=== PATIENT | male | born 1960 | race Caucasian/White ===

== ENCOUNTER 2023-03-04 11:10 | Observation (INO) ==
[2023-03-04] MEDS ORDERED: CEFEPIME 2,000 MG/20 ML VIAL IV STA (11:43)
[2023-03-04] MEDS ORDERED: ONDANSETRON INJ 2 MG/ML 2 ML VIAL IV STA (11:43)
[2023-03-04] MEDS ORDERED: ACETAMINOPHEN 1,000 MG/100 ML VIAL IV STA (11:43)
[2023-03-04] MEDS ORDERED: KETOROLAC TROMETHAMINE 15 MG/ML VIAL IV STA (11:43)
--- NOTE | 2023-03-04 11:59 | Emergency Department Note ---
Impression & Plan Sepsis, Pneumonia, Hypomagnesemia, Tachycardia, SOB (shortness of breath), Anemia ED Provider Note NAME: CLAU HOLLIS AGE: 62 SEX: M : 1960 ARRIVES VIA: Walk-In INFORMANT: [Patient][family] ED PROVIDER(S): [Kip Nicole MD] CHIEF COMPLAINT: Illness HISTORY OF PRESENT ILLNESS: The patient is a 62-year-old male whose had 4 days of symptoms. He has fatigue, he feels quite tired. He feels short of breath and weak. He has been dizzy. No fever. He has felt hot and cold though. At home, his O2 saturation was around 73, quite low. He typically does not use any oxygen although he carries a history of COPD. He has had 1 cardiac stent. Patient felt he may have gotten sick from his son. The patient states despite feeling the need that he should be coughing, he is not coughing. He feels like if he could cough, he might feel better. PMHx/PSHx: See Below SOCIAL HISTORY: See Below. PHYSICAL EXAM: GENERAL: Patient is in no acute distress. HEENT: No acute trauma, normocephalic atraumatic, mucous membranes moist, no nasal congestion. NECK: No stridor, no adenopathy, no meningismus, trachea is midline. LUNGS: Crackles heard at the right lower lung. No wheezing, no obvious respiratory distress HEART: Tachycardic, regular rhythm, no murmurs. ABDOMEN: Soft, nontender, bowel sounds positive, no peritonitis. EXTREMITIES: No cyanosis or edema, full range of motion of all the joints without pain or difficulty, no signs for acute trauma. NEUROLOGIC: Oriented x 3, no acute motor or sensory deficits, no focal weakness. SKIN: No rash, no jaundice, no diaphoresis. DIFFERENTIAL DIAGNOSIS: Pneumonia, bronchitis, CHF, dysrhythmia, A-fib or a flutter, illness, sepsis or bacteremia, exacerbation of COPD, among others. EMERGENCY DEPARTMENT COURSE/PROCEDURES: Prior/Outside records reviewed: None. ECG per my interpretation: Indication was weakness. The ECG shows a sinus tachycardia with a rate of 137. There is some nonspecific ST change diffusely. There is no ST elevation, no PVCs. QTc is 443. Continuous Cardiac Monitoring per my interpretation: An order was placed for continuous cardiac monitoring. The monitor shows a rate of 142 with sinus tachycardia. Critical Care Note: I have personally spent 43 minutes of critical care time in the direct management of this patient. This includes bedside care, interpretation of diagnostic studies, and testing, discussion with consultants, patient, and family members, and other required patient management activities. This 43 minutes is in excess of all separately billable procedures. MEDICAL DECISION MAKING: There is no leukocytosis. The patient is anemic, I have no old values to use for comparison. This value will of course need closely followed. There is a normal platelet count. No coagulopathy. Creatinine is elevated at 1.64. Magnesium is quite low at 0.7. Lactic acid level is not elevated making severe sepsis less likely. Alk phos was slightly elevated, the remaining liver enzymes were unremarkable. ECG shows a sinus tachycardia, no obvious acute ischemia. Cardiac enzyme testing x1 is not consistent with acute cardiac injury. Procalcitonin level was elevated consistent with bacterial infection. Urinalysis shows some contamination, no infection. Respiratory bio fire was completely negative. Chest film per my review does show a right lower lung pneumonia. Chest CT does not show PE, the pneumonia on the right was again seen. On my exam, the patient was tachycardic, he was not toxic. Patient received IV saline, 2.5 L, this would cover the patient with over 30 cc/kg of saline per sepsis protocol. Patient was given IV Zofran, IV magnesium--2 g. Patient was given IV Toradol, IV cefepime and IV Tylenol. The patient was given a DuoNeb. The patient tachycardia has improved with the above treatment. I do think he requires a hospital stay. He has early sepsis I believe from his pneumonia/infection. I did speak with case management, the on-call hospitalist was consulted. The patient is aware of all his findings. DISPOSITION: Patient's presentation and findings warrant a hospital stay. Past Med/Surg History Medical History Arthritis Bipolar disorder BPH (benign prostatic hyperplasia) CAD in [place] artery Diabetes mellitus Enlarged prostate GERD (gastroesophageal reflux disease) HTN (hypertension) with goal to be determined Hyperlipidemia Hypertension Social History Smoking Status: Former smoker Preferred Language: Czech Feels Safe at Home: Yes Allergies Allergies Allergy/AdvReac Type Severity Reaction Status Date / Time No Known Drug Allergies Allergy Verified 07/29/19 14:49 Home Meds Home Medications Medication Instructions Recorded Confirmed alfuzosin 10 mg tablet,extended 1 PO .Take 1 tablet daily #30 tabs 07/29/19 release 24 hr atorvastatin 40 mg tablet 40 mg PO QAM 03/04/23 03/04/23 buspirone 10 mg tablet 10 mg PO TID 03/04/23 03/04/23 clopidogrel 75 mg tablet 75 mg PO DAILY 03/04/23 03/04/23 finasteride 5 mg tablet 5 mg PO DAILY 03/04/23 03/04/23 fluoxetine 40 mg capsule 80 mg PO DAILY 03/04/23 03/04/23 fluticasone fur. 100 mcg-umeclid 1 ea inhalation DAILY 03/04/23 03/04/23 62.5 mcg-vilant 25 mcg inhalat.powder (Trelegy Ellipta) fluticasone propionate 50 50 mcg intranasal DAILY 03/04/23 03/04/23 mcg/actuation nasal spray,suspension lamotrigine 100 mg tablet 100 mg PO BID 03/04/23 03/04/23 lisinopril 40 mg tablet 40 mg PO DAILY 03/04/23 03/04/23 metformin 500 mg tablet 500 mg PO DAILY 03/04/23 03/04/23 pantoprazole 40 mg tablet,delayed 40 mg PO DAILY 03/04/23 03/04/23 release semaglutide 0.25 mg or 0.5 mg (2 mg subcut 03/04/23 mg/1.5 mL) subcutaneous pen injector (Ozempic) tamsulosin 0.4 mg capsule 0.8 mg PO HS 03/04/23 03/04/23 Results & Data (ED) Vital Signs Vital Signs - 24 hr 03/04/23 11:13 03/04/23 11:53 03/04/23 11:53 Temperature 36.5 C Temperature Source Temporal Artery Scan Pulse Rate 144 H 132 H Pulse Rate [Apical] 131 H Pulse Rhythm Regular Pulse Rhythm [Apical] Regular Pulse Strength [Apical] Normal Respiratory Rate 20 21 21 Respiratory Effort / Characteristics Non-Labored Spontaneous Non-Labored Respiratory Depth Normal Normal Respiratory Pattern Regular Blood Pressure 104/73 Blood Pressure [Left Arm] 114/74 Blood Pressure Mean 83 Blood Pressure Mean [Left Arm] 87 Blood Pressure Position [Left Arm] Sitting Pulse Oximetry 91 91 92 Oxygen Delivery Method Room Air Nasal Cannula Room Air Oxygen Flow Rate 2 Sepsis New/Unexplained Change in Mental Status N/A Sepsis Action Taken by Nursing No Action Required 03/04/23 11:59 03/04/23 11:11 03/04/23 11:11 Temperature Temperature Source Pulse Rate Pulse Rate [Apical] 126 H 113 H 109 H Pulse Rhythm Pulse Rhythm [Apical] Regular Regular Pulse Strength [Apical] Normal Normal Normal Respiratory Rate 20 20 20 Respiratory Effort / Characteristics Non-Labored Non-Labored Non-Labored Respiratory Depth Normal Normal Normal Respiratory Pattern Regular Regular Blood Pressure Blood Pressure [Left Arm] 115/69 94/60 L Blood Pressure Mean Blood Pressure Mean [Left Arm] 84 71 Blood Pressure Position [Left Arm] Sitting Sitting Sitting Pulse Oximetry 94 92 96 Oxygen Delivery Method Nasal Cannula Nasal Cannula Nasal Cannula Oxygen Flow Rate 2 2 2 Sepsis New/Unexplained Change in Mental Status Sepsis Action Taken by Nursing 03/04/23 13:19 03/04/23 13:18 Temperature Temperature Source Pulse Rate 109 H Pulse Rate [Apical] 104 H Pulse Rhythm Pulse Rhythm [Apical] Regular Pulse Strength [Apical] Normal Respiratory Rate 20 Respiratory Effort / Characteristics Non-Labored Respiratory Depth Normal Respiratory Pattern Regular Blood Pressure Blood Pressure [Left Arm] 107/55 L Blood Pressure Mean Blood Pressure Mean [Left Arm] 72 Blood Pressure Position [Left Arm] Sitting Pulse Oximetry Oxygen Delivery Method Room Air Oxygen Flow Rate Sepsis New/Unexplained Change in Mental Status Sepsis Action Taken by Detention Medications Current Medication List: was personally reviewed by me Laboratory Data Attestation: I reviewed the patient's lab results. 03/04/23 11:38 03/04/23 11:38 Lab Results 03/04/23 03/04/23 03/04/23 Range/Units 11:38 11:38 11:38 WBC 8.25 (4.8-10.8) K/ul RBC 3.37 L (4.70-6.10) M/uL Hgb 10.5 L (14.0-18.0) g/dl Hct 30.6 L (42.0-52.0) % MCV 90.8 (80.0-100.0) fL MCH 31.2 (25.0-34.0) pg MCHC 34.3 (32.0-36.0) g/dL RDW Std Deviation 45.1 (36.4-46.3) fL RDW Coeff of Christopeh 13.6 (11.5-14.5) % Plt Count 216 (130-400) K/uL MPV 11.2 (9.4-12.4) fL Immature Gran % (Auto) 0.5 % Neut % (Auto) 88.1 % Lymph % (Auto) 3.5 % [place] % (Auto) 7.3 % Eos % (Auto) 0.2 % Baso % (Auto) 0.4 % Neut # (Auto) 7.27 H (1.40-6.50) K/uL Lymph # (Auto) 0.29 L (1.2-3.4) K/uL [place] # (Auto) 0.60 H (0.11-0.59) K/uL Eos # (Auto) 0.02 (0-0.50) K/uL Baso # (Auto) 0.03 (0-0.2) K/uL Immature Gran # (Auto) 0.04 (0.01-0.20) K/uL PT 11.4 (9.0-12.0) Seconds INR 1.0 (0.9-1.1) APTT 26.5 (21.0-31.0) Seconds PTT Ratio 0.9 Sodium 135 L (136-145) mmol/L Potassium 3.6 (3.5-5.1) mmol/L Chloride 102 (98-107) mmol/L Carbon Dioxide 21 (21-32) mmol/L Anion Gap 12 H (3-11) BUN 32 H (6-23) mg/dl Creatinine 1.64 H (0.6-1.4) mg/dl Est Cr Clr Drug Dosing 44.2 ml/min Est GFR ( Amer) 51.5 ml/min Est GFR (Non-Af Amer) 44.5 ml/min BUN/Creatinine Ratio 19.5 (10-20) Glucose 150 H (70-99(Fasting)) mg/dl Lactate (0.4-2.0) mmol/L Calcium 9.2 (8.6-10.3) mg/dl Magnesium 0.7 L* (1.7-2.4) mg/dl Total Bilirubin 0.7 (0.2-1.0) mg/dl Direct Bilirubin 0.2 (0-0.2) mg/dl AST 19 (13-39) U/L ALT 24 (7-52) U/L Alkaline Phosphatase 135 H (34-104) U/L Troponin I High Sens 16.7 (0-20) pg/ml Total Protein 6.9 (6.0-8.3) gm/dl Albumin 3.9 (3.4-5.0) gm/dl Procalcitonin (0-0.5) ng/ml Urine Color Urine Appearance (Clear) Urine pH (4.5-7.5) Ur Specific [place] (1.000-1.030) Urine Protein (Negative) Urine Glucose (UA) (Negative) Urine Ketones (Negative) Urine Blood (Negative) Urine Nitrite (Negative) Urine Bilirubin (Negative) Urine Urobilinogen (Negative) Ur Leukocyte Esterase (Negative) Urine WBC (Auto) (0-5) /hpf Urine RBC (Auto) (0-4) /hpf U Hyaline Cast (Auto) (0-5) /lpf U Epithel Cells (Auto) (0-5) /lpf Urine Bacteria (Auto) (Negative) Granular Casts (0) /lpf Urine Yeast Adenovirus (PCR) (NotDetected) B. pertussis DNA (PCR) (NotDetected) B.parapertussis DNA PCR (NotDetected) C. pneumoniae DNA (PCR) (NotDetected) Coronavirus OC43 (PCR) (NotDetected) Coronavirus HKU1 (PCR) (NotDetected) Coronavirus 229E (PCR) (NotDetected) SARS-CoV-2 (PCR) (NotDetected) Coronavirus NL63 (PCR) (NotDetected) Human Metapneumovir PCR (NotDetected) Influenza Type A (PCR) (NotDetected) Influenza Type B (PCR) (NotDetected) M. pneumoniae (PCR) (NotDetected) Parainfluenza 1 (PCR) (NotDetected) Parainfluenza 2 (PCR) (NotDetected) Parainfluenza 3 (PCR) (NotDetected) Parainfluenza 4 (PCR) (NotDetected) RSV (PCR) (NotDetected) Entero/Rhino (PCR) (NotDetected) 03/04/23 03/04/23 03/04/23 Range/Units 11:38 12:04 12:13 WBC (4.8-10.8) K/ul RBC (4.70-6.10) M/uL Hgb (14.0-18.0) g/dl Hct (42.0-52.0) % MCV (80.0-100.0) fL MCH (25.0-34.0) pg MCHC (32.0-36.0) g/dL RDW Std Deviation (36.4-46.3) fL RDW Coeff of Christophe (11.5-14.5) % Plt Count (130-400) K/uL MPV (9.4-12.4) fL Immature Gran % (Auto) % Neut % (Auto) % Lymph % (Auto) % [place] % (Auto) % Eos % (Auto) % Baso % (Auto) % Neut # (Auto) (1.40-6.50) K/uL Lymph # (Auto) (1.2-3.4) K/uL [place] # (Auto) (0.11-0.59) K/uL Eos # (Auto) (0-0.50) K/uL Baso # (Auto) (0-0.2) K/uL Immature Gran # (Auto) (0.01-0.20) K/uL PT (9.0-12.0) Seconds INR (0.9-1.1) APTT (21.0-31.0) Seconds PTT Ratio Sodium (136-145) mmol/L Potassium (3.5-5.1) mmol/L Chloride (98-107) mmol/L Carbon Dioxide (21-32) mmol/L Anion Gap (3-11) BUN (6-23) mg/dl Creatinine (0.6-1.4) mg/dl Est Cr Clr Drug Dosing ml/min Est GFR ( Amer) ml/min Est GFR (Non-Af Amer) ml/min BUN/Creatinine Ratio (10-20) Glucose (70-99(Fasting)) mg/dl Lactate 1.9 (0.4-2.0) mmol/L Calcium (8.6-10.3) mg/dl Magnesium (1.7-2.4) mg/dl Total Bilirubin (0.2-1.0) mg/dl Direct Bilirubin (0-0.2) mg/dl AST (13-39) U/L ALT (7-52) U/L Alkaline Phosphatase (34-104) U/L Troponin I High Sens (0-20) pg/ml Total Protein (6.0-8.3) gm/dl Albumin (3.4-5.0) gm/dl Procalcitonin 1.28 H (0-0.5) ng/ml Urine Color Urine Appearance (Clear) Urine pH (4.5-7.5) Ur Specific [place] (1.000-1.030) Urine Protein (Negative) Urine Glucose (UA) (Negative) Urine Ketones (Negative) Urine Blood (Negative) Urine Nitrite (Negative) Urine Bilirubin (Negative) Urine Urobilinogen (Negative) Ur Leukocyte Esterase (Negative) Urine WBC (Auto) (0-5) /hpf Urine RBC (Auto) (0-4) /hpf U Hyaline Cast (Auto) (0-5) /lpf U Epithel Cells (Auto) (0-5) /lpf Urine Bacteria (Auto) (Negative) Granular Casts (0) /lpf Urine Yeast Adenovirus (PCR) Not Detected (NotDetected) B. pertussis DNA (PCR) Not Detected (NotDetected) B.parapertussis DNA PCR Not Detected (NotDetected) C. pneumoniae DNA (PCR) Not Detected (NotDetected) Coronavirus OC43 (PCR) Not Detected (NotDetected) Coronavirus HKU1 (PCR) Not Detected (NotDetected) Coronavirus 229E (PCR) Not Detected (NotDetected) SARS-CoV-2 (PCR) Not Detected (NotDetected) Coronavirus NL63 (PCR) Not Detected (NotDetected) Human Metapneumovir PCR Not Detected (NotDetected) Influenza Type A (PCR) Not Detected (NotDetected) Influenza Type B (PCR) Not Detected (NotDetected) M. pneumoniae (PCR) Not Detected (NotDetected) Parainfluenza 1 (PCR) Not Detected (NotDetected) Parainfluenza 2 (PCR) Not Detected (NotDetected) Parainfluenza 3 (PCR) Not Detected (NotDetected) Parainfluenza 4 (PCR) Not Detected (NotDetected) RSV (PCR) Not Detected (NotDetected) Entero/Rhino (PCR) Not Detected (NotDetected) 03/04/23 Range/Units 13:20 WBC (4.8-10.8) K/ul RBC (4.70-6.10) M/uL Hgb (14.0-18.0) g/dl Hct (42.0-52.0) % MCV (80.0-100.0) fL MCH (25.0-34.0) pg MCHC (32.0-36.0) g/dL RDW Std Deviation (36.4-46.3) fL RDW Coeff of Christophe (11.5-14.5) % Plt Count (130-400) K/uL MPV (9.4-12.4) fL Immature Gran % (Auto) % Neut % (Auto) % Lymph % (Auto) % [place] % (Auto) % Eos % (Auto) % Baso % (Auto) % Neut # (Auto) (1.40-6.50) K/uL Lymph # (Auto) (1.2-3.4) K/uL [place] # (Auto) (0.11-0.59) K/uL Eos # (Auto) (0-0.50) K/uL Baso # (Auto) (0-0.2) K/uL Immature Gran # (Auto) (0.01-0.20) K/uL PT (9.0-12.0) Seconds INR (0.9-1.1) APTT (21.0-31.0) Seconds PTT Ratio Sodium (136-145) mmol/L Potassium (3.5-5.1) mmol/L Chloride (98-107) mmol/L Carbon Dioxide (21-32) mmol/L Anion Gap (3-11) BUN (6-23) mg/dl Creatinine (0.6-1.4) mg/dl Est Cr Clr Drug Dosing ml/min Est GFR ( Amer) ml/min Est GFR (Non-Af Amer) ml/min BUN/Creatinine Ratio (10-20) Glucose (70-99(Fasting)) mg/dl Lactate (0.4-2.0) mmol/L Calcium (8.6-10.3) mg/dl Magnesium (1.7-2.4) mg/dl Total Bilirubin (0.2-1.0) mg/dl Direct Bilirubin (0-0.2) mg/dl AST (13-39) U/L ALT (7-52) U/L Alkaline Phosphatase (34-104) U/L Troponin I High Sens (0-20) pg/ml Total Protein (6.0-8.3) gm/dl Albumin (3.4-5.0) gm/dl Procalcitonin (0-0.5) ng/ml Urine Color Dark Yellow Urine Appearance Cloudy A (Clear) Urine pH 5.0 (4.5-7.5) Ur Specific [place] 1.024 (1.000-1.030) Urine Protein 2+ H (Negative) Urine Glucose (UA) 2+ H (Negative) Urine Ketones Trace H (Negative) Urine Blood Negative (Negative) Urine Nitrite Negative (Negative) Urine Bilirubin 1+ H (Negative) Urine Urobilinogen Negative (Negative) Ur Leukocyte Esterase Trace H (Negative) Urine WBC (Auto) 1-5 (0-5) /hpf Urine RBC (Auto) 0-4 (0-4) /hpf U Hyaline Cast (Auto) 5-10 H (0-5) /lpf U Epithel Cells (Auto) >30 H (0-5) /lpf Urine Bacteria (Auto) Negative (Negative) Granular Casts 5-10 H (0) /lpf Urine Yeast Not Reportable Adenovirus (PCR) (NotDetected) B. pertussis DNA (PCR) (NotDetected) B.parapertussis DNA PCR (NotDetected) C. pneumoniae DNA (PCR) (NotDetected) Coronavirus OC43 (PCR) (NotDetected) Coronavirus HKU1 (PCR) (NotDetected) Coronavirus 229E (PCR) (NotDetected) SARS-CoV-2 (PCR) (NotDetected) Coronavirus NL63 (PCR) (NotDetected) Human Metapneumovir PCR (NotDetected) Influenza Type A (PCR) (NotDetected) Influenza Type B (PCR) (NotDetected) M. pneumoniae (PCR) (NotDetected) Parainfluenza 1 (PCR) (NotDetected) Parainfluenza 2 (PCR) (NotDetected) Parainfluenza 3 (PCR) (NotDetected) Parainfluenza 4 (PCR) (NotDetected) RSV (PCR) (NotDetected) Entero/Rhino (PCR) (NotDetected) Administered Medications Discontinued Medications Albuterol (Albut/Ipratrop 3mg/0.5mg Neb 3 Ml Vial) 3 ml NEB NOW STA; Protocol Stop: 03/04/23 13:36 Last Admin: 03/04/23 14:13 Dose: 3 ml Documented By: KALA Cefepime HCl (Maxipime) 2,000 mg in 20 mls @ 5 mls/min IV NOW STA; Protocol Stop: 03/04/23 11:46 Last Admin: 03/04/23 12:29 Dose: 5 mls/min Documented By: KALA Acetaminophen (Ofirmev) 1,000 mg in 100 mls @ 400 mls/hr IV NOW STA Stop: 03/04/23 11:57 Last Admin: 03/04/23 12:29 Dose: 400 mls/hr Documented By: KALA Sodium Chloride (Nss 1000ml) 1,000 mls @ 999 mls/hr IV .Q1H1M HECTOR Stop: 03/04/23 13:45 Last Infusion: 03/04/23 14:44 Dose: 0 mls/hr Documented By: Admin: 03/04/23 13:23 Dose: 999 mls/hr Documented By: Infusion: 03/04/23 13:01 Dose: 999 mls/hr Documented By: Admin: 03/04/23 12:00 Dose: 999 mls/hr Documented By: KALA Magnesium Sulfate/Dextrose (Magnesium Sulfate / D5w) 1 gm in 100 mls @ 100 mls/hr IV Q1H HECTOR Stop: 03/04/23 14:43 Last Admin: 03/04/23 14:14 Dose: 100 mls/hr Documented By: Infusion: 03/04/23 14:14 Dose: 100 mls/hr Documented By: Admin: 03/04/23 13:22 Dose: 100 mls/hr Documented By: KALA Sodium Chloride (Nss 1000ml) 500 mls @ 999 mls/hr IV .Q31M ONE Stop: 03/04/23 14:05 Last Admin: 03/04/23 14:14 Dose: 999 mls/hr Documented By: KALA Ioversol (Optiray 320 500ml) 116 ml IV ONCE ONE Stop: 03/04/23 13:12 Last Admin: 03/04/23 13:06 Dose: 116 ml Documented By: NATY Ketorolac Tromethamine (Ketorolac Tromethamine 15 Mg/Ml Vial) 15 mg IV NOW STA Stop: 03/04/23 11:44 Last Admin: 03/04/23 12:28 Dose: 15 mg Documented By: KLAA Ondansetron HCl (Ondansetron Inj 2 Mg/Ml 2 Ml Vial) 4 mg IV NOW STA Stop: 03/04/23 11:44 Last Admin: 03/04/23 12:28 Dose: 4 mg Documented By: KALA Imaging Data Radiologist's Impression: Chest CTA 03/04/23 11:43 CT angio chest PE protocol CLINICAL HISTORY: PE TECHNIQUE: Multidetector row helical CT of the chest was performed with angiographic protocol. Coronal and sagittal reformations were obtained. Coronal and sagittal MIPS were obtained from the axial data set and were submitted for review. Automated dose lowering techniques and/or adjustment according to patient size were utilized for this exam. CT DOSE: 493.52 mGy.cm Comparison: None available at the time of this dictation. FINDINGS: Lungs and pleura: Emphysema is seen. Multifocal airspace opacities in the right lung and to a lesser extent in the dependent aspect of the left lower lobe. Against this background no suspicious pulmonary nodules are seen. Heart and pericardium: Heart size is normal. No pericardial effusion. Vessels: Evaluation for pulmonary embolism is limited due to suboptimal contrast timing. No evidence of central, lobar, or segmental embolus. Mediastinum and julieth: Right hilar nodes measure up to 16 mm in short axis. Additional smaller right hilar and mediastinal lymph nodes are seen. Chest wall and lower neck: Unremarkable. Abdomen: Unremarkable. Bones: Degenerative changes in the thoracic spine. IMPRESSION: 1. Multifocal airspace opacities are seen compatible with pneumonia. Lymphadenopathy is likely reactive. 2. No pulmonary embolus is seen. 3. Emphysema. ACT 112: Negative or not required by law. Electronically signed by: Devonte Stephens M.D. 03/04/2023 1:23 PM Chest X-Ray 03/04/23 11:44 XR chest 1V portable CLINICAL HISTORY: Sepsis TECHNIQUE: Single frontal radiograph of the chest was obtained. Comparison: None available at the time of this dictation. FINDINGS: No lines and tubes are seen. The cardiomediastinal silhouette is normal. Airspace opacity is seen in the right lower lung. No evidence of pleural effusion or pneumothorax. IMPRESSION: Right lower lung airspace opacity likely represents aspiration and/or pneumonia. ACT 112: Negative or not required by law. Electronically signed by: Devonte Stephens M.D. 03/04/2023 12:40 PM Discharge Plan Visit Data Chief Complaint: Illness Stated Complaint: LOW O2 ED Provider: Kip Nicole Discharge Problem: Sepsis, Pneumonia, Hypomagnesemia, Tachycardia, SOB (shortness of breath), A nemia Patient Disposition: Admitted As Inpatient Condition: Fair Forms Stand Alone Forms: My [facility] Prescriptions Prescriptions: No Action alfuzosin 10 mg tablet extended release 24 hr 1 PO .Take 1 tablet daily Qty: 30 fluoxetine 40 mg capsule 80 mg PO DAILY atorvastatin 40 mg tablet 40 mg PO QAM metformin 500 mg tablet 500 mg PO DAILY clopidogrel 75 mg tablet 75 mg PO DAILY tamsulosin 0.4 mg capsule 0.8 mg PO HS pantoprazole 40 mg tablet,delayed release (DR/EC) 40 mg PO DAILY buspirone 10 mg tablet 10 mg PO TID lisinopril 40 mg tablet 40 mg PO DAILY fluticasone propionate 50 mcg/actuation spray,suspension 50 mcg INTRANASAL DAILY lamotrigine 100 mg tablet 100 mg PO BID finasteride 5 mg tablet 5 mg PO DAILY Trelegy Ellipta 100-62.5-25 mcg blister with device 1 ea INHALATION DAILY Ozempic 0.25 mg or 0.5 mg(2 mg/1.5 mL) pen injector SUBCUT Referrals Referrals: Kwadwo Rivera D.O. [Primary Care Provider] -
[2023-03-04] MEDS: SODIUM CHLORIDE 0.9% 1000ML 1,000 ML IV SCH ×2 (12:00→13:23)
[2023-03-04 12:05] LABS: Hematocrit (blood only) 30.6 % (42.0-52.0); Hemoglobin 10.5 g/dl (14.0-18.0); Mean Corpuscular Hemoglobin 31.2 pg (25.0-34.0); Mean Corpuscular Hgb Conc 34.3 g/dL (32.0-36.0); Mean Corpuscular Volume 90.8 fL (80.0-100.0); Mean Platelet Volume 11.2 fL (9.4-12.4); Platelet Count 216 K/uL (130-400); RDW Coefficient of Variation 13.6 % (11.5-14.5); RDW Standard Deviation 45.1 fL (36.4-46.3); Red Blood Count 3.37 M/uL (4.70-6.10); White Blood Count 8.25 K/ul (4.8-10.8)
[2023-03-04 12:17] LABS: BUN Creatinine Ratio 19.5 (10-20); Calcium 9.2 mg/dl (8.6-10.3); Creatinine Clr Calc Pharmacy 44.2 ml/min; Est GFR (African American) 51.5 ml/min; Est GFR (Non-African American) 44.5 ml/min; Potassium 3.6 mmol/L (3.5-5.1)
[2023-03-04 12:23] LABS: Troponin I High Sensitivity 16.7 pg/ml (0-20)
[2023-03-04 12:29] LABS: Basophils # (auto) 0.03 K/uL (0-0.2); Basophils % (auto) 0.4 %; Eosinophils # (auto) 0.02 K/uL (0-0.50); Eosinophils % (auto) 0.2 %; Immature Granulocytes # (auto) 0.04 K/uL (0.01-0.20); Immature Granulocytes % (auto) 0.5 %; Lymphocytes # (auto) 0.29 K/uL (1.2-3.4); Lymphocytes % (auto) 3.5 %; Monocytes % (auto) 7.3 %; Neutrophils # (auto) 7.27 K/uL (1.40-6.50); Neutrophils % (auto) 88.1 %; Partial Thromboplastin Ratio 0.9; Partial Thromboplastin Time 26.5 Seconds (21.0-31.0); Prothrombin Time 11.4 Seconds (9.0-12.0)
--- NOTE | 2023-03-04 12:41 | XRay Report ---
XR chest 1V portable CLINICAL HISTORY: Sepsis TECHNIQUE: Single frontal radiograph of the chest was obtained. Comparison: None available at the time of this dictation. FINDINGS: No lines and tubes are seen. The cardiomediastinal silhouette is normal. Airspace opacity is seen in the right lower lung. No evidence of pleural effusion or pneumothorax. IMPRESSION: Right lower lung airspace opacity likely represents aspiration and/or pneumonia. ACT 112: Negative or not required by law. Electronically signed by: Devonte Stephens M.D. 03/04/2023 12:40 PM
[2023-03-04 12:46] LABS: Albumin Level 3.9 gm/dl (3.4-5.0); Bilirubin Direct 0.2 mg/dl (0-0.2); Bilirubin,Total 0.7 mg/dl (0.2-1.0); Magnesium 0.7 mg/dl (1.7-2.4); Total Protein 6.9 gm/dl (6.0-8.3)
[2023-03-04] MEDS ORDERED: OPTIRAY 320 500ml IV ONE (13:11)
--- NOTE | 2023-03-04 13:20 | Electrocardiogram Report ---
Test Reason : Blood Pressure : / mmHG Vent. Rate : 137 BPM Atrial Rate : 137 BPM P-R Int : 144 ms QRS Dur : 092 ms QT Int : 294 ms P-R-T Axes : 056 037 037 degrees QTc Int : 443 ms Poor data quality, interpretation may be adversely affected Sinus tachycardia Otherwise Normal ECG No previous ECGs available Confirmed by Estuardo Arnold ([id number]) on 03/04/2023 1:20:27 PM Referred By: REFERRED SELF Confirmed By:Estuardo Arnold
[2023-03-04] MEDS: MAGNESIUM SULFATE / D5W 1 GM/100 ML BAG IV SCH ×6 (13:22→22:35)
--- NOTE | 2023-03-04 13:24 | CT Scan Report ---
CT angio chest PE protocol CLINICAL HISTORY: PE TECHNIQUE: Multidetector row helical CT of the chest was performed with angiographic protocol. Nava l and sagittal reformations were obtained. Coronal and sagittal MIPS were obtained from the axial alvina a set and were submitted for review. Automated dose lowering techniques and/or adjustment according to patient size were utilized for this exam. CT DOSE: 493.52 mGy.cm Comparison: None available at the time of this dictation. FINDINGS: Lungs and pleura: Emphysema is seen. Multifocal airspace opacities in the right lung and to a lesser extent in the dependent aspect of the left lower lobe. Against this background no suspicious pulmonar y nodules are seen. Heart and pericardium: Heart size is normal. No pericardial effusion. Vessels: Evaluation for pulmonary embolism is limited due to suboptimal contrast timing. No evidence of central, lobar, or segmental embolus. Mediastinum and julieth: Right hilar nodes measure up to 16 mm in short axis. Additional smaller right h ilar and mediastinal lymph nodes are seen. Chest wall and lower neck: Unremarkable. Abdomen: Unremarkable. Bones: Degenerative changes in the thoracic spine. IMPRESSION: 1. Multifocal airspace opacities are seen compatible with pneumonia. Lymphadenopathy is likely react nancy. 2. No pulmonary embolus is seen. 3. Emphysema. ACT 112: Negative or not required by law. Electronically signed by: Devonte Stephens M.D. 03/04/2023 1:23 PM
[2023-03-04] MEDS ORDERED: ALBUT/IPRATROP 3MG/0.5MG NEB 3 ML VIAL NEB STA (13:35)
[2023-03-04] MEDS ORDERED: SODIUM CHLORIDE 0.9% 1000ML 500 ML IV ONE (13:35)
[2023-03-04 13:40] LABS: Appearance Urine Cloudy (Clear); Bacteria Urine Automated Negative (Negative); Blood Urine Negative (Negative); Color Urine Dark Yellow; Epithelial Cell Urine Auto >30 /lpf (0-5); Glucose Urine UA 2+ (Negative); Ketones Urine Trace (Negative); Leukocyte Esterase Urine Trace (Negative); Nitrite Urine Negative (Negative); Protein Urine 2+ (Negative); RBC Urine Automated 0-4 /hpf (0-4); Specific Gravity Urine 1.024 (1.000-1.030); Urobilinogen Urine Negative (Negative)
[2023-03-04 13:42] LABS: Bilirubin Urine 1+ (Negative)
--- NOTE | 2023-03-04 13:52 | History & Physical Report ---
Date of Service March 04, 2023 Assessment & Plan (1) Sepsis: Plan: suspected due to pneumonia. O2 sats to 70s w/ home pulse ox in patient w/ hx COPD, recent ill contact w/ his son in school. Associated poor PO intake x 2-3 days, lightheaded/dizziness/palpitations (granular casts on UA, suspect hypotension at home as well, was borderline on arrival w/ HRs to 130-140s, sinus tachy) CT chest w/ Multifocal airspace opacities are seen compatible with pneumonia. Lymphadenopathy is likely reactive. No PE noted Procal elevated 1.28. Mag critically low 0.7. Surprisingly lactic wnl 1.9 Blood cultures pending -- monitor Given cefepime in ER Admit PCU given critically low mag. Is NSR/ST on monitor but given palpitations will monitor for arrhythmia. Additional IV mag replacement ordered and repeat labs for this evening Continue abx w/ Unasyn for broad spectrum/anaerobic coverage given concerns for aspiration, azithromycin for atypical coverage. Incentive spirometer, flutter valve, Mucinex BID Sputum if able to produce Monitor blood cultures Consider adding hypertonic saline nebs if needed Duonebs Supplemental O2 to maintain sats Will order additinal 1L IVF given poor PO intake and CARMENCITA. Will avoid further Toradol Also checking KUB given complaints constipation/no BM x 2 days. Of note, he had been taking laxatives nightly and needing outpt f/u GI. Denied any bloody stools. Monitor labs on repeat (2) Pneumonia: Plan: on imaging abx as outlined monitor response (3) Hypomagnesemia: Plan: critically low 0.7 -- 2gm IV ordered by ER, additional IV replacement ordered. ?ppi use, poor PO intake, metformin repeat labs tonight/further replacement monitoring on telemetry (4) CARMENCITA (acute kidney injury): Plan: suspected however unclear baseline. was taking NSAIDs at home, will avoid further (given toradol in ER) IVF for dehydration Holding lisinopril avoid nephrotoxins, renal dose meds as able Of note, lightheaded/dizzy [employer] at home, BPs borderline low --> granular casts noted on UA and likely hypotension at home contributing to CARMENCITA Monitor BMP in AM (5) COPD (chronic obstructive pulmonary disease): Plan: hx of such, quit smoking ~1 year ago. NOT on oxygen at home on trelegy inhaler and albuterol HFA prn continue tx for pneumonia as above, supplemental O2 as needed (6) CAD in robinson artery: Plan: follows [facility], apparent stenting in past ~2 years and remains on plavix daily continue plavix, statin apparently not on any BB as outpatient Holding lisinopril given Cr 1.64 w/ BUN 32 as appeared dehydrated on exam, but unknown baseline. On NSAIDs for chronic pain, would avoid further dosing EKG w/ CP Monitor on telemetry (7) Hypertension: Plan: BP low normal, holding lisinopril given suspected CARMENCITA Monitor BPs (8) Hyperlipidemia: Plan: conitnue statin (9) Diabetes mellitus: Plan: on metformin and ozempic outpatient holding outpatient meds while inpatient BSG AC/HS, ISS while inpatient Monitor BSGs check A1c w/ am labs (10) GERD (gastroesophageal reflux disease): Plan: continue PPI (11) Benign localized hyperplasia of prostate with urinary obstruction and lower urinary tract symptoms: Plan: continue flomax/finasteride monitor UOP (12) Bipolar 1 disorder: Plan: reports mood stable and will continue lamotrigine BID, buspar TID, fluoxetine 80mg daily no recent dorina reported (13) Constipation: Plan: reported no BM x 2 days check KUB, if no obstruction (+BS on exam), schedule bowel regimen (14) Hypoxia: Plan DVT proph: Heparin SQ given suspect CARMENCITA History of Present Illness Chief Complaint: SOB, fatigue, weakness Primary Care Provider: Kwadwo Rivera 62yo male w/ PMHx significant for CAD w/ stenting, COPD presented to the ER with 4 days of fatigue, shortness of breath without fever, however son recently sick (age 4, in school). He did note some chills however and felt he may be getting a fever/sick though. He checked his oxygen levels at home and they had been in the 70s. He reports he has been feeling fatigued and tired over the past 4-5 days with shortness of breath, weakness, and SpO2 at home to 73%. He notes he did feel lightheaded/palpitations at home. No known history of afib. He has hx COPD and on Trelegy and albuterol HFA as needed. He notes he stopped smoking about a year ago. Had not been eating/drinking well. Prior having some abdominal discomfort. He does note no BM x 2 days but hasn't been eating. Reports some RLQ pain but nontender on exam but is distended. Passing some gas but will monitor. He reports taking an ex-lax every evening and attempting to get into GI but wasn't cleared by cards as hadn't had recent follow. He follows with Dr Noe and states he is on plavix, hasn't missed any doses. Stent to LAD about 2-3 years ago he reports. Had been taking ibuprofen at home. No bleeding reported at present. +cough, but feels he is unable to bring up any sputum. Unsure of his baseline kidney function. Has hx DM and is on metformin and Ozempic weekly, last dose on Saturday. Mood disorder on fluoxetine, gabapentin, buspar and lamotrigine. No issues w/ his bipolar and states moods have been stable. He is on BP meds, but not sure if on any BB therapy. He notes something 10mg (suspected amlodipine) but that he stopped this a while ago as he had been getting a little dizzy bending over and thought it was from that. Nots he has issues with voiding/prostate and is on Flomax and finasteride daily. Of note, no prior CHF history or lasix use but does state issues laying flat due to breathing and typically sleeps with one pillow. No significant LE edema. Discussed admitting for treatment of pneumonia with antibiotics, monitoring of kidney function and electrolyte replacement. ER Course: VSS at present with BP 107/55, HR 104bpm, RR 20, SpO2 94% on RA initially but dropping down and currently w/ good saturation on 2L. Given duoneb, 2gm IV mag ordered. Given dose cefepime as well as toradol for pain, Cr 1.6 w/ unknown prior baseline. CXR/CT w/ evidence for pneumonia RLL. Mag 0.7. EKG sinus tachy. No hx Afib or PE/DVT. Full code. Allergies Allergy/AdvReac Type Severity Reaction Status Date / Time No Known Drug Allergies Allergy Verified 07/29/19 14:49 Home Medications Medication Instructions Recorded Confirmed Type atorvastatin 40 mg tablet 40 mg PO QAM 03/04/23 03/04/23 History buspirone 10 mg tablet 10 mg PO TID 03/04/23 03/04/23 History clopidogrel 75 mg tablet 75 mg PO DAILY 03/04/23 03/04/23 History finasteride 5 mg tablet 5 mg PO DAILY 03/04/23 03/04/23 History fluoxetine 40 mg capsule 80 mg PO DAILY 03/04/23 03/04/23 History fluticasone fur. 100 mcg-umeclid 1 ea inhalation DAILY 03/04/23 03/04/23 History 62.5 mcg-vilant 25 mcg inhalat.powder (Trelegy Ellipta) fluticasone propionate 50 50 mcg intranasal DAILY 03/04/23 03/04/23 History mcg/actuation nasal spray,suspension lamotrigine 100 mg tablet 100 mg PO BID 03/04/23 03/04/23 History lisinopril 40 mg tablet 40 mg PO DAILY 03/04/23 03/04/23 History metformin 500 mg tablet 500 mg PO DAILY 03/04/23 03/04/23 History pantoprazole 40 mg tablet,delayed 40 mg PO DAILY 03/04/23 03/04/23 History release semaglutide 0.25 mg or 0.5 mg (2 mg subcut 03/04/23 History mg/1.5 mL) subcutaneous pen injector (Ozempic) tamsulosin 0.4 mg capsule 0.8 mg PO HS 03/04/23 03/04/23 History Past Med/Surg History Medical History Arthritis Bipolar disorder BPH (benign prostatic hyperplasia) CAD in robinson artery Diabetes mellitus Enlarged prostate GERD (gastroesophageal reflux disease) HTN (hypertension) with goal to be determined Hyperlipidemia Hypertension Social History Smoking Status: Former smoker Hx Alcohol Use: No Hx Substance Use: No Preferred Language: Nepalese [employer]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 Operator Required: No Beliefs That Will Affect Care: None Current Living Situation: Significant Other Feels Safe at Home: Yes Physical Exam Physical Exam: General: WD older male laying in bed, NAD but can't get comfortable in bed, reporting cramping, fatigued/ill looking HEENT: head normocephalic, atraumatic, mm slightly dry, trachea midline, thick neck Resp: RML crackles/rales, bibasilar crackles, diffuse inspiratory and expiratory wheezing throughout, no tachypnea, able to talk in complete sentences, on 2L NC CV: sinus tachy (rates 90-low 100s), no significant m/r/g but HS quiet, no significant LE edema, no calf tenderness GI: +BS throughout, distension, nontender to palpation MSK/Neuro: no focal deficit or slurred speech, answering questions appropriately Psych: AOx3, cooperative with exam Skin: warm, perfused Results & Data Results & Data Vital Signs (Past 12 Hours) Vital Signs Temp Pulse Pulse Resp BP BP Pulse Ox 03/04/23 13:18 109 H 03/04/23 13:19 104 H 20 107/55 L 03/04/23 11:11 109 H 20 94/60 L 96 03/04/23 11:11 113 H 20 92 03/04/23 11:59 126 H 20 115/69 94 03/04/23 11:53 132 H 21 92 03/04/23 11:53 131 H 21 114/74 91 03/04/23 11:13 36.5 C 144 H 20 104/73 91 O2 Del Method O2 Flow Rate 03/04/23 13:18 03/04/23 13:19 Room Air 03/04/23 11:11 Nasal Cannula 2 03/04/23 11:11 Nasal Cannula 2 03/04/23 11:59 Nasal Cannula 2 03/04/23 11:53 Room Air 03/04/23 11:53 Nasal Cannula 2 03/04/23 11:13 Room Air Laboratory Results 03/04/23 03/04/23 03/04/23 Range/Units 13:20 12:13 12:04 WBC (4.8-10.8) K/ul RBC (4.70-6.10) M/uL Hgb (14.0-18.0) g/dl Hct (42.0-52.0) % MCV (80.0-100.0) fL MCH (25.0-34.0) pg MCHC (32.0-36.0) g/dL RDW Std Deviation (36.4-46.3) fL RDW Coeff of Christophe (11.5-14.5) % Plt Count (130-400) K/uL MPV (9.4-12.4) fL Immature Gran % (Auto) % Neut % (Auto) % Lymph % (Auto) % Yates % (Auto) % Eos % (Auto) % Baso % (Auto) % Neut # (Auto) (1.40-6.50) K/uL Lymph # (Auto) (1.2-3.4) K/uL Yates # (Auto) (0.11-0.59) K/uL Eos # (Auto) (0-0.50) K/uL Baso # (Auto) (0-0.2) K/uL Immature Gran # (Auto) (0.01-0.20) K/uL PT (9.0-12.0) Seconds INR (0.9-1.1) APTT (21.0-31.0) Seconds PTT Ratio Sodium (136-145) mmol/L Potassium (3.5-5.1) mmol/L Chloride (98-107) mmol/L Carbon Dioxide (21-32) mmol/L Anion Gap (3-11) BUN (6-23) mg/dl Creatinine (0.6-1.4) mg/dl Est Cr Clr Drug Dosing ml/min Est GFR ( Amer) ml/min Est GFR (Non-Af Amer) ml/min BUN/Creatinine Ratio (10-20) Glucose (70-99(Fasting)) mg/dl Lactate 1.9 (0.4-2.0) mmol/L Calcium (8.6-10.3) mg/dl Magnesium (1.7-2.4) mg/dl Total Bilirubin (0.2-1.0) mg/dl Direct Bilirubin (0-0.2) mg/dl AST (13-39) U/L ALT (7-52) U/L Alkaline Phosphatase (34-104) U/L Troponin I High Sens (0-20) pg/ml Total Protein (6.0-8.3) gm/dl Albumin (3.4-5.0) gm/dl Procalcitonin (0-0.5) ng/ml Urine Color Dark Yellow Urine Appearance Cloudy A (Clear) Urine pH 5.0 (4.5-7.5) Ur Specific [place] 1.024 (1.000-1.030) Urine Protein 2+ H (Negative) Urine Glucose (UA) 2+ H (Negative) Urine Ketones Trace H (Negative) Urine Blood Negative (Negative) Urine Nitrite Negative (Negative) Urine Bilirubin 1+ H (Negative) Urine Urobilinogen Negative (Negative) Ur Leukocyte Esterase Trace H (Negative) Urine WBC (Auto) 1-5 (0-5) /hpf Urine RBC (Auto) 0-4 (0-4) /hpf U Hyaline Cast (Auto) 5-10 H (0-5) /lpf U Epithel Cells (Auto) >30 H (0-5) /lpf Urine Bacteria (Auto) Negative (Negative) Granular Casts 5-10 H (0) /lpf Urine Yeast Not Reportable Adenovirus (PCR) Pending B. pertussis DNA (PCR) Pending B.parapertussis DNA PCR Pending C. pneumoniae DNA (PCR) Pending Coronavirus OC43 (PCR) Pending Coronavirus HKU1 (PCR) Pending Coronavirus 229E (PCR) Pending SARS-CoV-2 (PCR) Pending Coronavirus NL63 (PCR) Pending Human Metapneumovir PCR Pending Influenza Type B (PCR) Pending M. pneumoniae (PCR) Pending Parainfluenza 1 (PCR) Pending Parainfluenza 2 (PCR) Pending Parainfluenza 3 (PCR) Pending Parainfluenza 4 (PCR) Pending RSV (PCR) Pending Entero/Rhino (PCR) Pending 03/04/23 03/04/23 03/04/23 Range/Units 11:38 11:38 11:38 WBC (4.8-10.8) K/ul RBC (4.70-6.10) M/uL Hgb (14.0-18.0) g/dl Hct (42.0-52.0) % MCV (80.0-100.0) fL MCH (25.0-34.0) pg MCHC (32.0-36.0) g/dL RDW Std Deviation (36.4-46.3) fL RDW Coeff of Christophe (11.5-14.5) % Plt Count (130-400) K/uL MPV (9.4-12.4) fL Immature Gran % (Auto) % Neut % (Auto) % Lymph % (Auto) % Yates % (Auto) % Eos % (Auto) % Baso % (Auto) % Neut # (Auto) (1.40-6.50) K/uL Lymph # (Auto) (1.2-3.4) K/uL Yates # (Auto) (0.11-0.59) K/uL Eos # (Auto) (0-0.50) K/uL Baso # (Auto) (0-0.2) K/uL Immature Gran # (Auto) (0.01-0.20) K/uL PT 11.4 (9.0-12.0) Seconds INR 1.0 (0.9-1.1) APTT 26.5 (21.0-31.0) Seconds PTT Ratio 0.9 Sodium 135 L (136-145) mmol/L Potassium 3.6 (3.5-5.1) mmol/L Chloride 102 (98-107) mmol/L Carbon Dioxide 21 (21-32) mmol/L Anion Gap 12 H (3-11) BUN 32 H (6-23) mg/dl Creatinine 1.64 H (0.6-1.4) mg/dl Est Cr Clr Drug Dosing 44.2 ml/min Est GFR ( Amer) 51.5 ml/min Est GFR (Non-Af Amer) 44.5 ml/min BUN/Creatinine Ratio 19.5 (10-20) Glucose 150 H (70-99(Fasting)) mg/dl Lactate (0.4-2.0) mmol/L Calcium 9.2 (8.6-10.3) mg/dl Magnesium 0.7 L* (1.7-2.4) mg/dl Total Bilirubin 0.7 (0.2-1.0) mg/dl Direct Bilirubin 0.2 (0-0.2) mg/dl AST 19 (13-39) U/L ALT 24 (7-52) U/L Alkaline Phosphatase 135 H (34-104) U/L Troponin I High Sens 16.7 (0-20) pg/ml Total Protein 6.9 (6.0-8.3) gm/dl Albumin 3.9 (3.4-5.0) gm/dl Procalcitonin 1.28 H (0-0.5) ng/ml Urine Color Urine Appearance (Clear) Urine pH (4.5-7.5) Ur Specific [place] (1.000-1.030) Urine Protein (Negative) Urine Glucose (UA) (Negative) Urine Ketones (Negative) Urine Blood (Negative) Urine Nitrite (Negative) Urine Bilirubin (Negative) Urine Urobilinogen (Negative) Ur Leukocyte Esterase (Negative) Urine WBC (Auto) (0-5) /hpf Urine RBC (Auto) (0-4) /hpf U Hyaline Cast (Auto) (0-5) /lpf U Epithel Cells (Auto) (0-5) /lpf Urine Bacteria (Auto) (Negative) Granular Casts (0) /lpf Urine Yeast Adenovirus (PCR) B. pertussis DNA (PCR) B.parapertussis DNA PCR C. pneumoniae DNA (PCR) Coronavirus OC43 (PCR) Coronavirus HKU1 (PCR) Coronavirus 229E (PCR) SARS-CoV-2 (PCR) Coronavirus NL63 (PCR) Human Metapneumovir PCR Influenza Type B (PCR) M. pneumoniae (PCR) Parainfluenza 1 (PCR) Parainfluenza 2 (PCR) Parainfluenza 3 (PCR) Parainfluenza 4 (PCR) RSV (PCR) Entero/Rhino (PCR) 03/04/23 Range/Units 11:38 WBC 8.25 (4.8-10.8) K/ul RBC 3.37 L (4.70-6.10) M/uL Hgb 10.5 L (14.0-18.0) g/dl Hct 30.6 L (42.0-52.0) % MCV 90.8 (80.0-100.0) fL MCH 31.2 (25.0-34.0) pg MCHC 34.3 (32.0-36.0) g/dL RDW Std Deviation 45.1 (36.4-46.3) fL RDW Coeff of Christophe 13.6 (11.5-14.5) % Plt Count 216 (130-400) K/uL MPV 11.2 (9.4-12.4) fL Immature Gran % (Auto) 0.5 % Neut % (Auto) 88.1 % Lymph % (Auto) 3.5 % Yates % (Auto) 7.3 % Eos % (Auto) 0.2 % Baso % (Auto) 0.4 % Neut # (Auto) 7.27 H (1.40-6.50) K/uL Lymph # (Auto) 0.29 L (1.2-3.4) K/uL Yates # (Auto) 0.60 H (0.11-0.59) K/uL Eos # (Auto) 0.02 (0-0.50) K/uL Baso # (Auto) 0.03 (0-0.2) K/uL Immature Gran # (Auto) 0.04 (0.01-0.20) K/uL PT (9.0-12.0) Seconds INR (0.9-1.1) APTT (21.0-31.0) Seconds PTT Ratio Sodium (136-145) mmol/L Potassium (3.5-5.1) mmol/L Chloride (98-107) mmol/L Carbon Dioxide (21-32) mmol/L Anion Gap (3-11) BUN (6-23) mg/dl Creatinine (0.6-1.4) mg/dl Est Cr Clr Drug Dosing ml/min Est GFR ( Amer) ml/min Est GFR (Non-Af Amer) ml/min BUN/Creatinine Ratio (10-20) Glucose (70-99(Fasting)) mg/dl Lactate (0.4-2.0) mmol/L Calcium (8.6-10.3) mg/dl Magnesium (1.7-2.4) mg/dl Total Bilirubin (0.2-1.0) mg/dl Direct Bilirubin (0-0.2) mg/dl AST (13-39) U/L ALT (7-52) U/L Alkaline Phosphatase (34-104) U/L Troponin I High Sens (0-20) pg/ml Total Protein (6.0-8.3) gm/dl Albumin (3.4-5.0) gm/dl Procalcitonin (0-0.5) ng/ml Urine Color Urine Appearance (Clear) Urine pH (4.5-7.5) Ur Specific [place] (1.000-1.030) Urine Protein (Negative) Urine Glucose (UA) (Negative) Urine Ketones (Negative) Urine Blood (Negative) Urine Nitrite (Negative) Urine Bilirubin (Negative) Urine Urobilinogen (Negative) Ur Leukocyte Esterase (Negative) Urine WBC (Auto) (0-5) /hpf Urine RBC (Auto) (0-4) /hpf U Hyaline Cast (Auto) (0-5) /lpf U Epithel Cells (Auto) (0-5) /lpf Urine Bacteria (Auto) (Negative) Granular Casts (0) /lpf Urine Yeast Adenovirus (PCR) B. pertussis DNA (PCR) B.parapertussis DNA PCR C. pneumoniae DNA (PCR) Coronavirus OC43 (PCR) Coronavirus HKU1 (PCR) Coronavirus 229E (PCR) SARS-CoV-2 (PCR) Coronavirus NL63 (PCR) Human Metapneumovir PCR Influenza Type B (PCR) M. pneumoniae (PCR) Parainfluenza 1 (PCR) Parainfluenza 2 (PCR) Parainfluenza 3 (PCR) Parainfluenza 4 (PCR) RSV (PCR) Entero/Rhino (PCR) Diagnostic Findings Chest CTA 03/04/23 11:43 CT angio chest PE protocol CLINICAL HISTORY: PE TECHNIQUE: Multidetector row helical CT of the chest was performed with angiographic protocol. Coronal and sagittal reformations were obtained. Coronal and sagittal MIPS were obtained from the axial data set and were submitted for review. Automated dose lowering techniques and/or adjustment according to patient size were utilized for this exam. CT DOSE: 493.52 mGy.cm Comparison: None available at the time of this dictation. FINDINGS: Lungs and pleura: Emphysema is seen. Multifocal airspace opacities in the right lung and to a lesser extent in the dependent aspect of the left lower lobe. Against this background no suspicious pulmonary nodules are seen. Heart and pericardium: Heart size is normal. No pericardial effusion. Vessels: Evaluation for pulmonary embolism is limited due to suboptimal contrast timing. No evidence of central, lobar, or segmental embolus. Mediastinum and julieth: Right hilar nodes measure up to 16 mm in short axis. Additional smaller right hilar and mediastinal lymph nodes are seen. Chest wall and lower neck: Unremarkable. Abdomen: Unremarkable. Bones: Degenerative changes in the thoracic spine. IMPRESSION: 1. Multifocal airspace opacities are seen compatible with pneumonia. Lymphadenopathy is likely reactive. 2. No pulmonary embolus is seen. 3. Emphysema. ACT 112: Negative or not required by law. Electronically signed by: Devonte Stephens M.D. 03/04/2023 1:23 PM Chest X-Ray 03/04/23 11:44 XR chest 1V portable CLINICAL HISTORY: Sepsis TECHNIQUE: Single frontal radiograph of the chest was obtained. Comparison: None available at the time of this dictation. FINDINGS: No lines and tubes are seen. The cardiomediastinal silhouette is normal. Airspace opacity is seen in the right lower lung. No evidence of pleural effusion or pneumothorax. IMPRESSION: Right lower lung airspace opacity likely represents aspiration and/or pneumonia. ACT 112: Negative or not required by law. Electronically signed by: Devonte Stephens M.D. 03/04/2023 12:40 PM ECG Additional Comments: Sinus tachycardia with rates 137bpm Supervising Physician Co-Signing Physician Notes I personally saw and examined the patient. I verified all hicks points and agree with Gloria Bustamante PA-C with the following exceptions and/or additions: 62 year old male presents to the ER with 4 days of fatigue, shortness of breath, cough. O/E A&Ox3, HS RRR, no murmurs, Chest right sided coarse crackles, Abdo SNT, no CVA tenderness A/P Sepsis with community acquired pneumonia - lactate 1.9, follow up blood/urine cultures, Unasyn/azithromycin, hold losartan due to low BP COPD - dose not appear to have acute exacerbation of this given lack of improvement with duoneb or wheezing on exam, Continue Trelegy Ellipta of hospital formulary equivalent Hypoxia - aim O2 sats > 90%, no respiratory distress PG Care Time/CCT Total # of Minutes Spent Total Time Spent with Patient: Total time spent is greater than 50% in coordination of care (as documented) at patient's floor/unit and/or counseling patient: Coding Level of Care Code 95176 INT INP/OBS CARE 3/75MIN Diagnoses Sepsis A41.9 Pneumonia J18.9 Hypomagnesemia E83.42 CARMENCITA (acute kidney injury) N17.9 COPD (chronic obstructive pulmonary disease) J44.9 CAD in robinson artery I25.10 Hypertension I10 Hyperlipidemia E78.5 Diabetes mellitus E11.9 GERD (gastroesophageal reflux disease) K21.9 Benign localized hyperplasia of prostate with urinary obstruction and lower urinary tract symptoms N40.1; N13.9 Bipolar 1 disorder F31.9 Constipation K59.00 Hypoxia R09.02
[2023-03-04 14:49] LABS: Adenovirus PCR Not Detected (NotDetected); Bordetella parapertussis PCR Not Detected (NotDetected); Bordetella pertussis PCR Not Detected (NotDetected); Chlamydia pneumoniae PCR Not Detected (NotDetected); Coronavirus 229E PCR Not Detected (NotDetected); Coronavirus CoV-2 (COVID19)PCR Not Detected (NotDetected); Coronavirus HKU1 PCR Not Detected (NotDetected); Coronavirus NL63 PCR Not Detected (NotDetected); Coronavirus OC43PCR Not Detected (NotDetected); Human Metapneumovirus PCR Not Detected (NotDetected); Influenza A PCR Not Detected (NotDetected); Influenza B PCR Not Detected (NotDetected); Mycoplasma pneumoniae PCR Not Detected (NotDetected); Parainfluenza Virus 1 PCR Not Detected (NotDetected); Parainfluenza Virus 2 PCR Not Detected (NotDetected); Parainfluenza Virus 3 PCR Not Detected (NotDetected); Parainfluenza Virus 4 PCR Not Detected (NotDetected); Respiratory Syncytial VirusPCR Not Detected (NotDetected); Rhinovirus/Enterovirus PCR Not Detected (NotDetected)
[2023-03-04] MEDS ORDERED: CARBOHYDRATES FOR HYPOGLYCEMIA PO PRN (16:10)
[2023-03-04] MEDS ORDERED: GLUCOSE 10 TAB/TUBE PO PRN (16:10)
[2023-03-04] MEDS ORDERED: GLUCOSE 40% GEL 15 GM TUBE PO PRN (16:10)
[2023-03-04] MEDS ORDERED: GLUCAGON FOR INJ 1 MG VIAL SQ PRN (16:10)
[2023-03-04] MEDS ORDERED: PHARMACY GLYCEMIC MGMT CONSULT PRN (16:10)
[2023-03-04] MEDS ORDERED: SODIUM CHLORIDE 0.9% 1000ML 1,000 ML IV SCH (16:10)
[2023-03-04] MEDS ORDERED: ACETAMINOPHEN 325 MG TAB PO PRN (16:10)
[2023-03-04] MEDS ORDERED: DEXTROSE 50% 50 ML SYRINGE IV PRN (16:10)
[2023-03-04] MEDS ORDERED: AZITHROMYCIN 500 MG in DEXTROSE 5% 250 ML IV ONE (16:30)
[2023-03-04] MEDS: ALBUT/IPRATROP 3MG/0.5MG NEB 3 ML VIAL NEB SCH ×3 (16:59→23:16)
[2023-03-04 17:13] LABS: Ferritin 162.5 ng/ml (8-388)
--- NOTE | 2023-03-04 17:45 | XRay Report ---
KUB HISTORY: constipation COMPARISON: None. FINDINGS: The bowel gas pattern is unremarkable. There are no dilated loops of small bowel to suggest an obstruction. No renal calculi. No ureteral calculi. No pneumoperitoneum or pneumatosis. There is contrast within the bladder from the recent CT examination. Suture material seen within the left low er quadrant. [id number] fecal retention. IMPRESSION: 1. Nonobstructive bowel gas pattern. 2. Mild to moderate fecal retention. ACT 112: Negative or not required by law. Electronically signed by: Cory Ramirez M.D. 03/04/2023 5:43 PM
[2023-03-04] MEDS: AMPICILLIN/SULBACTAM SOD 3,000 MG in 0.9 % SODIUM CHLORIDE 100 ML IV SCH (17:50)
[2023-03-04] MEDS: INSULIN ASPART PER UNIT CHARGE SC SCH ×2 (17:56→20:27)
[2023-03-04] MEDS: busPIRone 5 MG TAB PO SCH (20:19)
[2023-03-04] MEDS: guaiFENesin 600 MG TABCR PO SCH (20:20)
[2023-03-04] MEDS: lamoTRIgine 100 MG TAB PO SCH (20:20)
[2023-03-04] MEDS: HEPARIN SOD 5,000 UNIT/0.5 ML VIAL SQ SCH (20:21)
[2023-03-04] MEDS: SODIUM CHLORIDE 0.65% NA SOLN 45 ML (OCEAN) SCH (20:39)
[2023-03-04] MEDS: FLUTICASONE PROPIONATE NA SPR 16 GM BTL SCH (20:39)
[2023-03-04] MEDS: OXYMETAZOLINE 0.05% 30 ML BTL NAE SCH (20:40)
[2023-03-04] MEDS ORDERED: TAMSULOSIN HCL 0.4 MG CAP PO SCH (21:00)
--- NOTE | 2023-03-04 21:15 | Communication Note ---
Date of Service: March 04, 2023 MRSA nasal screen noted to be positive. Patient has symptomatically improved since admission. No abscess on CT chest. Will continue on current Unasyn/Azith romycin for now but if not improving or procalcitonin getting worse consider vancomycin to cover for MRSA.
[2023-03-04 21:35] LABS: Ferritin 156.4 ng/ml (8-388)
[2023-03-04 21:50] LABS: BUN Creatinine Ratio 17.1 (10-20); Calcium 7.9 mg/dl (8.6-10.3); Creatinine Clr Calc Pharmacy 51.8 ml/min; Est GFR (African American) 62.4 ml/min; Est GFR (Non-African American) 53.8 ml/min; Magnesium 1.9 mg/dl (1.7-2.4); Potassium 3.3 mmol/L (3.5-5.1)
[2023-03-04] MEDS ORDERED: POTASSIUM CHLORIDE CRTAB 20 MEQ TABCR PO STA (23:29)
[2023-03-04] MEDS ORDERED: LACTATED RINGER'S 1,000 ML IV SCH (23:30)
[2023-03-05] MEDS: AMPICILLIN/SULBACTAM SOD 3,000 MG in 0.9 % SODIUM CHLORIDE 100 ML IV SCH ×3 (00:29→12:13)
[2023-03-05] MEDS ORDERED: MELATONIN 3 MG TAB PO PRN (02:22)
[2023-03-05] MEDS: ALBUT/IPRATROP 3MG/0.5MG NEB 3 ML VIAL NEB SCH ×3 (03:35→11:04)
[2023-03-05 06:55] LABS: Hematocrit (blood only) 24.5 % (42.0-52.0); Hemoglobin 8.2 g/dl (14.0-18.0); Mean Corpuscular Hemoglobin 30.7 pg (25.0-34.0); Mean Corpuscular Hgb Conc 33.5 g/dL (32.0-36.0); Mean Corpuscular Volume 91.8 fL (80.0-100.0); Mean Platelet Volume 10.7 fL (9.4-12.4); Platelet Count 193 K/uL (130-400); RDW Coefficient of Variation 14.1 % (11.5-14.5); RDW Standard Deviation 47.4 fL (36.4-46.3); Red Blood Count 2.67 M/uL (4.70-6.10); White Blood Count 7.03 K/ul (4.8-10.8)
[2023-03-05 07:20] LABS: Albumin Globulin Ratio 1.3 (0.9-2); Albumin Level 3.1 gm/dl (3.4-5.0); BUN Creatinine Ratio 19.1 (10-20); Bilirubin,Total 0.5 mg/dl (0.2-1.0); Calcium 8.5 mg/dl (8.6-10.3); Chol HDL Ratio 4.2 (0-5); Creatinine Clr Calc Pharmacy 65.9 ml/min; Est GFR (African American) 83.5 ml/min; Est GFR (Non-African American) 72.1 ml/min; Globulin 2.4 gm/dl (2.5-4.0); Magnesium 2.4 mg/dl (1.7-2.4); Total Protein 5.5 gm/dl (6.0-8.3)
[2023-03-05 08:10] LABS: Estimated Average Glucose 126 mg/dl
[2023-03-05] MEDS: INSULIN ASPART PER UNIT CHARGE SC SCH ×2 (08:29→12:38)
[2023-03-05] MEDS: guaiFENesin 600 MG TABCR PO SCH (08:35)
[2023-03-05] MEDS: busPIRone 5 MG TAB PO SCH (08:35)
[2023-03-05] MEDS: lamoTRIgine 100 MG TAB PO SCH (08:37)
[2023-03-05] MEDS: OXYMETAZOLINE 0.05% 30 ML BTL NAE SCH (08:38)
[2023-03-05] MEDS: SODIUM CHLORIDE 0.65% NA SOLN 45 ML (OCEAN) SCH (08:38)
[2023-03-05] MEDS: FLUTICASONE PROPIONATE NA SPR 16 GM BTL SCH (08:39)
[2023-03-05] MEDS: HEPARIN SOD 5,000 UNIT/0.5 ML VIAL SQ SCH (08:39)
[2023-03-05] MEDS ORDERED: HYDROCORTISONE 1% CRM 30 GM TUBE EXT PRN (08:56)
[2023-03-05] MEDS ORDERED: NON-FORMULARY MEDICATION (Fluticasone-Umeclidin-Vilanter [Trelegy Ellipta] 100-62.5-25 mcg INH SCH (09:00)
[2023-03-05] MEDS ORDERED: ATORVASTATIN 40 MG TAB PO SCH (09:00)
[2023-03-05] MEDS ORDERED: FINASTERIDE 5 MG TAB PO SCH (09:00)
[2023-03-05] MEDS ORDERED: FLUTICASONE FUROATE 100MCG 14 PUFFS/INHALER INH SCH (09:00)
[2023-03-05] MEDS ORDERED: CLOPIDOGREL BISULFATE 75 MG TAB PO SCH (09:00)
[2023-03-05] MEDS ORDERED: UMECLIDINIUM/VILANTEROL 62.5/25MCG 7 PUFFS/INHALER INH SCH (09:00)
[2023-03-05] MEDS ORDERED: FLUoxetine HCL 20 MG CAP PO SCH (09:00)
[2023-03-05] MEDS ORDERED: PANTOprazole 40 MG TAB PO SCH (09:00)
--- NOTE | 2023-03-05 11:21 | Discharge Summary ---
Date of Service March 05, 2023 Admission HPI Per Admitting Provider 62yo male w/ PMHx significant for CAD w/ stenting, COPD presented to the ER with 4 days of fatigue, shortness of breath without fever, however son recently sick (age 4, in school). He did note some chills however and felt he may be getting a fever/sick though. He checked his oxygen levels at home and they had been in the 70s. He reports he has been feeling fatigued and tired over the past 4-5 days with shortness of breath, weakness, and SpO2 at home to 73%. He notes he did feel lightheaded/palpitations at home. No known history of afib. He has hx COPD and on Trelegy and albuterol HFA as needed. He notes he stopped smoking about a year ago. Had not been eating/drinking well. Prior having some abdominal discomfort. He does note no BM x 2 days but hasn't been eating. Reports some RLQ pain but nontender on exam but is distended. Passing some gas but will monitor. He reports taking an ex-lax every evening and attempting to get into GI but wasn't cleared by cards as hadn't had recent follow. He follows with Dr Noe and states he is on plavix, hasn't missed any doses. Stent to LAD about 2-3 years ago he reports. Had been taking ibuprofen at home. No bleeding reported at present. +cough, but feels he is unable to bring up any sputum. Unsure of his baseline kidney function. Has hx DM and is on metformin and Ozempic weekly, last dose on Saturday. Mood disorder on fluoxetine, gabapentin, buspar and lamotrigine. No issues w/ his bipolar and states moods have been stable. He is on BP meds, but not sure if on any BB therapy. He notes something 10mg (suspected amlodipine) but that he stopped this a while ago as he had been getting a little dizzy bending over and thought it was from that. Nots he has issues with voiding/prostate and is on Flomax and finasteride daily. Of note, no prior CHF history or lasix use but does state issues laying flat due to breathing and typically sleeps with one pillow. No significant LE edema. Discussed admitting for treatment of pneumonia with antibiotics, monitoring of kidney function and electrolyte replacement. ER Course: VSS at present with BP 107/55, HR 104bpm, RR 20, SpO2 94% on RA initially but dropping down and currently w/ good saturation on 2L. Given duoneb, 2gm IV mag ordered. Given dose cefepime as well as toradol for pain, Cr 1.6 w/ unknown prior baseline. CXR/CT w/ evidence for pneumonia RLL. Mag 0.7. EKG sinus tachy. No hx Afib or PE/DVT. Full code. Admission Exam Per Admitting Provider General: WD older male laying in bed, NAD but can't get comfortable in bed, reporting cramping, fatigued/ill looking HEENT: head normocephalic, atraumatic, mm slightly dry, trachea midline, thick neck Resp: RML crackles/rales, bibasilar crackles, diffuse inspiratory and expiratory wheezing throughout, no tachypnea, able to talk in complete sentences, on 2L NC CV: sinus tachy (rates 90-low 100s), no significant m/r/g but HS quiet, no significant LE edema, no calf tenderness GI: +BS throughout, distension, nontender to palpation MSK/Neuro: no focal deficit or slurred speech, answering questions appropriately Psych: AOx3, cooperative with exam Skin: warm, perfused Principal Diagnosis Pneumonia Discharge Exam General: well-appearing, no acute distress HEENT: PERRL, EOMI, conjunctivae clear without injection, anicteric sclerae, moist mucous membranes, clear oropharynx without exudate or erythema Neck: supple, trachea midline, no thyromegaly, no JVD, no cervical lymp hadenopathy CV: RRR, normal S1 and S2, no murmurs Resp: Largely clear b/l, no increased work of breathing, no crackles or wheezes Abd: Soft, nontender, nondistended, no guarding or rebound, no hepatos plenomegaly MSK: Normal bulk of all four extremities Neuro: AOx3, no focal motor or sensory deficits Skin: no rashes or lesions, warm and dry Ext: no LE peripheral edema or erythema, capillary refill <2s in all four extremities, 2+ LE peripheral pulses b/l Discharge Data Allergies Allergy/AdvReac Type Severity Reaction Status Date / Time No Known Drug Allergies Allergy Verified 07/29/19 14:49 Consultations 03/04/23 13:43 ED Decision to Admit Stat Ordered Studies 03/04/23 11:43 CT angio chest PE protocol Stat Hospital Course (1) Pneumonia: (1) Sepsis: Plan: suspected due to pneumonia. O2 sats to 70s w/ home pulse ox in patient w/ hx COPD, recent ill contact w/ his son in school. Associated poor PO intake x 2-3 days, lightheaded/dizziness/palpitations (granular casts on UA, suspect hypotension at home as well, was borderline on arrival w/ HRs to 130-140s, sinus tachy) CT chest w/ Multifocal airspace opacities are seen compatible with pneumonia. Lymphadenopathy is likely reactive. No PE noted Procal elevated 1.28. Mag critically low 0.7. Surprisingly lactic wnl 1.9 Blood cultures pending at time of discharge Cefepime given in ER, transitioned to Unasyn + azithromycin Discharged with Augmentin + azithromycin to complete total 7 day course (2) Pneumonia: Plan: on imaging abx as outlined (3) Hypomagnesemia: Plan: critically low 0.7 -- 2gm IV ordered by ER, additional IV replacement ordered. ?ppi use, poor PO intake, metformin Improved to 2.4 with repletion (4) CARMENCITA (acute kidney injury): Plan: Cr 1.64 on admission, likely 2/2 volume depletion Cr improved to 1.1 by time of discharge with IVF (5) Anemia Plan: Hgb 8.2 noted in hospital, associated low iron studies Recheck Hgb 9.0 at time of discharge Pt due for colonoscopy as outpatient Total Time Total Time Spent Total Time Spent (In Minutes): Less than 30 Discharge Plan Discharge Items Patient Disposition: Home - Self-Care Reason For Visit: PNEUMONIA, SOB Discharge Diagnosis: Pneumonia Condition on Discharge: Fair Activity: Resume your previous activity Non-emergency contact: Primary Care Provider Call non-emergency contact if: your symptoms worsen Follow-up/Referrals: Kwadwo Rivera D.O. [Primary Care Provider] - 03/12/23 11:15 am Diet: Regular Addtl Attending Provider Instructions: You were admitted to the hospital for pneumonia. You were treated with antibiotics. You will complete a total of 7 days of antibiotics. This will treat the infection. Your symptoms such as cough may still persist for a bit afterward, so we encourage you to continue doing the incentive spirometer and maintain your hydration. A discharge summary will be sent to your primary care physician to ensure continuity of care. Please bring this discharge summary with you to your next office appointment so that your provider can review it at that time. Follow-up appointments: - Make a follow-up appointment with your PCP within the next week. It is very important that you follow up with them shortly after discharge from the hospital. - Keep all your follow-up appointments as already scheduled. If you cannot make an appointment, notify your provider. Medications: Your medication list has been reviewed and reconciled upon discharge to ensure accuracy and continuity of care. An updated list of all your medications is included with your hospital discharge paperwork. Please review this list closely, and make note of any changes. -We sent 2 new medications to the pharmacy. These are antibiotics for pneumonia -Augmentin 875 mg. Please take twice daily with food, about 12 hours apart for x6 days -Azithromycin 250 mg. Please take daily in the morning for x6 days Take your medications as instructed; do not skip a dose of your medicines. Make sure all of your doctors know every medicine you are taking (including [id number] medicines, vitamins, and supplements). Call your primary care provider before taking any new medicines (including njxe-wum-wktiycl medicines, vitamins, and supplements), because some of these may interact with your current medications, or may make your symptoms worse. Tell your primary care provider if you cannot afford your medications. CONTACT YOUR PRIMARY CARE PROVIDER if you experience any of the following: -Shortness of breath -Fever -Vomiting -Chest pain -Coughing - Difficulty following your treatment plan, or difficulty taking medications CALL 911 OR GO TO THE EMERGENCY DEPARTMENT if you experience any of the following: - Sudden, severe abdominal pain or nausea/vomiting - Severe chest pain, or chest pain that radiates (moves) to your jaw or arm - Sudden, severe shortness of breath or difficulty breathing Thank you for allowing us to participate in your care Pending Studies at Discharge: No Stand-Alone Forms: My MyClasses, Smoking Cessation Medications and DC Order Prescriptions: New amoxicillin-pot clavulanate 875-125 mg tablet 1 tab PO BID 6 Days Qty: 13 0RF Rx Instructions: Take 1 tab tonight. Take 1 tab twice daily with food for the next 6 days (starting tomorrow), about 12 hours apart. azithromycin 250 mg tablet 250 mg PO DAILY 6 Days Qty: 6 0RF Rx Instructions: Start taking tomorrow, daily for 6 days Continued fluoxetine 40 mg capsule 80 mg PO DAILY atorvastatin 40 mg tablet 40 mg PO QAM metformin 500 mg tablet 500 mg PO DAILY clopidogrel 75 mg tablet 75 mg PO DAILY tamsulosin 0.4 mg capsule 0.8 mg PO HS pantoprazole 40 mg tablet,delayed release (DR/EC) 40 mg PO DAILY buspirone 10 mg tablet 10 mg PO TID lisinopril 40 mg tablet 40 mg PO DAILY fluticasone propionate 50 mcg/actuation spray,suspension 50 mcg INTRANASAL DAILY lamotrigine 100 mg tablet 100 mg PO BID finasteride 5 mg tablet 5 mg PO DAILY Trelegy Ellipta 100-62.5-25 mcg blister with device 1 ea INHALATION DAILY Ozempic 0.25 mg or 0.5 mg(2 mg/1.5 mL) pen injector SUBCUT Discharge Orders: Discharge Order (Routine); Ordered 03/05/23 Ordered By: Fito Bruno/Other Patient Handouts: Managing Type 2 Diabetes Admission Data Admit Date/Time: 03/04/23 14:06 Attending Provider: Brandyn Dye Admit Provider: Jorge Hoffman Primary Care Provider: Kwadwo Rivera Other Providers: Jorge Hoffman Other Interventions: Discharge Summary Assessment (RN) Last Done: 03/05/23 12:16 Supervising Physician Co-Signing Physician Notes I personally examined the patient and verified all hicks points of history and exam, discussed case, and agree with decision making with Dr Mujica. Feeling better, breathing better. Walking around without any notable desaturations or dyspnea. Would like to go home. Discussed diagnosis, discussed the difference between a rather significant bacterial pneumonia and what sound to be previous viral respiratory infections. Discussed outpatient follow-up, antibiotic duration, etc. Answered all questions the best my ability and to his satisfaction. Vitals noted, in general he is awake and alert pleasant no distress. HEENT normocephalic atraumatic mucous membranes moist. Breathing unlabored no accessory muscle use good effort. CBC, basic metabolic panel, CT chest all noted. Acute hypoxic respiratory failure present on admission due to community-acquired pneumonia with rather extensive infiltratesfortunately improving quite nicely. Safe/stable for home on p.o. antibiotics. Expected duration about 7 days given how quickly he is getting better, but discussed importance of PCP follow-up before he is off of antibiotics so the duration can be extended if clinical need arises. Discussed the expected slow course of getting better from a true pneumonia, compared to the viral URIs that he was referencing before. Otherwise as above Resident Activity Tracking Resident Involvement: Resident Care Provided Care Provided: Adult Hospital Medicine
[2023-03-05] MEDS ORDERED: AZITHROMYCIN 250 MG in DEXTROSE 5% 250 ML IV SCH (16:00)
--- NOTE | 2023-03-05 19:26 | Billing Data ---
Date of Service March 05, 2023 Coding Level of Care Code 79266 IN/OBS DISCH 30 MIN/LESS
== END 2023-03-05 13:10 | disposition home or self-care (01) | DRG 871 ==
LOC: ED 11:10 → 2S 14:06 → SUATTDRO 14:06 → INTOOBSV 14:06 → 2S 16:11

== ENCOUNTER 2024-04-03 16:26 | Inpatient (IN) ==
--- NOTE | 2024-04-03 16:47 | Emergency Department Note ---
Impression & Plan CARMENCITA (acute kidney injury), Weakness, Anemia, Hyperkalemia ED Provider Note NAME: CLAU HOLLIS AGE: 63 SEX: M : 1960 ARRIVES VIA: Walk-In INFORMANT: Patient ED PROVIDER(S): Brandyn Martin DO CHIEF COMPLAINT: Abnormal labs HPI: Patient is a 63-year-old male who presents to the ER with a past medical history of COPD, hypertension, hyperlipidemia, bipolar, pneumonia who presents to the ER for cough, congestion with chest pain and shortness of breath which has been going on for the past 2 weeks. He was placed on steroids and antibiotics yesterday. He had blood work done as he feels lightheaded with changing positions and was found to have abnormal creatinine and was sent in today. Denies any belly pain, nausea, vomiting, or diarrhea. No dysuria, urgency, or frequency. No other exacerbating or remitting factors. ADDITIONAL HISTORY OBTAINED: Per HPI Chronic Medical/Social Conditions Affecting Care: Per HPI PAST MEDICAL HISTORY:See Below PAST SURGICAL HISTORY:See Below FAMILY HISTORY:See Below SOCIAL HISTORY:See Below HOME MEDICATIONS:See Below ALLERGIES:See Below VITALS:See Below PHYSICAL EXAMINATION: GENERAL: Sitting up in bed, alert, well appearing, well nourished, no distress, non-toxic EYE EXAM: normal conjunctiva. OROPHARYNX: mucous membranes are moist NECK: supple, no nuchal rigidity, no adenopathy, non-tender LUNGS: Clear to auscultation. Normal chest wall mechanics HEART: no murmurs, S1 normal and S2 normal ABDOMEN: abdomen soft, non-tender, normo-active bowel sounds, no masses, no rebound or guarding. UPPER EXTREMITIES: upper extremities are grossly normal. LOWER EXTREMITIES: No pitting edema. NEURO EXAM: Normal sensorium, cranial nerves II-XII grossly intact, normal speech, no gross weakness of arms, no gross weakness of legs. MEDICAL DECISION MAKING: Patient is a 63-year-old male who presents the ER with above-stated complaints. IV was established blood work was obtained. Labs show no significant leukocytosis. Mild anemia at 9.9. BMP with a hyperkalemia of 5.8 with creatinine of 2.8 up from baseline of 1.2. LFTs bilirubin was unremarkable. Troponin was negative. Lipase was unremarkable. COVID was negative. Renal ultrasound was unremarkable. Patient was given IV fluids discussed with the hospitalist admitted for further workup of his CARMENCITA. Consults/Care Managements Discussions: Per MDM Triage Nursing notes reviewed. Limited review of prior medical records performed Vital Signs: reviewed and remarkable for no significant abnormalities Differential diagnosis: Cardiac ischemia, aortic dissection, pulmonary embolism, pneumothorax, pneumonia, pericarditis, myocarditis, esophageal rupture, GERD, cholecystitis, pancreatitis, musculoskeletal, as well as other pathologies. ER treatment provided: See below Diagnostics interpreted by me include EKG and cardiac monitoring as listed below: -Cardiac Monitoring: An order was placed for continuous cardiac monitoring. The monitor shows a rate of 80 with sinus rhythm. -ECG: Sinus rhythm rate of 75 Normal axis No PVCs QTc 384 -Laboratory studies:Interpreted by me as stated above in MDM and shown below. Imaging studies: Xrays: As interpreted by me:none CTs show: none Renal ultrasound per my preliminary interpretation showed no obvious hydronephrosis Renal ultrasound per radiology was unremarkable Procedures:none Critical Care: None Past Med/Surg History Problem List (Updated 04/03/24 @ 20:10 by Brandyn Martin DO) Hyperkalemia (Acute) Anemia (Acute) Weakness (Acute) Hypoxia Sepsis (Acute) Hypomagnesemia (Acute) Tachycardia (Acute) SOB (shortness of breath) (Acute) Anemia (Acute) COPD (chronic obstructive pulmonary disease) Hypertension (Acute) Hyperlipidemia (Acute) Bipolar disorder (Acute) Enlarged prostate (Acute) Diabetes mellitus (Acute) Sepsis Constipation CARMENCITA (acute kidney injury) (Acute) Hypomagnesemia Pneumonia Bipolar 1 disorder GERD (gastroesophageal reflux disease) CAD in [place] Benign localized hyperplasia of prostate with urinary obstruction and lower urinary tract symptoms (Acute) CTS (carpal tunnel syndrome) (Acute) Depression (Acute) Lung disease (Acute) Nocturnal enuresis (Acute) Painful intercourse (Acute) Peyronie's disease (Acute) Psychosexual disorder (Acute) Medical History Arthritis Bipolar disorder BPH (benign prostatic hyperplasia) CAD in [place] Diabetes mellitus Enlarged prostate GERD (gastroesophageal reflux disease) HTN (hypertension) with goal to be determined Hyperlipidemia Hypertension Social History Smoking Status: Former smoker Hx Alcohol Use: No Hx Substance Use: No Preferred Language: Irish Communication Ability: Effective Elevator Supervisor Required: No Beliefs That Will Affect Care: None Current Living Situation: Significant Other Feels Safe at Home: Yes Assistive Devices: None Allergies Allergies Allergy/AdvReac Type Severity Reaction Status Date / Time No Known Drug Allergies Allergy Verified 07/29/19 14:49 Home Meds Home Medications Medication Instructions Recorded Confirmed atorvastatin 40 mg tablet 40 mg PO QAM 03/04/23 04/03/24 buspirone 10 mg tablet 10 mg PO BID 03/04/23 04/03/24 clopidogrel 75 mg tablet 75 mg PO DAILY 03/04/23 04/03/24 finasteride 5 mg tablet 5 mg PO DAILY 03/04/23 04/03/24 fluoxetine 40 mg capsule 80 mg PO DAILY 03/04/23 04/03/24 fluticasone fur. 100 mcg-umeclid 1 ea inhalation DAILY 03/04/23 04/03/24 62.5 mcg-vilant 25 mcg inhalat.powder (Trelegy Ellipta) fluticasone propionate 50 50 mcg intranasal DAILY 03/04/23 04/03/24 mcg/actuation nasal spray,suspension lamotrigine 100 mg tablet 100 mg PO BID 03/04/23 04/03/24 lisinopril 40 mg tablet 40 mg PO DAILY 03/04/23 04/03/24 metformin 500 mg tablet 500 mg PO BID 03/04/23 04/03/24 pantoprazole 40 mg tablet,delayed 40 mg PO DAILY 03/04/23 04/03/24 release semaglutide 0.25 mg or 0.5 mg (2 mg subcut 03/04/23 mg/1.5 mL) subcutaneous pen injector (Ozempic) tamsulosin 0.4 mg capsule 0.8 mg PO HS 03/04/23 04/03/24 alfuzosin 10 mg tablet,extended 10 mg PO DAILY 04/03/24 04/03/24 release 24 hr amoxicillin 875 mg-potassium 1 tab BID 04/03/24 04/03/24 clavulanate 125 mg tablet baclofen 20 mg tablet 20 mg BID 04/03/24 04/03/24 gabapentin 400 mg capsule 400 mg TID 04/03/24 04/03/24 meloxicam 15 mg tablet 15 mg DAILY 04/03/24 04/03/24 prednisone 20 mg tablet 40 mg DAILY 04/03/24 04/03/24 Results & Data (ED) Vital Signs Vital Signs - 24 hr 04/03/24 16:31 04/03/24 17:00 04/03/24 17:02 Temperature 36.4 C L Temperature Source Temporal Artery Scan Pulse Rate 83 79 78 Pulse Rate from SpO2 Sensor 77 Respiratory Rate 14 15 Respiratory Effort / Characteristics Non-Labored Spontaneous Respiratory Depth Normal Blood Pressure 133/74 126/80 Blood Pressure Mean 93 95 Pulse Oximetry 96 95 Oxygen Delivery Method Room Air Room Air Sepsis Recent Fever Within 48 Hours No Sepsis New/Unexplained Change in Mental Status No Sepsis Action Taken by Nursing No Action Required 04/03/24 18:00 04/03/24 19:30 Temperature Temperature Source Pulse Rate 67 69 Pulse Rate from SpO2 Sensor 67 69 Respiratory Rate 15 12 Respiratory Effort / Characteristics Respiratory Depth Blood Pressure 126/81 127/78 Blood Pressure Mean 96 94 Pulse Oximetry 95 96 Oxygen Delivery Method Room Air Room Air Sepsis Recent Fever Within 48 Hours Sepsis New/Unexplained Change in Mental Status Sepsis Action Taken by Nursing Laboratory Data 04/03/24 16:59 04/03/24 17:00 Lab Results 04/03/24 04/03/24 04/03/24 Range/Units 16:59 17:00 17:20 WBC 8.53 (4.8-10.8) K/ul RBC 3.20 L (4.70-6.10) M/uL Hgb 9.9 L (14.0-18.0) g/dl POC Hgb 9.5 L (14.0-18.0) g/dl Hct 29.8 L (42.0-52.0) % POC Hct 28 L (42-52) % MCV 93.1 (80.0-100.0) fL MCH 30.9 (25.0-34.0) pg MCHC 33.2 (32.0-36.0) g/dL RDW Std Deviation 44.6 (36.4-46.3) fL RDW Coeff of Christophe 13.2 (11.5-14.5) % Plt Count 285 (130-400) K/uL MPV 10.6 (9.4-12.4) fL Immature Gran % (Auto) 0.4 % Neut % (Auto) 67.5 % Lymph % (Auto) 23.4 % [place] % (Auto) 7.9 % Eos % (Auto) 0.6 % Baso % (Auto) 0.2 % Neut # (Auto) 5.76 (1.40-6.50) K/uL Lymph # (Auto) 2.00 (1.20-3.40) K/uL [place] # (Auto) 0.67 H (0.11-0.59) K/uL Eos # (Auto) 0.05 (0.00-0.50) K/uL Baso # (Auto) 0.02 (0.00-0.20) K/uL Immature Gran # (Auto) 0.03 (0.01-0.20) K/uL POC Sodium 136 (135-144) mmol/L Sodium 136 (136-145) mmol/L POC Potassium 5.8 H (3.3-5.0) mmol/L Potassium 5.8 H (3.5-5.1) mmol/L POC Chloride 107 (101-112) mmol/L Chloride 105 (98-107) mmol/L Carbon Dioxide 24 (21-32) mmol/L POC Total CO2 22 L (24-31) mmol/L Anion Gap 7 (3-11) POC Anion Gap 14.0 L (16-25) mmol/L POC BUN 37 H (7-18) mg/dl BUN 43 H (6-23) mg/dl Creatinine 2.82 H (0.6-1.4) mg/dl POC Creatinine 3.1 H (0.6-1.3) mg/dl Est Cr Clr Drug Dosing 27.6 ml/min Est GFR ( Amer) 26.6 ml/min Est GFR (Non-Af Amer) 22.9 ml/min BUN/Creatinine Ratio 15.2 (10-20) Glucose 101 H (70-99(Fasting)) mg/dl POC Glucose (other) 99 (70-99) mg/dl Calcium 9.6 (8.6-10.3) mg/dl POC Ioniz Calcium Rubi 1.20 (1.12-1.32) mmol/l Phosphorus 4.5 (2.5-4.9) mg/dl Magnesium 2.5 H (1.7-2.4) mg/dl Total Bilirubin 0.4 (0.2-1.0) mg/dl AST 13 (13-39) U/L ALT 12 (7-52) U/L Alkaline Phosphatase 79 (34-104) U/L Troponin I High Sens 4.2 (0-20) pg/ml Total Protein 7.2 (6.0-8.3) gm/dl Albumin 4.5 (3.4-5.0) gm/dl Globulin 2.7 (2.5-4.0) gm/dl Albumin/Globulin Ratio 1.7 (0.9-2) Lipase 22 (11-82) U/L Urine Color Urine Appearance (Clear) Urine pH (4.5-7.5) Ur Specific [place] (1.000-1.030) Urine Protein (Negative) Urine Glucose (UA) (Negative) Urine Ketones (Negative) Urine Blood (Negative) Urine Nitrite (Negative) Urine Bilirubin (Negative) Urine Urobilinogen (Negative) Ur Leukocyte Esterase (Negative) SARS-CoV-2, RNA, NAAT (NEGATIVE) 04/03/24 04/03/24 Range/Units 17:45 19:13 WBC (4.8-10.8) K/ul RBC (4.70-6.10) M/uL Hgb (14.0-18.0) g/dl POC Hgb (14.0-18.0) g/dl Hct (42.0-52.0) % POC Hct (42-52) % MCV (80.0-100.0) fL MCH (25.0-34.0) pg MCHC (32.0-36.0) g/dL RDW Std Deviation (36.4-46.3) fL RDW Coeff of Christophe (11.5-14.5) % Plt Count (130-400) K/uL MPV (9.4-12.4) fL Immature Gran % (Auto) % Neut % (Auto) % Lymph % (Auto) % [place] % (Auto) % Eos % (Auto) % Baso % (Auto) % Neut # (Auto) (1.40-6.50) K/uL Lymph # (Auto) (1.20-3.40) K/uL [place] # (Auto) (0.11-0.59) K/uL Eos # (Auto) (0.00-0.50) K/uL Baso # (Auto) (0.00-0.20) K/uL Immature Gran # (Auto) (0.01-0.20) K/uL POC Sodium (135-144) mmol/L Sodium (136-145) mmol/L POC Potassium (3.3-5.0) mmol/L Potassium (3.5-5.1) mmol/L POC Chloride (101-112) mmol/L Chloride (98-107) mmol/L Carbon Dioxide (21-32) mmol/L POC Total CO2 (24-31) mmol/L Anion Gap (3-11) POC Anion Gap (16-25) mmol/L POC BUN (7-18) mg/dl BUN (6-23) mg/dl Creatinine (0.6-1.4) mg/dl POC Creatinine (0.6-1.3) mg/dl Est Cr Clr Drug Dosing ml/min Est GFR ( Amer) ml/min Est GFR (Non-Af Amer) ml/min BUN/Creatinine Ratio (10-20) Glucose (70-99(Fasting)) mg/dl POC Glucose (other) (70-99) mg/dl Calcium (8.6-10.3) mg/dl POC Ioniz Calcium Rubi (1.12-1.32) mmol/l Phosphorus (2.5-4.9) mg/dl Magnesium (1.7-2.4) mg/dl Total Bilirubin (0.2-1.0) mg/dl AST (13-39) U/L ALT (7-52) U/L Alkaline Phosphatase (34-104) U/L Troponin I High Sens (0-20) pg/ml Total Protein (6.0-8.3) gm/dl Albumin (3.4-5.0) gm/dl Globulin (2.5-4.0) gm/dl Albumin/Globulin Ratio (0.9-2) Lipase (11-82) U/L Urine Color Yellow Urine Appearance Clear (Clear) Urine pH 5.5 (4.5-7.5) Ur Specific [place] 1.015 (1.000-1.030) Urine Protein Negative (Negative) Urine Glucose (UA) Negative (Negative) Urine Ketones Negative (Negative) Urine Blood Negative (Negative) Urine Nitrite Negative (Negative) Urine Bilirubin Negative (Negative) Urine Urobilinogen Negative (Negative) Ur Leukocyte Esterase Negative (Negative) SARS-CoV-2, RNA, NAAT NEGATIVE (NEGATIVE) Administered Medications Sodium Chloride (Nss) 1,000 mls @ 80 mls/hr IV .[id number] HECTOR Stop: 05/03/24 18:29 Last Admin: 04/03/24 19:23 Dose: 80 mls/hr Documented By: SENIA Discontinued Medications Sodium Chloride (Nss) 1,000 mls @ 999 mls/hr IV .[id number] ONE Stop: 04/03/24 17:43 Last Infusion: 04/03/24 18:23 Dose: Infused Documented By: Admin: 04/03/24 17:15 Dose: 999 mls/hr Documented By: SENIA Imaging Data Radiologist's Impression: Chest X-Ray 04/03/24 16:43 XR chest 1V portable CLINICAL HISTORY: Chest pain, nonspecific TECHNIQUE: Single frontal radiograph of the chest was obtained. Comparison: Comparison is made to chest radiograph 03/04/2023 FINDINGS: No lines and tubes are seen. The cardiomediastinal silhouette is normal. The lungs are clear. Airspace opacity in the right lower lung in the first image is not seen on the second image, likely atelectasis. Previously noted pneumobilia has resolved. No evidence of pleural effusion or pneumothorax. IMPRESSION: No acute chest disease. ACT 112: Negative or not required by law. Electronically signed by: Devonte Stephens M.D. 04/03/2024 5:34 PM Renal Ultrasound 04/03/24 17:02 US renal/blad retro comp CLINICAL HISTORY: carmencita TECHNIQUE: Multiple sonographic real-time images of the kidneys and bladder were obtained. COMPARISON: None available at the time of this dictation. FINDINGS: The right kidney measures 10.8 cm in length, and the left kidney measures 11.2 cm in length. The right kidney is normal in size, contour, cortical thickness, and echogenicity. No hydronephrosis is identified. No renal lesion is identified. The left kidney is normal in size, contour, cortical thickness and echogenicity. No hydronephrosis is identified. No renal lesion is identified. The bladder is partially distended. Bilateral jets are seen. IMPRESSION: Unremarkable renal ultrasound. ACT 112: Negative or not required by law. Electronically signed by: Devonte Stephens M.D. 04/03/2024 7:[address] 04/03/24 18:38 Exam(s): CT CHEST Without Contrast EXAM: CT Chest Without Intravenous Contrast CLINICAL HISTORY: Reason for exam: SOB, [place]. TECHNIQUE: Axial computed tomography images of the chest without intravenous contrast. CTDI is 24.62 mGy and DLP is 758.02 mGy-cm. Automated exposure control was utilized for the study. A dose lowering technique was utilized adhering to the principles of ALARA. COMPARISON: None FINDINGS: Lungs: Nonspecific nodules in the right upper lobe measuring up to 4 mm. Follow-up exam could be performed in 12 months. Dependent atelectasis bilaterally. Emphysematous changes. Pleural space: Unremarkable. No pneumothorax. No significant effusion. Heart: Coronary artery calcifications. No cardiomegaly. No significant pericardial effusion. Bones/joints: Degenerative changes of the spine. No acute fracture. No dislocation. Soft tissues: Unremarkable. Vasculature: See above. Lymph nodes: Unremarkable. No enlarged lymph nodes. IMPRESSION: Nonspecific nodules in the right upper lobe measuring up to 4 mm. Follow-up exam could be performed in 12 months. Emphysematous changes. Electronically signed by: Kendra Sy M.D. 04/03/24 19:46 PM Abdomen/Pelvis CT 04/03/24 18:42 Exam(s): CT ABDOMEN + PELVIS Without Contrast EXAM: CT Abdomen and Pelvis Without Intravenous Contrast CLINICAL HISTORY: Reason for exam: CARMENCITA, LUTS. TECHNIQUE: Axial computed tomography images of the abdomen and pelvis without intravenous contrast. CTDI is 22.71 mGy and DLP is 1073.9 mGy-cm. Automated exposure control was utilized for the study. A dose lowering technique was utilized adhering to the principles of ALARA. COMPARISON: None FINDINGS: Lung bases: Lower lung atelectasis. ABDOMEN: Liver: Hepatomegaly. Gallbladder and bile ducts: Unremarkable. No calcified stones. No ductal dilation. Pancreas: Unremarkable. No ductal dilation. Spleen: Unremarkable. No splenomegaly. Adrenals: Unremarkable. No mass. Kidneys and ureters: Nonspecific bilateral perinephric fat stranding. No hydronephrosis or stone. Stomach and bowel: Evaluation of the stomach is limited by underdistention. Mild diverticulosis without evidence of diverticulitis. No bowel obstruction or inflammation. PELVIS: Appendix: Normal appendix. Bladder: Underdistended bladder limits evaluation. No stones. Reproductive: Unremarkable as visualized. ABDOMEN and PELVIS: Intraperitoneal space: Unremarkable. No free air. No significant fluid collection. Bones/joints: Degenerative changes of the spine. No acute fracture. No dislocation. Soft tissues: Small fat-containing left inguinal hernia. Vasculature: Atherosclerotic changes of the vasculature. No aortic aneurysm. Lymph nodes: Unremarkable. No enlarged lymph nodes. IMPRESSION: No acute findings in the abdomen or pelvis. Electronically signed by: Kendra Sy M.D. 04/03/24 19:53 PM Discharge Plan Visit Data Chief Complaint: Abnormal Labs/Diagnostic Testing Stated Complaint: DR LOWERY, ABNORMAL LABS ED Provider: Brandyn Martin Discharge Problem: CARMENCITA (acute kidney injury), Weakness, Anemia, Hyperkalemia Forms Stand Alone Forms: My [facility] Prescriptions Prescriptions: No Action fluoxetine 40 mg capsule 80 mg PO DAILY atorvastatin 40 mg tablet 40 mg PO QAM metformin 500 mg tablet 500 mg PO BID clopidogrel 75 mg tablet 75 mg PO DAILY tamsulosin 0.4 mg capsule 0.8 mg PO HS pantoprazole 40 mg tablet,delayed release (DR/EC) 40 mg PO DAILY buspirone 10 mg tablet 10 mg PO BID lisinopril 40 mg tablet 40 mg PO DAILY fluticasone propionate 50 mcg/actuation spray,suspension 50 mcg INTRANASAL DAILY lamotrigine 100 mg tablet 100 mg PO BID finasteride 5 mg tablet 5 mg PO DAILY Trelegy Ellipta 100-62.5-25 mcg blister with device 1 ea INHALATION DAILY Ozempic 0.25 mg or 0.5 mg(2 mg/1.5 mL) pen injector SUBCUT meloxicam 15 mg tablet 15 mg DAILY prednisone 20 mg tablet 40 mg DAILY gabapentin 400 mg capsule 400 mg TID amoxicillin-pot clavulanate 875-125 mg tablet 1 tab BID alfuzosin 10 mg tablet extended release 24 hr 10 mg PO DAILY baclofen 20 mg tablet 20 mg BID Referrals Referrals: Kwadwo Rivera D.O. [Outside Practitioners] - Discharge Problem: Anemia Qualifiers: Anemia type: unspecified type Qualified Code(s): D64.9 - Anemia, unspecified
[2024-04-03] MEDS: SODIUM CHLORIDE 0.9% 1,000 ML IV ONE (17:15)
[2024-04-03 17:29] LABS: Basophils # (auto) 0.02 K/uL (0.00-0.20); Basophils % (auto) 0.2 %; Eosinophils # (auto) 0.05 K/uL (0.00-0.50); Eosinophils % (auto) 0.6 %; Hematocrit (blood only) 29.8 % (42.0-52.0); Hemoglobin 9.9 g/dl (14.0-18.0); Immature Granulocytes # (auto) 0.03 K/uL (0.01-0.20); Immature Granulocytes % (auto) 0.4 %; Lymphocytes % (auto) 23.4 %; Mean Corpuscular Hemoglobin 30.9 pg (25.0-34.0); Mean Corpuscular Hgb Conc 33.2 g/dL (32.0-36.0); Mean Corpuscular Volume 93.1 fL (80.0-100.0); Mean Platelet Volume 10.6 fL (9.4-12.4); Monocytes # (auto) 0.67 K/uL (0.11-0.59); Monocytes % (auto) 7.9 %; Neutrophils # (auto) 5.76 K/uL (1.40-6.50); Neutrophils % (auto) 67.5 %; Platelet Count 285 K/uL (130-400); RDW Coefficient of Variation 13.2 % (11.5-14.5); RDW Standard Deviation 44.6 fL (36.4-46.3); White Blood Count 8.53 K/ul (4.8-10.8)
--- NOTE | 2024-04-03 17:36 | XRay Report ---
XR chest 1V portable CLINICAL HISTORY: Chest pain, nonspecific TECHNIQUE: Single frontal radiograph of the chest was obtained. Comparison: Comparison is made to chest radiograph 03/04/2023 FINDINGS: No lines and tubes are seen. The cardiomediastinal silhouette is normal. The lungs are clear. Airspac e opacity in the right lower lung in the first image is not seen on the second image, likely atelecta sis. Previously noted pneumobilia has resolved. No evidence of pleural effusion or pneumothorax. IMPRESSION: No acute chest disease. ACT 112: Negative or not required by law. Electronically signed by: Devonte Stephens M.D. 04/03/2024 5:34 PM
[2024-04-03 17:38] LABS: iSTAT Creatinine 3.1 mg/dl (0.6-1.3); iSTAT Hemoglobin 9.5 g/dl (14.0-18.0); iSTAT Ionized Calcium 1.2 mmol/l (1.12-1.32); iSTAT Potassium 5.8 mmol/L (3.3-5.0)
[2024-04-03 17:41] LABS: Albumin Globulin Ratio 1.7 (0.9-2); Albumin Level 4.5 gm/dl (3.4-5.0); BUN Creatinine Ratio 15.2 (10-20); Bilirubin,Total 0.4 mg/dl (0.2-1.0); Calcium 9.6 mg/dl (8.6-10.3); Creatinine Clr Calc Pharmacy 27.6 ml/min; Est GFR (African American) 26.6 ml/min; Est GFR (Non-African American) 22.9 ml/min; Globulin 2.7 gm/dl (2.5-4.0); Potassium 5.8 mmol/L (3.5-5.1); Total Protein 7.2 gm/dl (6.0-8.3)
[2024-04-03 17:45] LABS: Troponin I High Sensitivity 4.2 pg/ml (0-20)
[2024-04-03 19:10] LABS: Magnesium 2.5 mg/dl (1.7-2.4); Phosphorus 4.5 mg/dl (2.5-4.9)
--- NOTE | 2024-04-03 19:20 | Ultrasound Report ---
US renal/blad retro comp CLINICAL HISTORY: janee TECHNIQUE: Multiple sonographic real-time images of the kidneys and bladder were obtained. COMPARISON: None available at the time of this dictation. FINDINGS: The right kidney measures 10.8 cm in length, and the left kidney measures 11.2 cm in length. The right kidney is normal in size, contour, cortical thickness, and echogenicity. No hydronephrosis is identified. No renal lesion is identified. The left kidney is normal in size, contour, cortical thickness and echogenicity. No hydronephrosis i s identified. No renal lesion is identified. The bladder is partially distended. Bilateral jets are seen. IMPRESSION: Unremarkable renal ultrasound. ACT 112: Negative or not required by law. Electronically signed by: Devonte Stephens M.D. 04/03/2024 7:19 PM
[2024-04-03] MEDS: SODIUM CHLORIDE 0.9% 1,000 ML IV SCH (19:23)
[2024-04-03 19:28] LABS: Appearance Urine Clear (Clear); Bilirubin Urine Negative (Negative); Blood Urine Negative (Negative); Color Urine Yellow; Glucose Urine UA Negative (Negative); Ketones Urine Negative (Negative); Leukocyte Esterase Urine Negative (Negative); Nitrite Urine Negative (Negative); Protein Urine Negative (Negative); Specific Gravity Urine 1.015 (1.000-1.030); Urobilinogen Urine Negative (Negative); pH Urine 5.5 (4.5-7.5)
--- NOTE | 2024-04-03 19:47 | CT Scan Report ---
Exam(s): CT CHEST Without Contrast EXAM: CT Chest Without Intravenous Contrast CLINICAL HISTORY: Reason for exam: SOB, [place]. TECHNIQUE: Axial computed tomography images of the chest without intravenous contrast. CTDI is 24.62 mGy and DLP is 758.02 mGy-cm. Automated exposure control was utilized for the study. A dose lowering technique was utilized adhering to the principles of ALARA. COMPARISON: None FINDINGS: Lungs: Nonspecific nodules in the right upper lobe measuring up to 4 mm. Follow-up exam could be performed in 12 months. Dependent atelectasis bilaterally. Emphysematous changes. Pleural space: Unremarkable. No pneumothorax. No significant effusion. Heart: Coronary artery calcifications. No cardiomegaly. No significant pericardial effusion. Bones/joints: Degenerative changes of the spine. No acute fracture. No dislocation. Soft tissues: Unremarkable. Vasculature: See above. Lymph nodes: Unremarkable. No enlarged lymph nodes. IMPRESSION: Nonspecific nodules in the right upper lobe measuring up to 4 mm. Follow-up exam could be performed in 12 months. Emphysematous changes. Electronically signed by: Kendra Sy M.D. 04/03/24 19:46 PM
--- NOTE | 2024-04-03 19:51 | History & Physical Report ---
Date of Service April 03, 2024 Assessment & Plan (1) CARMENCITA (acute kidney injury): (2) Hyperkalemia: (3) Anemia: (4) Weakness: (5) COPD (chronic obstructive pulmonary disease): (6) Bipolar disorder: (7) Diabetes mellitus: (8) Benign localized hyperplasia of prostate with urinary obstruction and lower urinary tract symptoms: Plan Pt is a 63yoM with PMHx significant for BPH, DMII, COPD, HTN, CAD, GERD, Bipolar Disorder who was sent in by his pcp for abnormal labwork, in particular an CARMENCITA with hyperkalemia. CARMENCITA Cr was elevated to >3 yesterday on outpt draw Cr of 2.82 on admission Baseline of 1.1 a year ago Gentle IV hydration Holding nephrotoxic meds (lisinopril, meloxicam, etc) Likely in setting of BPH/LUTS, consider penaloza placement (see below) Renal US with no acute findings Consider Nephrology consult if no improvement Continue to monitor Hyperkalemia K of 5.8 on admission Likely in setting of above BMP recheck at about 11pm Anticipate improve with improvement with renal function Holding lisinopril, low K diet Continue to monitor Consider Nephrology consult if no improvement Hypermagnesemia Mag slightly elevated at 2.5 Hold home magnesium supplements Continue to monitor BPH Pt states he follows with a Urologist in [place] Was most recently advised to STOP Alfuzosin AND finasteride, was advised to take TWO of his 0.4mg tamsulosin pills States he takes 0.8mg tamsulosin qhs and has been taking alfuzosin with it though advised not to Notes that he did not urinate all day on 04/01 which prompted him to visit his PCP Hesitant about a penaloza at this time CT abd/pelvis w/o contrast noting no hydronephrosis Consider Urology followup Dyspnea on Exertion COPD Notes that he has been having frequent episodes of [place] Not hypoxic, no increased oxygen requirement States cannot walk as far as he had previously, gets tired easily Chest XRAY with no acute findings Chest CT w/o contrast due to CARMENCITA notes emphysema, pulm nodules for which radiology recommends "Follow-up exam could be performed in 12 months." Echo ordered and pending, AM BNP States PCP put him on a prednisone 40mg daily course and abx treatment yesterday, currently on hold in setting of no acute findings and no increased oxygen requirement as noted above Continue to monitor Normocytic Anemia Hgb of 9.9 AM anemia workup Continue to monitor DMII AM [id number] Hold home metformin ISS while hospitalized Continue other home meds as ordered Diet: DMII/HH/low K DVT prophylaxis: Lovenox SQ Dispo: Med/surg with tele History of Present Illness Chief Complaint: Abnormal labs Primary Care Provider: Narcisa Abel MD Pt is a 63yoM with PMHx significant for BPH, DMII, COPD, HTN, CAD, GERD, Bipolar Disorder who was sent in by his pcp for abnormal labwork, in particular an CARMENCITA with hyperkalemia. He states that for the last 2 weeks he has been feeling shaky, having blurry vision, tired and not quite himself. He states that he has also been working very hard around the house and outside and not paying attention to his health or eating or drinking habits. He states he has a 5 year old at home that he also cares for. States that he has a history of trouble urinating, with starting. Notes Saturday or 2 days ago he did not urinate at all and so it prompted him to see his pcp. He notes that he follows with a Urologist in [place] who recently made some changes to his medications. He states he was told to STOP alfuzosin and finasteride and double his flomax dose. He states he brought in his medications to show the providers. He does note that he has been taking an occasional dose of the alfuzosin with the double flomax dose. He notes that he has also been having SOB with exertion during this time, though it feels like he just gets tired and cannot do as much as he typically does. Notes he was a smoker and quit about 2 years ago but will occasionally start gee k up. Declines a nicotine patch today. States he has a Hx of COPD and his pcp started him on 5 days of prednisone and an antibiotic when he was seen yesterday. He is unsure if it is helping. Allergies Allergy/AdvReac Type Severity Reaction Status Date / Time No Known Drug Allergies Allergy Verified 07/29/19 14:49 Home Medications Medication Instructions Recorded Confirmed Type atorvastatin 40 mg tablet 40 mg PO QAM 03/04/23 04/03/24 History buspirone 10 mg tablet 10 mg PO BID 03/04/23 04/03/24 History clopidogrel 75 mg tablet 75 mg PO DAILY 03/04/23 04/03/24 History finasteride 5 mg tablet 5 mg PO DAILY 03/04/23 04/03/24 History fluoxetine 40 mg capsule 80 mg PO DAILY 03/04/23 04/03/24 History fluticasone fur. 100 mcg-umeclid 1 ea inhalation DAILY 03/04/23 04/03/24 History 62.5 mcg-vilant 25 mcg inhalat.powder (Trelegy Ellipta) fluticasone propionate 50 50 mcg intranasal DAILY 03/04/23 04/03/24 History mcg/actuation nasal spray,suspension lamotrigine 100 mg tablet 100 mg PO BID 03/04/23 04/03/24 History lisinopril 40 mg tablet 40 mg PO DAILY 03/04/23 04/03/24 History metformin 500 mg tablet 500 mg PO BID 03/04/23 04/03/24 History pantoprazole 40 mg tablet,delayed 40 mg PO DAILY 03/04/23 04/03/24 History release semaglutide 0.25 mg or 0.5 mg (2 mg subcut 03/04/23 History mg/1.5 mL) subcutaneous pen injector (Ozempic) tamsulosin 0.4 mg capsule 0.8 mg PO HS 03/04/23 04/03/24 History alfuzosin 10 mg tablet,extended 10 mg PO DAILY 04/03/24 04/03/24 History release 24 hr amoxicillin 875 mg-potassium 1 tab BID 04/03/24 04/03/24 History clavulanate 125 mg tablet baclofen 20 mg tablet 20 mg BID 04/03/24 04/03/24 History gabapentin 400 mg capsule 400 mg TID 04/03/24 04/03/24 History meloxicam 15 mg tablet 15 mg DAILY 04/03/24 04/03/24 History prednisone 20 mg tablet 40 mg DAILY 04/03/24 04/03/24 History Past Med/Surg History Problem List (Updated 04/03/24 @ 20:10 by Brandyn Martin DO) Hyperkalemia (Acute) Anemia (Acute) Weakness (Acute) Hypoxia Sepsis (Acute) Hypomagnesemia (Acute) Tachycardia (Acute) SOB (shortness of breath) (Acute) Anemia (Acute) COPD (chronic obstructive pulmonary disease) Hypertension (Acute) Hyperlipidemia (Acute) Bipolar disorder (Acute) Enlarged prostate (Acute) Diabetes mellitus (Acute) Sepsis Constipation CARMENCITA (acute kidney injury) (Acute) Hypomagnesemia Pneumonia Bipolar 1 disorder GERD (gastroesophageal reflux disease) CAD in [place] artery Benign localized hyperplasia of prostate with urinary obstruction and lower urin orestes tract symptoms (Acute) CTS (carpal tunnel syndrome) (Acute) Depression (Acute) Lung disease (Acute) Nocturnal enuresis (Acute) Painful intercourse (Acute) Peyronie's disease (Acute) Psychosexual disorder (Acute) Medical History Arthritis Bipolar disorder BPH (benign prostatic hyperplasia) CAD in [place] artery Diabetes mellitus Enlarged prostate GERD (gastroesophageal reflux disease) HTN (hypertension) with goal to be determined Hyperlipidemia Hypertension Social History Smoking Status: Former smoker Hx Alcohol Use: No Hx Substance Use: No Preferred Language: French Communication Ability: Effective Hand Crown Pouncer Required: No Beliefs That Will Affect Care: None Current Living Situation: Significant Other Feels Safe at Home: Yes Assistive Devices: None Review of Systems Review of Systems: All systems reviewed & are unremarkable except as noted in Subjective Physical Exam Physical Exam: General: Alert, oriented. No acute distress Skin: No noted rashes or bruises Psych: Appropriate mood and affect Neuro: No gross deficits while sitting in bed HEENT: NC/AT Chest: Nontender to palpation. CV: RRR, +murmur Resp: Breath sounds coarse bilaterally, no increased effort of breathing. Abdomen: Soft, nontender, nondistended. No guarding. Extremities: No edema in lower extremities bilaterally. Results & Data Results & Data Vital Signs (Past 12 Hours) Vital Signs Temp Pulse Resp BP Pulse Ox O2 Del Method 04/03/24 17:02 78 04/03/24 17:00 79 15 126/80 95 Room Air 04/03/24 16:31 36.4 C L 83 14 133/74 96 Room Air Diagnostic Findings Chest X-Ray 04/03/24 16:43 XR chest 1V portable CLINICAL HISTORY: Chest pain, nonspecific TECHNIQUE: Single frontal radiograph of the chest was obtained. Comparison: Comparison is made to chest radiograph 03/04/2023 FINDINGS: No lines and tubes are seen. The cardiomediastinal silhouette is normal. The lungs are clear. Airspace opacity in the right lower lung in the first image is not seen on the second image, likely atelectasis. Previously noted pneumobilia has resolved. No evidence of pleural effusion or pneumothorax. IMPRESSION: No acute chest disease. ACT 112: Negative or not required by law. Electronically signed by: Devonte Stephens M.D. 04/03/2024 5:34 PM Renal Ultrasound 04/03/24 17:02 US renal/blad retro comp CLINICAL HISTORY: carmencita TECHNIQUE: Multiple sonographic real-time images of the kidneys and bladder were obtained. COMPARISON: None available at the time of this dictation. FINDINGS: The right kidney measures 10.8 cm in length, and the left kidney measures 11.2 cm in length. The right kidney is normal in size, contour, cortical thickness, and echo genicity. No hydronephrosis is identified. No renal lesion is identified. The left kidney is normal in size, contour, cortical thickness and echogenicity. No hydronephrosis is identified. No renal lesion is identified. The bladder is partially distended. Bilateral jets are seen. IMPRESSION: Unremarkable renal ultrasound. ACT 112: Negative or not required by law. Electronically signed by: Devonte Stephens M.D. 04/03/2024 7:[address] 04/03/24 18:38 Exam(s): CT CHEST Without Contrast EXAM: CT Chest Without Intravenous Contrast CLINICAL HISTORY: Reason for exam: SOB, [place]. TECHNIQUE: Axial computed tomography images of the chest without intravenous contrast. CTDI is 24.62 mGy and DLP is 758.02 mGy-cm. Automated exposure control was utilized for the study. A dose lowering technique was utilized adhering to the principles of ALARA. COMPARISON: None FINDINGS: Lungs: Nonspecific nodules in the right upper lobe measuring up to 4 mm. Follow-up exam could be performed in 12 months. Dependent atelectasis bilaterally. Emphysematous changes. Pleural space: Unremarkable. No pneumothorax. No significant effusion. Heart: Coronary artery calcifications. No cardiomegaly. No significant pericardial effusion. Bones/joints: Degenerative changes of the spine. No acute fracture. No dislocation. Soft tissues: Unremarkable. Vasculature: See above. Lymph nodes: Unremarkable. No enlarged lymph nodes. IMPRESSION: Nonspecific nodules in the right upper lobe measuring up to 4 mm. Follow-up exam could be performed in 12 months. Emphysematous changes. Electronically signed by: Kendra Sy M.D. 04/03/24 19:46 PM Abdomen/Pelvis CT 04/03/24 18:42 Exam(s): CT ABDOMEN + PELVIS Without Contrast EXAM: CT Abdomen and Pelvis Without Intravenous Contrast CLINICAL HISTORY: Reason for exam: CARMENCITA, LUTS. TECHNIQUE: Axial computed tomography images of the abdomen and pelvis without intravenous contrast. CTDI is 22.71 mGy and DLP is 1073.9 mGy-cm. Automated exposure control was utilized for the study. A dose lowering technique was utilized adhering to the principles of ALARA. COMPARISON: None FINDINGS: Lung bases: Lower lung atelectasis. ABDOMEN: Liver: Hepatomegaly. Gallbladder and bile ducts: Unremarkable. No calcified stones. No ductal dilation. Pancreas: Unremarkable. No ductal dilation. Spleen: Unremarkable. No splenomegaly. Adrenals: Unremarkable. No mass. Kidneys and ureters: Nonspecific bilateral perinephric fat stranding. No hydronephrosis or stone. Stomach and bowel: Evaluation of the stomach is limited by underdistention. Mild diverticulosis without evidence of diverticulitis. No bowel obstruction or inflammation. PELVIS: Appendix: Normal appendix. Bladder: Underdistended bladder limits evaluation. No stones. Reproductive: Unremarkable as visualized. ABDOMEN and PELVIS: Intraperitoneal space: Unremarkable. No free air. No significant fluid collection. Bones/joints: Degenerative changes of the spine. No acute fracture. No dislocation. Soft tissues: Small fat-containing left inguinal hernia. Vasculature: Atherosclerotic changes of the vasculature. No aortic aneurysm. Lymph nodes: Unremarkable. No enlarged lymph nodes. IMPRESSION: No acute findings in the abdomen or pelvis. Electronically signed by: Kendra Sy M.D. 04/03/24 19:53 PM (3) Anemia Anemia type: unspecified type Qualified Code(s): D64.9 - Anemia, unspecified
[2024-04-03] MEDS ORDERED: CARBOHYDRATES FOR HYPOGLYCEMIA PO PRN (20:39)
[2024-04-03] MEDS ORDERED: DEXTROSE 50% 50 ML SYRINGE IV PRN (20:39)
[2024-04-03] MEDS ORDERED: GLUCOSE 10 TAB/TUBE PO PRN (20:39)
[2024-04-03] MEDS ORDERED: GLUCAGON FOR INJ 1 MG VIAL SQ PRN (20:39)
[2024-04-03] MEDS ORDERED: GLUCOSE 40% GEL 15 GM TUBE PO PRN (20:39)
[2024-04-03] MEDS ORDERED: POLYETHYLENE (MIRALAX) 17 GM PACK PO PRN (20:59)
[2024-04-03] MEDS ORDERED: ONDANSETRON INJ 2 MG/ML 2 ML VIAL IV PRN (20:59)
[2024-04-03] MEDS ORDERED: ACETAMINOPHEN 500 MG TAB PO PRN (20:59)
[2024-04-03] MEDS: ENOXAPARIN INJ 30 MG/0.3 ML SYR SQ SCH (22:08)
[2024-04-03] MEDS: busPIRone 5 MG TAB PO SCH (22:09)
[2024-04-03] MEDS: TAMSULOSIN HCL 0.4 MG CAP PO SCH (22:09)
[2024-04-03] MEDS: lamoTRIgine 100 MG TAB PO SCH (22:09)
[2024-04-03] MEDS: GABAPENTIN 400 MG CAP PO SCH (22:09)
[2024-04-03] MEDS: INSULIN ASPART PER UNIT CHARGE SC SCH (23:30)
[2024-04-03 23:47] LABS: BUN Creatinine Ratio 15.6 (10-20); Calcium 8.8 mg/dl (8.6-10.3); Creatinine Clr Calc Pharmacy 31.9 ml/min; Est GFR (African American) 31.7 ml/min; Est GFR (Non-African American) 27.3 ml/min; Potassium 5.1 mmol/L (3.5-5.1)
[2024-04-04 07:31] LABS: Basophils # (auto) 0.01 K/uL (0.00-0.20); Basophils % (auto) 0.2 %; Hematocrit (blood only) 30.9 % (42.0-52.0); Hemoglobin 10.1 g/dl (14.0-18.0); Immature Granulocytes # (auto) 0.03 K/uL (0.01-0.20); Immature Granulocytes % (auto) 0.6 %; Lymphocytes # (auto) 0.59 K/uL (1.20-3.40); Lymphocytes % (auto) 11.6 %; Mean Corpuscular Hemoglobin 30.7 pg (25.0-34.0); Mean Corpuscular Hgb Conc 32.7 g/dL (32.0-36.0); Mean Corpuscular Volume 93.9 fL (80.0-100.0); Mean Platelet Volume 10.8 fL (9.4-12.4); Monocytes # (auto) 0.12 K/uL (0.11-0.59); Monocytes % (auto) 2.4 %; Neutrophils # (auto) 4.32 K/uL (1.40-6.50); Neutrophils % (auto) 85.2 %; Platelet Count 265 K/uL (130-400); RDW Coefficient of Variation 13.2 % (11.5-14.5); RDW Standard Deviation 45.3 fL (36.4-46.3); Red Blood Count 3.29 M/uL (4.70-6.10); White Blood Count 5.07 K/ul (4.8-10.8)
[2024-04-04] MEDS: CLOPIDOGREL BISULFATE 75 MG TAB PO SCH (08:05)
[2024-04-04] MEDS: FLUoxetine HCL 20 MG CAP PO SCH (08:05)
[2024-04-04] MEDS: ATORVASTATIN 40 MG TAB PO SCH (08:05)
[2024-04-04 08:06] LABS: Folate (Folic Acid),Ser orPlas > 22.30 ng/ml (>5.38)
[2024-04-04] MEDS: FLUTICASONE PROPIONATE NA SPR 16 GM BTL NAE SCH (08:06)
[2024-04-04] MEDS: UMECLIDINIUM/VILANTEROL 62.5/25MCG 7 PUFFS/INHALER INH SCH (08:06)
[2024-04-04] MEDS: FLUTICASONE FUROATE 100MCG 14 PUFFS/INHALER INH SCH (08:06)
[2024-04-04] MEDS: PANTOprazole 40 MG TAB PO SCH (08:06)
[2024-04-04 08:07] LABS: Vitamin B12 655 pg/ml (180-914)
[2024-04-04 08:14] LABS: Albumin Globulin Ratio 1.7 (0.9-2); Albumin Level 4.1 gm/dl (3.4-5.0); BUN Creatinine Ratio 18.8 (10-20); Bilirubin,Total 0.3 mg/dl (0.2-1.0); Creatinine Clr Calc Pharmacy 42.9 ml/min; Est GFR (African American) 45.4 ml/min; Est GFR (Non-African American) 39.2 ml/min; Ferritin 28.8 ng/ml (8-388); Globulin 2.4 gm/dl (2.5-4.0); Magnesium 2.3 mg/dl (1.7-2.4); Potassium 6.9 mmol/L (3.5-5.1); Total Protein 6.5 gm/dl (6.0-8.3)
[2024-04-04] MEDS ORDERED: STAT IV Infusion **Titration per Protocol STA (08:21)
[2024-04-04] MEDS ORDERED: INSULIN PROTOCOL GOAL RANGE ONE (08:21)
[2024-04-04] MEDS ORDERED: INSULIN REGULAR 250 UNITS in SODIUM CHLORIDE 0.9% 247.5 ML IV SCH (08:30)
[2024-04-04 08:42] LABS: Estimated Average Glucose 137 mg/dl; Hemoglobin A1C 6.4 % (4.5-5.6)
[2024-04-04] MEDS: DEXTROSE 50% 50 ML SYRINGE IV ONE (08:42)
[2024-04-04] MEDS: SODIUM CHLORIDE 0.9% 500 ML IV ONE (08:42)
[2024-04-04] MEDS: CALCIUM GLUCONATE 1,000 MG/60 ML BAG IV STA (08:56)
[2024-04-04] MEDS: INSULIN HUMAN REGULAR PER UNIT 5 UNITS in SYRINGE 4.95 ML IV STA (08:57)
[2024-04-04] MEDS: SODIUM ZIRCONIUM CYCLOSILICATE 10 GM PACKET PO ONE (09:00)
[2024-04-04] MEDS ORDERED: NON-FORMULARY MEDICATION (Fluticasone-Umeclidin-Vilanter [Trelegy Ellipta] 100-62.5-25 mcg INH SCH (09:00)
[2024-04-04] MEDS ORDERED: NON-FORMULARY MEDICATION (Alfuzosin 10 mg tablet extended release 24 hr) PO SCH (09:00)
[2024-04-04] MEDS ORDERED: FINASTERIDE 5 MG TAB PO SCH (09:00)
[2024-04-04] MEDS: guaiFENesin 600 MG TABCR PO SCH (09:01)
[2024-04-04] MEDS ORDERED: FUROSEMIDE INJ 20 MG/2 ML VIAL IV ONE (09:04)
--- NOTE | 2024-04-04 09:04 | Hospitalist Progress Note ---
Date of Service April 04, 2024 Assessment & Plan (1) CARMENCITA (acute kidney injury): (2) Hyperkalemia: (3) Anemia: (4) Weakness: (5) COPD (chronic obstructive pulmonary disease): (6) Bipolar disorder: (7) Diabetes mellitus: (8) Benign localized hyperplasia of prostate with urinary obstruction and lower urinary tract symptoms: Plan Pt is a 63yoM with PMHx significant for BPH, DMII, COPD, HTN, CAD, GERD, Bipolar Disorder who was sent in by his pcp for abnormal labwork, in particular an CARMENCITA with hyperkalemia. CARMENCITA Cr was elevated to >3 on outpt draw Cr of 2.82 on admission Baseline of 1.1 a year ago IV hydration Holding nephrotoxic meds (lisinopril, meloxicam, etc) Possibly in setting of BPH/LUTS, consider penaloza placement (see below) Renal US with no acute findings Cr improved to 1.8 straight cath this AM 200cc K elevated at 6.9 Nephrology consulted Continue to monitor Hyperkalemia K of 5.8 on admission Likely in setting of above Holding lisinopril, low K diet This AM K 6.9 - giving calcium gluconate, IV insulin, IVF, also starting lokelma Nephrology consulted Continue to monitor Hypermagnesemia Mag slightly elevated at 2.5 Hold home magnesium supplements Continue to monitor BPH Pt states he follows with a Urologist in [place] Was most recently advised to STOP Alfuzosin AND finasteride, was advised to take TWO of his 0.4mg tamsulosin pills States he takes 0.8mg tamsulosin qhs and has been taking alfuzosin with it though advised not to Notes that he did not urinate all day on 04/01 which prompted him to visit his PCP [facility] about a penaloza at this time CT abd/pelvis w/o contrast noting no hydronephrosis Urology followup Dyspnea on Exertion COPD Notes that he has been having frequent episodes of [place] Not hypoxic, no increased oxygen requirement States cannot walk as far as he had previously, gets tired easily Chest XRAY with no acute findings Chest CT w/o contrast due to CARMENCITA notes emphysema, pulm nodules for which rad iology recommends "Follow-up exam could be performed in 12 months." Echo ordered and pending, AM BNP States PCP put him on a prednisone 40mg daily course and abx- augmentin- treatment prior to admission, currently on hold in setting of no acute findings and no increased oxygen requirement as noted above Continue to monitor Normocytic Anemia Hgb of 9.9 anemia workup Continue to monitor DMII Current HgbA1c 6.4% Hold home metformin ISS while hospitalized Continue other home meds as ordered Diet: DMII/HH/low K DVT prophylaxis: Lovenox SQ Dispo: Med/surg with tele Admission and Anticipated Discharge Date Admission Date: April 03, 2024 Subjective Pt seen in follow up of hyperkalemia, CARMENCITA This AM Cr improved to 1.8 but potassium high at 6.9 Pt is laying in bed in NAD, denies any chest pain or palpitations. says he had some blurry vision and feeling dizzy when standing up for several days. Also was started on prednisone and augmentin by pcp yesterday. Straight cath this AM for 200 cc Discussed w/ pharmacy over the phone and with RN at the bedside - will give calcium gluconate stat, IV insulin, will also start lokelma. Increase IVF now. Nephrology consult placed Review of Systems Review of Systems: All systems reviewed & are unremarkable except as noted in Subjective Physical Exam Physical Exam: General: Alert, oriented. No acute distress Skin: No noted rashes or bruises Psych: Appropriate mood and affect Neuro: No gross deficits while sitting in bed HEENT: NC/AT Chest: Nontender to palpation. CV: RRR, +murmur Resp: mild rhonci b/l, no wheezing, no increased effort of breathing. Abdomen: Soft, nontender, nondistended. No guarding. Extremities: No edema in lower extremities bilaterally. Results & Data Results & Data Vital Signs (Past 12 Hours) Vital Signs Temp Pulse Pulse Resp BP Pulse Ox O2 Del Method 04/04/24 07:27 36.4 C L 60 18 126/81 93 Room Air 04/04/24 07:27 57 L 04/04/24 07:14 Room Air 04/04/24 03:50 36.5 C 67 18 103/62 95 Room Air 04/03/24 23:41 73 04/03/24 23:07 36.5 C 14 128/80 94 Room Air 04/03/24 22:00 36.5 C 14 128/80 95 Room Air 04/03/24 21:00 71 Laboratory Results 04/04/24 04/04/2404/04/24 Range/Units 08:17 07:51 06:58 WBC 5.07 (4.8-10.8) K/ul RBC 3.29 L (4.70-6.10) M/uL Hgb 10.1 L (14.0-18.0) g/dl POC Hgb (14.0-18.0) g/dl Hct 30.9 L (42.0-52.0) % POC Hct (42-52) % MCV 93.9 (80.0-100.0) fL MCH 30.7 (25.0-34.0) pg MCHC 32.7 (32.0-36.0) g/dL RDW Std Deviation 45.3 (36.4-46.3) fL RDW Coeff of Christophe 13.2 (11.5-14.5) % Plt Count 265 (130-400) K/uL MPV 10.8 (9.4-12.4) fL Immature Gran % (Auto) 0.6 % Neut % (Auto) 85.2 % Lymph % (Auto) 11.6 % Grady % (Auto) 2.4 % Eos % (Auto) 0.0 % Baso % (Auto) 0.2 % Neut # (Auto) 4.32 (1.40-6.50) K/uL Lymph # (Auto) 0.59 L (1.20-3.40) K/uL Grady # (Auto) 0.12 (0.11-0.59) K/uL Eos # (Auto) 0.00 (0.00-0.50) K/uL Baso # (Auto) 0.01 (0.00-0.20) K/uL Immature Gran # (Auto) 0.03 (0.01-0.20) K/uL POC Sodium (135-144) mmol/L Sodium 137 (136-145) mmol/L POC Potassium (3.3-5.0) mmol/L Potassium 6.9 H* D (3.5-5.1) mmol/L POC Chloride (101-112) mmol/L Chloride 112 H (98-107) mmol/L Carbon Dioxide 22 (21-32) mmol/L POC Total CO2 (24-31) mmol/L Anion Gap 3 (3-11) POC Anion Gap (16-25) mmol/L POC BUN (7-18) mg/dl BUN 34 H (6-23) mg/dl Creatinine 1.81 H D (0.6-1.4) mg/dl POC Creatinine (0.6-1.3) mg/dl Est Cr Clr Drug Dosing 42.9 ml/min Est GFR ( Amer) 45.4 ml/min Est GFR (Non-Af Amer) 39.2 ml/min BUN/Creatinine Ratio 18.8 (10-20) Glucose 153 H (70-99(Fasting)) mg/dl POC Glucose 138 H (70-99) mg/dl POC Glucose (other) (70-99) mg/dl Estimat Average Glucose 137 mg/dl Hemoglobin A1c 6.4 H (4.5-5.6) % Calcium 9.0 (8.6-10.3) mg/dl POC Ioniz Calcium Rubi (1.12-1.32) mmol/l Phosphorus 3.0 D (2.5-4.9) mg/dl Magnesium 2.3 (1.7-2.4) mg/dl Iron 74 (35-175) mcg/dl TIBC 367 (250-450) mcg/dl Unsaturated IBC 293 (155-355) mcg/dl Transferrin % Sat 20 (20-50) % Ferritin 28.8 (8-388) ng/ml Total Bilirubin 0.3 (0.2-1.0) mg/dl AST 12 L (13-39) U/L ALT 10 (7-52) U/L Alkaline Phosphatase 71 (34-104) U/L Troponin I High Sens (0-20) pg/ml B-Natriuretic Peptide 143 H (0-100) pg/ml Total Protein 6.5 (6.0-8.3) gm/dl Albumin 4.1 (3.4-5.0) gm/dl Globulin 2.4 L (2.5-4.0) gm/dl Albumin/Globulin Ratio 1.7 (0.9-2) Lipase (11-82) U/L Vitamin B12 655 (180-914) pg/ml Folate > 22.30 (>5.38) ng/ml Procalcitonin Pending Urine Color Urine Appearance (Clear) Urine pH (4.5-7.5) Ur Specific [place] (1.000-1.030) Urine Protein (Negative) Urine Glucose (UA) (Negative) Urine Ketones (Negative) Urine Blood (Negative) Urine Nitrite (Negative) Urine Bilirubin (Negative) Urine Urobilinogen (Negative) Ur Leukocyte Esterase (Negative) Nasal Screen MRSA (PCR) (Negative) SARS-CoV-2, RNA, NAAT (NEGATIVE) 04/03/24 04/03/24 04/03/24 Range/Units 23:11 23:06 19:13 WBC (4.8-10.8) K/ul RBC (4.70-6.10) M/uL Hgb (14.0-18.0) g/dl POC Hgb (14.0-18.0) g/dl Hct (42.0-52.0) % POC Hct (42-52) % MCV (80.0-100.0) fL MCH (25.0-34.0) pg MCHC (32.0-36.0) g/dL RDW Std Deviation (36.4-46.3) fL RDW Coeff of Christophe (11.5-14.5) % Plt Count (130-400) K/uL MPV (9.4-12.4) fL Immature Gran % (Auto) % Neut % (Auto) % Lymph % (Auto) % Grady % (Auto) % Eos % (Auto) % Baso % (Auto) % Neut # (Auto) (1.40-6.50) K/uL Lymph # (Auto) (1.20-3.40) K/uL Grady # (Auto) (0.11-0.59) K/uL Eos # (Auto) (0.00-0.50) K/uL Baso # (Auto) (0.00-0.20) K/uL Immature Gran # (Auto) (0.01-0.20) K/uL POC Sodium (135-144) mmol/L Sodium 138 (136-145) mmol/L POC Potassium (3.3-5.0) mmol/L Potassium 5.1 (3.5-5.1) mmol/L POC Chloride (101-112) mmol/L Chloride 109 H (98-107) mmol/L Carbon Dioxide 23 (21-32) mmol/L POC Total CO2 (24-31) mmol/L Anion Gap 6 (3-11) POC Anion Gap (16-25) mmol/L POC BUN (7-18) mg/dl BUN 38 H (6-23) mg/dl Creatinine 2.44 H D (0.6-1.4) mg/dl POC Creatinine (0.6-1.3) mg/dl Est Cr Clr Drug Dosing 31.9 ml/min Est GFR ( Amer) 31.7 ml/min Est GFR (Non-Af Amer) 27.3 ml/min BUN/Creatinine Ratio 15.6 (10-20) Glucose 116 H (70-99(Fasting)) mg/dl POC Glucose 131 H (70-99) mg/dl POC Glucose (other) (70-99) mg/dl Estimat Average Glucose mg/dl Hemoglobin A1c (4.5-5.6) % Calcium 8.8 (8.6-10.3) mg/dl POC Ioniz Calcium Rubi (1.12-1.32) mmol/l Phosphorus (2.5-4.9) mg/dl Magnesium (1.7-2.4) mg/dl Iron (35-175) mcg/dl TIBC (250-450) mcg/dl Unsaturated IBC (155-355) mcg/dl Transferrin % Sat (20-50) % Ferritin (8-388) ng/ml Total Bilirubin (0.2-1.0) mg/dl AST (13-39) U/L ALT (7-52) U/L Alkaline Phosphatase (34-104) U/L Troponin I High Sens (0-20) pg/ml B-Natriuretic Peptide (0-100) pg/ml Total Protein (6.0-8.3) gm/dl Albumin (3.4-5.0) gm/dl Globulin (2.5-4.0) gm/dl Albumin/Globulin Ratio (0.9-2) Lipase (11-82) U/L Vitamin B12 (180-914) pg/ml Folate (>5.38) ng/ml Procalcitonin Urine Color Yellow Urine Appearance Clear (Clear) Urine pH 5.5 (4.5-7.5) Ur Specific [place] 1.015 (1.000-1.030) Urine Protein Negative (Negative) Urine Glucose (UA) Negative (Negative) Urine Ketones Negative (Negative) Urine Blood Negative (Negative) Urine Nitrite Negative (Negative) Urine Bilirubin Negative (Negative) Urine Urobilinogen Negative (Negative) Ur Leukocyte Esterase Negative (Negative) Nasal Screen MRSA (PCR) (Negative) SARS-CoV-2, RNA, NAAT (NEGATIVE) 04/03/24 04/03/24 04/03/24 Range/Units 19:00 17:45 17:20 WBC (4.8-10.8) K/ul RBC (4.70-6.10) M/uL Hgb (14.0-18.0) g/dl POC Hgb 9.5 L (14.0-18.0) g/dl Hct (42.0-52.0) % POC Hct 28 L (42-52) % MCV (80.0-100.0) fL MCH (25.0-34.0) pg MCHC (32.0-36.0) g/dL RDW Std Deviation (36.4-46.3) fL RDW Coeff of Christophe (11.5-14.5) % Plt Count (130-400) K/uL MPV (9.4-12.4) fL Immature Gran % (Auto) % Neut % (Auto) % Lymph % (Auto) % Grady % (Auto) % Eos % (Auto) % Baso % (Auto) % Neut # (Auto) (1.40-6.50) K/uL Lymph # (Auto) (1.20-3.40) K/uL [place]ady # (Auto) (0.11-0.59) K/uL Eos # (Auto) (0.00-0.50) K/uL Baso # (Auto) (0.00-0.20) K/uL Immature Gran # (Auto) (0.01-0.20) K/uL POC Sodium 136 (135-144) mmol/L Sodium (136-145) mmol/L POC Potassium 5.8 H (3.3-5.0) mmol/L Potassium (3.5-5.1) mmol/L POC Chloride 107 (101-112) mmol/L Chloride (98-107) mmol/L Carbon Dioxide (21-32) mmol/L POC Total CO2 22 L (24-31) mmol/L Anion Gap (3-11) POC Anion Gap 14.0 L (16-25) mmol/L POC BUN 37 H (7-18) mg/dl BUN (6-23) mg/dl Creatinine (0.6-1.4) mg/dl POC Creatinine 3.1 H (0.6-1.3) mg/dl Est Cr Clr Drug Dosing ml/min Est GFR ( Amer) ml/min Est GFR (Non-Af Amer) ml/min BUN/Creatinine Ratio (10-20) Glucose (70-99(Fasting)) mg/dl POC Glucose (70-99) mg/dl POC Glucose (other) 99 (70-99) mg/dl Estimat Average Glucose mg/dl Hemoglobin A1c (4.5-5.6) % Calcium (8.6-10.3) mg/dl POC Ioniz Calcium Rubi 1.20 (1.12-1.32) mmol/l Phosphorus (2.5-4.9) mg/dl Magnesium (1.7-2.4) mg/dl Iron (35-175) mcg/dl TIBC (250-450) mcg/dl Unsaturated IBC (155-355) mcg/dl Transferrin % Sat (20-50) % Ferritin (8-388) ng/ml Total Bilirubin (0.2-1.0) mg/dl AST (13-39) U/L ALT (7-52) U/L Alkaline Phosphatase (34-104) U/L Troponin I High Sens (0-20) pg/ml B-Natriuretic Peptide (0-100) pg/ml Total Protein (6.0-8.3) gm/dl Albumin (3.4-5.0) gm/dl Globulin (2.5-4.0) gm/dl Albumin/Globulin Ratio (0.9-2) Lipase (11-82) U/L Vitamin B12 (180-914) pg/ml Folate (>5.38) ng/ml Procalcitonin Urine Color Urine Appearance (Clear) Urine pH (4.5-7.5) Ur Specific [place] (1.000-1.030) Urine Protein (Negative) Urine Glucose (UA) (Negative) Urine Ketones (Negative) Urine Blood (Negative) Urine Nitrite (Negative) Urine Bilirubin (Negative) Urine Urobilinogen (Negative) Ur Leukocyte Esterase (Negative) Nasal Screen MRSA (PCR) Negative (Negative) SARS-CoV-2, RNA, NAAT NEGATIVE (NEGATIVE) 04/03/24 04/03/24 Range/Units 17:00 16:59 WBC 8.53 (4.8-10.8) K/ul RBC 3.20 L (4.70-6.10) M/uL Hgb 9.9 L (14.0-18.0) g/dl POC Hgb (14.0-18.0) g/dl Hct 29.8 L (42.0-52.0) % POC Hct (42-52) % MCV 93.1 (80.0-100.0) fL MCH 30.9 (25.0-34.0) pg MCHC 33.2 (32.0-36.0) g/dL RDW Std Deviation 44.6 (36.4-46.3) fL RDW Coeff of Christophe 13.2 (11.5-14.5) % Plt Count 285 (130-400) K/uL MPV 10.6 (9.4-12.4) fL Immature Gran % (Auto) 0.4 % Neut % (Auto) 67.5 % Lymph % (Auto) 23.4 % Grady % (Auto) 7.9 % Eos % (Auto) 0.6 % Baso % (Auto) 0.2 % Neut # (Auto) 5.76 (1.40-6.50) K/uL Lymph # (Auto) 2.00 (1.20-3.40) K/uL Grady # (Auto) 0.67 H (0.11-0.59) K/uL Eos # (Auto) 0.05 (0.00-0.50) K/uL Baso # (Auto) 0.02 (0.00-0.20) K/uL Immature Gran # (Auto) 0.03 (0.01-0.20) K/uL POC Sodium (135-144) mmol/L Sodium 136 (136-145) mmol/L POC Potassium (3.3-5.0) mmol/L Potassium 5.8 H (3.5-5.1) mmol/L POC Chloride (101-112) mmol/L Chloride 105 (98-107) mmol/L Carbon Dioxide 24 (21-32) mmol/L POC Total CO2 (24-31) mmol/L Anion Gap 7 (3-11) POC Anion Gap (16-25) mmol/L POC BUN (7-18) mg/dl BUN 43 H (6-23) mg/dl Creatinine 2.82 H (0.6-1.4) mg/dl POC Creatinine (0.6-1.3) mg/dl Est Cr Clr Drug Dosing 27.6 ml/min Est GFR ( Amer) 26.6 ml/min Est GFR (Non-Af Amer) 22.9 ml/min BUN/Creatinine Ratio 15.2 (10-20) Glucose 101 H (70-99(Fasting)) mg/dl POC Glucose (70-99) mg/dl POC Glucose (other) (70-99) mg/dl Estimat Average Glucose mg/dl Hemoglobin A1c (4.5-5.6) % Calcium 9.6 (8.6-10.3) mg/dl POC Ioniz Calcium Rubi (1.12-1.32) mmol/l Phosphorus 4.5 (2.5-4.9) mg/dl Magnesium 2.5 H (1.7-2.4) mg/dl Iron (35-175) mcg/dl TIBC (250-450) mcg/dl Unsaturated IBC (155-355) mcg/dl Transferrin % Sat (20-50) % Ferritin (8-388) ng/ml Total Bilirubin 0.4 (0.2-1.0) mg/dl AST 13 (13-39) U/L ALT 12 (7-52) U/L Alkaline Phosphatase 79 (34-104) U/L Troponin I High Sens 4.2 (0-20) pg/ml B-Natriuretic Peptide (0-100) pg/ml Total Protein 7.2 (6.0-8.3) gm/dl Albumin 4.5 (3.4-5.0) gm/dl Globulin 2.7 (2.5-4.0) gm/dl Albumin/Globulin Ratio 1.7 (0.9-2) Lipase 22 (11-82) U/L Vitamin B12 (180-914) pg/ml Folate (>5.38) ng/ml Procalcitonin Urine Color Urine Appearance (Clear) Urine pH (4.5-7.5) Ur Specific [place] (1.000-1.030) Urine Protein (Negative) Urine Glucose (UA) (Negative) Urine Ketones (Negative) Urine Blood (Negative) Urine Nitrite (Negative) Urine Bilirubin (Negative) Urine Urobilinogen (Negative) Ur Leukocyte Esterase (Negative) Nasal Screen MRSA (PCR) (Negative) SARS-CoV-2, RNA, NAAT (NEGATIVE) Medications Administered Current Inpatient Medications Acetaminophen (Acetaminophen 500 Mg Tab) 1,000 mg PO Q8H PRN PRN Reason: fever or pain Stop: 05/03/24 20:58 Atorvastatin Calcium (Atorvastatin 40 Mg Tab) 40 mg PO QAM HECTOR Stop: 05/04/24 08:59 Last Admin: 04/04/24 08:05 Dose: 40 mg Buspirone HCl (Buspirone 5 Mg Tab) 10 mg PO BID HECTOR Stop: 05/03/24 20:59 Last Admin: 04/04/24 08:05 Dose: 10 mg Clopidogrel Bisulfate (Clopidogrel Bisulfate 75 Mg Tab) 75 mg PO DAILY HECTOR Stop: 05/04/24 08:59 Last Admin: 04/04/24 08:05 Dose: 75 mg Dextrose (Dextrose 50% 50 Ml Syringe) 25 - 50 ml IV UD PRN; Protocol PRN Reason: Hypoglycemia Protocol Stop: 05/03/24 20:38 Enoxaparin Sodium (Enoxaparin Inj 30 Mg/0.3 Ml Syr) 30 mg SQ Q24H HECTOR Stop: 05/03/24 20:59 Last Admin: 04/03/24 22:08 Dose: Not Given Fluoxetine HCl (Fluoxetine Hcl 20 Mg Cap) 80 mg PO DAILY HECTOR Stop: 05/04/24 08:59 Last Admin: 04/04/24 08:05 Dose: 80 mg Fluticasone Furoate (Fluticasone Furoate 100mcg 14 Puffs/Inhaler) 1 puffs INH DAILY HECTOR Stop: 05/04/24 08:59 Last Admin: 04/04/24 08:06 Dose: 1 puffs Fluticasone Propionate (Fluticasone Propionate Na Spr 16 Gm Btl) 1 sprays IRMA DAILY HECTOR Stop: 05/04/24 08:59 Last Admin: 04/04/24 08:06 Dose: 1 sprays Gabapentin (Gabapentin 400 Mg Cap) 400 mg PO TID HECTOR Stop: 05/03/24 20:59 Last Admin: 04/04/24 08:06 Dose: 400 mg Glucagon (Glucagon For Inj 1 Mg Vial) 1 mg SQ UD PRN; Protocol PRN Reason: Hypoglycemia Protocol Stop: 05/03/24 20:38 Glucose (Glucose 40% Gel 15 Gm Tube) 15 - 30 gm PO UD PRN; Protocol PRN Reason: Hypoglycemia Protocol Stop: 05/03/24 20:38 Glucose (Glucose 10 Tab/Tube) 4 - 8 tab PO UD PRN; Protocol PRN Reason: Hypoglycemia Treatment Stop: 05/03/24 20:38 Guaifenesin (Guaifenesin 600 Mg Tabcr) 600 mg PO Q12 HECTOR Stop: 05/04/24 08:59 Sodium Chloride (Nss) 1,000 mls @ 80 mls/hr IV .[id number] [facility]1983 Stop: 05/03/24 18:29 Last Admin: 04/04/24 08:06 Dose: 80 mls/hr Insulin Aspart (Insulin Aspart Per Unit Charge) 0 units SC ACHS [facility]–1983 Stop: 05/03/24 20:59 Last Admin: 04/03/24 23:30 Dose: Not Given Lamotrigine (Lamotrigine 100 Mg Tab) 100 mg PO BID [facility]; Protocol Stop: 05/03/24 20:59 Last Admin: 04/04/24 08:06 Dose: 100 mg Miscellaneous (Carbohydrates For Hypoglycemia ) 15 - 30 gm PO UD PRN PRN Reason: Hypoglycemia Protocol Stop: 05/03/24 20:38 Ondansetron HCl (Ondansetron Inj 2 Mg/Ml 2 Ml Vial) 4 mg IV Q6H PRN PRN Reason: Nausea And Vomiting Stop: 05/03/24 20:58 Pantoprazole Sodium (Pantoprazole 40 Mg Tab) 40 mg PO DAILY [facility]1983 Stop: 05/04/24 08:59 Last Admin: 04/04/24 08:06 Dose: 40 mg Polyethylene Glycol (Polyethylene (Miralax) 17 Gm Pack) 17 gm PO DAILY PRN PRN Reason: Constipation Stop: 05/03/24 20:58 Sodium Zirconium Cyclosilicate (Sodium Zirconium Cyclosilicate 10 Gm Packet) 10 gm PO DAILY@1100 [facility]1983 Stop: 05/04/24 10:59 Tamsulosin HCl (Tamsulosin Hcl 0.4 Mg Cap) 0.8 mg PO HS [facility] Stop: 05/03/24 20:59 Last Admin: 04/03/24 22:09 Dose: Not Given Umeclidinium/Vilanterol (Umeclidinium/Vilanterol 62.5/25mcg 7 Puffs/Inhaler) 1 puffs INH DAILY HECTOR Stop: 05/04/24 08:59 Last Admin: 04/04/24 08:06 Dose: 1 puffs (3) Anemia Anemia type: unspecified type Qualified Code(s): D64.9 - Anemia, unspecified
[2024-04-04] MEDS: FUROSEMIDE 40 MG/4 ML VIAL IV STA (09:40)
[2024-04-04] MEDS ORDERED: STAT IV/IM STA (10:08)
--- NOTE | 2024-04-04 10:15 | Nephrology Consultation ---
Date of Consultation April 04, 2024 Assessment & Plan (1) CARMENCITA (acute kidney injury): See below (2) Hyperkalemia: CARMENCITA which appears to be pre renal/Hemodynamic in nature related with Poor po intake/ ? Low BP and concomitant use of Magdalene and NSAIDS. The combination caused the high K and CARMENCITA. no hydronephrosis. Creat getting better quick. Urine was bland and o Blood or protein. K is still high and will get it down with medical management---Lokelma, Iv lasix, Calcium gluconate, Insulin, Also Some bicarb. even though Serum bicarb not low can still use 1/2ns with 75 meq bicarb to drop serum K. Hold NSAIDS and MAGDALENE and also metformin for now. Appears euvolemic now but likely hypovolemic On admission. Continue iv fluid for one more day at 100 ml/hr No need of Dialysis. Mag was high and he was on mag supplement. Will stop that. Give one more dose of lasix 80 iv. Check renal panel and mag again at 3 PM later today Plan Plan discussed with Dr John. History of Present Illness Reason for Consultation: CARMENCITA and hyperkalemia Attending Physician: Boy John MD History of Present Illness 63/M with normal baseline creat of 1.1, DMII, COPD, HTN, CAD, GERD, Bipolar Disorder who was sent in by his pcp for abnormal labwork showing CARMENCITA CReat 3+ with hyperkalemia. For the last 2 weeks he has been feeling shaky, having blurry vision, tired and not quite himself. He states that he has also been working very hard around the house. Occ lightheadedness and ? Low BP. Also c/o Low Urine Output. Also been having SOB with exertion He has a Hx of COPD and his pcp started him on 5 days of prednisone and an antibiotic when he was seen yesterday. He had labs done and Saturday was told to go to hospital because of Abnormal labs. Creat on admission was 2.82 and k 5.8. Mag also high. This AM creat down to 1.8 but k is even higher at 6.9. getting medical rx for high K. on NS at 150/hr. He has got lasix, Chapo gluconate, Lokelma, Insulin. He was taking meloxicam every day. He feels better today. ROS--As above in HPI. 12 Systems reviewed and negative Physical Exam Physical Exam: General: Alert, oriented. No acute distress Psych: Appropriate mood and affect HEENT: MM moist. Neck Supple. NO jvd Chest: Nontender to palpation. CV: RRR, +murmur Resp: Breath sounds coarse bilaterally Abdomen: Soft, nontender, Extremities: No edema bilaterally. Allergies Allergy/AdvReac Type Severity Reaction Status Date / Time No Known Drug Allergies Allergy Verified 07/29/19 14:49 Home Medications Medication Instructions Recorded Confirmed Type atorvastatin 40 mg tablet 40 mg PO QAM 03/04/23 04/03/24 History buspirone 10 mg tablet 10 mg PO BID 03/04/23 04/03/24 History clopidogrel 75 mg tablet 75 mg PO DAILY 03/04/23 04/03/24 History finasteride 5 mg tablet 5 mg PO DAILY 03/04/23 04/03/24 History fluoxetine 40 mg capsule 80 mg PO DAILY 03/04/23 04/03/24 History fluticasone fur. 100 mcg-umeclid 1 ea inhalation DAILY 03/04/23 04/03/24 History 62.5 mcg-vilant 25 mcg inhalat.powder (Trelegy Ellipta) fluticasone propionate 50 50 mcg intranasal DAILY 03/04/23 04/03/24 History mcg/actuation nasal spray,suspension lamotrigine 100 mg tablet 100 mg PO BID 03/04/23 04/03/24 History lisinopril 40 mg tablet 40 mg PO DAILY 03/04/23 04/03/24 History metformin 500 mg tablet 500 mg PO BID 03/04/23 04/03/24 History pantoprazole 40 mg tablet,delayed 40 mg PO DAILY 03/04/23 04/03/24 History release semaglutide 0.25 mg or 0.5 mg (2 mg subcut 03/04/23 History mg/1.5 mL) subcutaneous pen injector (Ozempic) tamsulosin 0.4 mg capsule 0.8 mg PO HS 03/04/23 04/03/24 History alfuzosin 10 mg tablet,extended 10 mg PO DAILY 04/03/24 04/03/24 History release 24 hr amoxicillin 875 mg-potassium 1 tab BID 04/03/24 04/03/24 History clavulanate 125 mg tablet baclofen 20 mg tablet 20 mg BID 04/03/24 04/03/24 History gabapentin 400 mg capsule 400 mg TID 04/03/24 04/03/24 History meloxicam 15 mg tablet 15 mg DAILY 04/03/24 04/03/24 History prednisone 20 mg tablet 40 mg DAILY 04/03/24 04/03/24 History Patient History Medical History Pneumonia HTN (hypertension) with goal to be determined BPH (benign prostatic hyperplasia) Arthritis Social History Smoking Status: Former smoker Tobacco Type: Cigarettes Do You Dip or Chew Tobacco: No; Hx Alcohol Use: Yes Hx Substance Use: No Preferred Language: [place] Communication Ability: Effective 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 Beliefs That Will Affect Care: None Current Living Situation: Family and Significant Other Other Information That Helps Us Care for You: No Feels Safe at Home: Yes Safety Concerns: Feels Safe At This Time Assistive Devices: None Results & Data Vital Signs (Past 12 Hours) Vital Signs Temp Pulse Pulse Resp BP Pulse Ox O2 Del Method 04/04/24 07:27 36.4 C L 60 18 126/81 93 Room Air 04/04/24 07:27 57 L 04/04/24 07:14 Room Air 04/04/24 03:50 36.5 C 67 18 103/62 95 Room Air 04/03/24 23:41 73 04/03/24 23:07 36.5 C 14 128/80 94 Room Air Laboratory Results Reviewed Diagnostic Findings Renal US, CT abdomen reviewed.
[2024-04-04] MEDS ORDERED: FUROSEMIDE 40 MG/4 ML VIAL IV ONE (10:23)
[2024-04-04] MEDS: SODIUM ZIRCONIUM CYCLOSILICATE 10 GM PACKET PO SCH (10:54)
[2024-04-04] MEDS: SODIUM BICARBONATE 8.4% 75 MEQ in SODIUM CHLORIDE 0.45 % 1,000 ML IV SCH (10:54)
--- NOTE | 2024-04-04 11:29 | Electrocardiogram Report ---
Test Reason : Blood Pressure : / mmHG Vent. Rate : 075 BPM Atrial Rate : 075 BPM P-R Int : 170 ms QRS Dur : 086 ms QT Int : 344 ms P-R-T Axes : 034 032 046 degrees QTc Int : 384 ms Normal sinus rhythm Normal ECG When compared with ECG of 04-MAR-2023 11:23, Vent. rate has decreased BY 62 BPM Minimal criteria for Inferior infarct are no longer Present Nonspecific T wave abnormality no longer evident in Inferior leads Confirmed by Estuardo Arnold ([id number]) on 04/04/2024 11:29:28 AM Referred By: Narcisa bAel Confirmed By:Estuardo Arnold
[2024-04-04] MEDS ORDERED: INSULIN ASPART PER UNIT CHARGE SC SCH (11:30)
[2024-04-04 16:29] LABS: Est GFR (African American) 41.3 ml/min; Potassium 4.8 mmol/L (3.5-5.1)
[2024-04-04 16:30] LABS: Albumin Level 4.5 gm/dl (3.4-5.0); BUN Creatinine Ratio 16.8 (10-20); Calcium 9.6 mg/dl (8.6-10.3); Creatinine Clr Calc Pharmacy 39.7 ml/min; Est GFR (Non-African American) 35.6 ml/min; Phosphorus 4.6 mg/dl (2.5-4.9)
--- OUTSIDE RECORDS SUMMARY | 2024-04-04 19:26 | External Medical Summary | Summary of Care ---
Author Name Unknown Organization [facility] Address [address] [facility] [place] [address] Phone [phone] Care Team Providers Care Industrial Hygiene Technician Name Role Phone Narcisa Ordonez MD Primary Care Prov ider Reason for Visit * Reason Onset Date Comments Test Results 04/03/2024 Encounter Details Date Type Department Care Team (Late st Contact Info) Description 04/03/2024 Telephone Family Medicine [address] [phone] Narcisa Ordonez MD [address] [place] [phone] Test Results Allergies No known active allergiesdocumented as of this encounter (statuses as of 04/03/2024) Medications Medication Sig Dispensed Refills Start Date End Date Status MULTIVITAL PO TABS 1 tablet daily Ac tive VITAMIN B COMPLEX PO CAPS 1 tablet daily Active VITAMIN B-12 500 MCG PO TABS 1 tablet daily Active VIAGRA 100 MG PO TABSIndications:Imp otence of organic origin One pill by mouth 1-4 hours before intercourse, no more than 1 dose in 24 hours. 30 Tab 5 05/26/2012 Active BUSPIRONE HCL 10 MG PO TABSIndications:Anx iety state,Adjustment disorder with depressed mood take two tablets once daily 180 Tab 3 08/07/2012 Active MOBIC 7.5 MG PO TABSIndications:Claudia n in joint involving lower leg 1 tablet daily 90 Tab 3 11/10/2012 Active LISINOPRIL 20 MG PO TABSIndications:HTN , goal below 140/90 TAKE ONE TABLET BY MOUTH EVERY DAY 90 Tab 3 01/29/2013 Active Budesonide 0.5 MG/2ML Inhalation Suspension (Pulmicort) As directed in nasal rinse twice a day 120 mL 12 10/18/2023 Active Azelastine HCl 0.1 % Nasal Solution (Astelin) Administer 1 [place] into nostril in the morning and 1 [place] before bedtime. 30 mL 12 10/18/2023 Active Atorvastatin Calcium 40 MG Oral Tablet (Lipitor) Take 1 Tablet by mouth at bedtime. 10/02/2023 Active Fluticasone Propionate 50 MCG/ACT Nasal Suspension (Flonase Allergy Relief) Administer 1 [place] into nostril in the morning. Active Lisinopril 40 MG Oral Tablet Take 1 Tablet by mouth in the morning. Active Magnesium 400 MG Oral Tablet Take by mouth. Active Meloxicam 15 MG Oral Tablet (Mobic) Take 1 Tablet by mouth in the morning. Active Nortriptyline HCl 25 MG Oral Capsule (Pamelor) Take 1 Capsule by mouth at bedtime. 2 tabs daily Active Clopidogrel Bisulfate 75 MG Oral Tablet (pLAVix) take 1 tablet by mouth every 24 hours 08/15/2023 Active Pantoprazole Sodium 40 MG Oral Tablet Delayed Release (Protonix) Take 1 Tablet by mouth in the morning. Active Albuterol Sulfate HFA 108 (90 Base) MCG/ACT Inhalation Aerosol Solution inhale 2 puffs by mouth and INTO THE LUNGS every 4 hours if needed 07/23/2023 Active Trelegy Ellipta 100-62.5-25 MCG/ACT Aerosol Powder Breath Activated (Fluticasone-Umecli dinium-Vilanterol) Inhale 1 Puff by mouth. Active Tamsulosin HCl 0.4 MG Oral Capsule (Flomax) Take 1 Capsule by mouth in the morning. Active Finasteride 5 MG Oral Tablet (Proscar) Take 1 Tablet by mouth in the morning. Active Ozempic (2 MG/DOSE) 8 MG/3ML Subcutaneous Solution Pen-injectorIndicat ions:Type 2 diabetes mellitus with hemoglobin A1c goal of less than 7.0% ([facility]) Inject 2 mg under the skin once a week. 9 mL 3 10/22/2023 Active lamoTRIgine 100 MG Oral Tablet (LaMICtal) Take 1 Tablet by mouth in the morning and 1 Tablet before bedtime. 180 Tablet 3 11/15/2023 Active metFORMIN HCl 500 MG Oral Tablet (Glucophage) take 1 tablet by mouth twice a day 180 Tablet 01/14/2024 Active FLUoxetine HCl 40 MG Oral Capsule (PROzac) Take 2 Capsules by mouth in the morning. 180 Capsule 1 02/10/2024 Active Gabapentin 400 MG Oral Capsule (Neurontin) Take 1 Capsule by mouth in the morning and 1 Capsule at noon and 1 Capsule before bedtime. 280 Capsule 1 02/10/2024 Active Baclofen 20 MG Oral Tablet Take 1 Tablet by mouth 2 times a day as needed for Pain. 60 Tablet 1 03/03/2024 Active Amoxicillin-Pot Clavulanate 875-125 MG Oral Tablet (Augmentin)Indicati ons:Bronchitis due to 2019 novel coronavirus one pill twice a day 20 Tablet 04/02/2024 04/12/2024 Active predniSONE 20 MG Oral Tablet (Deltasone)Indicati ons:Bronchitis due to 2019 novel coronavirus two pills daily with food for 5 days, then one daily with food 15 Tablet 04/02/2024 04/12/2024 Active documented as of this encounter (statuses as of 04/03/2024) Active Problems Problem Noted Date Diagnosed Date Pulmonary emphysema 10/22/2023 Type 2 diabetes mellitus wit h hemoglobin A1c goal of less than 7.0% 10/22/2023 Hyperlipidemia with target LDL less than 70 10/11 History of tobacco abuse 10/22/2023 Bipolar depression 10/22/2023 Coronary artery disease invo lving [place] coronary artery of [place] heart without angina pectoris 10/22/2023 Impotence of organic origin 06/20/2011 Esophageal reflux 06/01/2011 HTN, goal below 140/90 06/01/2011 documented as of this encounter (statuses as of 04/03/2024) Immunizations Name Administration Dates Next Due Pneumococcal Conjugate Vacc, 13 Valent (Prevnar) 04/28/2014 Pneumococcal Polysaccharide PPV23 (Pneumovax) ,04/28/2014 RSV Vac., Recomb, Adjuvant, PF,0.5 Ml (Arexvy) 1 12/16/2022 Seasonal Influenza, PF, 6 M & above, IM , (FluLaval or Fluzone) 10/15/2023 TDAP (age 10 and older)(Boostrix) 09/16/2018, Varicella Zoster Vaccine (Adult) 08/09/2016 Zoster Vaccine Recombinant (Shingrix) 01/10/2021 ,09/28/2020 documented as of this encounter Social History Tobacco Use Types Packs/Day Years Used Date Smoking Tobacco: Former Cigarettes 1 32 1 12/07/1990 - 10/07/2023 Smokeless Tobacco: Never Alcohol Use Standard Drinks/Week Comments Yes 0 (1 standard drink = 0.6 oz pur e alcohol) sometimes Sex and Gender Information Value Date Recorded Sex Assigned at Not on file Gender Identity Not on file Sexual Orientation Not on file Job Start Date Occupation Industry Not on file Not on file Not on file documented as of this encounter Miscellaneous Notes * Telephone Encounter - Argenis Simmons LPN - 04/03/2024 11:20 AM EDT Graeme is aware of will head over to [facility] ER Ov notes and labs faxed to ER * Telephone Encounter - Narcisa Ordonez MD - 04/03/2024 10:59 AM EDT Patient seen yesterday by Dr Craig for Bronchitis. Labs show ACUTE RENAL FAILURE. Unclear etiology. He needs to go to [facility] ER NOW. Teams message sent to alert nursing staff to call patient. documented in this encounter Plan of Treatment Upcoming Encounters Date Type Department Care Team (Late st Contact Info) Description 05/27/2024 11:20 AM EDT Office Visit Family Medicine [address] [place] [phone] Narcisa Ordonez MD [address] [place] [address] [place] [address] 06/16/2024 11:00 AM EDT Office Visit Urology, [facility] [address] [facility] [place] [address] Sen Sexton MD [address] [facility] [address] [place] [address] Health Maintenance Due Date Last Done Comments Alpha-1 Antitrypsin 1979 Diabetic Eye Exam 1979 Diabetic Foot Exam 1979 Cologuard 2006 Colonoscopy 2006 Colorectal Cancer Screening 2006 Fecal Occult Blood Test 2006 Sigmoidoscopy 2006 Lung Cancer Screening 2011 COVID-19 Vaccine ( season) 2023 *COPD SEVERITY VERIFIED BY PFT 10/25/2023 *CXR OR CT FOR COPD EVER 10/25/2023 *BASELINE EKG FOR HTN 02/02/2024 HbA1c 08/01/2024 01/30/2024, 08/11, 07/08/2020, Additional history exists Albumin/Creatinine Ratio 01/29/2025 01/30/2024 GFR 04/02/2025 04/02/2024, 01/10, 08/29/2021, Additional history exists O2 ASSESSMENT COMPLETED IN PAST YEAR FOR COPD 04/02/2025 04/02/2024 Pneumococcal Vaccine: Pediatrics (0 to 5 Years) and At-Risk Patients (6 to 64 Years) (3 of 3 - PPSV23 or PCV20) 2026 08/09/2016, 04/28/2014, 04/28/2014 DTaP,Tdap,and Td Vaccines (3 - Td or Tdap) 09/16/2028 09/16/2018, 04/28/2014 Zoster Vaccines Completed 01/10/2021, 09/11, 08/09/2016 Influenza Vaccine (FLU shot) Completed 10/15/2023, 10/15/2023 GARDASIL-HPV IMMUNIZATION SERIES Aged Out No longer eligible based on patient's age to complete this topic Hepatitis B Aged Out No longer eligi ble based on patient's age to complete this topic MENINGOCOCCAL (MENACTRA/MENVEO) Aged Out No longer eligible based on patient's age to complete this topic documented as of this encounter Medical Devices Not on filedocumented as of this encounter Care Teams Industrial Hygiene Technician Relationship Specialty Start Date End Date Narcisa Ordonez MD [address] [place] [address] [place] [address] PCP - General Family Medicine 10/25/23 documented as of this encounter
--- OUTSIDE RECORDS SUMMARY | 2024-04-04 19:27 | External Medical Summary | Summary of Care ---
Author Name Unknown Organization [facility] Address [address] [facility] [place] [address] Phone [phone] Care Team Providers Care Sales And Retail Management Recruiter Name Role Phone Narcisa Ordonez MD Primary Care Prov ider Reason for Visit * Reason Onset Date Comments Medication Refill 02/06/2024 Encounter Details Date Type Department Care Team (Late st Contact Info) Description 02/06/2024 Refill Family Medicine [address] [phone] Narcisa Ordonez MD [address] [place] [phone] Allergies No known active allergiesdocumented as of this encounter (statuses as of 02/07/2024) Medications Medication Sig Dispensed Refills Start Date End Date Status MULTIVITAL PO TABS 1 tablet daily 0 Ac tive VITAMIN B COMPLEX PO CAPS 1 tablet daily 0 Active VITAMIN B-12 500 MCG PO TABS 1 tablet daily 0 Active VIAGRA 100 MG PO TABSIndications:Impo tence of organic origin One pill by mouth 1-4 hours before intercourse, no more than 1 dose in 24 hours. 30 Tab 5 05/26/2012 Active BUSPIRONE HCL 10 MG PO TABSIndications:Anxi ety state,Adjustment disorder with depressed mood take two tablets once daily 180 Tab 3 08/07/2012 Active MOBIC 7.5 MG PO TABSIndications:Pain in joint involving lower leg 1 tablet daily 90 Tab 3 11/10/2012 Active LISINOPRIL 20 MG PO TABSIndications:HTN, goal below 140/90 TAKE ONE TABLET BY MOUTH EVERY DAY 90 Tab 3 01/29/2013 Active Budesonide 0.5 MG/2ML Inhalation Suspension (Pulmicort) As directed in nasal rinse twice a day 120 mL 12 10/18/2023 Active Azelastine HCl 0.1 % Nasal Solution (Astelin) Administer 1 [place] into nostril in the morning and 1 [place] before bedtime. 30 mL 12 10/18/2023 Active Atorvastatin Calcium 40 MG Oral Tablet (Lipitor) Take 1 Tablet by mouth at bedtime. 0 10/02/2023 Active Baclofen 20 MG Oral Tablet Take 1 Tablet by mouth in the morning and 1 Tablet before bedtime. 0 08/14/2023 Active Fluticasone Propionate 50 MCG/ACT Nasal Suspension (Flonase Allergy Relief) Administer 1 [place] into nostril in the morning. 0 Active FLUoxetine HCl 40 MG Oral Capsule (PROzac) Take 2 Capsules by mouth in the morning. 0 09/23/2023 Active Gabapentin 400 MG Oral Capsule (Neurontin) Take 1 Capsule by mouth in the morning and 1 Capsule at noon and 1 Capsule before bedtime. 0 09/02/2023 Active Lisinopril 40 MG Oral Tablet Take 1 Tablet by mouth in the morning. 0 Active Magnesium 400 MG Oral Tablet Take by mouth. 0 Active Meloxicam 15 MG Oral Tablet (Mobic) Take 1 Tablet by mouth in the morning. 0 Active Nortriptyline HCl 25 MG Oral Capsule (Pamelor) Take 1 Capsule by mouth at bedtime. 2 tabs daily 0 Active Clopidogrel Bisulfate 75 MG Oral Tablet (pLAVix) take 1 tablet by mouth every 24 hours 0 08/15/2023 Active Pantoprazole Sodium 40 MG Oral Tablet Delayed Release (Protonix) Take 1 Tablet by mouth in the morning. 0 Active predniSONE 5 MG Oral Tablet (Deltasone) take 6 tablets by mouth on day 1 then DECREASE BY 1 tablet daily take with food 0 08/02/2023 Active Albuterol Sulfate HFA 108 (90 Base) MCG/ACT Inhalation Aerosol Solution inhale 2 puffs by mouth and INTO THE LUNGS every 4 hours if needed 0 07/23/2023 Active Trelegy Ellipta 100-62.5-25 MCG/ACT Aerosol Powder Breath Activated (Fluticasone-Umeclid inium-Vilanterol) Inhale 1 Puff by mouth. 0 Active Amoxicillin-Pot Clavulanate 875-125 MG Oral Tablet (Augmentin) 1 Tablet. 0 03/05/2023 Active Tamsulosin HCl 0.4 MG Oral Capsule (Flomax) Take 1 Capsule by mouth in the morning. 0 Active Finasteride 5 MG Oral Tablet (Proscar) Take 1 Tablet by mouth in the morning. 0 Active Ozempic (2 MG/DOSE) 8 MG/3ML Subcutaneous Solution Pen-injectorIndicati ons:Type 2 diabetes mellitus with hemoglobin A1c goal of less than 7.0% (HCC) Inject 2 mg under the skin once a week. 9 mL 3 10/22/2023 Active lamoTRIgine 100 MG Oral Tablet (LaMICtal) Take 1 Tablet by mouth in the morning and 1 Tablet before bedtime. 180 Tablet 3 11/15/2023 Active metFORMIN HCl 500 MG Oral Tablet (Glucophage) take 1 tablet by mouth twice a day 180 Tablet 0 01/14/2024 Active documented as of this encounter (statuses as of 02/07/2024) Active Problems Problem Noted Date Diagnosed Date Pulmonary emphysema 10/22/2023 Type 2 diabetes mellitus wit h hemoglobin A1c goal of less than 7.0% 10/22/2023 Hyperlipidemia with target LDL less than 70 10/11 History of tobacco abuse 10/22/2023 Bipolar depression 10/22/2023 Coronary artery disease invo lving [place] coronary artery of [place] heart without angina pectoris 10/22/2023 Impotence of organic origin 06/20/2011 Esophageal reflux 06/01/2011 HTN, goal below 140/90 06/01/2011 documented as of this encounter (statuses as of 02/07/2024) Immunizations Name Administration Dates Next Due Pneumococcal [...] as of this encounter Miscellaneous Notes * Addendum Note - Maranda Zaidi LPN - 02/07/2024 4:03 PM EDTAddended by: MARANDA ZAIDI on: 02/07/2024 04:03 PM Modules accepted: Orders * Telephone Encounter - Maranda Zaidi LPN - 02/07/2024 4:03 PM EDT Meds pended for refill. * Telephone Encounter - Jeannie Rocha collision mechanic - 02/06/2024 2:56 PM EDT Pt calling requesting the following medication below that is listed as "Historical". The following information was provided: Medication Name: FLUoxetine HCl 40 MG Oral Capsule Strength: Directions: bid Preferred Quantity: pt wants ninety day and three refills Previous Prescriber: Marcellus Mcintosh [facility]: [id number] [address] [place] [address] Medication Name: Gabapentin 400 MG Oral Capsule (Neurontin Strength: Directions: Take 1 Capsule by mouth in the morning and 1 Capsule at noon and 1 Capsule before bedtime. Preferred Quantity: pt wants ninety day and three refills Previous Prescriber: Marcellus Mcintosh [facility]erred [facility]acy: [id number] [address] [place] [address] Medication Name: Baclofen 20 MG Oral Tablet Strength: Directions: bid Preferred Quantity: pt wants ninety day and three refills Previous Prescriber: Marcellus Mcintosh [facility]: [id number] [address] [place] [address] Please review and approve if appropriate. Thank you for your assistance Jeannie Rocha Cell Inspector II [facility] ([facility]) (Formerly Telepharmacy) 02/06/2024,2:56 PM documented in this encounter Plan of Treatment Upcoming Encounters Date Type Department Care Team (Late st Contact Info) Description 05/27/2024 11:20 AM EDT Office Visit Family Medicine [address] [phone] Narcisa Ordonez MD [address] [place] [address] [place] [phone] 06/16/2024 11:00 AM EDT Office Visit Urology, [facility] 132 [facility] [place] [address] Sen Sexton MD 27 [facility] [address] [place] [address] Health Maintenance Due Date Last Done Comments Depression Screening 1973 Alpha-1 Antitrypsin 1979 Diabetic Eye Exam 1979 Diabetic Foot Exam 1979 Cologuard 2006 Colonoscopy 2006 Colorectal Cancer Screening 2006 Fecal Occult Blood Test 2006 Sigmoidoscopy 2006 LUNG CANCER SCREENING - USE SMARTSET [address] 2011 COVID-19 Vaccine ( season) 2023 *COPD SEVERITY VERIFIED BY PFT 10/25/2023 *CXR OR CT FOR COPD EVER 10/25/2023 *BASELINE EKG FOR HTN 02/02/2024 HbA1c 08/01/2024 01/30/2024, 08/11, 07/08/2020, Additional history exists O2 ASSESSMENT COMPLETED IN PAST YEAR FOR COPD 10/22/2024 10/22/2023 Albumin/Creatinine Ratio 01/29/2025 01/30/2024 GFR 01/29/2025 01/30/2024, 08/11, 03/26/2001 Pneumococcal Vaccine: Pediatrics (0 to 5 Years) [...] filedocumented as of this encounter Care Teams Sales And Retail Management Recruiter Relationship Specialty Start Date End Date Narcisa Ordonez MD [address] [place] [address] [place] [address] PCP - General Family Medicine 10/25/23 documented as of this encounter
--- OUTSIDE RECORDS SUMMARY | 2024-04-04 19:27 | External Medical Summary ---
Author Name Unknown Address Unknown Organization K01:[facility] - [facility] [place] [id number] Laboratory Report Ordering Provider Test Date Status JULITO HALEY 04/02/2024 11:32:09 Final Observation Date Value Abnormality Reference (Units ) Status BUN 04/02/2024 11:32:09 39 Above high normal 6-20 (mg/dL) Final Creatinine 04/02/2024 11:32:09 3.6 Above high normal 0.6-1.2 (mg/dL) Final Glomerular filtration rate/1.73 sq M.predicted [Volume Rate/Area] in Serum, Plasma or Blood by Creatinine-based formula (CKD-EPI) 04/02/2024 11:32:09 18 Below low normal >=60 (mL/min) Final eGFR is calculated based on the CKD-EPI 2020 equation Sodium 04/02/2024 11:32:09 142 135-146 (m mol/L) Final Potassium 04/02/2024 11:32:09 6.1 Above high normal 3. 5-5.1 (mmol/L) Final Cl 04/02/2024 11:32:09 104 98-107 (mm ol/L) Final CO2 04/02/2024 11:32:09 24 22-32 (mmo l/L) Final Anion gap 04/02/2024 11:32:09 14 7-15 (mmol /L) Final Glucose 04/02/2024 11:32:09 82 70-120 (mg /dL) Final Albumin 04/02/2024 11:32:09 4.7 3.8-5.0 (g /dL) Final AST (Aspartate aminotransferase) 04/02/2024 11:32:09 14 10-50 (U/L) Fin al Alk Phos 04/02/2024 11:32:09 97 35-130 (U/ L) Final Bilirubin, Total 04/02/2024 11:32:09 0.3 <=1 .2 (mg/dL) Final Calcium 04/02/2024 11:32:09 10.4 Above high normal 8. 4-10.2 (mg/dL) Final Protein 04/02/2024 11:32:09 6.9 6.0-8.3 (g /dL) Final ALT (Alanine aminotransferase) 04/02/2024 11:32:09 19 10-50 (U/L) Sanjeev calhoun Performing Location [facility] - [address] [facility] [id number]
--- OUTSIDE RECORDS SUMMARY | 2024-04-04 19:27 | External Medical Summary | Summary of Care ---
Author Name Unknown Organization [facility] Address [address] [place] [address] Phone [phone] Care Team Providers Care Accounting Support Specialist Name Role Phone Narcisa Ordonez MD Primary Care Prov ider Reason for Visit * Reason Comments Outpatient Testing Encounter Details Date Type Department Care Team (Late st Contact Info) Description 04/02/2024 11:40 AM EDT Laboratory Laboratory [address] [place] [phone] [place], Lab [address] [place] [address] Centrilobular emphysema (HCC); Bronchitis due to 2019 novel coronavirus Allergies No known active allergiesdocumented as of this encounter (statuses as of 04/02/2024) Medications Medication Sig Dispensed Refills Start Date [...] 0.1 % Nasal Solution (Astelin) Administer 1 [place] into nostril in the morning and 1 [place] before bedtime. 30 mL 12 10/18/2023 Active Atorvastatin Calcium 40 MG Oral Tablet (Lipitor) Take 1 Tablet by mouth at bedtime. 10/02/2023 Active Fluticasone Propionate 50 MCG/ACT Nasal Suspension (Flonase Allergy Relief) Administer 1 [place] into nostril in the morning. Active Lisinopril [...] hemoglobin A1c goal of less than 7.0% ([facility]) Inject 2 mg under the skin once [...] as of this encounter (statuses as of 04/02/2024) Active Problems Problem Noted Date Diagnosed Date Pulmonary emphysema 10/22/2023 Type 2 diabetes mellitus wit h hemoglobin A1c goal of less than 7.0% 10/22/2023 Hyperlipidemia with target LDL less than 70 10/11 History of tobacco abuse 10/22/2023 Bipolar depression 10/22/2023 Coronary artery disease invo lving [place] coronary artery of [place] heart without angina pectoris 10/22/2023 Impotence of organic origin 06/20/2011 Esophageal reflux 06/01/2011 HTN, goal below 140/90 06/01/2011 documented as of this encounter (statuses as of 04/02/2024) Immunizations Name Administration Dates Next Due Pneumococcal [...] on file documented as of this encounter Plan of Treatment Upcoming Encounters Date Type Department Care Team (Late st Contact Info) Description 05/27/2024 11:20 AM EDT Office Visit Family Medicine [address] [place] [phone] Narcisa Ordonez MD [address] [place] [address] [place] [phone] 06/16/2024 11:00 AM EDT Office Visit Urology, [address] [place] [address] Sen Sexton MD [address] [place] [address] [place] [address] Pending Results Name Type Priority Associated Diagnoses Date /Time CBC Lab Routine Centrilobular emphysema (HCC) Bronchitis due to 2019 novel coronavirus 04/02/2024 11:32 AM EDT BNP, NT-PRO Lab Routine Bronchitis due to 2019 novel coronavirus 04/02/2024 11:32 AM EDT COMPREHENSIVE METABOLIC PANEL Lab Routine Bronchitis due to 2019 novel coronavirus 04/02/2024 11:32 AM EDT MAGNESIUM Lab Routine Bronchitis due to 2019 novel coronavirus 04/02/2024 11:32 AM EDT Health Maintenance Due Date Last Done Comments [...] Not on filedocumented as of this encounter Visit Diagnoses Diagnosis Centrilobular emphysema (HCC) Other emphysema Bronchitis due to 2019 novel coronavirus documented in this encounter Care Teams Accounting Support Specialist Relationship Specialty Start Date End Date Narcisa Ordonez MD [address] [place] [address] [place] [address] PCP - General Family Medicine 10/25/23 documented as of this encounter
--- OUTSIDE RECORDS SUMMARY | 2024-04-04 19:27 | External Medical Summary | Summary of Care ---
Author Name Unknown Organization [facility] Address [address] [facility] [place] [address] Phone [phone] Care Team Providers Care Trash Truck Driver Name Role Phone Narcisa Ordonez MD Primary Care Prov ider Encounter Details Date Type Department Care Team (Late st Contact Info) Description 01/31/2024 Orders Only Family Medicine [address] [phone] Narcisa Ordonez MD [address] [place] [address] [place], [place] [id number] Allergies No known active allergiesdocumented as of this encounter (statuses as of 01/31/2024) Medications Medication Sig Dispensed Refills Start Date [...] 0.1 % Nasal Solution (Astelin) Administer 1 [place] into nostril in the morning and 1 [place] before bedtime. 30 mL 12 10/18/2023 Active Atorvastatin Calcium 40 MG Oral Tablet (Lipitor) Take 1 Tablet by mouth at bedtime. 0 10/02/2023 Active Baclofen 20 MG Oral Tablet Take 1 Tablet by mouth in the morning and 1 Tablet before bedtime. 0 08/14/2023 Active Fluticasone Propionate 50 MCG/ACT Nasal Suspension (Flonase Allergy Relief) Administer 1 [place] into nostril in the morning. 0 Active [...] as of this encounter (statuses as of 01/31/2024) Active Problems Problem Noted Date Diagnosed Date Pulmonary emphysema 10/22/2023 Type 2 diabetes mellitus wit h hemoglobin A1c goal of less than 7.0% 10/22/2023 Hyperlipidemia with target LDL less than 70 10/11 History of tobacco abuse 10/22/2023 Bipolar depression 10/22/2023 Coronary artery disease invo lving [place] coronary artery of [place] heart without angina pectoris 10/22/2023 Impotence of organic origin 06/20/2011 Esophageal reflux 06/01/2011 HTN, goal below 140/90 06/01/2011 documented as of this encounter (statuses as of 01/31/2024) Immunizations Name Administration Dates Next Due Pneumococcal [...] 11:20 AM EDT Office Visit Family Medicine [address] [place] [phone] Narcisa Ordonez MD [address] [place] [address] [place] [address] 06/16/2024 11:00 AM EDT Office Visit Urology, [facility] [address] [facility] [place] [address] Sen Sexton MD 27 [facility] [address] [place] [address] Health Maintenance Due Date Last Done Comments Depression Screening 1973 Albumin/Creatinine Ratio 1979 Alpha-1 Antitrypsin 1979 Diabetic Eye Exam 1979 Diabetic Foot Exam 1979 Cologuard 2006 Colonoscopy 2006 Colorectal Cancer Screening 2006 Fecal Occult Blood Test 2006 Sigmoidoscopy 2006 LUNG CANCER SCREENING - USE SMARTSET 15543 2011 HbA1c 02/27/2022 01/30/2024, 08/11, 07/08/2020, Additional history exists GFR 08/29/2022 01/30/2024, 08/11, 03/26/2001 COVID-19 Vaccine ( season) 2023 *COPD SEVERITY VERIFIED BY PFT 10/25/2023 *CXR OR CT FOR COPD EVER 10/25/2023 O2 ASSESSMENT COMPLETED IN PAST YEAR FOR COPD 10/22/2024 10/22/2023 Pneumococcal Vaccine: Pediatrics (0 to 5 Years) [...] Not on filedocumented as of this encounter Procedures Procedure Name Priority Date/Time Associated Diagnosis Comments CHEMISTRY-OUTSIDE Routine 01/30/2024 documented in this encounter Results * (ABNORMAL) CHEMISTRY-OUTSIDE (01/30/2024) Not all results display below - see scan for full detail SCAN INCLUDES: LDL DIRECT, HA1C, HEPATIC PANEL, LIPID PANEL, RENAL FUNCTION, MG OUTSIDE LAB (SEE SCANNED REPORT) CREATININE-OUTSI DE LAB 1.25 0.70 - 1.30 MG/DL OUTSIDE LAB (SEE SCANNED REPORT) EGFR-OUTSIDE LAB 65 >60 ML/MIN OUTSIDE LAB (SEE SCANNED REPORT) POTASSIUM-OUTSID E LAB 5.1 3.5 - 5.1 MMOL/L OUTSIDE LAB (SEE SCANNED REPORT) GLUCOSE-OUTSIDE LAB 103 70 - 110 MG/DL OUTSIDE LAB (SEE SCANNED REPORT) HOURS FASTING OUTSID E LAB (SEE SCANNED REPORT) TRIGLYCERIDES-OU TSIDE LAB 149 30 - 200 MG/DL OUTSIDE LAB (SEE SCANNED REPORT) CHOLESTEROL-OUTS [place] LAB 141 <200 MG/DL OUTSIDE LAB (SEE SCANNED REPORT) HDL-OUTSIDE LAB 52.0 40.0 - 59.00 MG/DL OUTSIDE LAB (SEE SCANNED REPORT) CHOL/HDL RATIO-OUTSIDE LAB OUTSIDE LAB (SEE SCANNED REPORT) LDL (CALCULATED)-OUT SIDE LAB 59.20 <100 MG/DL OUTSIDE LAB (SEE SCANNED REPORT) LDL (DIRECT MEASURE)-OUTSIDE LAB 68 <100 MG/DL OUTSIDE LAB (SEE SCANNED REPORT) HEMOGLOBIN, [id number] LAB 6.2(A) 3.8 - 5.6 % OUTSIDE LAB (SEE SCANNED REPORT) PHOSPHORUS-OUTSI DE LAB OUTSIDE LAB (SEE SCANNED REPORT) PTH-OUTSIDE LAB OUTS [place] LAB (SEE SCANNED REPORT) MICROALBUMIN RATIO-OUTSIDE LAB OUTSIDE LAB (SEE SCANNED REPORT) PROTEIN, UA-OUTSIDE LAB OUTSIDE LAB (SEE SCANNED REPORT) HGB OUTSIDE LA B (SEE SCANNED REPORT) 01/30/2024 Narcisa Agustin MD LABORATORY OUTSIDE LAB (SEE SCANNED REPORT) documented in this encounter Care Teams Trash Truck Driver Relationship Specialty Start Date End Date Narcisa Ordonez MD [address] [place] [address] [place] [address] PCP - General Family Medicine 10/25/23 documented as of this encounter
--- OUTSIDE RECORDS SUMMARY | 2024-04-04 19:27 | External Medical Summary | Summary of Care ---
Author Name Unknown Organization [facility] Address [address] [facility] [address] Phone [phone] Care Team Providers Care Road Driver Name Role Phone Narcisa Ordonez MD Primary Care Prov ider Reason for Visit * Reason Onset Date Comments Fax 11/13/2023 Encounter Details Date Type Department Care Team (Late st Contact Info) Description 11/13/2023 Telephone Family Medicine [address] [phone] Narcisa Ordonez MD [address] [place] [address] [place] [address] Fax Allergies No known active allergiesdocumented as of this encounter (statuses as of 11/13/2023) Medications Medication Sig Dispensed Refills Start Date End Date Status MULTIVITAL PO TABS 1 tablet daily 0 Ac tive VITAMIN B COMPLEX PO CAPS 1 tablet daily 0 Active VITAMIN B-12 500 MCG PO TABS 1 tablet daily 0 Active VIAGRA 100 MG PO TABSIndications:Impot ence of organic origin One pill by mouth 1-4 hours before intercourse, no more than 1 dose in 24 hours. 30 Tab 5 05/26/2012 Active BUSPIRONE HCL 10 MG PO TABSIndications:Anxie ty state,Adjustment disorder with depressed mood take two [...] 0.1 % Nasal Solution (Astelin) Administer 1 [place] into nostril in the morning and 1 [place] before bedtime. 30 mL 12 10/18/2023 Active Atorvastatin Calcium 40 MG Oral Tablet (Lipitor) Take 1 Tablet by mouth at bedtime. 0 10/02/2023 Active Baclofen 20 MG Oral Tablet Take 1 Tablet by mouth in the morning and 1 Tablet before bedtime. 0 08/14/2023 Active Fluticasone Propionate 50 MCG/ACT Nasal Suspension (Flonase Allergy Relief) Administer 1 [place] into nostril in the morning. 0 Active FLUoxetine HCl 40 MG Oral Capsule (PROzac) Take 2 Capsules by mouth in the morning. 0 09/23/2023 Active Gabapentin 400 MG Oral Capsule (Neurontin) Take 1 Capsule by mouth in the morning and 1 Capsule at noon and 1 Capsule before bedtime. 0 09/02/2023 Active lamoTRIgine 100 MG Oral Tablet (LaMICtal) Take 1 Tablet by mouth in the morning and 1 Tablet before bedtime. 0 Active Lisinopril 40 MG Oral Tablet Take 1 Tablet by mouth in the morning. 0 Active Magnesium 400 MG Oral Tablet Take by mouth. 0 Active Meloxicam 15 MG Oral Tablet (Mobic) Take 1 Tablet by mouth in the morning. 0 Active metFORMIN HCl 500 MG Oral Tablet (Glucophage) 1 Tablet. 0 03/04/2023 Active Nortriptyline HCl 25 MG Oral Capsule [...] Ellipta 100-62.5-25 MCG/ACT Aerosol Powder Breath Activated (Fluticasone-Umeclidi nium-Vilanterol) Inhale 1 Puff by mouth. 0 Active Amoxicillin-Pot Clavulanate 875-125 MG Oral Tablet (Augmentin) 1 Tablet. 0 03/05/2023 Active Tamsulosin HCl 0.4 MG Oral Capsule (Flomax) Take 1 Capsule by mouth in the morning. 0 Active Finasteride 5 MG Oral Tablet (Proscar) Take 1 Tablet by mouth in the morning. 0 Active Ozempic (2 MG/DOSE) 8 MG/3ML Subcutaneous Solution Pen-injectorIndicatio ns:Type 2 diabetes mellitus with hemoglobin A1c goal of less than 7.0% (HCC) Inject 2 mg under the skin once a week. 9 mL 3 10/22/2023 Active documented as of this encounter (statuses as of 11/13/2023) Active Problems Problem Noted Date Diagnosed Date Pulmonary emphysema 10/22/2023 Type 2 diabetes mellitus wit h hemoglobin A1c goal of less than 7.0% 10/22/2023 Hyperlipidemia with target LDL less than 70 10/11 History of tobacco abuse 10/22/2023 Bipolar depression 10/22/2023 Coronary artery disease invo lving [place] coronary artery of [place] heart without angina pectoris 10/22/2023 Impotence of organic origin 06/20/2011 Esophageal reflux 06/01/2011 HTN, goal below 140/90 06/01/2011 documented as of this encounter (statuses as of 11/13/2023) Immunizations Name Administration Dates Next Due Pneumococcal [...] Date Smoking Tobacco: Former Cigarettes 1 32 Q uit: 10/07/2023 Smokeless Tobacco: Never Alcohol Use Standard [...] encounter Miscellaneous Notes * Telephone Encounter - Marlys Rivero OSA - 11/13/2023 2:38 PM EST Lab orders faxed to [phone] * Telephone Encounter - Lynn Tirado OSA - 11/13/2023 1:26 PM EST Caller requesting the following information to be faxed: Name/Company of caller: pt Information requested to be faxed: recent lab orders Fax number: Attention to Name/Company: [facility] lab Any additional information?: documented in this encounter Plan of Treatment Upcoming Encounters Date Type Department Care Team (Late st Contact Info) Description 05/27/2024 11:20 AM EDT Office Visit Family Medicine [address] [place] [phone] Narcisa Ordonez MD [address] [place] [address] [place] [address] 06/16/2024 11:00 AM EDT Office Visit Urology, [facility] 132 [facility] [place] [address] Sen Sexton MD 27 [facility] [address] [place] [id number] Health Maintenance Due Date Last Done Comments COVID-19 Vaccine (#1) 01/23/1961 Depression Screening 1973 Albumin/Creatinine Ratio 1979 Alpha-1 Antitrypsin 1979 Diabetic Eye Exam 1979 Diabetic Foot Exam 1979 Cologuard 2006 Colonoscopy 2006 Colorectal Cancer Screening 2006 Fecal Occult Blood Test 2006 Sigmoidoscopy 2006 LUNG CANCER SCREENING - USE SMARTSET 81095 2011 Hepatitis B (1 of 3 - Risk 3-dose series) 2021 HbA1c 02/27/2022 08/29/2021, 07/08/2020, 10/13/2018 GFR 08/29/2022 08/29/2021, 03/26/2001 *COPD SEVERITY VERIFIED BY PFT 10/25/2023 *CXR OR CT FOR COPD EVER 10/25/2023 O2 ASSESSMENT COMPLETED IN PAST YEAR FOR COPD 10/22/2024 10/22/2023 Pneumococcal Vaccine: Pediatrics (0 to 5 Years) and At-Risk Patients (6 to 64 Years) (3 - PPSV23 or PCV20) 2026 08/09/2016, 04/28/2014, 04/28/2014 DTaP,Tdap,and Td Vaccines (3 - Td or Tdap) 09/16/2028 09/16/2018, 04/28/2014 Zoster Vaccines Completed 01/10/2021, 09/28/2020, 08/09/2016 Influenza Vaccine (FLU shot) Completed 03/2023, 10/15/2023 GARDASIL-HPV IMMUNIZATION SERIES Aged Out No longer eligible b ased on patient's age to complete this topic MENINGOCOCCAL (MENACTRA/MENVEO) Aged Out No longer eligible b ased on patient's age to complete this topic documented as of this encounter Medical Devices Not on filedocumented as of this encounter Care Teams Road Driver Relationship Specialty Start Date End Date Narcisa Ordonez MD [address] [place] [address] [place] [address] PCP - General Family Medicine 10/25/23 documented as of this encounter
--- OUTSIDE RECORDS SUMMARY | 2024-04-04 19:27 | External Medical Summary | Summary of Care ---
Author Name Unknown Organization [facility] Address [address] [facility] [place] [address] Phone [phone] Care Team Providers Care Neon Glass Blower Name Role Phone Narcisa Ordonez MD Primary Care Prov ider Reason for Visit * Reason Comments eRx-Medication Refill Encounter Details Date Type Department Care Team (Late st Contact Info) Description 01/11/2024 Refill Family Medicine [address] [phone] Narcisa Ordonez MD [address] [place] [address] [place] [address] Allergies No known active allergiesdocumented as of this encounter (statuses as of 01/14/2024) Medications Medication Sig Dispensed Refills Start Date End Date Status MULTIVITAL PO TABS 1 tablet daily 0 Active VITAMIN B COMPLEX PO CAPS 1 tablet daily 0 Active VITAMIN B-12 500 MCG PO TABS 1 tablet daily 0 Active VIAGRA 100 MG PO TABSIndications:I mpotence of organic origin One pill by mouth 1-4 hours before intercourse, no more than 1 dose in 24 hours. 30 Tab 5 05/26/2012 Active BUSPIRONE HCL 10 MG PO TABSIndications:A nxiety state,Adjustment disorder with depressed mood take two tablets once daily 180 Tab 3 08/07/2012 Active MOBIC 7.5 MG PO TABSIndications:P ain in joint involving lower leg 1 tablet daily 90 Tab 3 11/10/2012 Active LISINOPRIL 20 MG PO TABSIndications:H TN, goal below 140/90 TAKE ONE TABLET BY MOUTH EVERY DAY 90 Tab 3 01/29/2013 Active Budesonide 0.5 MG/2ML Inhalation Suspension (Pulmicort) As directed in nasal rinse twice a day 120 mL 12 10/18/2023 Active Azelastine HCl 0.1 % Nasal Solution (Astelin) Administer 1 [place] into nostril in the morning and 1 [place] before bedtime. 30 mL 12 10/18/2023 Active Atorvastatin Calcium 40 MG Oral Tablet (Lipitor) Take 1 Tablet by mouth at bedtime. 0 10/02/2023 Active Baclofen 20 MG Oral Tablet Take 1 Tablet by mouth in the morning and 1 Tablet before bedtime. 0 08/14/2023 Active Fluticasone Propionate 50 MCG/ACT Nasal Suspension (Flonase Allergy Relief) Administer 1 [place] into nostril in the morning. 0 Active [...] Ellipta 100-62.5-25 MCG/ACT Aerosol Powder Breath Activated (Fluticasone-Umec lidinium-Vilanter ol) Inhale 1 Puff by mouth. 0 Active Amoxicillin-Pot Clavulanate 875-125 MG Oral Tablet (Augmentin) 1 Tablet. 0 03/05/2023 Active Tamsulosin HCl 0.4 MG Oral Capsule (Flomax) Take 1 Capsule by mouth in the morning. 0 Active Finasteride 5 MG Oral Tablet (Proscar) Take 1 Tablet by mouth in the morning. 0 Active Ozempic (2 MG/DOSE) 8 MG/3ML Subcutaneous Solution Pen-injectorIndic ations:Type 2 diabetes mellitus with hemoglobin A1c goal [...] a day 180 Tablet 0 01/14/2024 Active metFORMIN HCl 500 MG Oral Tablet (Glucophage) 1 Tablet. 0 03/04/2023 Discontinued documented as of this encounter (statuses as of 01/14/2024) Active Problems Problem Noted Date Diagnosed Date Pulmonary emphysema 10/22/2023 Type 2 diabetes mellitus wit h hemoglobin A1c goal of less than 7.0% 10/22/2023 Hyperlipidemia with target LDL less than 70 10/11 History of tobacco abuse 10/22/2023 Bipolar depression 10/22/2023 Coronary artery disease invo lving [place] coronary artery of [place] heart without angina pectoris 10/22/2023 Impotence of organic origin 06/20/2011 Esophageal reflux 06/01/2011 HTN, goal below 140/90 06/01/2011 documented as of this encounter (statuses as of 01/14/2024) Immunizations Name Administration Dates Next Due Pneumococcal [...] encounter Miscellaneous Notes * Telephone Encounter - Loli Cheema MD - 01/14/2024 5:05 PM EST Signed Prescriptions: Disp Refills metFORMIN HCl 500 MG Oral Tablet (Glucopha*180 Ta*0 Sig: take 1 tablet by mouth twice a day Authorizing Provider: LOLI CHEEMA * Telephone Encounter - George Singh [facility] - 01/13/2024 12:57 PM ESTPending Prescriptions: Disp Refills metFORMIN HCl 500 MG Oral Tablet [Pharmacy*180 Ta* Sig: take 1 tablet by mouth twice a day * Telephone Encounter - George Singh [facility] - 01/13/2024 12:56 PM EST Pharmacists cannot authorize refills for meds listed as "historical" in chart. Please approve if appropriate. Labs ordered previously. Thank You, George Garland [facility] Clinical Pharmacist [facility] ([facility]) (formerly Telepharmacy) 01/13/2024, 12:56 PM * Telephone Encounter - George Singh [facility] - 01/13/2024 12:55 PM EST Pending Prescriptions: Disp Refills metFORMIN HCl 500 MG Oral Tablet (Glucoph*180 Ta* Sig: take 1 tablet by mouth twice a day Last Visit: 10/22/2023 (in office), Visit date not found (telemedicine) Next Visit: 05/27/2024 If no future appointments scheduled, and last appointment is greater than a year ago, please schedule patient for a follow-up appointment Last date the medication was ordered: historical [facility]: [id number] Is this request for a controlled substance? No Urine Drug Screen:No results found for this or any previous visit. Patient Phone Numbers Labs: Lab Results Component Value Date/Time CREAT 0.8 03/26/2001 12:15 PM POTASSIUM 4.6 03/26/2001 12:15 PM TSH 1.32 10/03/2001 08:15 AM LDLCALC 56 08/29/2021 11:55 AM LDLDIRECT 133 (H) 04/30/2002 12:54 PM ALT 20 04/30/2002 12:54 PM ALT 16 (L) 10/28/1996 12:20 PM HGBA1C 6.6 08/29/2021 11:55 AM documented in this encounter Plan of Treatment Upcoming Encounters Date Type Department Care Team (Late st Contact Info) Description 05/27/2024 11:20 AM EDT Office Visit [address] [phone] Narcisa Ordonez MD [address] [place] [address] [place] [address] 06/16/2024 11:00 AM EDT Office Visit Urology, [facility] [address] [place] [address] Sen Sexton MD 27 [facility] [address] [place] [address] Health Maintenance Due Date Last Done Comments Depression Screening 1973 Albumin/Creatinine Ratio 1979 Alpha-1 Antitrypsin 1979 Diabetic Eye Exam 1979 Diabetic Foot Exam 1979 Cologuard 2006 Colonoscopy 2006 Colorectal Cancer Screening 2006 Fecal Occult Blood Test 2006 Sigmoidoscopy 2006 LUNG CANCER SCREENING - USE SMARTSET 75759 2011 HbA1c 02/27/2022 08/29/2021, 07/08/2020, 10/13/2018 GFR 08/29/2022 08/29/2021, 03/26/2001 COVID-19 Vaccine (2022-2 4 season) 2023 *COPD SEVERITY VERIFIED BY PFT [...] filedocumented as of this encounter Care Teams Neon Glass Blower Relationship Specialty Start Date End Date Narcisa Ordonez MD [address] [place] [address] [place] [phone] PCP - General Family Medicine 10/25/23 documented as of this encounter
--- OUTSIDE RECORDS SUMMARY | 2024-04-04 19:27 | External Medical Summary | Summary of Care ---
Author Name Unknown Organization [facility] Address [address] [facility] [place] [address] Phone [phone] Care Team Providers Care Overnight Caregiver Name Role Phone Narcisa Ordonez MD Primary Care Prov ider Encounter Details Date Type Department Care Team (Late st Contact Info) Description 01/31/2024 Orders Only Family Medicine [address] [phone] Narcisa Ordonez MD [address] [place] [address] [place], [place] [phone] Allergies No known active allergiesdocumented as of [...] 0.1 % Nasal Solution (Astelin) Administer 1 [place] into nostril in the morning and 1 [place] before bedtime. 30 mL 12 10/18/2023 Active Atorvastatin Calcium 40 MG Oral Tablet (Lipitor) Take 1 Tablet by mouth at bedtime. 0 10/02/2023 Active Baclofen 20 MG Oral Tablet Take 1 Tablet by mouth in the morning and 1 Tablet before bedtime. 0 08/14/2023 Active Fluticasone Propionate 50 MCG/ACT Nasal Suspension (Flonase Allergy Relief) Administer 1 [place] into nostril in the morning. 0 Active [...] depression 10/22/2023 Coronary artery disease invo lving [place] coronary artery of [place] heart without angina pectoris 10/22/2023 Impotence of [...] 11:20 AM EDT Office Visit Family Medicine [address] [place] [phone] Narcisa Ordonez MD [address] [place] [address] [place] [address] 06/16/2024 11:00 AM EDT Office Visit Urology, [facility] 132 [facility] [place] [address] Sen Sexton MD 27 [facility] [address] [place] [address] Health Maintenance Due Date Last Done Comments Depression Screening 1973 Alpha-1 Antitrypsin 1979 Diabetic Eye Exam 1979 Diabetic Foot Exam 1979 Cologuard 2006 Colonoscopy 2006 Colorectal Cancer Screening 2006 Fecal Occult Blood Test 2006 Sigmoidoscopy 2006 LUNG CANCER SCREENING - USE SMARTSET 46026 2011 COVID-19 Vaccine ( season) 2023 *COPD SEVERITY VERIFIED BY PFT 10/25/2023 *CXR OR CT FOR COPD EVER 10/25/2023 HbA1c 08/01/2024 01/30/2024, 08/11, 07/08/2020, Additional history [...] 01/30/2024 documented in this encounter Results * CHEMISTRY-OUTSIDE (01/30/2024) Not all results display below - see scan for full detail SCAN INCLUDES: MICROALBU MIN+CREAT URINE OUTSIDE LAB (SEE SCANNED REPORT) CREATININE-OUTSID E LAB OUTSIDE LAB (SEE SCANNED REPORT) EGFR-OUTSIDE LAB OUT SIDE LAB (SEE SCANNED REPORT) POTASSIUM-OUTSIDE LAB OUTSIDE LAB (SEE SCANNED REPORT) GLUCOSE-OUTSIDE LAB OUTSIDE LAB (SEE SCANNED REPORT) HOURS FASTING OUTSID E LAB (SEE SCANNED REPORT) TRIGLYCERIDES-OUT SIDE LAB OUTSIDE LAB (SEE SCANNED REPORT) CHOLESTEROL-OUTSI DE LAB OUTSIDE LAB (SEE SCANNED REPORT) HDL-OUTSIDE LAB OUTS [place] LAB (SEE SCANNED REPORT) CHOL/HDL RATIO-OUTSIDE LAB OUTSIDE LA B (SEE SCANNED REPORT) LDL (CALCULATED)-OUTS [place] LAB OUTSIDE LAB (SEE SCANNED REPORT) LDL (DIRECT MEASURE)-OUTSIDE LAB OUTSIDE LAB (SEE SCANNED REPORT) HEMOGLOBIN, [id number] LAB OUTSIDE LAB (SEE SCANNED REPORT) PHOSPHORUS-OUTSID E LAB OUTSIDE LAB (SEE SCANNED REPORT) PTH-OUTSIDE LAB OUTS [place] LAB (SEE SCANNED REPORT) MICROALBUMIN RATIO-OUTSIDE LAB 3.9 0.0 - 30.0 MG/GM CR OUTSIDE LAB (SEE SCANNED REPORT) PROTEIN, UA-OUTSIDE LAB OUTSIDE LAB (SEE SCANNED REPORT) HGB OUTSIDE LA B (SEE SCANNED REPORT) 01/30/2024 Narcisa Agustin MD LABORATORY OUTSIDE LAB (SEE SCANNED REPORT) documented in this encounter Care Teams Overnight Caregiver Relationship Specialty Start Date End Date Narcisa Ordonez MD [address] [place] [address] [place] [phone] PCP - General Family Medicine 10/25/23 documented as of this encounter
--- OUTSIDE RECORDS SUMMARY | 2024-04-04 19:27 | External Medical Summary | Summary of Care ---
Author Name Unknown Organization [facility] Address [address] [facility] [place] [address] Phone [phone] Care Team Providers Care Regional Flatbed Truck Driver Name Role Phone Philippe Bailon MD Primary Care Prov ider Reason for Visit * Reason Onset Date Comments Medication Refill 11/13/2023 Encounter Details Date Type Department Care Team (Late st Contact Info) Description 11/13/2023 Refill Family Medicine [address] [phone] Philippe Bailon MD [address] [place] [address] Allergies No known active allergiesdocumented as of this encounter (statuses as of 11/15/2023) Medications Medication Sig Dispensed Refills Start Date End Date Status MULTIVITAL PO TABS 1 tablet daily 0 Ac tive VITAMIN B COMPLEX PO CAPS 1 tablet daily 0 Active VITAMIN B-12 500 MCG PO TABS 1 tablet daily 0 Active VIAGRA 100 MG PO TABSIndications:Im potence of organic origin One pill by mouth 1-4 hours before intercourse, no more than 1 dose in 24 hours. 30 Tab 5 05/26/2012 Active BUSPIRONE HCL 10 MG PO TABSIndications:An xiety state,Adjustment disorder with depressed mood take two tablets once daily 180 Tab 3 08/07/2012 Active MOBIC 7.5 MG PO TABSIndications:Pa in in joint involving lower leg 1 tablet daily 90 Tab 3 11/10/2012 Active LISINOPRIL 20 MG PO TABSIndications:HT N, goal below 140/90 TAKE ONE TABLET BY MOUTH EVERY DAY 90 Tab 3 01/29/2013 Active Budesonide 0.5 MG/2ML Inhalation Suspension (Pulmicort) As directed in nasal rinse twice a day 120 mL 12 10/18/2023 Active Azelastine HCl 0.1 % Nasal Solution (Astelin) Administer 1 [place] into nostril in the morning and 1 [place] before bedtime. 30 mL 12 10/18/2023 Active Atorvastatin Calcium 40 MG Oral Tablet (Lipitor) Take 1 Tablet by mouth at bedtime. 0 10/02/2023 Active Baclofen 20 MG Oral Tablet Take 1 Tablet by mouth in the morning and 1 Tablet before bedtime. 0 08/14/2023 Active Fluticasone Propionate 50 MCG/ACT Nasal Suspension (Flonase Allergy Relief) Administer 1 [place] into nostril in the morning. 0 Active [...] Ellipta 100-62.5-25 MCG/ACT Aerosol Powder Breath Activated (Fluticasone-Umecl idinium-Vilanterol ) Inhale 1 Puff by mouth. 0 Active Amoxicillin-Pot Clavulanate 875-125 MG Oral Tablet (Augmentin) 1 Tablet. 0 03/05/2023 Active Tamsulosin HCl 0.4 MG Oral Capsule (Flomax) Take 1 Capsule by mouth in the morning. 0 Active Finasteride 5 MG Oral Tablet (Proscar) Take 1 Tablet by mouth in the morning. 0 Active Ozempic (2 MG/DOSE) 8 MG/3ML Subcutaneous Solution Pen-injectorIndica tions:Type 2 diabetes mellitus with hemoglobin A1c goal of less than 7.0% (HCC) Inject 2 mg under the skin once a week. 9 mL 3 10/22/2023 Active lamoTRIgine 100 MG Oral Tablet (LaMICtal) Take 1 Tablet by mouth in the morning and 1 Tablet before bedtime. 180 Tablet 3 11/15/2023 Active lamoTRIgine 100 MG Oral Tablet (LaMICtal) Take 1 Tablet by mouth in the morning and 1 Tablet before bedtime. 0 Discontinue d(Refill) documented as of this encounter (statuses as of 11/15/2023) Active Problems Problem Noted Date Diagnosed Date Pulmonary emphysema 10/22/2023 Type 2 diabetes mellitus wit h hemoglobin A1c goal of less than 7.0% 10/22/2023 Hyperlipidemia with target LDL less than 70 10/11 History of tobacco abuse 10/22/2023 Bipolar depression 10/22/2023 Coronary artery disease invo lving [place] coronary artery of [place] heart without angina pectoris 10/22/2023 Impotence of organic origin 06/20/2011 Esophageal reflux 06/01/2011 HTN, goal below 140/90 06/01/2011 documented as of this encounter (statuses as of 11/15/2023) Immunizations Name Administration Dates Next Due Pneumococcal [...] encounter Miscellaneous Notes * Telephone Encounter - Philippe Bailon MD - 11/15/2023 8:15 AM EST Signed Prescriptions: Disp Refills lamoTRIgine 100 MG Oral Tablet (LaMICtal) 180 Ta*3 Sig: Take 1 Tablet by mouth in the morning and 1 Tablet before bedtime. Authorizing Provider: PHILIPPE BAILON * Telephone Encounter - Argenis Rodriguez LPN - 11/14/2023 3:06 PM EST Pending Prescriptions: Disp Refills lamoTRIgine 100 MG Oral Tablet (LaMICtal) 180 Ta*3 Sig: Take 1 Tablet by mouth in the morning and 1 Tablet before bedtime. Last Visit: 10/22/2023 (in office), Visit date not found (telemedicine) Next Visit: 05/27/2024 Last date the medication was ordered: Historical Patient Active Problem List Diagnosis Code Esophageal reflux K21.9 HTN, goal below 140/90 I10 Impotence of organic origin N52.9 Pulmonary emphysema (HCC) J43.9 Type 2 diabetes mellitus with hemoglobin A1c goal of less than 7.0% (HCC) E11.9 Hyperlipidemia with target LDL less than 70 E78.5 History of tobacco abuse Z87.891 Bipolar depression ([facility]) F31.9 Coronary artery disease involving [place] coronary artery of [place] heart without angina pectoris I25.10 Labs: Lab Results Component Value Date/Time CREATININE - [facility] 0.8 03/26/2001 12:15 PM Lab Results Component Value Date/Time POTASSIUM - [facility] 4.6 03/26/2001 12:15 PM Lab Results Component Value Date/Time TSH - [facility] 1.32 10/03/2001 08:15 AM Lab Results Component Value Date/Time LDL CHOLESTEROL (DIRECT MEASURE) - [facility] 133 (H) 04/30/2002 12:54 PM LDL CHOLESTEROL-OUTSIDE LAB 56 08/29/2021 11:55 AM LDL CHOLESTEROL-OUTSIDE LAB 56 07/08/2020 01:00 PM Lab Results Component Value Date/Time ALT 16 (L) 10/28/1996 12:20 PM ALT - [facility] 20 04/30/2002 12:54 PM Hemoglobin AIC Results: No results found for: "HEMOGLOBIN A1C" * Telephone Encounter - Ysabel Guillen OSA - 11/14/2023 12:32 PM EST Patient calling in to check on the status of previous message. Patient Called within 48 hour timeframe. Reminded patient of 48 hour turn-around time. Pt states he only has one pill left and he is to take two a day * Telephone Encounter - Kamila Roman CPhT - 11/13/2023 1:30 PM EST Pt is out of medication pt calling requesting the following medication below that is listed as "Historical". The following information was provided: Medication Name: lamotrigine Strength: 100mg Directions: Take 1 Tablet by mouth in the morning and 1 Tablet before bedtime Preferred Quantity: 180 Previous Prescriber: argenis rodriguez Preferred Pharmacy: [id number] Please review and approve if appropriate. Thank you, Kamila Roman CPhT II Nitric Acid Plant Operator [facility] ([facility]) (Formerly Telepharmacy) 11/13/2023, 1:30 PM documented in this encounter Plan of Treatment Upcoming Encounters Date Type Department Care Team (Late st Contact Info) Description 05/27/2024 11:20 AM EDT Office Visit Family Medicine [address] [phone] Philippe Bailon MD [address] [place] [address] [place] [address] 06/16/2024 11:00 AM EDT Office Visit U[facility], [facility] [address] Sen Sexton MD 27 [facility] [place] [address] Health Maintenance Due Date Last Done Comments COVID-19 Vaccine (#1) 01/23/1961 Depression Screening 1973 Albumin/Creatinine Ratio 1979 Alpha-1 Antitrypsin 1979 Diabetic Eye Exam 1979 Diabetic Foot Exam 1979 Cologuard 2006 Colonoscopy 2006 Colorectal Cancer Screening 2006 Fecal Occult Blood Test 2006 Sigmoidoscopy 2006 LUNG CANCER SCREENING - USE SMARTSET 38361 2011 Hepatitis B (1 of 3 - [...] filedocumented as of this encounter Care Teams Regional Flatbed Truck Driver Relationship Specialty Start Date End Date Philippe Bailon MD [address] [place] [address] [place] [address] PCP - General Family Medicine 10/25/23 documented as of this encounter
--- OUTSIDE RECORDS SUMMARY | 2024-04-04 19:27 | External Medical Summary | Summary of Care ---
Author Name Unknown Organization [facility] Address [address] [facility] [place] [address] Phone [phone] Care Team Providers Care Weight Guesser Name Role Phone Narcisa Ordonez MD Primary Care Prov ider Encounter Details Date Type Department Care Team (Late st Contact Info) Description 02/03/2024 Telephone Family Medicine [address] [phone] Narcisa Ordonez MD [address] [place], [place] [address] [address] Allergies No known active allergiesdocumented as of this encounter (statuses as of 02/06/2024) Medications Medication Sig Dispensed Refills Start Date [...] 0.1 % Nasal Solution (Astelin) Administer 1 [place] into nostril in the morning and 1 [place] before bedtime. 30 mL 12 10/18/2023 Active Atorvastatin Calcium 40 MG Oral Tablet (Lipitor) Take 1 Tablet by mouth at bedtime. 0 10/02/2023 Active Baclofen 20 MG Oral Tablet Take 1 Tablet by mouth in the morning and 1 Tablet before bedtime. 0 08/14/2023 Active Fluticasone Propionate 50 MCG/ACT Nasal Suspension (Flonase Allergy Relief) Administer 1 [place] into nostril in the morning. 0 Active [...] as of this encounter (statuses as of 02/06/2024) Active Problems Problem Noted Date Diagnosed Date Pulmonary emphysema 10/22/2023 Type 2 diabetes mellitus wit h hemoglobin A1c goal of less than 7.0% 10/22/2023 Hyperlipidemia with target LDL less than 70 10/11 History of tobacco abuse 10/22/2023 Bipolar depression 10/22/2023 Coronary artery disease invo lving [place] coronary artery of [place] heart without angina pectoris 10/22/2023 Impotence of organic origin 06/20/2011 Esophageal reflux 06/01/2011 HTN, goal below 140/90 06/01/2011 documented as of this encounter (statuses as of 02/06/2024) Immunizations Name Administration Dates Next Due Pneumococcal [...] encounter Miscellaneous Notes * Telephone Encounter - Maranda Zaidi LPN - 02/06/2024 10:49 AM EDT Pt notified. * Telephone Encounter - Narcisa Ordonez MD - 02/03/2024 2:39 PM EDT Please let him know his syphilis screening test is NEGATIVE/ NORMAL. documented in this encounter Plan of Treatment Upcoming Encounters Date Type Department Care Team (Late st Contact Info) Description 05/27/2024 11:20 AM EDT Office Visit Family Medicine [address] [place] [phone] Narcisa Ordonez MD [address] [place] [address] [place] [address] 06/16/2024 11:00 AM EDT Office Visit Urology, [facility] 132 [facility] [place] [address] Sne Sexton MD [facility] [place] [address] Health Maintenance Due Date Last Done Comments Depression Screening 1973 Alpha-1 Antitrypsin 1979 Diabetic Eye Exam 1979 Diabetic Foot Exam 1979 Cologuard 2006 Colonoscopy 2006 Colorectal Cancer Screening 2006 Fecal Occult Blood Test 2006 Sigmoidoscopy 2006 LUNG CANCER SCREENING - USE SMARTSET 61865 2011 COVID-19 Vaccine ( season) 2023 *COPD [...] filedocumented as of this encounter Care Teams Weight Guesser Relationship Specialty Start Date End Date Narcisa Ordonez MD [address] [place] [address] [place] [phone] PCP - General Family Medicine 10/25/23 documented as of this encounter
--- OUTSIDE RECORDS SUMMARY | 2024-04-04 19:27 | External Medical Summary | Summary of Care ---
Author Name Unknown Organization [facility] Address [address] [place] [address] Phone [phone] Care Team Providers Care Drivability Technician Name Role Phone Narcisa Ordonez MD Primary Care Prov ider Reason for Visit * Reason Comments Outpatient Testing Encounter Details Date Type Department Care Team (Late st Contact Info) Description 04/02/2024 11:40 AM EDT Laboratory Laboratory [address] [place] [phone] [place], Lab [address] [place] [address] Centrilobular emphysema (HCC); Bronchitis due to 2019 [...] 0.1 % Nasal Solution (Astelin) Administer 1 [place] into nostril in the morning and 1 [place] before bedtime. 30 mL 12 10/18/2023 Active Atorvastatin Calcium 40 MG Oral Tablet (Lipitor) Take 1 Tablet by mouth at bedtime. 10/02/2023 Active Fluticasone Propionate 50 MCG/ACT Nasal Suspension (Flonase Allergy Relief) Administer 1 [place] into nostril in the morning. Active Lisinopril [...] hemoglobin A1c goal of less than 7.0% ([facility]) Inject 2 mg under the skin once [...] depression 10/22/2023 Coronary artery disease invo lving [place] coronary artery of [place] heart without angina pectoris 10/22/2023 Impotence of [...] Team (Late st Contact Info) Description 04/02/2024 11:50 AM EDT Imaging Radiology [address] [place] [address] Arrived 05/27/2024 11:20 AM EDT Office Visit Family Medicine [address] [place] [phone] Narcisa Ordonez MD [address] [place] [address] [place] [address] 06/16/2024 11:00 AM EDT Office Visit Urology, [facility] 132 [facility] [place] [address] Sen Sexton MD [address] [place] [address] [place] [address] Pending Results Name Type Priority Associated Diagnoses [...] coronavirus documented in this encounter Care Teams Drivability Technician Relationship Specialty Start Date End Date Narcisa Ordonez MD [address] [place] [address] [place] [phone] PCP - General Family Medicine 10/25/23 documented as of this encounter
--- OUTSIDE RECORDS SUMMARY | 2024-04-04 19:27 | External Medical Summary | Summary of Care ---
Author Name Unknown Organization [facility] Address [address] [facility] [place] [address] Phone [phone] Care Team Providers Care Wet Pan Mixer Name Role Phone Narcisa Ordonez MD Primary Care Prov ider Reason for Visit * Reason Onset Date Comments Medication Refill 02/06/2024 Encounter Details Date Type Department Care Team (Late st Contact Info) Description 02/06/2024 Telephone Family Medicine [address] [phone] Narcisa Ordonez MD [address] [place] [address] Medication Refill Allergies No known active allergiesdocumented as of [...] 0.1 % Nasal Solution (Astelin) Administer 1 [place] into nostril in the morning and 1 [place] before bedtime. 30 mL 12 10/18/2023 Active Atorvastatin Calcium 40 MG Oral Tablet (Lipitor) Take 1 Tablet by mouth at bedtime. 0 10/02/2023 Active Baclofen 20 MG Oral Tablet Take 1 Tablet by mouth in the morning and 1 Tablet before bedtime. 0 08/14/2023 Active Fluticasone Propionate 50 MCG/ACT Nasal Suspension (Flonase Allergy Relief) Administer 1 [place] into nostril in the morning. 0 Active [...] depression 10/22/2023 Coronary artery disease invo lving [place] coronary artery of [place] heart without angina pectoris 10/22/2023 Impotence of [...] encounter Miscellaneous Notes * Telephone Encounter - Jeannie Rocha ticket dispenser changer - 02/06/2024 2:56 PM EDT Pt calling requesting the following medication below that is listed as "Historical". The following information was provided: Medication Name: FLUoxetine HCl 40 MG Oral Capsule Strength: Directions: bid Preferred Quantity: pt wants ninety day and three refills Previous Prescriber: Marcellus Mcintosh [facility]acy: [facility] #[id number] [address] [place] [address] Medication Name: Gabapentin 400 MG Oral Capsule (Neurontin Strength: Directions: Take 1 Capsule by mouth in the morning and 1 Capsule at noon and 1 Capsule before bedtime. Preferred Quantity: pt wants ninety day and three refills Previous Prescriber: Marcellus Mcintosh [facility]: [facility] #[id number] Medication Name: Baclofen 20 MG Oral Tablet Strength: Directions: bid Preferred Quantity: pt wants ninety day and three refills Previous Prescriber: Marcellus Mcintosh Preferred Pharmacy: [facility] #[id number] [address] [place] [address] Please review and approve if appropriate. Thank you for your assistance Jeannie Rocha Home Mortgage Disclosure Act Specialist II [facility] Clinical Pharmacy Services (CCPS) (Formerly Telepharmacy) 02/06/2024,2:56 PM documented in this encounter Plan of Treatment Upcoming Encounters Date Type Department Care Team (Late st Contact Info) Description 05/27/2024 11:20 AM EDT Office Visit Family Medicine [address] [place] [phone] Narcisa Ordonez MD [address] [place] [address] [place] [address] 06/16/2024 11:00 AM EDT Office Visit Urology, [facility] 132 [facility] [place] [address] Sen Sexton MD [address] [place] [address] [place] [address] Health Maintenance Due Date Last Done Comments Depression Screening 1973 Alpha-1 Antitrypsin 1979 Diabetic Eye Exam 1979 Diabetic Foot Exam 1979 Cologuard 2006 Colonoscopy 2006 Colorectal Cancer Screening 2006 Fecal Occult Blood Test 2006 Sigmoidoscopy 2006 LUNG CANCER SCREENING - USE SMARTSET 50533 2011 COVID-19 Vaccine ( season) 2023 *COPD [...] filedocumented as of this encounter Care Teams Wet Pan Mixer Relationship Specialty Start Date End Date Narcisa Ordonez MD [address] [place] [address] [place] [address] PCP - General Family Medicine 10/25/23 documented as of this encounter
--- OUTSIDE RECORDS SUMMARY | 2024-04-04 19:27 | External Medical Summary ---
Author Name Unknown Address Unknown Organization [id number][place] [place] [address] [place] [address] Laboratory Report Ordering Provider Test Date Status JULITO HALEY 04/02/2024 11:32:09 Final Observation Date Value Abnormality Reference (Units ) Status WBC, Total 04/02/2024 11:32:09 10.31 4.00-10.80 (K/uL) Final RBC 04/02/2024 11:32:09 3.48 4.50-5.25 (M/uL) Final Hemoglobin 04/02/2024 11:32:09 11.4 Below low normal 14.0-16.8 (g/dL) Final HCT 04/02/2024 11:32:09 35.1 Below low normal 40.0-48.4 (%) Final MCV 04/02/2024 11:32:09 100.9 82.0-99.5 (fL) Final MCH 04/02/2024 11:32:09 32.8 27.0-34.0 (pg) Final MCHC 04/02/2024 11:32:09 32.5 32.0-36.0 (g/dL) Final RDW 04/02/2024 11:32:09 13.7 11.5-15.5 (%) Final Platelets 04/02/2024 11:32:09 355 140-400 (K/uL) Final MPV 04/02/2024 11:32:09 11.2 6.6-11.1 (fL) Final Nucleated erythrocytes/100 leukocytes [Ratio] in Blood by Automated count 04/02/2024 11:32:09 0 <=0 (/100 WBCs) Final Performing Location [facility] [place] [address] [place] [address]
--- OUTSIDE RECORDS SUMMARY | 2024-04-04 19:27 | External Medical Summary ---
Author Name Unknown Address Unknown Organization K01:[facility] [place] [address] [place] [address] Laboratory Report Ordering Provider Test Date Status SUDHAALEJANDRAZAK 04/02/2024 11:32:09 Final Observation Date Value Abnormality Reference (Units ) Status Magnesium 04/02/2024 11:32:09 2.9 Above high normal 1. 5-2.6 (mg/dL) Final Performing Location LAB[facility]ATORY [facility] - [address] [place] [address]
--- OUTSIDE RECORDS SUMMARY | 2024-04-04 19:27 | External Medical Summary | Summary of Care ---
Author Name Unknown Organization [facility] Address [address] [facility] [place] [address] Phone [phone] Care Team Providers Care Mobile Home Servicer Name Role Phone Narcisa Ordonez MD Primary Care Prov ider Reason for Visit * Reason Onset Date Comments Test Results 01/31/2024 Encounter Details Date Type Department Care Team (Late st Contact Info) Description 01/31/2024 Telephone Family Medicine [address] [phone] Narcisa Ordonez MD [address] [place] [address] Test Results Allergies No known active [...] 0.1 % Nasal Solution (Astelin) Administer 1 [place] into nostril in the morning and 1 [place] before bedtime. 30 mL 12 10/18/2023 Active Atorvastatin Calcium 40 MG Oral Tablet (Lipitor) Take 1 Tablet by mouth at bedtime. 0 10/02/2023 Active Baclofen 20 MG Oral Tablet Take 1 Tablet by mouth in the morning and 1 Tablet before bedtime. 0 08/14/2023 Active Fluticasone Propionate 50 MCG/ACT Nasal Suspension (Flonase Allergy Relief) Administer 1 [place] into nostril in the morning. 0 Active [...] depression 10/22/2023 Coronary artery disease invo lving [place] coronary artery of [place] heart without angina pectoris 10/22/2023 Impotence of [...] encounter Miscellaneous Notes * Telephone Encounter - Terri Ashley RN - 02/06/2024 9:15 AM EDT Letter sent. Reason for Call: Test Results Contact: Letter Contact Type: Test Results Outcome: see note Face to face time spent with Patient (minutes): 0 Total Time including non face to face (minutes): 10 * Telephone Encounter - Terri Ashley RN - 02/06/2024 9:12 AM EDT Left message for the patient to call the office, but also said I would send a letter. * Telephone Encounter - Narcisa Ordonez MD - 01/31/2024 3:47 PM EDT Please let him know his lab results were reviewed and are stable/ at goal. OK to send letter. documented in this encounter Plan of Treatment Upcoming Encounters Date Type Department Care Team (Late st Contact Info) Description 05/27/2024 11:20 AM EDT Office Visit [address] [phone] Narcisa Ordonez MD [address] [place] [address] [place] [address] 06/16/2024 11:00 AM EDT Office Visit Urology, [facility] [address] [place] [address] Sen Sexton MD 27 [facility] [place] [address] [place] [address] Health Maintenance Due Date Last Done Comments Depression Screening 1973 Alpha-1 Antitrypsin 1979 Diabetic Eye Exam 1979 Diabetic Foot Exam 1979 Cologuard 2006 Colonoscopy 2006 Colorectal Cancer Screening 2006 Fecal Occult Blood Test 2006 Sigmoidoscopy 2006 LUNG CANCER SCREENING - USE SMARTSET 36658 2011 COVID-19 Vaccine ( season) 2023 *COPD [...] filedocumented as of this encounter Care Teams Mobile Home Servicer Relationship Specialty Start Date End Date Narcisa Ordonez MD [address] [place] [address] [place] [address] PCP - General Family Medicine 10/25/23 documented as of this encounter
--- OUTSIDE RECORDS SUMMARY | 2024-04-04 19:27 | External Medical Summary ---
Author Name Unknown Address Unknown Organization K01:[facility] [place] [address] [place] [address] Laboratory Report Ordering Provider Test Date Status SUDHAJULITO 04/02/2024 11:32:09 Final Exclude Heart Failure: <300 pg/mL
Diagnose Heart Failure:
Age <50 yr: >450 pg/mL
50-75 yr: >900 pg/mL
>75 yr: >1800 pg/mL
GFR is 30-59 mL/min: >1200 pg/mL or Age- adjusted values
GFR <30 mL/min: do not use, not reliable

Prognostic threshold: 1000 pg/mL Observation Date Value Abnormality Reference (Units ) Status BNP, Pro-hormone 04/02/2024 11:32:09 73 <30 0 (pg/mL) Final Performing Location [facility] [place] [address] [place] [address]
--- OUTSIDE RECORDS SUMMARY | 2024-04-04 19:27 | External Medical Summary | Summary of Care ---
Author Name Unknown Organization [facility] Address [address] [facility] [place] [address] Phone [phone] Care Team Providers Care Assistant Manager Airside Operations Name Role Phone Narcisa Ordonez MD Primary Care Prov ider Reason for Visit * Reason Comments Acute Pt c/o chest heavine ss, cough, green phlegm, swelling in neck, twitching, blurry vision, off balance, the last time he felt like this he had pneumonia and was admitted; had a heat stroke in the past; 3-4 days ago pupils were not dilating and that's when the blurred vision started. Encounter Details Date Type Department Care Team (Late st Contact Info) Description 04/02/2024 11:00 AM EDT Office Visit Family Medicine [address] [phone] Jewel Craig MD [address] [place] [address] [place] [id number] Bronchitis due to 2019 novel coronavirus*; Centrilobular emphysema (HCC) Allergies No known active allergiesdocumented as of this encounter (statuses as of 04/02/2024) Medications Medication Sig Dispensed Refills Start Date End Date Status MULTIVITAL PO TABS 1 tablet daily Ac tive VITAMIN B COMPLEX PO CAPS 1 tablet daily Active VITAMIN B-12 500 MCG PO TABS 1 tablet daily Active VIAGRA 100 MG PO TABSIndications:Im potence [...] 0.1 % Nasal Solution (Astelin) Administer 1 [place] into nostril in the morning and 1 [place] before bedtime. 30 mL 12 10/18/2023 Active Atorvastatin Calcium 40 MG Oral Tablet (Lipitor) Take 1 Tablet by mouth at bedtime. 10/02/2023 Active Fluticasone Propionate 50 MCG/ACT Nasal Suspension (Flonase Allergy Relief) Administer 1 [place] into nostril in the morning. Active Lisinopril [...] idinium-Vilanterol ) Inhale 1 Puff by mouth. Active Tamsulosin HCl 0.4 MG Oral Capsule (Flomax) Take 1 Capsule by mouth in the morning. Active Finasteride 5 MG Oral Tablet (Proscar) Take 1 Tablet by mouth in the morning. Active Ozempic (2 MG/DOSE) 8 MG/3ML Subcutaneous Solution Pen-injectorIndica tions:Type 2 diabetes mellitus with hemoglobin A1c goal of less than 7.0% ([facility]) Inject 2 mg under the [...] Active Amoxicillin-Pot Clavulanate 875-125 MG Oral Tablet (Augmentin)Indicat ions:Bronchitis due to 2019 novel coronavirus one pill twice a day 20 Tablet 04/02/2024 4 Active predniSONE 20 MG Oral Tablet (Deltasone)Indicat ions:Bronchitis due to 2019 novel coronavirus two pills daily with food for 5 days, then one daily with food 15 Tablet 04/02/2024 4 Active predniSONE 5 MG Oral Tablet (Deltasone) take 6 tablets by mouth on day 1 then DECREASE BY 1 tablet daily take with food 08/02/2023 3 Discontinue d(End of Procedure) Amoxicillin-Pot Clavulanate 875-125 MG Oral Tablet (Augmentin) 1 Tablet. 03/05/2023 4 Discontinue d(Refill) documented as of this encounter (statuses as of 04/02/2024) Active Problems Problem Noted Date Diagnosed Date Pulmonary emphysema 10/22/2023 Type 2 diabetes mellitus wit h hemoglobin A1c goal of less than 7.0% 10/22/2023 Hyperlipidemia with target LDL less than 70 10/11 History of tobacco abuse 10/22/2023 Bipolar depression 10/22/2023 Coronary artery disease invo lving [place] coronary artery of apache heart without angina pectoris 10/22/2023 Impotence of [...] on file documented as of this encounter Last Filed Vital Signs Vital Sign Reading Time Taken Comments Blood Pressure 100/52 04/02/2024 11:05 AM EDT Pulse 104 04/02/2024 11:05 AM EDT Temperature 36.6 C (97.8 F) 04/02/2024 11:05 AM E DT Respiratory Rate - - Oxygen Saturation 92% 04/02/2024 11:05 AM EDT Inhaled Oxygen Concentration - - Weight 81 kg (178 lb 8 oz) 04/02/2024 11:05 AM E DT Height - - Body Mass Index 27.53 10/22/2023 3:07 PM EST documented in this encounter Progress Notes * Jewel Craig MD - 04/02/2024 11:13 AM EDT Pt c/o chest heaviness, cough, green phlegm, swelling in neck, twitching, blurry vision, off balance, the last time he felt like this he had pneumonia and was admitted; had a heat stroke in the past;3-4 days ago pupils were not dilating and that's when the blurred vision started. No past medical history on file. No past surgical history on file. , Patient Active Problem List Diagnosis Esophageal reflux HTN, goal below 140/90 Impotence of organic origin Pulmonary emphysema (HCC) Type 2 diabetes mellitus with hemoglobin A1c goal of less than 7.0% (HCC) Hyperlipidemia with target LDL less than 70 History of tobacco abuse Bipolar depression (HCC) Coronary artery disease involving [place] coronary artery of apache heart without angina pectoris He sees pulmonary in [place]. He did not take his Blood pressure meds this AM. He has not urinated since last night O: Blood pressure 100/52, pulse 104, temperature 36.6 C (97.8 F), weight 81 kg (178 lb 8 oz), SpO2 92%. General appearance: well developed, well nourished and in no acute distress. Neck is supplewithout adenopathy or thyromegaly. Chest is symmetrical and moves normally. The lungs are clear without wheezes, rales, rhonchi or rubs, and the heart is regular without murmurs or gallops, or ectopy. PMI not displaced. A: Bronchitis due to 2019 novel coronavirus (Primary) - XR CHEST 2 VIEWS - Amoxicillin-Pot Clavulanate 875-125 MG Oral Tablet (Augmentin); one pill twice a day - predniSONE 20 MG Oral Tablet (Deltasone); two pills daily with food for 5 days, then one daily with food - CBC; Future; Expected date: 04/02/2024 - BNP, NT-PRO; Future; Expected date: 04/02/2024 - COMPREHENSIVE METABOLIC PANEL; Future; Expected date: 04/02/2024 - MAGNESIUM; Future; Expected date: 04/02/2024 Centrilobular emphysema (HCC) - XR CHEST 2 VIEWS - CBC; Future; Expected date: 04/02/2024 Follow Up: Return if symptoms worsen or fail to improve. documented in this encounter Plan of Treatment Upcoming Encounters Date Type Department Care Team (Late st Contact Info) Description 05/27/2024 11:20 AM EDT Office Visit Family Medicine [address] [place] [phone] Narcisa Ordonez MD [address] [place] [address] [place] [phone] 06/16/2024 11:00 AM EDT Office Visit Urology, [facility] [address] [facility] [place] [address] Sen Sexton MD [address] [place] [address] Pending Results Name Type Priority Associated Diagnoses Date /Time XR CHEST 2 VIEWS Medical Imaging Routine Centrilobular emphysema (HCC) Bronchitis due to 2019 novel coronavirus 04/02/2024 11:38 AM EDT CBC Lab Routine Centrilobular emphysema (HCC) Bronchitis due to 2019 novel coronavirus 04/02/2024 11:32 AM EDT BNP, NT-PRO Lab Routine Bronchitis due to 2019 novel coronavirus 04/02/2024 11:32 AM EDT COMPREHENSIVE METABOLIC PANEL Lab Routine Bronchitis due to 2019 novel coronavirus 04/02/2024 11:32 AM EDT MAGNESIUM Lab Routine Bronchitis due to 2019 novel coronavirus 04/02/2024 11:32 AM EDT Scheduled Orders Name Type Priority Associated Diagnoses Orde r Schedule CBC Lab Routine Centrilobular emphysema (HCC) Bronchitis due to 2019 novel coronavirus Expected: 04/02/2024 (Approximate), Expires: 04/02/2025 BNP, NT-PRO Lab Routine Bronchitis due to 2019 novel coronavirus Expected: 04/02/2024 (Approximate), Expires: 04/02/2025 COMPREHENSIVE METABOLIC PANEL Lab Routine Bronchitis due to 2019 novel coronavirus Expected: 04/02/2024 (Approximate), Expires: 04/02/2025 MAGNESIUM Lab Routine Bronchitis due to 2019 novel coronavirus Expected: 04/02/2024 (Approximate), Expires: 04/02/2025 Health Maintenance Due Date Last Done Comments [...] as of this encounter Visit Diagnoses Diagnosis Bronchitis due to 2019 novel coronavirus- Primary Centrilobular emphysema (HCC) Other emphysema documented in this encounter Care Teams Assistant Manager Airside Operations Relationship Specialty Start Date End Date Narcisa Ordonez MD [address] [place] [address] [place] [phone] PCP - General Family Medicine 10/25/23 documented as of this encounter
--- OUTSIDE RECORDS SUMMARY | 2024-04-04 19:27 | External Medical Summary | Summary of Care ---
Author Name Unknown Organization [facility] Address [address] [facility] [place] [address] Phone [phone] Care Team Providers Care Land Economist Name Role Phone Narcisa Ordonez MD Primary Care Prov ider Reason for Visit * Reason Onset Date Comments Advice 11/13/2023 Encounter Details Date Type Department Care Team (Late st Contact Info) Description 11/13/2023 Telephone Family Medicine [address] [phone] Narcisa Ordonez MD [address] [place] [address] [place] [address] Advice Allergies No known active allergiesdocumented as of [...] 0.1 % Nasal Solution (Astelin) Administer 1 [place] into nostril in the morning and 1 [place] before bedtime. 30 mL 12 10/18/2023 Active Atorvastatin Calcium 40 MG Oral Tablet (Lipitor) Take 1 Tablet by mouth at bedtime. 0 10/02/2023 Active Baclofen 20 MG Oral Tablet Take 1 Tablet by mouth in the morning and 1 Tablet before bedtime. 0 08/14/2023 Active Fluticasone Propionate 50 MCG/ACT Nasal Suspension (Flonase Allergy Relief) Administer 1 [place] into nostril in the morning. 0 Active [...] hemoglobin A1c goal of less than 7.0% ([facility]) Inject 2 mg under the skin once [...] depression 10/22/2023 Coronary artery disease invo lving [place] coronary artery of [place] heart without angina pectoris 10/22/2023 Impotence of [...] encounter Miscellaneous Notes * Telephone Encounter - Lynn Tirado OSA - 11/13/2023 1:20 PM EST Pt said when he left his appt on 10-22-23 the incorrect lab orders were printed and giving to him Pt said this is the first time he has looked at the order since his 10-22-23 appt Pt said will shred the orders / sent message to game manager documented in this encounter Plan of Treatment Upcoming Encounters Date Type Department Care Team (Late st Contact Info) Description 05/27/2024 11:20 AM EDT Office Visit Family Medicine [address] [place] [phone] Narcisa Ordonez MD [address] [place] [address] [place] [address] 06/16/2024 11:00 AM EDT Office Visit Urology, [facility] 132 [facility] [place] [address] Sen Sexton MD [address] [facility] [address] [place] [address] Health Maintenance Due Date Last Done Comments COVID-19 Vaccine (#1) 01/23/1961 Depression Screening 1973 Albumin/Creatinine Ratio 1979 Alpha-1 Antitrypsin 1979 Diabetic Eye Exam 1979 Diabetic Foot Exam 1979 Cologuard 2006 Colonoscopy 2006 Colorectal Cancer Screening 2006 Fecal Occult Blood Test 2006 Sigmoidoscopy 2006 LUNG CANCER SCREENING - USE SMARTSET 94457 2011 Hepatitis B (1 of 3 - [...] filedocumented as of this encounter Care Teams Land Economist Relationship Specialty Start Date End Date Narcisa Ordonez MD [address] [place] [address] [place] [address] PCP - General Family Medicine 10/25/23 documented as of this encounter
--- OUTSIDE RECORDS SUMMARY | 2024-04-04 19:27 | External Medical Summary | Summary of Care ---
Author Name Unknown Organization [facility] Address [address] [facility] [place] [address] Phone [phone] Care Team Providers Care Rubber Goods Tester Name Role Phone Philippe Bailon MD Primary Care Prov ider Reason for Visit * Reason Comments eRx-Medication Refill Encounter Details Date Type Department Care Team (Late st Contact Info) Description 03/02/2024 Refill Family Medicine [address] [phone] Philippe Bailon MD [address] [place] [address] [place] [address] Allergies No known active allergiesdocumented as of this encounter (statuses as of 03/03/2024) Medications Medication Sig Dispensed Refills Start Date [...] 0.1 % Nasal Solution (Astelin) Administer 1 [place] into nostril in the morning and 1 [place] before bedtime. 30 mL 12 10/18/2023 Active Atorvastatin Calcium 40 MG Oral Tablet (Lipitor) Take 1 Tablet by mouth at bedtime. 0 10/02/2023 Active Fluticasone Propionate 50 MCG/ACT Nasal Suspension (Flonase Allergy Relief) Administer 1 [place] into nostril in the morning. 0 Active Lisinopril 40 MG Oral Tablet [...] hemoglobin A1c goal of less than 7.0% ([facility]) Inject 2 mg under the skin once a week. 9 mL 3 10/22/2023 Active lamoTRIgine 100 MG Oral Tablet (LaMICtal) Take 1 Tablet by mouth in the morning and 1 Tablet before bedtime. 180 Tablet 3 11/15/2023 Active metFORMIN HCl 500 MG Oral Tablet (Glucophage) take 1 tablet by mouth twice a day 180 Tablet 0 01/14/2024 Active FLUoxetine HCl 40 MG Oral [...] for Pain. 60 Tablet 1 03/03/2024 Active Baclofen 20 MG Oral Tablet Take 1 Tablet by mouth in the morning and 1 Tablet before bedtime. 60 Tablet 0 02/10/2024 03/03/20 24 Discontinued documented as of this encounter (statuses as of 03/03/2024) Active Problems Problem Noted Date Diagnosed Date Pulmonary emphysema 10/22/2023 Type 2 diabetes mellitus wit h hemoglobin A1c goal of less than 7.0% 10/22/2023 Hyperlipidemia with target LDL less than 70 10/11 History of tobacco abuse 10/22/2023 Bipolar depression 10/22/2023 Coronary artery disease invo lving [place] coronary artery of [place] heart without angina pectoris 10/22/2023 Impotence of organic origin 06/20/2011 Esophageal reflux 06/01/2011 HTN, goal below 140/90 06/01/2011 documented as of this encounter (statuses as of 03/03/2024) Immunizations Name Administration Dates Next Due Pneumococcal [...] Telephone Encounter - Philippe Bailon MD - 03/03/2024 12:47 PM EDTSigned Prescriptions: Disp Refills Baclofen 20 MG Oral Tablet 60 Tab*1 Sig: Take 1 Tablet by mouth 2 times a day as needed for Pain. Authorizing Provider: PHILIPPE BAILON * Telephone Encounter - Amy Merlos RN - 03/03/2024 7:01 AM EDTPending Prescriptions: Disp Refills Baclofen 20 MG Oral Tablet 60 Tab*1 Sig: Take 1 Tablet by mouth 2 times a day as needed for Pain. * Telephone Encounter - Amy Merlos RN - 03/03/2024 7:00 AM EDT Pending Prescriptions: Disp Refills Baclofen 20 MG Oral Tablet [Pharmacy Med *60 Tab*0 Sig: take 1 tablet by mouth every morning and BEFORE BEDTIME Last Visit: 10/22/2023 (in office), Visit date not found (telemedicine) Next Visit: 05/27/2024 Last date the medication was ordered: 02/10/24 Patient Active Problem List Diagnosis Code Esophageal reflux K21.9 HTN, goal below 140/90 I10 Impotence of organic origin N52.9 Pulmonary emphysema ([facility]) J43.9 Type 2 diabetes mellitus with hemoglobin A1c goal of less than 7.0% ([facility]) E11.9 Hyperlipidemia with target LDL less than 70 E78.5 History of tobacco abuse Z87.891 Bipolar depression ([facility]) F31.9 Coronary artery disease involving [place] coronary artery of [place] heart without angina pectoris I25.10 Labs: Lab Results Component Value Date/Time CREATININE - [facility] 0.8 03/26/2001 12:15 PM CREATININE-OUTSIDE LAB 1.25 01/30/2024 12:00 AM Lab Results Component Value Date/Time POTASSIUM - [facility] 4.6 03/26/2001 12:15 PM POTASSIUM-OUTSIDE LAB 5.1 01/30/2024 12:00 AM Lab Results Component Value Date/Time TSH - [facility] 1.32 10/03/2001 08:15 AM Lab Results Component Value Date/Time LDL (CALCULATED)-[facility]IDE [facility] 59.20 01/30/2024 12:00 AM LDL (DIRECT MEASURE)-[facility]TSIDE LAB 68 01/30/2024 12:00 AM LDL CHOLESTEROL (DIRECT MEASURE) - [facility] 133 (H) 04/30/2002 12:54 PM LDL CHOLESTEROL-OU[facility]IDE LAB 56 08/29/2021 11:55 AM LDL CHOLESTEROL-OUTSIDE LAB 56 07/08/2020 01:00 PM Lab Results Component Value Date/Time ALT 16 (L) 10/28/1996 12:20 PM ALT - [facility] 20 04/30/2002 12:54 PM Hemoglobin AIC Results: No results found for: "HEMOGLOBIN A1C" * Telephone Encounter - Lorene Medeirosnba - 03/03/2024 5:52 AM EDTPending Prescriptions: Disp Refills Baclofen 20 MG Oral Tablet [Pharmacy Med N*60 Tab*0 Sig: take 1tablet by mouth every morning and BEFORE BEDTIME documented in this encounter Plan of Treatment Upcoming Encounters Date Type Department Care Team (Late st Contact Info) Description 05/27/2024 11:20 AM EDT Office Visit Family Medicine [address] [place] [phone] Philippe Bailon MD [address] [place] [address] [place] [address] 06/16/2024 11:00 AM EDT Office Visit Urology, [facility] 132 [facility] [place] [address] Sen Sexton MD 27 [facility] [address] Health Maintenance Due Date Last [...] filedocumented as of this encounter Care Teams Rubber Goods Tester Relationship Specialty Start Date End Date Philippe Bailon MD [address] [place] [address] [place] [address] PCP - General Family Medicine 10/25/23 documented as of this encounter
--- OUTSIDE RECORDS SUMMARY | 2024-04-04 19:27 | External Medical Summary | Summary of Care ---
Author Name Unknown Organization [facility] Address [address] [facility] [place] [address] Phone [phone] Care Team Providers Care Diversified Crops Supervisor Name Role Phone Narcisa Ordonez MD Primary Care Prov ider Encounter Details Date Type Department Care Team (Late st Contact Info) Description 01/30/2024 Result Scan Unspecified Department Narcisa Ordonez MD [address] [place] [address] [place] [address] <No scans attached> Allergies No known active allergiesdocumented as of this encounter (statuses as of 02/03/2024) Medications Medication Sig Dispensed Refills Start Date [...] 0.1 % Nasal Solution (Astelin) Administer 1 [place] into nostril in the morning and 1 [place] before bedtime. 30 mL 12 10/18/2023 Active Atorvastatin Calcium 40 MG Oral Tablet (Lipitor) Take 1 Tablet by mouth at bedtime. 0 10/02/2023 Active Baclofen 20 MG Oral Tablet Take 1 Tablet by mouth in the morning and 1 Tablet before bedtime. 0 08/14/2023 Active Fluticasone Propionate 50 MCG/ACT Nasal Suspension (Flonase Allergy Relief) Administer 1 [place] into nostril in the morning. 0 Active [...] as of this encounter (statuses as of 02/03/2024) Active Problems Problem Noted Date Diagnosed Date Pulmonary emphysema 10/22/2023 Type 2 diabetes mellitus wit h hemoglobin A1c goal of less than 7.0% 10/22/2023 Hyperlipidemia with target LDL less than 70 10/11 History of tobacco abuse 10/22/2023 Bipolar depression 10/22/2023 Coronary artery disease invo lving [place] coronary artery of [place] heart without angina pectoris 10/22/2023 Impotence of organic origin 06/20/2011 Esophageal reflux 06/01/2011 HTN, goal below 140/90 06/01/2011 documented as of this encounter (statuses as of 02/03/2024) Immunizations Name Administration Dates Next Due Pneumococcal [...] 11:20 AM EDT Office Visit Family Medicine [address] [place] [phone] Narcisa Ordonez MD [address] [place] [address] [place] [address] 06/16/2024 11:00 AM EDT Office Visit Urology, [facility] 132 [facility] [place] [address] Sen Sexton MD 27 [facility] [address] [place] [address] Health Maintenance Due Date Last Done Comments Depression Screening 1973 Alpha-1 Antitrypsin 1979 Diabetic Eye Exam 1979 Diabetic Foot Exam 1979 Cologuard 2006 Colonoscopy 2006 Colorectal Cancer Screening 2006 Fecal Occult Blood Test 2006 Sigmoidoscopy 2006 LUNG CANCER SCREENING - USE SMARTSET 01784 2011 COVID-19 Vaccine ( season) 2023 *COPD [...] Procedure Name Priority Date/Time Associated Diagnosis Comments OUTSIDE LAB RESULTS 01/30/2024 documented in this encounter Results * OUTSIDE LAB RESULTS (01/30/2024) 01/30/2024 Narcisa Agustin MD LABORATORY documented in this encounter Care Teams Diversified Crops Supervisor Relationship Specialty Start Date End Date Narcisa Ordonez MD [address] [place] [address] [place] [phone] PCP - General Family Medicine 10/25/23 documented as of this encounter
--- OUTSIDE RECORDS SUMMARY | 2024-04-04 19:28 | External Medical Summary | Summary of Care ---
Author Name Unknown Organization [facility] Address [address] [facility] [place] [address] Phone [phone] Care Team Providers Care Technician Terminal And Repeater Name Role Phone Marcia Cat MD Primary Care Provider Reason for Visit * Reason Comments NEW PATIENT Chronic sinusitis Encounter Details Date Type Department Care Team (Late st Contact Info) Description 10/18/2023 10:00 AM EST Office Visit Otolaryngology [facility] [address] [place] [address] Sari Fairchild MD [address] [place] [phone] Chronic sinusitis, unspecified location* Allergies No known active allergiesdocumented as of this encounter (statuses as of 10/18/2023) Medications Medication Sig Dispensed Refills Start Date End Date Status MULTIVITAL PO TABS 1 tablet daily 0 Ac tive VITAMIN E 1000 UNIT PO CAPS 1 tablet daily 0 Active VITAMIN B COMPLEX PO CAPS 1 tablet daily 0 Active VITAMIN B-12 500 MCG PO TABS 1 tablet daily 0 Active ALPRAZOLAM 0.5 MG PO TABSIndications:Adju stment disorder with depressed mood take 1 tablet by mouth twice a day if needed 60 Tab 0 05/22/2012 Active LORAZEPAM 0.5 MG PO TABSIndications:Anxi ety state take 1 tablet by mouth at bedtime 60 Tab 0 05/22/2012 Active LIPITOR 10 MG PO TABSIndications:HTN, goal below 140/90 One tablet by mouth once daily 30 Tab 11 05/26/2012 Active VIAGRA 100 MG PO TABSIndications:Impo tence of organic origin One pill by mouth 1-4 hours before intercourse, no more than 1 dose in 24 hours. 30 Tab 5 05/26/2012 Active SKELAXIN 800 MG PO TABSIndications:Cerv icalgia One pill by mouth 4 times a day on an empty stomach as needed for muscle spasms 40 Tab 2 05/26/2012 Active CYCLOBENZAPRINE HCL 10 MG PO TABSIndications:Cerv icalgia take 1 tablet by mouth three times a day if needed for SPASM 30 Tab 1 07/22/2012 Active BUSPIRONE HCL 10 MG PO TABSIndications:Anxi ety state,Adjustment disorder with depressed mood take two tablets once daily 180 Tab 3 08/07/2012 Active MOBIC 7.5 MG PO TABSIndications:Pain in joint involving lower leg 1 tablet daily 90 Tab 3 11/10/2012 Active CELEXA 20 MG PO TABSIndications:Depr ession 1 TABLET DAILY 30 Tab 8 01/29/2013 Active LISINOPRIL 20 MG PO TABSIndications:HTN, goal below 140/90 TAKE ONE TABLET BY MOUTH EVERY DAY 90 Tab 3 01/29/2013 Active OMEPRAZOLE 20 MG PO CPDRIndications:Esop hageal reflux TAKE ONE CAPSULE BY MOUTH EVERY DAY 90 Cap 3 01/29/2013 Active Budesonide 0.5 MG/2ML Inhalation Suspension (Pulmicort) As directed in nasal rinse twice a day 120 mL 12 10/18/2023 Active Azelastine HCl 0.1 % Nasal Solution (Astelin) Administer 1 Antimony into nostril in the morning and 1 Antimony before bedtime. 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/20/2011 Esophageal reflux 06/01/2011 HTN, goal below 140/90 06/01/2011 documented as of this encounter (statuses as of 10/18/2023) Social History Tobacco Use Types Packs/Day Years [...] Sign Reading Time Taken Comments Blood Pressure - - Pulse - - Temperature 35.9 C (96.7 F) 10/18/2023 9:42 AM ES T Respiratory Rate - - Oxygen Saturation - - Inhaled Oxygen Concentration - - Weight 80.9 kg (178 lb 4.8 oz) 10/18/2023 9:42 A M EST Height 171.5 cm (5' 7.52") 10/18/2023 9:42 AM ES T Body Mass Index 27.5 10/18/2023 9:42 AM EST documented in this encounter Progress Notes * Sari Fairchild MD - 10/18/2023 10:05 AM EST 10/18/2023 HISTORY OF PRESENT ILLNESS This 63 year old year old male is seen today for the initial complaint of nasal obstruction. The provider requesting consultation is Self. Nursing Notes: Jake Cole, [facility] 10/18/23 0946 Signed Chief Complaint Patient presents with NEW PATIENT Chronic sinusitis Graeme Quezada is a 63 year old male who presents today with chronic sinusitis and bilateral ear fullness. He states that he has a productive cough, sinus pressure, ear pressure and some sinus drainage. He has been on prednisone, oral antibiotics, Flonase and a "severe" nasal spray that he states works better than Flonase 2-3 time per day. He does not use saline rinses. He has a history of sinus surgery with [facility]. Patient is unsure what the spray was but it is had severe so I am concerned that it isn't Afrin based nasal spray. Patient is a past smoker most recently just quit in September. He has been smoking since he was 13 years old. Problem List Patient Active Problem List Diagnosis Code Esophageal reflux K21.9 HTN, goal below 140/90 I10 Impotence of organic origin N52.9 No past medical history on file. No past surgical history on file. Medications Current Outpatient Medications Medication Sig Dispense Refill MULTIVITAL PO TABS 1 tablet daily VITAMIN E 1000 UNIT PO CAPS 1 tablet daily VITAMIN B COMPLEX PO CAPS 1 tablet daily VITAMIN B-12 500 MCG PO TABS 1 tablet daily ALPRAZOLAM 0.5 MG PO TABS take 1 tablet by mouth twice a day if needed 60 Tab 0 LORAZEPAM 0.5 MG PO TABS take 1 tablet by mouth at bedtime 60 Tab 0 LIPITOR 10 MG PO TABS One tablet by mouth once daily 30 Tab 11 VIAGRA 100 MG PO TABS One pill by mouth 1-4 hours before intercourse, no more than 1 dose in 24 hours. 30 Tab 5 SKELAXIN 800 MG PO TABS One pill by mouth 4 times a day on an empty stomach as needed for muscle spasms 40 Tab 2 CYCLOBENZAPRINE HCL 10 MG PO TABS take 1 tablet by mouth three times a day if needed for SPASM 30 Tab 1 BUSPIRONE HCL 10 MG PO TABS take two tablets once daily 180 Tab 3 MOBIC 7.5 MG PO TABS 1 tablet daily 90 Tab 3 CELEXA 20 MG PO TABS 1 TABLET DAILY 30 Tab 8 LISINOPRIL 20 MG PO TABS TAKE ONE TABLET BY MOUTH EVERY DAY 90 Tab 3 OMEPRAZOLE 20 MG PO CPDR TAKE ONE CAPSULE BY MOUTH EVERY DAY 90 Cap 3 Budesonide 0.5 MG/2ML Inhalation Suspension (Pulmicort) As directed in nasal rinse twice a day 120 mL 12 Azelastine HCl 0.1 % Nasal Solution (Astelin) Administer 1 Antimony into nostril in the morning and 1 Antimony before bedtime. 30 mL 12 No current facility-administered medications for this visit. Allergies Review of patient's allergies indicates: No Known Allergies Family History No family history on file. Social History Social History Tobacco Use Smoking status: Former Packs/day: 1.00 Years: 32.00 Additional pack years: 0.00 Total pack years: 32.00 Types: Cigarettes Quit date: 10/07/2023 Years since quittin.0 Smokeless tobacco: Never Substance Use Topics Alcohol use: Yes Comment: sometimes Vaping/E-Cigarette Use Vaping/E-Cigarette Substances Vaping/E-Cigarette Devices Occupational History Work: Review of Systems Negative for constitutional, eyes, cardiac, pulmonary, hepatic, renal, digestive, hematologic, epileptic, syncopal, musculo-skeletal, mental health, integumentary, hypertensive, lipid, arthritic, diabetic, thyroid or neurologic disorders (except as listed in the PMH and Problem List). Physical Examination: Temp 35.9 C (96.7 F) (Tympanic) | Ht 1.715 m (5' 7.52") | Wt 80.9 kg (178 lb 4.8 oz) | BMI 27.50 kg/m | BSA 1.96 m PHYSICAL EXAM General: This is a healthy appearing male who appears his stated age. The patient is alert and appropriately verbally conversant without hoarseness. Face: The face was inspected and no cutaneous masses or lesions were visualized. There was no erythema or edema noted. Facial movement was symmetric without weakness. No skin lesions were detected. The parotid and submandibular glands were normal to palpation. Eyes: Extra-ocular muscle function was intact. No nystagmus was observed. Pupils were equal. Cranial Nerves: Grossly intact Nose: Examination of the nose prior to decongestion revealed no masses, polyps, mucopus, or other lesion. The nasal septum was non-obstructing. The turbinates were without abnormality. No septal perforation. Oral Cavity: Examination of the oral cavity revealed no mass lesions nor infection. The palate was noted to be intact without evidence of clefting. The tongue exhibited normal mobility. Mucosa was moist without lesion. The lips were free of lesion. Gums were free of inflammation. Dentition: Unremarkable Oropharynx: The oral pharynx was free of mass lesion or mucosal abnormality. The palate was noted to be without lesion. The uvula was normal appearing. The tonsils were unremarkable. Hypopharynx: flexible fiberoptic examination of the hypopharynx revealed normal mucosa. The tongue base was normal. There was no abnormal lymphoid tissue. There were no mass lesions. Larynx: flexible fiberoptic examination of the larynx revealed no mass lesions. Vocal cord mobilitywas normal without paralysis or paresis. No vocal cord masses were visualized. The pyriform sinuseswere free of mass lesion and significant pooling. The mucosa was normal appearing. Ears: Examination of the ears revealed that the auricles were normally formed with no lesions. The external auditory canals were cleaned of any obstructing cerumen. The tympanic membranes were intact. There are no significant retraction pockets. There is no inflammation visualized. No effusions areseen. Neck: Visualization and palpation of the neck revealed no mass lesions, no thyromegaly or thyroid masses. No skin lesions or inflammatory processes were detected. The cervical musculature was normal to palpation. Lymphatics (cervical): There were no palpable lymph nodes in the posterior triangle, submandibular triangle, jugulodigastric region, or central neck. Lungs: Breathing quietly. No use of accessory muscles. Heart: Regular rate. No JVD. Procedure: Due to patient's inability to cooperate with mirror exam or concern for structures otherwise not evaluated, fiberoptic examination of the larynx was performed. The nose was first topically decongested with topical oxymetazoline 0.05% spray and topically anesthetized with topical Lidocaine 4% spray. Nasopharynx, oropharynx, larynx and hypopharynx were carefully examined. Vocal fold motion was evaluated. The patient tolerated the procedure well. Patient should refrain from eating or drinking for 30-45 minutes due to anesthesia of the pharynx and possible interference with swallowing. Specific findings: Clear drainage seen bilaterally. Nasal mucosa seems inflamed but not as erythematous as I would expect for rhinitis medicamentosa. Adenoids are present but not obstructing. Plan: Chronic sinusitis, unspecified location (Primary) Other orders - Budesonide 0.5 MG/2ML Inhalation Suspension (Pulmicort); As directed in nasal rinse twice a day - Azelastine HCl 0.1 % Nasal Solution (Astelin); Administer 1 Antimony into nostril in the morning and1 Antimony before bedtime. We will start him on nasal saline rinses with budesonide. I went over how to slowly scale back on the severe nasal spray if it is indeed Afrin. Will have him come back in 4 months to check in and seehow things are going. Extensive time was spent discussing the above diagnosis, management and treatment. I reviewed all outside documentation, labs, and imaging. Sari Fairchild MD [facility] - [facility] [place] 10/18/2023 10:05 AM documented in this encounter Nursing Notes * Jake Cole CMA - 10/18/2023 9:43 AM EST Chief Complaint Patient presents with NEW PATIENT Chronic sinusitis Graeme Quezada is a 63 year old male who presents today with chronic sinusitis and bilateral ear fullness. He states that he has a productive cough, sinus pressure, ear pressure and some sinus drainage. He has been on prednisone, oral antibiotics, Flonase and a "severe" nasal spray that he states works better than Flonase 2-3 time per day. He does not use saline rinses. He has a history of sinus surgery with [facility]. documented in this encounter Plan of Treatment Upcoming Encounters Date Type Department Care Team (Late st Contact Info) Description 10/22/2023 3:00 PM EST Office Visit Family Medicine [address] [phone] Narcisa Ordonez MD [address] [place] [address] [place] [id number] Health Maintenance Due Date Last Done Comments COVID-19 Vaccine (#1) 01/23/1961 Pneumococcal Vaccine: Pediatrics (0 to 5 Years) and At-Risk Patients (6 to 64 Years) (1 - PCV) 1967 08/09/2016, 04/28/2014, 04/28/2014 Depression Screening 1973 Albumin/Creatinine Ratio 1979 DTaP,Tdap,and Td Vaccines (1 - Tdap) 1980 Cologuard 2006 Colonoscopy 2006 Colorectal Cancer Screening 2006 Fecal Occult Blood Test 2006 Sigmoidoscopy 2006 Zoster Vaccines (1 of 2) 2011 08/09/2016 GFR 08/29/2022 08/29/2021, 03/26/2001 Influenza Vaccine (FLU shot) (#1) 2023 Lipid Panel 08/29/2026 08/29/2021, 06/12, 10/13/2018, Additional history exists GARDASIL-HPV IMMUNIZATION SERIES Aged Out No longer [...] as of this encounter Visit Diagnoses Diagnosis Chronic sinusitis, unspecified location- Primary documented in this encounter Care Teams Technician Terminal And Repeater Relationship Specialty Start Date End Date Marcia Cat MD [address] [place] [id number] PCP - General Family Medicine 10/18/23 documented as of this encounter
--- OUTSIDE RECORDS SUMMARY | 2024-04-04 19:28 | External Medical Summary | Summary of Care ---
Author Name Unknown Organization [facility] Address [address] [place] [address] Phone [phone] Care Team Providers Care Technical Artist Name Role Phone Narcisa Ordonez MD Primary Care Prov ider Reason for Referral * Evaluate & Treat - Unlimited Visits (Within 10 days (routine)) - Pending Review Specialty Diagnoses / Procedures Referred By Jimenez mccarthy Referred To Contact Urology Diagnoses Peyronie's disease Narcisa Ordonez MD [address] [place] [address] [place] [id number] Referral ID Status Reason Start Date Expiration Date Visits Requested Visits Authorized [id number] Pending Review Specialty Services Required 3 [phone] Question Answer Referral Priority Within 10 days (routine) Where should this appointment be scheduled? [facility] What is the patient being referred for? Other conditions Comments Peyronies Encounter Details Date Type Department Care Team (Late st Contact Info) Description 10/22/2023 Telephone Family Medicine [address] [place] [phone] Narcisa Ordonez MD [address] [place] [address] [place] [phone] Allergies No known active allergiesdocumented as of this encounter (statuses as of 10/30/2023) Medications Medication Sig Dispensed Refills Start Date [...] 0.1 % Nasal Solution (Astelin) Administer 1 [place] into nostril in the morning and 1 [place] before bedtime. 30 mL 12 10/18/2023 Active Atorvastatin Calcium 40 MG Oral Tablet (Lipitor) Take 1 Tablet by mouth at bedtime. 0 10/02/2023 Active Baclofen 20 MG Oral Tablet Take 1 Tablet by mouth in the morning and 1 Tablet before bedtime. 0 08/14/2023 Active Fluticasone Propionate 50 MCG/ACT Nasal Suspension (Flonase Allergy Relief) Administer 1 [place] into nostril in the morning. 0 Active [...] goal of less than 7.0% ([facility]) Inject 2 mg under the skin once a week. 9 mL 3 10/22/2023 Active documented as of this encounter (statuses as of 10/30/2023) Active Problems Problem Noted Date Diagnosed Date Pulmonary emphysema 10/22/2023 Type 2 diabetes mellitus wit h hemoglobin A1c goal of less than 7.0% 10/22/2023 Hyperlipidemia with target LDL less than 70 10/11 History of tobacco abuse 10/22/2023 Bipolar depression 10/22/2023 Coronary artery disease invo lving [place] coronary artery of [place] heart without angina pectoris 10/22/2023 Impotence of organic origin 06/20/2011 Esophageal reflux 06/01/2011 HTN, goal below 140/90 06/01/2011 documented as of this encounter (statuses as of 10/30/2023) Immunizations Name Administration Dates Next Due Pneumococcal [...] Telephone Encounter - Marlys Rivero OSA - 10/23/2023 8:37 AM EST I got him scheduled with Urology for 06/16/24 @ 11:00 am w/ Dr. Sexton at [facility]. I also placed him in a cancellation list. * Telephone Encounter - Narcisa Ordonez MD - 10/22/2023 7:08 PM EST Please let patient know we do have a urologist on staff at [facility] who can do treatment/ injections for Peyronies disease. I've put in a referral for Urology/Dr Sexton. Please let him know. * Telephone Encounter - Narcisa Ordonez MD - 10/22/2023 7:08 PM EST ----- Message from Sen Sexton MD sent at 10/22/2023 3:55 PM EST ----- Regarding: RE: Peyronies injections Yes, I do. Thx, ----- Message ----- From: Narcisa Ordonez MD Sent: 10/22/2023 3:50 PM EST To: Sen Sexton MD Subject: Peyronies injections Graeme is just getting established with me and he asked if any local urologists do "injections to treat peyronies"? Do you do this? documented in this encounter Plan of Treatment Upcoming Encounters Date Type Department Care Team (Late st Contact Info) Description 05/27/2024 11:20 AM EDT Office Visit Family Medicine [address] [phone] Narcisa Ordonez MD [address] [place] [address] [place] [phone] 06/16/2024 11:00 AM EDT Office Visit Urology, [facility] [address] [facility] [place] [address] Sen Sexton MD [address] [facility] [address] [place] [address] Scheduled Referrals Name Type Priority Associated Diagnoses Orde r Schedule UROLOGY REFERRAL OP Referral Within 10 da ys (routine) Peyronie's disease Ordered: 10/22/2023 Health Maintenance Due Date Last Done Comments COVID-19 Vaccine (#1) 01/23/1961 Depression Screening 1973 Albumin/Creatinine Ratio 1979 Alpha-1 Antitrypsin 1979 Diabetic Eye Exam 1979 Diabetic Foot Exam 1979 Cologuard 2006 Colonoscopy 2006 Colorectal Cancer Screening 2006 Fecal Occult Blood Test 2006 Sigmoidoscopy 2006 LUNG CANCER SCREENING - USE SMARTSET 36342 2011 Hepatitis B (1 of 3 - [...] as of this encounter Visit Diagnoses Diagnosis Peyronie's disease- Primary documented in this encounter Care Teams Technical Artist Relationship Specialty Start Date End Date Narcisa Ordonez MD [address] [place] [address] [place] [id number] PCP - General Family Medicine 10/25/23 documented as of this encounter
--- OUTSIDE RECORDS SUMMARY | 2024-04-04 19:28 | External Medical Summary | Summary of Care ---
Author Name Unknown Organization [facility] Address [address] [place] [address] Phone [phone] Care Team Providers Care Cellar Worker Name Role Phone Marcia Cat MD Primary Care Provider Reason for Referral * Precert (Within 10 days (routine)) - Pending Review Specialty Diagnoses / Procedures Referred By Jimenez mccarthy Referred To Contact Radiology Diagnoses History of tobacco abuse Procedures CT CHEST LOW DOSE SCAN LUNG CANCER SCREEN 1 YEAR FOLLOW UP LUNG CANCER SCREENING PROGRAM REFERRAL Narcisa Ordonez MD [address] [place] [address] [place] [phone] Referral ID Status Reason Start Date Expiration Date V isits Requested Visits Authorized [id number] Pending Review 10/22/[phone] * Evaluate & Treat - Unlimited Visits (Within 10 days (routine)) - Pending Review Specialty Diagnoses / Procedures Referred By Jimenez mccarthy Referred To Contact Psychiatry Diagnoses Bipolar depression (HCC) Narcisa Ordonez MD [address] [place] [address] [place] [phone] Referral ID Status Reason Start Date Expiration Date Visits Requested Visits Authorized [id number] Pending Review Specialty Services Required 3 [phone] Question Answer Referral Priority Within 10 days (routine) Where should this appointment be scheduled? [facility] Is this referral for medication management? Yes Referral To [facility] Reason for Referral Bipolar Reason for Visit * Reason Comments NEW PATIENT Encounter Details Date Type Department Care Team (Late st Contact Info) Description 10/22/2023 3:00 PM EST Office Visit Family Medicine [address] [place] [phone] Narcisa Ordonez MD [address] [place] [address] [place] [phone] Bipolar depression (HCC)*; Type 2 diabetes mellitus with hemoglobin A1c goal of less than 7.0% (HCC); HTN, goal below 140/90; History of tobacco abuse; Hyperlipidemia with target LDL less than 70; Pulmonary emphysema, unspecified emphysema type (HCC); Coronary artery disease involving eastern shoshone coronary artery of eastern shoshone heart without angina pectoris; Routine screening for STI (sexually transmitted infection) Allergies No known active allergiesdocumented as of this encounter (statuses as of 10/22/2023) Medications Medication Sig Dispensed Refills Start Date [...] 0.1 % Nasal Solution (Astelin) Administer 1 [place] into nostril in the morning and 1 [place] before bedtime. 30 mL 12 10/18/2023 Active Atorvastatin Calcium 40 MG Oral Tablet (Lipitor) Take 1 Tablet by mouth at bedtime. 0 10/02/2023 Active Baclofen 20 MG Oral Tablet Take 1 Tablet by mouth in the morning and 1 Tablet before bedtime. 0 08/14/2023 Active Fluticasone Propionate 50 MCG/ACT Nasal Suspension (Flonase Allergy Relief) Administer 1 [place] into nostril in the morning. 0 Active [...] goal of less than 7.0% ([facility]) Inject 2 mg under the skin once a week. 9 mL 3 10/22/2023 Active VITAMIN E 1000 UNIT PO CAPS 1 tablet daily 0 3 Discontinued ALPRAZOLAM 0.5 MG PO TABSIndications:A djustment disorder with depressed mood take 1 tablet by mouth twice a day if needed 60 Tab 0 05/22/2012 3 Discontinued LORAZEPAM 0.5 MG PO TABSIndications:A nxiety state take 1 tablet by mouth at bedtime 60 Tab 0 05/22/2012 3 Discontinued LIPITOR 10 MG PO TABSIndications:H TN, goal below 140/90 One tablet by mouth once daily 30 Tab 11 05/26/2012 3 Discontinued SKELAXIN 800 MG PO TABSIndications:C ervicalgia One pill by mouth 4 times a day on an empty stomach as needed for muscle spasms 40 Tab 2 05/26/2012 3 Discontinued CYCLOBENZAPRINE HCL 10 MG PO TABSIndications:C ervicalgia take 1 tablet by mouth three times a day if needed for SPASM 30 Tab 1 07/22/2012 3 Discontinued CELEXA 20 MG PO TABSIndications:D epression 1 TABLET DAILY 30 Tab 8 01/29/2013 3 Discontinued OMEPRAZOLE 20 MG PO CPDRIndications:E sophageal reflux TAKE ONE CAPSULE BY MOUTH EVERY DAY 90 Cap 3 01/29/2013 3 Discontinued Ozempic (2 MG/DOSE) 8 MG/3ML Subcutaneous Solution Pen-injector 0 10/18/2023 3 Discontinued(Ref ill) documented as of this encounter (statuses as of 10/22/2023) Active Problems Problem Noted Date Diagnosed Date Pulmonary emphysema 10/22/2023 Type 2 diabetes mellitus wit h hemoglobin A1c goal of less than 7.0% 10/22/2023 Hyperlipidemia with target LDL less than 70 10/11 History of tobacco abuse 10/22/2023 Bipolar depression 10/22/2023 Coronary artery disease invo lving eastern shoshone coronary artery of eastern shoshone heart without angina pectoris 10/22/2023 Impotence of organic origin 06/20/2011 Esophageal reflux 06/01/2011 HTN, goal below 140/90 06/01/2011 documented as of this encounter (statuses as of 10/22/2023) Immunizations Name Administration Dates Next Due Pneumococcal [...] Sign Reading Time Taken Comments Blood Pressure 138/84 10/22/2023 4:04 PM EST Pulse 72 10/22/2023 3:07 PM EST Temperature 36.7 C (98 F) 10/22/2023 3:07 PM EST Respiratory Rate - - Oxygen Saturation 99% 10/22/2023 3:07 PM EST Inhaled Oxygen Concentration - - Weight 81.2 kg (179 lb) 10/22/2023 3:07 PM EST Height 171.5 cm (5' 7.52") 10/22/2023 3:07 PM ES T Body Mass Index 27.61 10/22/2023 3:07 PM EST documented in this encounter Patient Instructions * Patient Instructions* Narcisa Ordonez MD - 10/22/2023 3:31 PM EST Graeme Osuna Pilar [id number] Benefits of Quitting Smoking Why should I quit smoking? Smoking is bad for you and bad for others around you. Smoking causes cancer, heart attacks, hardening of the arteries, bronchitis, emphysema, cough, shortness of breath, wrinkles, and premature aging. It stains teeth and fingers, irritates the eyes, furs the tongue, and causes bad breath. People are living longer today than their parents did, so it makes sense to work on staying healthy and independent. One of the best ways to do this is to quit smoking. Benefits of quitting smoking It takes time to reverse many years' worth of smoking damage to your body, but some benefits of quitting smoking begin immediately. For example, you're financially better off on day one. Your health starts to improve right away, too, because you remove a former constant source of irritation from your lungs. People may comment that you no longer cough. Your blood circulation is likely to improve, so your hands and feet may feel warmer. Your teeth, breath, and fingers are no longer a turn-off. Benefits that you're less aware of also begin to occur. These include better resistance to colds and respiratory infections, less likelihood of major heart and circulation problems, less risk of high blood pressure or stroke, and less risk of developing cancer. The following arguments are often presented by smokers as justifications for their continuing to smoke: "I have to sometime, so I might as well enjoy life until then." True, but as a smoker you're much more likely to of a heart attack or cancer - neither of whichare very pleasant ways to go. "I'm only hurting myself." True, if you don't count the heartache and grief you may cause your loved ones by your early or permanent disability, or the damage of your smoke to others. "Lots of people who smoke live to ripe old ages in perfect health." True, but this is rare. Nearly all smokers have significant health problems. "Smoking is one of my pleasures. I don't want to quit." Smoking is associated with pleasure because the nicotine in tobacco is an addictive drug. Your bodywill continue to crave a regular supply until you can overcome the habit. Smoking is always a disadvantage to your health and that of your loved ones. "It's my choice and I choose to smoke." True. It is your choice. In a survey of older former smokers, more than 90% quit on their own because they decided to do so. The main reasons they gave for quitting were wanting to stay healthy, following health care provider's advice, regaining control of their lives, and making a loved one happy . [place] Department of Health Quit Line [employer] Free Quitline 4-783 QUIT NOW ( ) Your insurance company may also have more information and helpful programs to help you quit. Some may even help cover some of the costs. For example, [facility] members can call to find out about their smoking cessation program and medication coverage. Developed by Kareen Jasso MD, for [employer]. Published by [employer]. Last modified: 2006-03-22 Last reviewed: 2006-01-09 This content is reviewed periodically and is subject to change as new health information becomes available. The information is intended to inform and educate and is not a replacement for medical evaluation, advice, diagnosis or treatment by a healthcare professional. Adult Health Advisor 2006.4 Index Adult Health Advisor 2006.4 Credits Copyright 2006 [employer] and/or one of its subsidiaries. All Rights Reserved. Graeme Quezada [id number] Benefits of Quitting Smoking Why should I quit smoking? Smoking is bad for you and bad for others around you. Smoking causes cancer, heart attacks, hardening of the arteries, bronchitis, emphysema, cough, shortness of breath, wrinkles, and premature aging. It stains teeth and fingers, irritates the eyes, furs the tongue, and causes bad breath. People are living longer today than their parents did, so it makes sense to work on staying healthy and independent. One of the best ways to do this is to quit smoking. Benefits of quitting smoking It takes time to reverse many years' worth of smoking damage to your body, but some benefits of quitting smoking begin immediately. For example, you're financially better off on day one. Your health starts to improve right away, too, because you remove a former constant source of irritation from your lungs. People may comment that you no longer cough. Your blood circulation is likely to improve, so your hands and feet may feel warmer. Your teeth, breath, and fingers are no longer a turn-off. Benefits that you're less aware of also begin to occur. These include better resistance to colds and respiratory infections, less likelihood of major heart and circulation problems, less risk of high blood pressure or stroke, and less risk of developing cancer. The following arguments are often presented by smokers as justifications for their continuing to smoke: "I have to sometime, so I might as well enjoy life until then." True, but as a smoker you're much more likely to of a heart attack or cancer - neither of whichare very pleasant ways to go. "I'm only hurting myself." True, if you don't count the heartache and grief you may cause your loved ones by your early or permanent disability, or the damage of your smoke to others. "Lots of people who smoke live to ripe old ages in perfect health." True, but this is rare. Nearly all smokers have significant health problems. "Smoking is one of my pleasures. I don't want to quit." Smoking is associated with pleasure because the nicotine in tobacco is an addictive drug. Your bodywill continue to crave a regular supply until you can overcome the habit. Smoking is always a disadvantage to your health and that of your loved ones. "It's my choice and I choose to smoke." True. It is your choice. In a survey of older former smokers, more than 90% quit on their own because they decided to do so. The main reasons they gave for quitting were wanting to stay healthy, following health care provider's advice, regaining control of their lives, and making a loved one happy . [place] Department of Health Quit Line [employer] Free Quitline 2- QUIT NOW ( ) Your insurance company may also have more information and helpful programs to help you quit. Some may even help cover some of the costs. For example, [facility] members can call to find out about their smoking cessation program and medication coverage. Developed by Kareen Jasso MD, for [employer]. Published by [employer]. Last modified: 2006-03-22 Last reviewed: 2006-01-09 This content is reviewed periodically and is subject to change as new health information becomes available. The information is intended to inform and educate and is not a replacement for medical evaluation, advice, diagnosis or treatment by a healthcare professional. Adult Health Advisor 2005.4 Index Adult Health Advisor 2005.4 Credits Copyright 2006 [employer] and/or one of its subsidiaries. All Rights Reserved. documented in this encounter Progress Notes * Narcisa Ordonez MD - 10/22/2023 3:35 PM EST Subjective Graeme Quezada is a 63 year old male. Chief Complaint Patient presents with NEW PATIENT HPI: Here to get established COPD. H/o smoking; quit in August. Due for LDCT, which he has done through [facility]. On Trelegy daily and Pulmicort. DM2. On metformin and ozempic. Believes has been well managed. Does note urinating a lot. BPH. Nocturia, is seeing a urologist about this. Has to go to [place], asking if could be seen locally. HTN. On lisinopril 40mg. Lipids. On lipitor 40mg daily. Mental health. On prozac and lamictal, h/o Bipolar. Used to see a psychiatrist but has been a while. Taking lamictal, prozac. Partner had a stroke recently, they have a 5 yo child. Has a lot on his plate. Finds his thoughts are racing; feeling stressed. GERD. On protonix 40mg daily. ED. On viagra PRN. Preventive: Is UTD with colonoscopy and LDCT. EKG, labs PMH: Patient Active Problem List Diagnosis Code Esophageal reflux K21.9 HTN, goal below 140/90 I10 Impotence of organic origin N52.9 Pulmonary emphysema (HCC) J43.9 Type 2 diabetes mellitus with hemoglobin A1c goal of less than 7.0% ([facility]) E11.9 Hyperlipidemia with target LDL less than 70 E78.5 History of tobacco abuse Z87.891 Bipolar depression ([facility]) F31.9 Coronary artery disease involving eastern shoshone coronary artery of eastern shoshone heart without angina pectoris I25.10 Current Outpatient Medications Medication Sig Dispense Refill MULTIVITAL PO TABS 1 tablet daily VITAMIN B COMPLEX PO CAPS 1 tablet daily VITAMIN B-12 500 MCG PO TABS 1 tablet daily VIAGRA 100 MG PO TABS One pill by mouth 1-4 hours before intercourse, no more than 1 dose in 24 hours. 30 Tab 5 BUSPIRONE HCL 10 MG PO TABS take two tablets once daily 180 Tab 3 MOBIC 7.5 MG PO TABS 1 tablet daily 90 Tab 3 Budesonide 0.5 MG/2ML Inhalation Suspension (Pulmicort) As directed in nasal rinse twice a day 120 mL 12 Azelastine HCl 0.1 % Nasal Solution (Astelin) Administer 1 [place] into nostril in the morning and 1 [place] before bedtime. 30 mL 12 Atorvastatin Calcium 40 MG Oral Tablet (Lipitor) Take 1 Tablet by mouth at bedtime. Baclofen 20 MG Oral Tablet Take 1 Tablet by mouth in the morning and 1 Tablet before bedtime. Fluticasone Propionate 50 MCG/ACT Nasal Suspension (Flonase Allergy Relief) Administer 1 [place] intonostril in the morning. FLUoxetine HCl 40 MG Oral Capsule (PROzac) Take 2 Capsules by mouth in the morning. Gabapentin 400 MG Oral Capsule (Neurontin) Take 1 Capsule by mouth in the morning and 1 Capsule at noon and 1 Capsule before bedtime. lamoTRIgine 100 MG Oral Tablet (LaMICtal) Take 1 Tablet by mouth in the morning and 1 Tablet beforebedtime. Lisinopril 40 MG Oral Tablet Take 1 Tablet by mouth in the morning. Magnesium 400 MG Oral Tablet Take by mouth. Meloxicam 15 MG Oral Tablet (Mobic) Take 1 Tablet by mouth in the morning. metFORMIN HCl 500 MG Oral Tablet (Glucophage) 1 Tablet. Nortriptyline HCl 25 MG Oral Capsule (Pamelor) Take 1 Capsule by mouth at bedtime. 2 tabs daily Clopidogrel Bisulfate 75 MG Oral Tablet (pLAVix) take 1 tablet by mouth every 24 hours Pantoprazole Sodium 40 MG Oral Tablet Delayed Release (Protonix) Take 1 Tablet by mouth in the morning. predniSONE 5 MG Oral Tablet (Deltasone) take 6 tablets by mouth on day 1 then DECREASE BY 1 tablet daily take with food Albuterol Sulfate HFA 108 (90 Base) MCG/ACT Inhalation Aerosol Solution inhale 2 puffs by mouth andINTO THE LUNGS every 4 hours if needed Trelegy Ellipta 100-62.5-25 MCG/ACT Aerosol Powder Breath Activated (Jjqgsabxrdd-Anhyglcjzpbt-Scndvfoycf) Inhale 1 Puff by mouth. Amoxicillin-Pot Clavulanate 875-125 MG Oral Tablet (Augmentin) 1 Tablet. Tamsulosin HCl 0.4 MG Oral Capsule (Flomax) Take 1 Capsule by mouth in the morning. Finasteride 5 MG Oral Tablet (Proscar) Take 1 Tablet by mouth in the morning. Ozempic (2 MG/DOSE) 8 MG/3ML Subcutaneous Solution Pen-injector Inject 2 mg under the skin once a week. 9 mL 3 LISINOPRIL 20 MG PO TABS TAKE ONE TABLET BY MOUTH EVERY DAY 90 Tab 3 No current facility-administered medications for this visit. Review of patient's allergies indicates: No Known Allergies Objective BP 138/84 | Pulse 72 | Temp 36.7 C (98 F) (Tympanic) | Ht 1.715 m (5' 7.52") | Wt 81.2 kg (179 lb) | SpO2 99% | BMI 27.61 kg/m | BSA 1.97 m Physical Exam Constitutional: Appearance: Normal appearance. Cardiovascular: Rate and Rhythm: Normal rate and regular rhythm. Pulses: Normal pulses. Heart sounds: Normal heart sounds. Pulmonary: Effort: Pulmonary effort is normal. Breath sounds: Normal breath sounds. Abdominal: General: Abdomen is flat. Palpations: Abdomen is soft. Neurological: Mental Status: He is alert. ASSESSMENT/PLAN: Bipolar depression (HCC) (Primary) - ADULT/PEDS PSYCHIATRY REFERRAL OP Type 2 diabetes mellitus with hemoglobin A1c goal of less than 7.0% ([facility]) - HEMOGLOBIN A1C; Future; Expected date: 10/22/2023 - HEPATIC FUNCTION PANEL; Future; Expected date: 10/22/2023 - Ozempic (2 MG/DOSE) 8 MG/3ML Subcutaneous Solution Pen-injector; Inject 2 mg under the skin once a week. HTN, goal below 140/90 - RENAL FUNCTION PANEL; Future; Expected date: 10/22/2023 - ALBUMIN / CREATININE RATIO, URINE; Future; Expected date: 10/22/2023 - MAGNESIUM; Future; Expected date: 10/22/2023 History of tobacco abuse - CT CHEST LOW DOSE SCAN LUNG CANCER SCREEN 1 YEAR FOLLOW UP; Future; Expected date: 10/22/2023 Hyperlipidemia with target LDL less than 70 - LIPID PANEL WITH DIRECT LDL IF TG IS HIGH; Future; Expected date: 10/22/2023 - HEPATIC FUNCTION PANEL; Future; Expected date: 10/22/2023 Pulmonary emphysema, unspecified emphysema type (HCC) Coronary artery disease involving eastern shosh[place] coronary artery of eastern shoshone heart without angina pectoris Routine screening for STI (sexually transmitted infection) - RPR; Future; Expected date: 10/22/2023 Mentions his partner had syphilis recently and he himself has not been checked yet; no rashes or skin lesions. Bipolar depression not well controlled, recommend psychiatry consult. His father from suicide.Has passive suicidal ideation but states no plans or intent. Baseline labs as above. Follow Up: Return in about 6 months (around 04/22/2024) for Return with Physician, Clinic Visit. | For: Return with Physician, Clinic Visit Narcisa Abel MD The following information was reviewed/discussed with the patient: Benefits & harms of screening Potential indications for follow-up testing, if/when necessary Risk of over-diagnosis, false positive findings, and radiation exposure Importance of cigarette smoking abstinence, if applicable Annual adherence to lung cancer screening Impact of comorbidities and ability or willingness to undergo diagnostic testing and/or treatment if something concerning is identified during screening. * Argenis Simmons LPN - 10/22/2023 3:31 PM EST The following information was reviewed/discussed with the patient: Benefits & harms of screening Potential indications for follow-up testing, if/when necessary Risk of over-diagnosis, false positive findings, and radiation exposure Importance of cigarette smoking abstinence, if applicable Annual adherence to lung cancer screening Impact of comorbidities and ability or willingness to undergo diagnostic testing and/or treatment if something concerning is identified during screening. documented in this encounter Nursing Notes * Argenis Simmons LPN - 10/22/2023 3:36 PM EST Chief Complaint Patient presents with NEW PATIENT Transfer from [facility] No issues today The patient has been properly identified by confirmation of name and date of . documented in this encounter Plan of Treatment Upcoming Encounters Date Type Department Care Team (Late st Contact Info) Description 05/27/2024 11:20 AM EDT Office Visit Family Medicine [address] [place] [phone] Narcisa Ordonez MD [address] [place] [address] KAMI Ribeiro [phone] Scheduled Orders Name Type Priority Associated Diagnoses Orde r Schedule RENAL FUNCTION PANEL Lab Routine HTN, goal below 140/90 Expected: 10/22/2023 (Approximate), Expires: 10/22/2024 ALBUMIN / CREATININE RATIO, URINE Lab Routine HTN, goal below 140/90 Expected: 10/22/2023 (Approximate), Expires: 10/22/2024 HEMOGLOBIN A1C Lab Routine Type 2 diabetes mellitus with hemoglobin A1c goal of less than 7.0% (HCC) Expected: 10/22/2023 (Approximate), Expires: 10/21/2024 LIPID PANEL WITH DIRECT LDL IF TG IS HIGH Lab Routine Hyperlipidemia with target LDL less than 70 Expected: 10/22/2023, Expires: 10/22/2024 HEPATIC FUNCTION PANEL Lab Routine Hyperlipidemia with target LDL less than 70 Type 2 diabetes mellitus with hemoglobin A1c goal of less than 7.0% (HCC) Expected: 10/22/2023 (Approximate), Expires: 10/21/2024 MAGNESIUM Lab Routine HTN, goal below 140/90 Expected: 10/22/2023 (Approximate), Expires: 10/21/2024 RPR Lab Routine Routine screening for STI (sexually transmitted infection) Expected: 10/22/2023 (Approximate), Expires: 10/21/2024 CT CHEST LOW DOSE SCAN LUNG CANCER SCREEN 1 YEAR FOLLOW UP Medical Imaging Routine History of tobacco abuse Expected: 10/22/2023, Expires: 10/22/2025 Scheduled Referrals Name Type Priority Associated Diagnoses Orde r Schedule ADULT/PEDS PSYCHIATRY REFERRAL OP Referral Within 10 days (routine) Bipolar depression (HCC) Ordered: 10/22/2023 Health Maintenance Due Date Last Done Comments COVID-19 Vaccine (#1) [birth year]1962 Depression Screening 1973 Albumin/Creatinine Ratio 1979 Alpha-1 Antitrypsin 1979 Diabetic Eye Exam 1979 Diabetic Foot Exam 1979 Cologuard 2006 Colonoscopy 2006 Colorectal Cancer Screening 2006 Fecal Occult Blood Test 2006 Sigmoidoscopy 2006 LUNG CANCER SCREENING - USE SMARTSET 19408 2011 Hepatitis B (1 of 3 - Risk 3-dose series) 2021 HbA1c 02/27/2022 08/29/2021, 07/08/2020, 10/13/2018 GFR 08/29/2022 08/29/2021, 03/26/2001 O2 ASSESSMENT COMPLETED IN PAST YEAR FOR [...] as of this encounter Visit Diagnoses Diagnosis Bipolar depression (HCC)- Primary Bipolar I disorder, most recent episode (or current) depressed, unspecified Type 2 diabetes mellitus with hemoglobin A1c goal of less than 7.0% (HCC) HTN, goal below 140/90 Unspecified essential hypertension History of tobacco abuse Personal history of tobacco use, presenting hazards to health Hyperlipidemia with target LDL less than 70 Other and unspecified hyperlipidemia Pulmonary emphysema, unspecified emphysema type (HCC) Coronary artery disease involving eastern [place] coronary artery of eastern shoshone heart without angina pectoris Routine screening for STI (sexually transmitted infection) Screening examination for venereal disease documented in this encounter Care Teams Cellar Worker Relationship Specialty Start Date End Date Marcia Cat MD [address] [place] [id number] PCP - General Family Medicine 10/18/23 documented as of this encounter
--- NOTE | 2024-04-05 04:44 | Hospitalist Progress Note ---
Date of Service April 05, 2024 Assessment & Plan (1) CARMENCITA (acute kidney injury): (2) Hyperkalemia: (3) Anemia: (4) Weakness: (5) COPD (chronic obstructive pulmonary disease): (6) Bipolar disorder: (7) Diabetes mellitus: (8) Benign localized hyperplasia of prostate with urinary obstruction and lower urinary tract symptoms: Plan Pt is a 63yoM with PMHx significant for BPH, DMII, COPD, HTN, CAD, GERD, Bipolar Disorder who was sent in by his pcp for abnormal labwork, in particular an CARMENCITA with hyperkalemia. CARMENCITA Cr was elevated to >3 on outpt draw Cr of 2.82 on admission Baseline of 1.1 a year ago IV hydration Holding nephrotoxic meds (lisinopril, meloxicam, etc) Possibly in setting of BPH/LUTS Renal US with no acute findings Cr now improved to 1.59 K was elevated at 6.9 yesterday - treated with ca gluconate, iv insulin, IV lasix Now K 4.6 Nephrology consulted and discussed with - plan to discharge with [facility] within 1 week w/ PCP. Stop meloxicam and lisinopril on discharge Continue to monitor Hyperkalemia K of 5.8 on admission Likely in setting of above Holding lisinopril, low K diet Next AM K 6.9 - received calcium gluconate, IV insulin, IVF, IV lasix, also [facility] Nephrology consulted - as above Hypermagnesemia Mag slightly elevated at 2.5 Hold home magnesium supplements Continue to monitor BPH Pt states he follows with a Urologist in [place] Was most recently advised to STOP Alfuzosin AND finasteride, was advised to take TWO of his 0.4mg tamsulosin pills States he takes 0.8mg tamsulosin qhs and has been taking alfuzosin with it though advised not to Notes that he did not urinate all day on 04/01 which prompted him to visit his PCP [facility] about a penaloza at this time CT abd/pelvis w/o contrast noting no hydronephrosis outpt Urology followup Dyspnea on Exertion COPD Notes that he has been having frequent episodes of [place] Not hypoxic, no increased oxygen requirement States cannot walk as far as he had previously, gets tired easily Chest XRAY with no acute findings Chest CT w/o contrast due to CARMENCITA notes emphysema, pulm nodules for which radio logy recommends "Follow-up exam could be performed in 12 months." Echo obtained - normal LV wall thickness. LV wall motion is normal. LV systolic function is normal. LVEF 65 to 70%. There is no significant valvular disease. Started on a prednisone 40mg daily course and abx- augmentin- by pcp - treatment prior to admission, can continue. added mucinex. currently pt is on RA and yoly athing comfortably. Will follow up w/ pcp. Normocytic Anemia Hgb of 9.9 anemia workup Continue to monitor DMII Current HgbA1c 6.4% Hold home metformin ISS while hospitalized Continue other home meds as ordered Diet: DMII/HH/low K DVT prophylaxis: Lovenox SQ Dispo: Plan to DC home Admission and Anticipated Discharge Date Admission Date: April 03, 2024 Subjective Pt seen in follow up of hyperkalemia, CARMENCITA Yesterday Cr improved to 1.8 but potassium high at 6.9 He has had some blurry vision and feeling dizzy when standing up for several days. Also was started on prednisone and augmentin by pcp day prior to admission. Yesterday pt received calcium gluconate, IV insulin, IV lasix 80 x2,started lokelma. Nephrology consulted and discussed with. PM labs yesterday improved, K 4.8 This AM Cr 1.59 and K 4.6 - discussed w/ nephrology - stop meloxicam and lisinopril on DC Pt reports feeling well and would like to go home Review of Systems Review of Systems: All systems reviewed & are unremarkable except as noted in Subjective Physical Exam Physical Exam: General: Alert, oriented. No acute distress Skin: No noted rashes or bruises Psych: Appropriate mood and affect Neuro: No gross deficits while sitting in bed HEENT: NC/AT Chest: Nontender to palpation. CV: RRR Resp: mild rhonci b/l, no wheezing, no increased effort of breathing. Abdomen: Soft, nontender, nondistended. No guarding. Extremities: No edema in lower extremities bilaterally. Results & Data Results & Data Vital Signs (Past 12 Hours) Vital Signs Temp Pulse Pulse Resp BP Pulse Ox O2 Del Method 04/05/24 03:40 37 C 64 16 131/77 95 Room Air 04/04/24 23:40 65 04/04/24 23:36 36.9 C 60 18 120/64 95 Room Air 04/04/24 19:33 37.1 C 67 18 139/79 94 Room Air Laboratory Results 04/05/24 04/05/24 04/04/24 Range/Units 08:00 06:21 20:03 WBC 5.25 (4.8-10.8) K/ul RBC 3.28 L (4.70-6.10) M/uL Hgb 10.2 L (14.0-18.0) g/dl Hct 30.8 L (42.0-52.0) % MCV 93.9 (80.0-100.0) fL MCH 31.1 (25.0-34.0) pg MCHC 33.1 (32.0-36.0) g/dL RDW Std Deviation 44.3 (36.4-46.3) fL RDW Coeff of Christophe 13.0 (11.5-14.5) % Plt Count 260 (130-400) K/uL MPV 10.8 (9.4-12.4) fL Sodium 140 (136-145) mmol/L Potassium 4.6 (3.5-5.1) mmol/L Chloride 107 (98-107) mmol/L Carbon Dioxide 28 (21-32) mmol/L Anion Gap 5 (3-11) BUN 29 H (6-23) mg/dl Creatinine 1.59 H D (0.6-1.4) mg/dl Est Cr Clr Drug Dosing 48.9 ml/min Est GFR ( Amer) 53.1 ml/min Est GFR (Non-Af Amer) 45.8 ml/min BUN/Creatinine Ratio 18.2 (10-20) Glucose 89 (70-99(Fasting)) mg/dl POC Glucose 103 H 112 H (70-99) mg/dl Calcium 9.1 (8.6-10.3) mg/dl Phosphorus 3.6 D (2.5-4.9) mg/dl Magnesium 1.8 (1.7-2.4) mg/dl Albumin (3.4-5.0) gm/dl 04/04/24 04/04/24 04/04/24 Range/Units 17:02 15:54 11:53 WBC (4.8-10.8) K/ul RBC (4.70-6.10) M/uL Hgb (14.0-18.0) g/dl Hct (42.0-52.0) % MCV (80.0-100.0) fL MCH (25.0-34.0) pg MCHC (32.0-36.0) g/dL RDW Std Deviation (36.4-46.3) fL RDW Coeff of Christophe (11.5-14.5) % Plt Count (130-400) K/uL MPV (9.4-12.4) fL Sodium 138 (136-145) mmol/L Potassium 4.8 D (3.5-5.1) mmol/L Chloride 105 (98-107) mmol/L Carbon Dioxide 26 (21-32) mmol/L Anion Gap 7 (3-11) BUN 33 H (6-23) mg/dl Creatinine 1.96 H (0.6-1.4) mg/dl Est Cr Clr Drug Dosing 39.7 ml/min Est GFR ( Amer) 41.3 ml/min Est GFR (Non-Af Amer) 35.6 ml/min BUN/Creatinine Ratio 16.8 (10-20) Glucose 84 (70-99(Fasting)) mg/dl POC Glucose 111 H 112 H (70-99) mg/dl Calcium 9.6 (8.6-10.3) mg/dl Phosphorus 4.6 D (2.5-4.9) mg/dl Magnesium 2.0 (1.7-2.4) mg/dl Albumin 4.5 (3.4-5.0) gm/dl Medications Administered Current Inpatient Medications Acetaminophen (Acetaminophen 500 Mg Tab) 1,000 mg PO Q8H PRN PRN Reason: fever or pain Stop: 05/03/24 20:58 Atorvastatin Calcium (Atorvastatin 40 Mg Tab) 40 mg PO QAM [facility] Stop: 05/04/24 08:59 Last Admin: 04/04/24 08:05 Dose: 40 mg Buspirone HCl (Buspirone 5 Mg Tab) 10 mg PO BID [facility] Stop: 05/03/24 20:59 Last Admin: 04/04/24 20:07 Dose: 10 mg Clopidogrel Bisulfate (Clopidogrel Bisulfate 75 Mg Tab) 75 mg PO DAILY [facility] Stop: 05/04/24 08:59 Last Admin: 04/04/24 08:05 Dose: 75 mg Dextrose (Dextrose 50% 50 Ml Syringe) 25 - 50 ml IV UD PRN; Protocol PRN Reason: Hypoglycemia Protocol Stop: 05/03/24 20:38 Enoxaparin Sodium (Enoxaparin Inj 30 Mg/0.3 Ml Syr) 30 mg SQ Q24H [facility] Stop: 05/03/24 20:59 Last Admin: 04/04/24 20:04 Dose: Not Given Fluoxetine HCl (Fluoxetine Hcl 20 Mg Cap) 80 mg PO DAILY [facility] Stop: 05/04/24 08:59 Last Admin: 04/04/24 08:05 Dose: 80 mg Fluticasone Furoate (Fluticasone Furoate 100mcg 14 Puffs/Inhaler) 1 puffs INH DAILY [facility] Stop: 05/04/24 08:59 Last Admin: 04/04/24 08:06 Dose: 1 puffs Fluticasone Propionate (Fluticasone Propionate Na Spr 16 Gm Btl) 1 sprays IRMA DAILY [facility] Stop: 05/04/24 08:59 Last Admin: 04/04/24 08:06 Dose: 1 sprays Gabapentin (Gabapentin 400 Mg Cap) 400 mg PO TID [facility] Stop: 05/03/24 20:59 Last Admin: 04/04/24 20:07 Dose: 400 mg Glucagon (Glucagon For Inj 1 Mg Vial) 1 mg SQ UD PRN; Protocol PRN Reason: Hypoglycemia Protocol Stop: 05/03/24 20:38 Glucose (Glucose 40% Gel 15 Gm Tube) 15 - 30 gm PO UD PRN; Protocol PRN Reason: Hypoglycemia Protocol Stop: 05/03/24 20:38 Glucose (Glucose 10 Tab/Tube) 4 - 8 tab PO UD PRN; Protocol PRN Reason: Hypoglycemia Treatment Stop: 05/03/24 20:38 Guaifenesin (Guaifenesin 600 Mg Tabcr) 600 mg PO Q12 [facility] Stop: 05/04/24 08:59 Last Admin: 04/04/24 20:07 Dose: 600 mg Sodium Bicarbonate 75 meq/ (Sodium Chloride) 1,075 mls @ 100 mls/hr IV .[id number] [facility] Stop: 05/04/24 10:14 Last Admin: 04/04/24 22:00 Dose: 100 mls/hr Insulin Aspart (Insulin Aspart Per Unit Charge) 0 units SC ACHS [facility] Stop: 05/03/24 20:59 Last Admin: 04/04/24 21:16 Dose: Not Given Lamotrigine (Lamotrigine 100 Mg Tab) 100 mg PO BID [facility]; Protocol Stop: 05/03/24 20:59 Last Admin: 04/04/24 20:07 Dose: 100 mg Miscellaneous (Carbohydrates For Hypoglycemia ) 15 - 30 gm PO UD PRN PRN Reason: Hypoglycemia Protocol Stop: 05/03/24 20:38 Ondansetron HCl (Ondansetron Inj 2 Mg/Ml 2 Ml Vial) 4 mg IV Q6H PRN PRN Reason: Nausea And Vomiting Stop: 05/03/24 20:58 Pantoprazole Sodium (Pantoprazole 40 Mg Tab) 40 mg PO DAILY [facility] Stop: 05/04/24 08:59 Last Admin: 04/04/24 08:06 Dose: 40 mg Polyethylene Glycol (Polyethylene (Miralax) 17 Gm Pack) 17 gm PO DAILY PRN PRN Reason: Constipation Stop: 05/03/24 20:58 Sodium Zirconium Cyclosilicate (Sodium Zirconium Cyclosilicate 10 Gm Packet) 10 gm PO DAILY@1100 [facility] Stop: 05/04/24 10:59 Last Admin: 04/04/24 10:54 Dose: 10 gm Tamsulosin HCl (Tamsulosin Hcl 0.4 Mg Cap) 0.8 mg PO HS [facility] Stop: 05/03/24 20:59 Last Admin: 04/04/24 20:07 Dose: 0.8 mg Umeclidinium/Vilanterol (Umeclidinium/Vilanterol 62.5/25mcg 7 Puffs/Inhaler) 1 puffs INH DAILY [facility] Stop: 05/04/24 08:59 Last Admin: 04/04/24 08:06 Dose: 1 puffs (3) Anemia Anemia type: unspecified type Qualified Code(s): D64.9 - Anemia, unspecified
[2024-04-05 07:09] LABS: Hematocrit (blood only) 30.8 % (42.0-52.0); Hemoglobin 10.2 g/dl (14.0-18.0); Mean Corpuscular Hemoglobin 31.1 pg (25.0-34.0); Mean Corpuscular Hgb Conc 33.1 g/dL (32.0-36.0); Mean Corpuscular Volume 93.9 fL (80.0-100.0); Mean Platelet Volume 10.8 fL (9.4-12.4); Platelet Count 260 K/uL (130-400); RDW Standard Deviation 44.3 fL (36.4-46.3); Red Blood Count 3.28 M/uL (4.70-6.10); White Blood Count 5.25 K/ul (4.8-10.8)
[2024-04-05 07:46] LABS: BUN Creatinine Ratio 18.2 (10-20); Calcium 9.1 mg/dl (8.6-10.3); Creatinine Clr Calc Pharmacy 48.9 ml/min; Est GFR (African American) 53.1 ml/min; Est GFR (Non-African American) 45.8 ml/min; Magnesium 1.8 mg/dl (1.7-2.4); Phosphorus 3.6 mg/dl (2.5-4.9); Potassium 4.6 mmol/L (3.5-5.1)
--- NOTE | 2024-04-05 11:23 | Discharge Summary ---
Date of Service April 05, 2024 Admission HPI Per Admitting Provider Pt is a 63yoM with PMHx significant for BPH, DMII, COPD, HTN, CAD, GERD, Bipolar Disorder who was sent in by his pcp for abnormal labwork, in particular an CARMENCITA with hyperkalemia. He states that for the last 2 weeks he has been feeling shaky, having blurry vision, tired and not quite himself. He states that he has also been working very hard around the house and outside and not paying attention to his health or eating or drinking habits. He states he has a 5 year old at home that he also cares for. States that he has a history of trouble urinating, with starting. Notes Saturday or 2 days ago he did not urinate at all and so it prompted him to see his pcp. He notes that he follows with a Urologist in [place] who recently made some changes to his medications. He states he was told to STOP alfuzosin and finasteride and double his flomax dose. He states he brought in his medications to show the providers. He does note that he has been taking an occasional dose of the alfuzosin with the double flomax dose. He notes that he has also been having SOB with exertion during this time, though it feels like he just gets tired and cannot do as much as he typically does. Notes he was a smoker and quit about 2 years ago but will occasionally start back up. Declines a nicotine patch today. States he has a Hx of COPD and his pcp started him on 5 days of prednisone and an antibiotic when he was seen yesterday. He is unsure if it is helping. Admission Exam Per Admitting Provider General: Alert, oriented. No acute distress Skin: No noted rashes or bruises Psych: Appropriate mood and affect Neuro: No gross deficits while sitting in bed HEENT: NC/AT Chest: Nontender to palpation. CV: RRR, +murmur Resp: Breath sounds coarse bilaterally, no increased effort of breathing. Abdomen: Soft, nontender, nondistended. No guarding. Extremities: No edema in lower extremities bilaterally. Principal Diagnosis Hyperkalemia CARMENCITA Discharge Exam General: Alert, oriented. No acute distress Skin: No noted rashes or bruises Psych: Appropriate mood and affect Neuro: No gross deficits while sitting in bed HEENT: NC/AT Chest: Nontender to palpation. CV: RRR Resp: mild rhonci b/l, no wheezing, no increased effort of breathing. Abdomen: Soft, nontender, nondistended. No guarding. Extremities: No edema in lower extremities bilaterally. Discharge Data Allergies Allergy/AdvReac Type Severity Reaction Status Date / Time No Known Drug Allergies Allergy Verified 07/29/19 14:49 Consultations 04/03/24 17:29 ED Decision to Admit Stat 04/04/24 07:53 Consult Nephrology Routine Ordered Studies 04/03/24 17:02 US Renal Bladder [US renal/blad retro comp] Stat FINDINGS: The right kidney measures 10.8 cm in length, and the left kidney measures 11.2 cm in length. The right kidney is normal in size, contour, cortical thickness, and echogenicity. No hydronephrosis is identified. No renal lesion is identified. The left kidney is normal in size, contour, cortical thickness and echogenicity. No hydronephrosis is identified. No renal lesion is identified. The bladder is partially distended. Bilateral jets are seen. IMPRESSION: Unremarkable renal ultrasound. 04/03/24 18:38 CT chest diagnostic wo con Urgent FINDINGS: Lungs: Nonspecific nodules in the right upper lobe measuring up to 4 mm. Follow-up exam could be performed in 12 months. Dependent atelectasis bilaterally. Emphysematous changes. Pleural space: Unremarkable. No pneumothorax. No significant effusion. Heart: Coronary artery calcifications. No cardiomegaly. No significant pericardial effusion. Bones/joints: Degenerative changes of the spine. No acute fracture. No dislocation. Soft tissues: Unremarkable. Vasculature: See above. Lymph nodes: Unremarkable. No enlarged lymph nodes. IMPRESSION: Nonspecific nodules in the right upper lobe measuring up to 4 mm. Follow-up exam could be performed in 12 months. Emphysematous changes. 04/03/24 18:42 CT Abd and Pelvis [CT abd pelvis wo con] Urgent FINDINGS: Lung bases: Lower lung atelectasis. ABDOMEN: Liver: Hepatomegaly. Gallbladder and bile ducts: Unremarkable. No calcified stones. No ductal dilation. Pancreas: Unremarkable. No ductal dilation. Spleen: Unremarkable. No splenomegaly. Adrenals: Unremarkable. No mass. Kidneys and ureters: Nonspecific bilateral perinephric fat stranding. No hydronephrosis or stone. Stomach and bowel: Evaluation of the stomach is limited by underdistention. Mild diverticulosis without evidence of diverticulitis. No bowel obstruction or inflammation. PELVIS: Appendix: Normal appendix. Bladder: Underdistended bladder limits evaluation. No stones. Reproductive: Unremarkable as visualized. ABDOMEN and PELVIS: Intraperitoneal space: Unremarkable. No free air. No significant fluid collection. Bones/joints: Degenerative changes of the spine. No acute fracture. No dislocation. Soft tissues: Small fat-containing left inguinal hernia. Vasculature: Atherosclerotic changes of the vasculature. No aortic aneurysm. Lymph nodes: Unremarkable. No enlarged lymph nodes. IMPRESSION: No acute findings in the abdomen or pelvis. Hospital Course (1) CARMENCITA (acute kidney injury): (2) Hyperkalemia: (3) Anemia: (4) Weakness: (5) COPD (chronic obstructive pulmonary disease): (6) Bipolar disorder: (7) Diabetes mellitus: (8) Benign localized hyperplasia of prostate with urinary obstruction and lower urinary tract symptoms: Plan Pt is a 63yoM with PMHx significant for BPH, DMII, COPD, HTN, CAD, GERD, Bipolar Disorder who was sent in by his pcp for abnormal labwork, in particular an CARMENCITA with hyperkalemia. CARMENCITA Cr was elevated to >3 on outpt draw Cr of 2.82 on admission Baseline of 1.1 a year ago IV hydration Holding nephrotoxic meds (lisinopril, meloxicam, etc) Possibly in setting of BPH/LUTS Renal US with no acute findings Cr now improved to 1.59 K was elevated at 6.9 yesterday - treated with ca gluconate, iv insulin, IV lasix Now K 4.6 Nephrology consulted and discussed with - plan to discharge with [facility] within 1 week w/ PCP. Stop meloxicam and lisinopril on discharge Continue to monitor Hyperkalemia K of 5.8 on admission Likely in setting of above Holding lisinopril, low K diet Next AM K 6.9 - received calcium gluconate, IV insulin, IVF, IV lasix, also started [facility] Nephrology consulted - as above Hypermagnesemia Mag slightly elevated at 2.5 Hold home magnesium supplements Continue to monitor BPH Pt states he follows with a Urologist in [place] Was most recently advised to STOP Alfuzosin AND finasteride, was advised to take TWO of his 0.4mg tamsulosin pills States he takes 0.8mg tamsulosin qhs and has been taking alfuzosin with it though advised not to Notes that he did not urinate all day on 04/01 which prompted him to visit his PCP [facility] about a penaloza at this time CT abd/pelvis w/o contrast noting no hydronephrosis outpt Urology followup Dyspnea on Exertion COPD Notes that he has been having frequent episodes of [place] Not hypoxic, no increased oxygen requirement States cannot walk as far as he had previously, gets tired easily Chest XRAY with no acute findings Chest CT w/o contrast due to CARMENCITA notes emphysema, pulm nodules for which r adiology recommends "Follow-up exam could be performed in 12 months." Echo obtained - normal LV wall thickness. LV wall motion is normal. LV systolic function is normal. LVEF 65 to 70%. There is no significant valvular disease. Started on a prednisone 40mg daily course and abx- augmentin- by pcp - treatment prior to admission, can continue. added mucinex. currently pt is on RA and breathing comfortably. Will follow up w/ pcp. Normocytic Anemia Hgb of 9.9 anemia workup Continue to monitor DMII Current HgbA1c 6.4% Hold home metformin ISS while hospitalized Continue other home meds as ordered Total Time Total Time Spent Total Time Spent (In Minutes): 40 Discharge Plan Discharge Items Patient Disposition: Home - Self-Care Reason For Visit: CARMENCITA Discharge Diagnosis: Hyperkalemia CARMENCITA Activity: Per Instructions section Non-emergency contact: Primary Care Provider and Pathology Secretary Call non-emergency contact if: you have any medication questions and your symptoms worsen Follow-up/Referrals: Narcisa Abel MD [Primary Care Provider] - Diet: Heart Healthy Addtl Attending Provider Instructions: Follow up within your primary care doctor within 1 week. You should have a blood work done at that time to check on your renal function and potassium level. Stop taking lisinopril and meloxicam. For pain, take tylenol 1,000 mg three times a day. If you can, monitor your blood pressure at home and record your numbers- discuss your numbers further with your primary care doctor. Pending Studies at Discharge: No Stand-Alone Forms: My [employer], Smoking Cessation Medications and DC Order Prescriptions: New guaifenesin [Mucinex] 600 mg Tablet Extended Release 12hr 600 mg PO Q12 5 Days Qty: 10 0RF Continued fluoxetine 40 mg capsule 80 mg PO DAILY atorvastatin 40 mg tablet 40 mg PO QAM metformin 500 mg tablet 500 mg PO BID clopidogrel 75 mg tablet 75 mg PO DAILY tamsulosin 0.4 mg capsule 0.8 mg PO HS pantoprazole 40 mg tablet,delayed release (DR/EC) 40 mg PO DAILY buspirone 10 mg tablet 10 mg PO BID fluticasone propionate 50 mcg/actuation spray,suspension 50 mcg INTRANASAL DAILY lamotrigine 100 mg tablet 100 mg PO BID finasteride 5 mg tablet 5 mg PO DAILY Trelegy Ellipta 100-62.5-25 mcg blister with device 1 ea INHALATION DAILY Ozempic 0.25 mg or 0.5 mg(2 mg/1.5 mL) pen injector SUBCUT prednisone 20 mg tablet 40 mg DAILY gabapentin 400 mg capsule 400 mg TID amoxicillin-pot clavulanate 875-125 mg tablet 1 tab BID alfuzosin 10 mg tablet extended release 24 hr 10 mg PO DAILY baclofen 20 mg tablet 20 mg BID Discontinued lisinopril 40 mg tablet 40 mg PO DAILY meloxicam 15 mg tablet 15 mg DAILY Discharge Orders: Discharge Order (Routine); Ordered 04/05/24 Ordered By: Boy Bruno/Other Patient Handouts: Managing Type 2 Diabetes Admission Data Admit Date/Time: 04/03/24 18:16 Attending Provider: Boy John Admit Provider: Anjali Cole Primary Care Provider: Narcisa Abel Other Providers: Anjali Cole; Lili Wilson
--- NOTE | 2024-04-05 20:38 | Electrocardiogram Report ---
Test Reason : Blood Pressure : / mmHG Vent. Rate : 079 BPM Atrial Rate : 079 BPM P-R Int : 158 ms QRS Dur : 090 ms QT Int : 370 ms P-R-T Axes : 038 043 056 degrees QTc Int : 424 ms Normal sinus rhythm Normal ECG When compared with ECG of 03-APR-2024 17:05, No significant change was found Confirmed by Ranjit Gonzales [id number] on 04/05/2024 8:38:17 PM Referred By: Narcisa Abel Confirmed By:Ranjit Gonzales
== END 2024-04-05 11:34 | disposition home or self-care (01) | DRG 683 ==
LOC: ED 16:26 → SUATTDRO 18:16 → EDINP 18:16 → 2W 20:40

== ENCOUNTER 2025-02-07 10:46 | Inpatient (IN) ==
--- OUTSIDE RECORDS SUMMARY | 2025-02-07 10:57 | External Medical Summary | Summary of Care ---
Author Name Unknown Organization [facility] Address [address] [facility] [place] [address] Phone [phone] Care Team Providers Care Volleyball Commentator Name Role Phone Narcisa Ordonez MD Primary Care Prov ider Encounter Details Date Type Department Care Team (Late st Contact Info) Description 01/08/2025 Result Scan Unspecified Department <No scans attached> Allergies Active Allergy Reactions Criticality Noted Date Comments Lisinopril 04/15/2024 Not allergic but had CARMENCITA due to combination dehydration/ lisinopril/ mobic documented as of this encounter (statuses as of 01/12/2025) Medications MULTIVITAL PO TABS 1 tablet daily Active VITAMIN B COMPLEX PO CAPS 1 tablet daily Activ e VITAMIN B-12 500 MCG PO TABS 1 tablet daily Act nancy BUSPIRONE HCL 10 MG PO TABSIndications:An xiety state,Adjustment disorder with depressed mood take two tablets once daily 180 Tab 3 08/07/20 12 Active Budesonide 0.5 MG/2ML Inhalation Suspension (Pulmicort) As directed in nasal rinse twice a day 120 mL 12 10/18/20 23 Active Additional Information Patient not taking.Reported on 10/23/2024 Azelastine HCl 0.1 % Nasal Solution (Astelin) Administer 1 Lamont into nostril in the morning and 1 Lamont before bedtime. 30 mL 12 10/18/20 23 Active Fluticasone Propionate 50 MCG/ACT Nasal Suspension (Flonase Allergy Relief) Administer 1 Lamont into nostril in the morning. Active Magnesium 400 MG Oral Tablet Take by mouth. Act nancy Tamsulosin HCl 0.4 MG Oral Capsule (Flomax) Take 1 Capsule by mouth in the morning. Active Finasteride 5 MG Oral Tablet (Proscar) Take 1 Tablet by mouth in the morning. Active Gabapentin 400 MG Oral Capsule (Neurontin)Indicat ions:Chronic pain of both knees Take 1 Capsule by mouth in the morning and 1 Capsule at noon and 1 Capsule before bedtime. 270 Capsule 3 05/27/20 24 Active Baclofen 20 MG Oral TabletIndications: Chronic pain of both knees Take 1 Tablet by mouth 2 times a day as needed for Pain. 180 Tablet 3 05/27/20 24 Active Lisinopril 40 MG Oral TabletIndications: HTN, goal below 140/90 Take 1 Tablet by mouth in the morning. 90 Tablet 3 07/22/20 24 Active Vitamin D3 50 MCG (2000 UT) Oral Capsule Take 1 Capsule by mouth in the morning. 07/22/20 24 Active amLODIPine Besylate 5 MG Oral Tablet (Norvasc)Indicatio ns:HTN, goal below 140/90 Take 1 Tablet by mouth in the morning. 90 Tablet 1 09/11/20 24 Active Albuterol Sulfate HFA 108 (90 Base) MCG/ACT Inhalation Aerosol SolutionIndication s:Pulmonary emphysema, unspecified emphysema type (HCC) Inhale 2 Puffs by mouth every 4 hours as needed for Wheezing. 54 g 5 09/14/20 24 025 Active Trelegy Ellipta 100-62.5-25 MCG/ACT Aerosol Powder Breath Activated (Fluticasone-Umecl idinium-Vilanterol )Indications:Pulmo nary emphysema, unspecified emphysema type (HCC) Inhale 1 Puff by mouth in the morning. 180 Blister Dosing Unit 5 09/14/20 24 026 Active FLUoxetine HCl 40 MG Oral Capsule (PROzac) take 2 capsules by mouth IN THE MORNING 180 Capsule 1 09/22/20 24 Active lamoTRIgine 100 MG Oral Tablet (LaMICtal) take 1 tablet by mouth every morning and BEFORE BEDTIME 180 Tablet 3 10/06/20 24 Active Clopidogrel Bisulfate 75 MG Oral Tablet (pLAVix) take 1 tablet by mouth once daily 90 Tablet 3 10/06/20 24 Active Atorvastatin Calcium 40 MG Oral Tablet (Lipitor) take 1 tablet by mouth at bedtime 90 Tablet 1 10/06/20 24 Active Meloxicam 7.5 MG Oral Tablet (Mobic)Indications :Primary osteoarthritis of both knees Take 1 Tablet by mouth in the morning. for pain.. 90 Tablet 3 10/14/20 24 Active Pantoprazole Sodium 40 MG Oral Tablet Delayed Release (Protonix) Take 1 Tablet by mouth in the morning. 90 Tablet 3 10/14/20 24 Active Nortriptyline HCl 25 MG Oral Capsule (Pamelor) Take 2 Capsules by mouth at bedtime. 60 Capsule 2 10/23/20 24 Active Sildenafil Citrate 100 MG Oral Tablet (Viagra)Indication s:Impotence of organic origin Take 1 Tablet by mouth as needed for Erectile Dysfunction. One pill by mouth 1-4 hours before intercourse, no more than 1 dose in 24 hours. 30 Tablet 5 10/23/20 24 Active Mounjaro 7.5 MG/0.5ML Subcutaneous Solution Auto-injector (Tirzepatide)Indic ations:Chronic pain of both knees,Type 2 diabetes mellitus with hemoglobin A1c goal of less than 7.0% (HCC),Hyperlipidem ia with target LDL less than 70,Coronary artery disease involving false pass coronary artery of false pass heart without angina pectoris,HTN, goal below 140/90 Inject 7.5 mg under the skin once a week. 2 mL 11/03/20 24 025 Active methylPREDNISolone 4 MG Oral Tablet Therapy Pack (Medrol Dosepack)Indicatio ns:Bronchitis, complicated follow package directions 21 Tablet 12/22/19 25 Active Doxycycline Hyclate 100 MG Oral CapsuleIndications :Bronchitis, complicated Take 1 Capsule by mouth in the morning and 1 Capsule before bedtime. until gone. Rescue kit. 20 Capsule 12/22/19 25 Active Hospital, Clinic, or Other Facility Administered Medication Ordered Dose Route Frequency Start Date End Date Status Albuterol Sulfate (Proventil) (2.5 MG/3ML) 0.083% inhalation solution 2.5 mgIndications:Pulmonary emphysema, unspecified emphysema type (HCC) 2.5 mg NEBULIZER PRN 06/05/2024 Acti ve Albuterol Sulfate (Proventil) (5 MG/ML) 0.5% *conc* inhalation solution 2.5 mgIndications:Pulmonary emphysema, unspecified emphysema type (HCC) 2.5 mg NEBULIZER PRN 06/05/2024 Acti ve documented as of this encounter (statuses as of 01/12/2025) Active Problems Problem Noted Date Diagnosed Date Chronic pain of both knees 05/27/2024 Pulmonary emphysema 10/22/2023 Type 2 diabetes mellitus wit h hemoglobin A1c goal of less than 7.0% 10/22/2023 Hyperlipidemia with target LDL less than 70 10/11 History of tobacco abuse 10/22/2023 Bipolar depression 10/22/2023 Coronary artery disease invo lving false pass coronary artery of false pass heart without angina pectoris 10/22/2023 Impotence of organic origin 06/20/2011 Esophageal reflux 06/01/2011 HTN, goal below 140/90 06/01/2011 documented as of this encounter (statuses as of 01/12/2025) Immunizations Name Administration Dates Next Due Pneumococcal [...] = 0.6 oz pur e alcohol) sometimes Childcare Answer Date Recorded Do you feel overwhelmed with taking care of a child, family member or friend? No 04/16/2024 Does your family need help f inding childcare? (Household - for ages 0-17 years) Not on file 04/16/2024 Clothing Answer Date Recorded Have you been unable to get clothing when it was really needed? No 04/16/2024 Is your family able to get c lothes or diapers when needed? (Household - for ages 0-17 years) Not on file 04/16/2024 Personal Safety Answer Date Recorded Do you feel unsafe or have concerns for your saf ety? No 04/16/2024 Do you have concerns for you r family's safety? (Household - for ages 0-17 years) Not on file 04/16/2024 Utilities Answer Date Recorded Do you have trouble paying y our heating, water, or electric bill? No 04/16/2024 Is your family able to pay t he heat, water, or electric bill? (Household - for ages 0-17 years) Not on file 04/16/2024 Does your family have access to good internet? (Household - for ages 0-17 years) Not on file 04/16/2024 Employment Status Answer Date Recorded Are you unemployed or without regular income? No 04/16/2024 Does the household have a re gular source of income? (Household - for ages 0-17 years) Not on file 04/16/2024 Social Connections Answer Date Recorded How often do you feel lonely or isolated from th ose around you? Never 04/16/2024 Financial Resource Strain Answer Date R ecorded Do you have any trouble payi ng for your medications, or do you think you might in the future? No 04/16/2024 Does your family have troubl e paying for medicine? (Household - for ages 0-17 years) Not on file 04/16/2024 Transportation Needs Answer Date Record ed READ ONLY Do you have troubl e getting a ride to medical visits or work? Never True 04/16/2024 Does your family have a hard time getting a ride to doctors visits? (Household - for ages 0-17 years) Not on file 04/16/2024 Has lack of transportation k ept you from medical appointments, meetings, work, or from getting things needed for daily living? Check all that apply. (Adult - for ages 18 years and over) Not on file 04/16/2024 Do you (or your family) have trouble finding or paying for a ride (transportation)? (Household - for ages 0-17 years) Not on file 04/16/2024 Housing Stability Answer Date Recorded Do you currently live in a s helter or have no steady place to sleep at night? No 04/16/2024 READ ONLY Do you think you a re at risk of becoming homeless? No 04/16/2024 Does your family worry about paying for your home or becoming homeless? (Household - for ages 0-17 years) Not on file 0 04/16/2024 Are you homeless or worried that you might be in the future? (Adult - for ages 18 years and over) Not on file Are you (or your family) palomo eless or worried that you might be in the future? (Household - for ages 0-17 years) Not on file Food Insecurity Answer Date Recorded Do you need food for this week? No 04/16/2024 Are you able to get enough f ood for your family? (Household - for ages 0-17 years) Not on file 04/16/2024 Does your family need food t his week? (Household - for ages 0-17 years) Not on file 04/16/2024 Do you always have enough fo od for your family? (Household - for ages 0-17 years) Not on file 04/16/2024 Food Insecurity Answer Date Recorded Worried About Running Out of Food in the Last Ye ar Not on file 04/16/2024 Ran Out of Food in the Last Year Not on file 04/16/2024 Do you need food for this week? No 04/16/2024 Sex and Gender Information Value Date Recorded Sex Assigned at Not on file Legal Sex Male 5:00 AM EST Gender Identity Not on file Sexual Orientation Not on file Occupation Industry Job Start Date Job End Date retired. - [employer] 18 years. Not on file Not on file Not on file documented as of this encounter Plan of Treatment Upcoming Encounters Date Type Department Care Team (Late st Contact Info) Description 01/13/2025 3:00 PM EST [facility] [address] [place] [address] [place] [phone] Narcisa Ordonez MD [address] [place] [address] [place] [id number] 03/16/2025 10:00 AM EDT Office Visit Pulmonary Medicine, [facility] [address] [place] [id number] Darwin Hernandez MD [address] [place] [id number] 03/24/2025 11:20 AM EDT Office Visit Family Medicine [address] [place] [phone] Narcisa Ordonez MD [address] [place] [address] [place] [id number] 02/21/2026 10:30 AM EDT Imaging Radiology [facility] [facility] [place] [address] [facility] [place] [phone] Health Maintenance Due Date Last Done Comments Cologuard 2006 Fecal Occult Blood Test 2006 Sigmoidoscopy 2006 Pneumococcal Vaccine: 50+ Years (3 of 3 - PCV20 or PCV21) 08/09/2021 08/09/2016, 04/28/2014, 04/28/2014 COVID-19 Vaccine ( season) 2024 Influenza Vaccine (FLU shot) (#1) 2024 10/15/2023, 10/15/2023 HbA1c 10/27/2024 04/27/2024, 03/13, 01/30/2024, Additional history exists Albumin/Creatinine Ratio 04/09/2025 04/09/2024, 01/10 Diabetic Eye Exam 04/27/2025 04/27/2024 Diabetic Foot Exam 05/27/2025 05/27/2024 GFR 09/10/2025 09/10/2024, 07/12, 05/26/2024, Additional history exists O2 ASSESSMENT COMPLETED IN PAST YEAR FOR COPD 10/23/2025 10/23/2024 DTap/Tdap Vaccines (3 - Td or Tdap) 09/16/2028 09/16/2018, 04/28/2014 Colonoscopy 08/15/2033 08/15/2023 Colorectal Cancer Screening 08/15/2033 Zoster Vaccines Completed 01/10/2021, 09/11, 08/09/2016 Lung Cancer Screening Completed 07/24/2024 Alpha-1 Antitrypsin Discontinued 09/14/2024 HPV (Gardasil) Vaccine Aged Out No lo nger eligible based on patient's age to complete this topic Hepatitis B Vaccine Aged Out No longe r eligible based on patient's age to complete this topic MENINGOCOCCAL (MENACTRA/MENVEO) Aged Out No longer eligible based on patient's age to complete this topic Meningitis B Vaccine (Bexsero/Trumemba) Aged Out No longer eligible based on patient's age to complete this topic documented as of this encounter Medical Devices Not on filedocumented as of this encounter Procedures Procedure Name Priority Date/Time Associated Diagnosis Comments CARDIOLOGY SCANNED RESULT 01/08/2025 documented in this encounter Results * CARDIOLOGY SCANNED RESULT (01/08/2025) 01/08/2025 us No Physician Data Unknown OTHER Final Result documented in this encounter Care Teams Volleyball Commentator Relationship Specialty Start Date End Date Narcisa Ordonez MD [address] [place] [address] [place] [id number] PCP - General Family Medicine 10/25/23 documented as of this encounter
--- OUTSIDE RECORDS SUMMARY | 2025-02-07 10:57 | External Medical Summary | Summary of Care ---
Author Name Unknown Organization [facility] Address [address] [facility] [place] [address] Phone [phone] Care Team Providers Care Feeder Operator Automatic Name Role Phone Narcisa Ordonez MD Primary Care Prov ider Reason for Visit * Reason Comments Re-Check Encounter Details Date Type Department Care Team (Late st Contact Info) Description 01/13/2025 3:00 PM EST Office Visit Family Medicine [address] [phone] Narcisa Ordonez MD [address] [place] [address] [place] [address] Pneumonia of left lower lobe due to infectious organism*; Cardiac ischemia; Pulmonary emphysema, unspecified emphysema type ([facility]); Bipolar depression ([facility]); Type 2 diabetes mellitus with hemoglobin A1c goal of less than 7.0% ([facility]); COPD exacerbation ([facility]) Allergies Active Allergy Reactions Criticality Noted Date Comments Lisinopril 04/15/2024 Not allergic but had CARMENCITA due to combination dehydration/ lisinopril/ mobic documented as of this encounter (statuses as of 01/14/2025) Medications MULTIVITAL PO TABS 1 tablet daily Active VITAMIN B COMPLEX PO CAPS 1 tablet daily Activ e VITAMIN B-12 500 MCG PO TABS 1 tablet daily Act nancy BUSPIRONE HCL 10 MG PO TABSIndications:An xiety state,Adjustment disorder with depressed mood take two tablets once daily 180 Tab 3 08/07/20 12 Active Azelastine HCl 0.1 % Nasal Solution (Astelin) Administer 1 [place] into nostril in the morning and 1 [place] before bedtime. 30 mL 12 10/18/20 23 Active Fluticasone Propionate 50 MCG/ACT Nasal Suspension (Flonase Allergy Relief) Administer 1 [place] into nostril in the morning. Active Gabapentin 400 MG [...] BEDTIME 180 Tablet 3 10/06/20 24 Active Atorvastatin Calcium [...] LDL less than 70,Coronary artery disease involving ak[place] coronary artery of ak[place] heart without angina pectoris,HTN, goal below 140/90 Inject 7.5 mg under the skin once a week. 2 mL 11 11/03/20 24 025 Active Amoxicillin-Pot Clavulanate 875-125 MG Oral Tablet (Augmentin)Indicat ions:COPD exacerbation (HCC),Pneumonia of left lower lobe due to infectious organism Take 1 Tablet by mouth in the morning and 1 Tablet before bedtime. Do all this for 10 days. 20 Tablet 01/14/20 25 025 Active Azithromycin 250 MG Oral Tablet (Zithromax)Indicat ions:COPD exacerbation (HCC),Pneumonia of left lower lobe due to infectious organism Take 2 tabs by mouth on the first day, then 1 tab daily on days two through five 6 Tablet 01/14/20 25 025 Active predniSONE 20 MG Oral Tablet (Deltasone)Indicat ions:COPD exacerbation (HCC) 1 tab 3 times a day for 3 days, then 1 tab 2 times a day for 3 days, then 1 tab daily for 3 days 18 Tablet 01/14/20 25 Active Clopidogrel Bisulfate 75 MG Oral Tablet (pLAVix) Take 1 Tablet by mouth in the morning. 01/14/20 25 Active Budesonide 0.5 MG/2ML Inhalation Suspension (Pulmicort) As directed in nasal rinse twice a day 120 mL 12 10/18/20 23 025 Discontin ued(Patie nt preferenc e/discont inuation) Magnesium 400 MG Oral Tablet Take by mouth. 025 Discontin ued(Patie nt preferenc e/discont inuation) Tamsulosin HCl 0.4 MG Oral Capsule (Flomax) Take 1 Capsule by mouth in the morning. Discontin ued(Patie nt preferenc e/discont inuation) Finasteride 5 MG Oral Tablet (Proscar) Take 1 Tablet by mouth in the morning. 025 Discontin ued(Patie nt preferenc e/discont inuation) Clopidogrel Bisulfate 75 MG Oral Tablet (pLAVix) take 1 tablet by mouth once daily 90 Tablet 3 10/06/20 24 025 Discontin ued(Patie nt preferenc e/discont inuation) methylPREDNISolone 4 MG Oral Tablet Therapy Pack (Medrol Dosepack)Indicatio ns:Bronchitis, complicated follow package directions 21 Tablet 12/22/19 25 025 Discontin ued(Patie nt preferenc e/discont inuation) Doxycycline Hyclate 100 MG Oral CapsuleIndications :Bronchitis, complicated Take 1 Capsule by mouth in the morning and 1 Capsule before bedtime. until gone. Rescue kit. 20 Capsule 12/22/19 25 025 Discontin ued(Patie nt preferenc e/discont inuation) Hospital, Clinic, or Other Facility Administered Medication [...] as of this encounter (statuses as of 01/14/2025) Active Problems Problem Noted Date Diagnosed Date Chronic pain of both knees 05/27/2024 Pulmonary emphysema 10/22/2023 Type 2 diabetes mellitus wit h hemoglobin A1c goal of less than 7.0% 10/22/2023 Hyperlipidemia with target LDL less than 70 10/11 History of tobacco abuse 10/22/2023 Bipolar depression 10/22/2023 Coronary artery disease invo lving ak[place] coronary artery of akut[place] heart without angina pectoris 10/22/2023 Impotence of organic origin 06/20/2011 Esophageal reflux 06/01/2011 HTN, goal below 140/90 06/01/2011 documented as of this encounter (statuses as of 01/14/2025) Immunizations Name Administration Dates Next Due Pneumococcal [...] 04/16/2024 Does the household have a re lar source of income? (Household - for ages [...] Start Date Job End Date retired. - [employer] 18 years. Not on file Not on file Not on file documented as of this encounter Last Filed Vital Signs Vital Sign Reading Time Taken Comments Blood Pressure 121/66 01/13/2025 2:52 PM EST Pulse 88 01/13/2025 2:52 PM EST Temperature 36.4 C (97.5 F) 01/13/2025 2:52 PM ES T Respiratory Rate 18 01/13/2025 2:52 PM EST Oxygen Saturation 96% 01/13/2025 2:52 PM EST Inhaled Oxygen Concentration - - Weight 90.3 kg (199 lb) 01/13/2025 2:52 PM EST Height 168.9 cm (5' 6.5") 01/13/2025 2:52 PM EST Body Mass Index 31.64 01/13/2025 2:52 PM EST documented in this encounter Progress Notes * Narcisa Ordonez MD - 01/13/2025 3:11 PM EST Images from the original note were not included. Subjective Graeme Quezada is a 64 year old male that presents for Re-Check History of Present Illness The patient, with a history of emphysema, presents with a persistent cough of three weeks duration.Despite a course of prednisone and antibiotics prescribed by his field liability generalist, the patient reportsonly temporary improvement before symptoms returned. He describes the cough as constant and productive at times, with coarse phlegm. He also reports sinus congestion and uses agpm-ann-ofcfhye nasal spray for relief. The patient has not been monitoring his blood sugar levels, but his last A1c was within normal limits. He recently completed a course of prednisone. The patient also reports a lack ofenergy and becoming winded after walking or climbing stairs. He recently underwent a stress test and echo, with a follow-up appointment scheduled for the results. The patient has a history of smokingbut quit. Objective Vitals: 01/13/25 1452 Temp: 97.5 F (36.4 C) Pulse: 88 Resp: 18 SpO2: 96% BP: 121/66 BMI: 31.64 Physical Exam HEENT: Postnasal drip present. CHEST: Ronchi and wheezing in lungs. Heart: regular rate & rhythm, no murmur, and no gallops I have reviewed the following results: Results RADIOLOGY Chest x-ray: left lower lobe pneumonia (01/13/2025) DIAGNOSTIC Stress test: abnormal with evidence of ischemia (01/06/2025) Assessment and Plan Assessment & Plan Cough with suspected pneumonia Persistent cough with productive phlegm. Chest x-ray suggests possible pneumonia. Differential includes emphysema flare-up. Awaiting radiologist's report. - Order chest x-ray to evaluate for pneumonia or emphysema flare-up. - Prescribe azithromycin (Z-Seamus) and Augmentin. - Prescribe prednisone 60 mg with taper. - Follow up with chest x-ray if pneumonia confirmed. - Consult field liability generalist for long-term respiratory management. Coronary artery disease with ischemia Abnormal stress test indicates ischemia. History of left main coronary artery stent. Plan for cardiac catheterization to assess blockages and potential stent placement. Emphasized prevention of myocardial infarction. - Advise to avoid strenuous activities. - Coordinate with objective c developer for cardiac catheterization. - Discuss potential stent placement during catheterization. Diabetes mellitus Diabetes with previously controlled A1c. Prednisone may affect glucose levels. Discussed managing respiratory symptoms and glucose impact. - Monitor blood glucose levels during prednisone treatment. - Consult field liability generalist for long-term prednisone management to avoid glucose complications. Pneumonia of left lower lobe due to infectious organism (Primary) - Amoxicillin-Pot Clavulanate 875-125 MG Oral Tablet (Augmentin); Take 1 Tablet by mouth in the morning and 1 Tablet before bedtime. Do all this for 10 days. - Azithromycin 250 MG Oral Tablet (Zithromax); Take 2 tabs by mouth on the first day, then 1 tab daily on days two through five - XR CHEST 2 VIEWS; Future; Expected date: 03/15/2025 Cardiac ischemia Pulmonary emphysema, unspecified emphysema type (HCC) Bipolar depression (HCC) Type 2 diabetes mellitus with hemoglobin A1c goal of less than 7.0% (HCC) COPD exacerbation (HCC) - XR CHEST 2 VIEWS - Amoxicillin-Pot Clavulanate 875-125 MG Oral Tablet (Augmentin); Take 1 Tablet by mouth in the morning and 1 Tablet before bedtime. Do all this for 10 days. - Azithromycin 250 MG Oral Tablet (Zithromax); Take 2 tabs by mouth on the first day, then 1 tab daily on days two through five - predniSONE 20 MG Oral Tablet (Deltasone); 1 tab 3 times a day for 3 days, then 1 tab 2 times a day for 3 days, then 1 tab daily for 3 days Wrap-Up Follow Up: Return in about 8 weeks (around 03/10/2025) for Return with Physician. | For: Return withPhysician Time: I spent a total of 30-39 minutes (exact time 32 mins) on the date of service in preparation, delivery, and documentation of the care provided to Graeme Quezada excluding any time spent in the performance of separately billed services. Text in this note was generated using an [employer] documentation service. I discussed the use of a device to record and summarize our discussion today. All persons present during the encounter consented to its use. documented in this encounter Nursing Notes * Amy Merlos RN - 01/13/2025 2:50 PM EST Check up COPD Flare has done antibiotic and prednisone for chest congestion in Fe. Pt feels like his congestion is worse documented in this encounter Plan of Treatment Upcoming Encounters Date Type Department Care Team (Late st Contact Info) Description 03/10/2025 11:40 AM EDT Office Visit Family Medicine [address] [phone] Narcisa Ordonez MD [address] [place] [address] [place] [id number] 03/16/2025 10:00 AM EDT Office Visit Pul[facility] Medicine, [facility] [address] [facility] [place] [address] Darwin Hernandez MD [facility] [address] 03/24/2025 11:20 AM EDT Office Visit Family Medicine [address] [phone] Narcisa Ordonez MD [address] [place] [address] [place] [address] 02/21/2026 10:30 AM EDT Imaging Radiology [facility] [address] [place] [phone] Scheduled Orders Name Type Priority Associated Diagnoses Orde r Schedule XR CHEST 2 VIEWS Medical Imaging Routine Pneumonia of left lower lobe due to infectious organism Expected: 03/15/2025, Expires: 02/13/2026 Health Maintenance Due Date Last Done Comments [...] ASSESSMENT COMPLETED IN PAST YEAR FOR COPD 01/13/2026 01/13/2025 DTap/Tdap Vaccines (3 - Td or Tdap) [...] Procedure Name Priority Date/Time Associated Diagnosis Comments XR CHEST 2 VIEWS Routine 01/13/2025 3:39 PM EST COPD exacerbation (HCC) documented in this encounter Results * XR CHEST 2 VIEWS (01/13/2025 3:39 PM EST) Anatomical Region Laterality Modality Chest Computed Radiogr aphy 01/13/2025 4:01 PM EST Impressions 01/13/2025 3:59 PM EST IMPRESSION 1. Mild patchy left lung base ground-glass/consolidation concerning for possible aspiration/pneumonia. Follow-up chest radiography in 6-12 weeks recommended. 2. Additional findings as above. 3. Added to radiology results pathway communication system in accordance with [place] ACT 112 at 3:59 pm on 01/13/2025. Narrative 01/13/2025 3:59 PM EST EXAM XR CHEST 2 VIEWS-01/13/2025 3:39 pm HISTORY Cough x [address] CHEST WO CONTRAST, ACC: [id number], dated 2024-07-24 10:21:24; XR CHEST 2 VIEWS, ACC: [id number], dated 2024-07-22 10:41:32; XR CHEST 2 VIEWS, ACC: [id number], dated 2024-04-02 11:30:59 TECHNIQUE Radiography of the chest. XR CHEST 2 VIEWS FINDINGS Right lung base linear atelectasis/scarring. Mild patchy left lung base ground-glass/consolidation. No pneumothorax or pleural effusion observed. Unremarkable cardiomediastinal silhouette.No acute osseous abnormality. Procedure Note Domingo Killian MD - 01/13/2025 EXAM XR CHEST 2 VIEWS-01/13/2025 3:39 pm HISTORY Cough x [address] CHEST WO CONTRAST, ACC: [id number], dated 2024-07-24 10:21:24; XR CHEST 2 VIEWS, ACC: [id number], dated 2024-07-22 10:41:32; XR CHEST 2 VIEWS, ACC: [id number], dated 2024-04-02 11:30:59 TECHNIQUE Radiography of the chest. XR CHEST 2 VIEWS FINDINGS Right lung base linear atelectasis/scarring. Mild patchy left lung baseground-glass/consolidation. No pneumothorax or pleural effusion observed.Unremarkable cardiomediastinal silhouette.No acute osseous abnormality. IMPRESSION IMPRESSION 1. Mild patchy left lung base ground-glass/consolidation concerning forpossible aspiration/pneumonia. Follow-up chest radiography in 6-12 weeksrecommended. 2. Additional findings as above. 3. Added to radiology results pathway communication system in accordance withPA ACT 112 at 3:59 pm on 01/13/2025. Narcisa Agustin MD RADIOLOGY (RAD GEN ERAL) Final Result documented in this encounter Visit Diagnoses Diagnosis Pneumonia of left lower lobe due to infectious organism- Primary Cardiac ischemia Chronic ischemic heart disease, unspecified Pulmonary emphysema, unspecified emphysema type (HCC) Bipolar depression (HCC) Bipolar I disorder, most recent episode (or current) depressed, unspecified Type 2 diabetes mellitus with hemoglobin A1c goal of less than 7.0% (HCC) COPD exacerbation (HCC) Obstructive chronic bronchitis with exacerbation documented in this encounter Care Teams Feeder Operator Automatic Relationship Specialty Start Date End Date Narcisa Ordonez MD [address] [place] [address] [place] [id number] PCP - General Family Medicine 10/25/23 documented as of this encounter
--- OUTSIDE RECORDS SUMMARY | 2025-02-07 10:57 | External Medical Summary | Summary of Care ---
Author Name Unknown Organization [facility] Address [address] [facility] [place] [address] Phone [phone] Care Team Providers Care Central Office Installer Name Role Phone Narcisa Ordonez MD Primary Care Prov ider Reason for Visit * Reason Onset Date Comments Med Request 01/15/2025 Clopidogrel Bisu lfate 75 MG Oral Tablet (pLAVix) Encounter Details Date Type Department Care Team (Late st Contact Info) Description 01/15/2025 Telephone Family Medicine [address] [phone] Narcisa Ordonez MD [address] [place] [address] [place] [address] Med Request (Clopidogrel Bisulfate 75 MG O... Allergies Active Allergy Reactions Criticality Noted Date Comments Lisinopril 04/15/2024 Not allergic but had CARMENCITA due to combination dehydration/ lisinopril/ mobic documented as of this encounter (statuses as of 01/19/2025) Medications MULTIVITAL PO TABS 1 tablet daily Active VITAMIN B COMPLEX PO CAPS 1 tablet daily Activ e VITAMIN B-12 500 MCG PO TABS 1 tablet daily Act nancy BUSPIRONE HCL 10 MG PO TABSIndications:An xiety state,Adjustment disorder with depressed mood take two tablets once daily 180 Tab 3 08/07/20 12 Active Azelastine HCl 0.1 % Nasal Solution (Astelin) Administer 1 [place] into nostril in the morning and 1 [place] before bedtime. 30 mL 12 10/18/20 23 Active Fluticasone Propionate 50 MCG/ACT Nasal Suspension (Flonase Allergy Relief) Administer 1 [place] into nostril in the morning. Active Gabapentin [...] LDL less than 70,Coronary artery disease involving [place] coronary artery of pra[place] band heart without angina pectoris,HTN, goal below 140/90 [...] days. 20 Tablet 01/14/20 25 025 Active predniSONE 20 MG Oral Tablet (Deltasone)Indicat ions:COPD exacerbation (HCC) 1 tab 3 times a day for 3 days, then 1 tab 2 times a day for 3 days, then 1 tab daily for 3 days 18 Tablet 01/14/20 25 Active Clopidogrel Bisulfate 75 MG Oral Tablet (pLAVix) Take 1 Tablet by mouth in the morning. 30 Tablet 5 01/19/20 25 Active Azithromycin 250 MG Oral Tablet (Zithromax)Indicat ions:COPD exacerbation (HCC),Pneumonia of left lower lobe due to infectious organism Take 2 tabs by mouth on the first day, then 1 tab daily on days two through five 6 Tablet 01/14/20 25 025 Clopidogrel Bisulfate 75 MG Oral Tablet (pLAVix) Take 1 Tablet by mouth in the morning. 01/14/20 25 025 Discontinu ed(Refill) Hospital, Clinic, or Other Facility Administered Medication [...] as of this encounter (statuses as of 01/19/2025) Active Problems Problem Noted Date Diagnosed Date Chronic pain of both knees 05/27/2024 Pulmonary emphysema 10/22/2023 Type 2 diabetes mellitus wit h hemoglobin A1c goal of less than 7.0% 10/22/2023 Hyperlipidemia with target LDL less than 70 10/11 History of tobacco abuse 10/22/2023 Bipolar depression 10/22/2023 Coronary artery disease invo lving [place] coronary artery of pra[place] band heart without angina pectoris 10/22/2023 Impotence of organic origin 06/20/2011 Esophageal reflux 06/01/2011 HTN, goal below 140/90 06/01/2011 documented as of this encounter (statuses as of 01/19/2025) Immunizations Name Administration Dates Next Due Pneumococcal [...] No 04/16/2024 Does the household have a covenant medical centerr source of income? (Household - for ages [...] Start Date Job End Date retired. - [employer] 18 years. Not on file Not on file Not on file documented as of this encounter Miscellaneous Notes * Telephone Encounter - Leah Crowe CMA - 01/18/2025 6:04 PM EDT Called and left message advising med sent into pharmacy * Telephone Encounter - Mita Cesar MD - 01/18/2025 1:26 PM EDT Covering for Dr Lj Agustin. Resent the plavix * Telephone Encounter - Navi Snowden OSA - 01/15/2025 12:32 PM EST Patient noticed provider had discontinued his script for Clopidogrel Bisulfate 75 MG Oral Tablet (pLAVix) Patient is NOT taking aspirin and does need his pLAVix prescription re-started. Please notify patient of progress/options. documented in this encounter Plan of Treatment Upcoming Encounters Date Type Department Care Team (Late st Contact Info) Description 03/10/2025 11:40 AM EDT Office Visit Family [address] [place] [phone] Narcisa Ordonez MD [address] [place] [address] [place] [id number] 03/16/2025 10:00 AM EDT Office Visit Pulmonary Medicine, [facility] [address] [facility] [place] [address] Darwin Hernandez MD [facility] [place] [address] 03/24/2025 11:20 AM EDT Office Visit Family Medicine [address] [place] [phone] Narcisa Ordonez MD [address] [place] [address] [place] [address] 02/21/2026 10:30 AM EDT Imaging Radiology [facility] [address] [facility] [place] [address] [place] [phone] Health Maintenance Due Date Last Done Comments [...] filedocumented as of this encounter Care Teams Central Office Installer Relationship Specialty Start Date End Date Narcisa Ordonez MD [address] [place] [address] [place] [address] PCP - General Family Medicine 10/25/23 documented as of this encounter
--- OUTSIDE RECORDS SUMMARY | 2025-02-07 10:57 | External Medical Summary | Summary of Care ---
Author Name Unknown Organization [facility] Address [address] [facility] [place] [address] Phone [phone] Care Team Providers Care Package Collector Name Role Phone Narcisa Ordonez MD Primary Care Prov ider Encounter Details Date Type Department Care Team (Late st Contact Info) Description 01/27/2025 Orders Only Family Medicine [address] [phone] Narcisa Ordonez MD [address] [place], [place] [address] [address] Allergies Active Allergy Reactions Criticality Noted Date Comments Lisinopril 04/15/2024 Not allergic but had CARMENCITA due to combination dehydration/ lisinopril/ mobic documented as of this encounter (statuses as of 01/27/2025) Medications MULTIVITAL PO TABS 1 tablet daily Active VITAMIN B COMPLEX PO CAPS 1 tablet daily Activ e VITAMIN B-12 500 MCG PO TABS 1 tablet daily Act nancy BUSPIRONE HCL 10 MG PO TABSIndications:An xiety state,Adjustment disorder with depressed mood take two tablets once daily 180 Tab 3 2 Active Azelastine HCl 0.1 % Nasal Solution (Astelin) Administer 1 [place] into nostril in the morning and 1 [place] before bedtime. 30 mL 12 3 Active Fluticasone Propionate 50 MCG/ACT Nasal Suspension (Flonase Allergy Relief) Administer 1 [place] into nostril in the morning. Active Gabapentin 400 MG Oral Capsule (Neurontin)Indicat ions:Chronic pain of both knees Take 1 Capsule by mouth in the morning and 1 Capsule at noon and 1 Capsule before bedtime. 270 Capsule 3 4 Active Baclofen 20 MG Oral TabletIndications: Chronic pain of both knees Take 1 Tablet by mouth 2 times a day as needed for Pain. 180 Tablet 3 4 Active Lisinopril 40 MG Oral TabletIndications: HTN, goal below 140/90 Take 1 Tablet by mouth in the morning. 90 Tablet 3 4 Active Vitamin D3 50 MCG (2000 UT) Oral Capsule Take 1 Capsule by mouth in the morning. 4 Active amLODIPine Besylate 5 MG Oral Tablet (Norvasc)Indicatio ns:HTN, goal below 140/90 Take 1 Tablet by mouth in the morning. 90 Tablet 1 4 Active Albuterol Sulfate HFA 108 (90 Base) MCG/ACT Inhalation Aerosol SolutionIndication s:Pulmonary emphysema, unspecified emphysema type (HCC) Inhale 2 Puffs by mouth every 4 hours as needed for Wheezing. 54 g 5 4 025 Active Trelegy Ellipta 100-62.5-25 MCG/ACT Aerosol Powder Breath Activated (Fluticasone-Umecl idinium-Vilanterol )Indications:Pulmo nary emphysema, unspecified emphysema type (HCC) Inhale 1 Puff by mouth in the morning. 180 Blister Dosing Unit 5 4 026 Active FLUoxetine HCl 40 MG Oral Capsule (PROzac) take 2 capsules by mouth IN THE MORNING 180 Capsule 1 4 Active lamoTRIgine 100 MG Oral Tablet (LaMICtal) take 1 tablet by mouth every morning and BEFORE BEDTIME 180 Tablet 3 4 Active Atorvastatin Calcium 40 MG Oral Tablet (Lipitor) take 1 tablet by mouth at bedtime 90 Tablet 1 4 Active Meloxicam 7.5 MG Oral Tablet (Mobic)Indications :Primary osteoarthritis of both knees Take 1 Tablet by mouth in the morning. for pain.. 90 Tablet 3 4 Active Pantoprazole Sodium 40 MG Oral Tablet Delayed Release (Protonix) Take 1 Tablet by mouth in the morning. 90 Tablet 3 4 Active Sildenafil Citrate 100 MG Oral Tablet (Viagra)Indication s:Impotence of organic origin Take 1 Tablet by mouth as needed for Erectile Dysfunction. One pill by mouth 1-4 hours before intercourse, no more than 1 dose in 24 hours. 30 Tablet 5 4 Active Mounjaro 7.5 MG/0.5ML Subcutaneous Solution Auto-injector (Tirzepatide)Indic ations:Chronic pain of both knees,Type 2 diabetes mellitus with hemoglobin A1c goal of less than 7.0% (HCC),Hyperlipidem ia with target LDL less than 70,Coronary artery disease involving [place] coronary artery of [place] heart without angina pectoris,HTN, goal below 140/90 Inject 7.5 mg under the skin once a week. 2 mL 11 4 025 Active predniSONE 20 MG Oral Tablet (Deltasone)Indicat ions:COPD exacerbation (HCC) 1 tab 3 times a day for 3 days, then 1 tab 2 times a day for 3 days, then 1 tab daily for 3 days 18 Tablet 5 Active Clopidogrel Bisulfate 75 MG Oral Tablet (pLAVix) Take 1 Tablet by mouth in the morning. 30 Tablet 5 5 Active Nortriptyline HCl 25 MG Oral Capsule (Pamelor) take 2 capsules by mouth at bedtime 60 Capsule 5 5 Active Hospital, Clinic, or Other Facility Administered [...] as of this encounter (statuses as of 01/27/2025) Active Problems Problem Noted Date Diagnosed Date COPD, group C, by GOLD 2017 classification 01/18 Overview: Per COPD GOLD Classification Chronic pain of both knees 05/27/2024 Pulmonary emphysema 10/22/2023 Type 2 diabetes mellitus wit h hemoglobin A1c goal of less than 7.0% 10/22/2023 Hyperlipidemia with target LDL less than 70 10/11 History of tobacco abuse 10/22/2023 Bipolar depression 10/22/2023 Coronary artery disease invo lving [place] coronary artery of [place] heart without angina pectoris 10/22/2023 Impotence of organic origin 06/20/2011 Esophageal reflux 06/01/2011 HTN, goal below 140/90 06/01/2011 documented as of this encounter (statuses as of 01/27/2025) Immunizations Name Administration Dates Next Due Pneumococcal [...] No 04/16/2024 Does the household have a [facility] source of income? (Household - for ages [...] 11:40 AM EDT Office Visit Family Medicine [address] [place] [phone] Narcisa Ordonez MD [address] [place] [address] [place] [address] 03/16/2025 10:00 AM EDT Office Visit Pulmonary Medicine, [address] [place] [phone] Darwin Hernandez MD [address] [place] [address] 03/24/2025 11:20 AM EDT Office Visit Family Medicine [address] [place] [phone] Narcisa Ordonez MD [address] [place] [address] [place] [address] 02/21/2026 10:30 AM EDT Imaging Radiology [address], [place] [address] [place] [phone] Health Maintenance Due Date Last Done Comments Cologuard 2006 Fecal Occult Blood Test 2006 Sigmoidoscopy 2006 Pneumococcal Vaccine: 50+ Years (3 of 3 - PCV20 or PCV21) 08/09/2021 08/09/2016, 04/28/2014, 04/28/2014 COVID-19 Vaccine (2023- season) 2024 Influenza Vaccine (FLU shot) (#1) 2024 10/15/2023, 10/15/2023 HbA1c 10/27/2024 04/27/2024, 03/13, 01/30/2024, Additional history exists Albumin/Creatinine Ratio 04/09/2025 04/09/2024, 01/10 Diabetic Eye Exam 04/27/2025 04/27/2024 Diabetic Foot Exam 05/27/2025 05/27/2024 GFR 09/10/2025 01/26/2025, 08/13, 07/22/2024, Additional history exists O2 ASSESSMENT COMPLETED IN [...] Priority Date/Time Associated Diagnosis Comments CHEMISTRY-OUTSIDE Routine 01/26/2025 documented in this encounter Results * (ABNORMAL) CHEMISTRY-OUTSIDE (01/26/2025) Not all results display below - see scan for full detail OUTSIDE LAB (SEE SCANNED REPORT) Comment:SEE SCAN - CBC, BMP, MAG, BNP CREATININE 1.43(A) 0.70 - 1.30 MG/DL OUTSIDE LAB (SEE SCANNED REPORT) EGFR 55 ML/MIN OUTSIDE LA B (SEE SCANNED REPORT) POTASSIUM 4.7 3.5 - 5.1 MMOL/L OUTSIDE LAB (SEE SCANNED REPORT) GLUCOSE 257(A) 70 - 110 MG/DL OUTSIDE LAB (SEE [...] LAB OUTSIDE LAB (SEE SCANNED REPORT) HEMOGLOBIN, [id number] LAB OUTSIDE LAB (SEE SCANNED REPORT) PHOSPHORUS-OUTSID E LAB OUTSIDE LAB (SEE SCANNED REPORT) PTH-OUTSIDE LAB OUTS [place] [facility] (SEE SCANNED REPORT) MICROALBUMIN RATIO-OUTSIDE LAB OUTSIDE LA B (SEE SCANNED REPORT) PROTEIN, UA-OUTSIDE LAB OUTSIDE LAB (SEE SCANNED REPORT) HGB 12.0(A) 13.5 - 18.0 G/DL OUTSIDE LAB (SEE SCANNED REPORT) 01/26/2025 us Liliana Noe MD LABORATORY Final Result OUTSIDE LAB (SEE SCANNED REPORT) documented in this encounter Care Teams Package Collector Relationship Specialty Start Date End Date Narcisa Ordonez MD [address] [place] [address] [place] [phone] PCP - General Family Medicine 10/25/23 documented as of this encounter
--- OUTSIDE RECORDS SUMMARY | 2025-02-07 10:57 | External Medical Summary | Summary of Care ---
Author Name Unknown Organization [facility] Address [address] [place] [address] Phone [phone] Care Team Providers Care Formation Testing Operator Name Role Phone Narcisa Ordonez MD Primary Care Prov ider Reason for Visit * Reason Onset Date Comments Advice 02/04/2025 Encounter Details Date Type Department Care Team (Late st Contact Info) Description 02/04/2025 Telephone Pulmonary Medicine, [facility] [address] [facility] [place] [address] Services, Scheduling [address] [facility] [place] [address] Advice Allergies Active Allergy Reactions Criticality Noted Date Comments Lisinopril 04/15/2024 Not allergic but had CARMENCITA due to combination dehydration/ lisinopril/ mobic documented as of this encounter (statuses as of 02/04/2025) Medications MULTIVITAL PO TABS 1 tablet daily Active VITAMIN B COMPLEX PO CAPS 1 tablet daily Activ e VITAMIN B-12 500 MCG PO TABS 1 tablet daily Act nancy BUSPIRONE HCL 10 MG PO TABSIndications:An xiety state,Adjustment disorder with depressed mood take two tablets once daily 180 Tab 3 2 Active Azelastine HCl 0.1 % Nasal Solution (Astelin) Administer 1 [place] into nostril in the morning and 1 [place] before bedtime. 30 mL 12 3 Active Fluticasone Propionate 50 MCG/ACT Nasal Suspension (Flonase Allergy Relief) Administer 1 [place] into nostril in the morning. Active Gabapentin [...] hemoglobin A1c goal of less than 7.0% ([facility]),Hyperlipidem ia with target LDL less than 70,Coronary artery disease involving [place] coronary artery of [place] heart without angina pectoris,HTN, goal below 140/90 Inject 7.5 mg under the skin once a week. 2 mL 11 4 025 Active predniSONE 20 MG Oral Tablet (Deltasone)Indicat ions:COPD exacerbation ([facility]) 1 tab 3 times a day for [...] at bedtime 60 Capsule 5 5 Active Azithromycin 250 MG Oral Tablet (Zithromax Z-Seamus) Please take 500 mg by mouth on day one, followed by 250 mg by mouth for four days. 6 Tablet 5 Active methylPREDNISolone 4 MG Oral Tablet Therapy Pack (Medrol Dosepack) follow package directions 21 Tablet 5 Active Hospital, Clinic, or Other Facility [...] as of this encounter (statuses as of 02/04/2025) Active Problems Problem Noted Date Diagnosed Date [...] depression 10/22/2023 Coronary artery disease invo lving [place] coronary artery of [place] heart without angina pectoris 10/22/2023 Impotence of organic origin 06/20/2011 Esophageal reflux 06/01/2011 HTN, goal below 140/90 06/01/2011 documented as of this encounter (statuses as of 02/04/2025) Immunizations Name Administration Dates Next Due Pneumococcal [...] No 04/16/2024 Does the household have a [facility] source [facility] income? (Household - for ages [...] encounter Miscellaneous Notes * Addendum Note - Darwin Doyle MD - 02/04/2025 4:19 PM EDTAddended by: DARWIN DOYLE on: 02/04/2025 04:19 PM Modules accepted: Orders * Telephone Encounter - Darwin Doyle MD - 02/04/2025 4:19 PM EDT Z-Seamus and Medrol Dosepak prescription was submitted to [facility] pharmacy. * Telephone Encounter - Madeline Jolly OSA - 02/04/2025 3:28 PM EDT Patient calling stating that he was told would need to have a script placed to have the prednisone,and amoxicillin on hand, and she stated that this would need to be sent to Dr Bhandari for her to keep this medication on hand, she did not want it sent to her PCP, but asked for a callback so can explain it all Please call patient documented in this encounter Plan of Treatment Upcoming Encounters Date Type Department Care Team (Late st Contact Info) Description 03/10/2025 11:40 AM EDT Office Visit Family Medicine [address] [phone] Narcisa Ordonez MD [address] [place] [address] [place] [address] 03/16/2025 10:00 AM EDT Office Visit Pulmonary Medicine, [facility] [address] [place] [phone] Darwin Doyle [facility] [place] [address] 03/24/2025 11:20 AM EDT Office Visit Family Medicine [address] [phone] Narcisa Ordonez MD [address] [place] [address] [place] [address] 02/21/2026 10:30 AM EDT Imaging Radiology [facility] [address]st [facility] [place] [address] [place] [phone] Health Maintenance Due Date Last Done Comments Cologuard 2006 Fecal Occult Blood Test 2006 Sigmoidoscopy 2006 Pneumococcal Vaccine: 50+ Years (3 of 3 - PCV20 or PCV21) 08/09/2021 08/09/2016, 04/28/2014, 04/28/2014 COVID-19 Vaccine ( - 2023- season) 2024 Influenza Vaccine (FLU shot) (#1) 2024 10/15/2023, 10/15/2023 HbA1c 10/27/2024 04/27/2024, 03/13, 01/30/2024, Additional history exists Albumin/Creatinine Ratio 04/09/2025 04/09/2024, 01/10 Diabetic Eye Exam 04/27/2025 04/27/2024 Diabetic Foot Exam 05/27/2025 05/27/2024 O2 ASSESSMENT COMPLETED IN PAST YEAR FOR COPD 01/13/2026 01/13/2025 GFR 01/26/2026 01/26/2025, 08/13, 07/22/2024, Additional history exists DTap/Tdap Vaccines (3 - Td or Tdap) [...] filedocumented as of this encounter Care Teams Formation Testing Operator Relationship Specialty Start Date End Date Narcisa Ordonez MD [address] [place] [address] [place] [phone] PCP - General Family Medicine 10/25/23 documented as of this encounter
--- OUTSIDE RECORDS SUMMARY | 2025-02-07 10:57 | External Medical Summary | Summary of Care ---
Author Name Unknown Organization [facility] Address [address] [facility] [place] [address] Phone [phone] Care Team Providers Care Telegraph Operator Name Role Phone Narcisa Ordonez MD Primary Care Prov ider Reason for Visit * Reason Onset Date Comments Medication Question 02/04/2025 Re: rescue k it Encounter Details Date Type Department Care Team (Late st Contact Info) Description 02/04/2025 Telephone Pulmonary Medicine, [facility] [address] [place], [place] [phone] Services, Scheduling [address] [place] [address] Medication Question (Re: rescue kit) Allergies Active Allergy Reactions Criticality Noted Date Comments Lisinopril 04/15/2024 Not allergic but had CARMENCITA due to combination dehydration/ lisinopril/ mobic documented as of this encounter (statuses as of 02/05/2025) Medications MULTIVITAL PO TABS 1 tablet daily Active VITAMIN B COMPLEX PO CAPS 1 tablet daily Activ e VITAMIN B-12 500 MCG PO TABS 1 tablet daily Act nancy BUSPIRONE HCL 10 MG PO TABSIndications:An xiety state,Adjustment disorder with depressed mood take two tablets once daily 180 Tab 3 2 Active Azelastine HCl 0.1 % Nasal Solution (Astelin) Administer 1 [place] into nostril in the morning and 1 [place] before bedtime. 30 mL 12 3 Active Fluticasone Propionate 50 MCG/ACT Nasal Suspension (Flonase Allergy Relief) Administer 1 [place] into nostril in the morning. Active Gabapentin [...] goal of less than 7.0% ([facility]),Hyperlipidem ia with target LDL less than 70,Coronary artery disease involving [place] coronary artery of [place] heart without angina pectoris,HTN, goal below 140/90 [...] as of this encounter (statuses as of 02/05/2025) Active Problems Problem Noted Date Diagnosed Date [...] depression 10/22/2023 Coronary artery disease invo lving [place] coronary artery of [place] heart without angina pectoris 10/22/2023 Impotence of organic origin 06/20/2011 Esophageal reflux 06/01/2011 HTN, goal below 140/90 06/01/2011 documented as of this encounter (statuses as of 02/05/2025) Immunizations Name Administration Dates Next Due Pneumococcal [...] No 04/16/2024 Does the household have a [facility] source [facility] income? (Household - for [...] encounter Miscellaneous Notes * Telephone Encounter - Francisca Gannon LPN - 02/05/2025 9:24 AM EDT Pt notified via message left on his personal vm. * Addendum Note - Darwin Doyle MD - 02/04/2025 4:19 PM EDTAddended by: DARWIN DOYLE on: 02/04/2025 04:19 PM Modules accepted: Orders * Telephone Encounter - Darwin Doyle MD - 02/04/2025 4:19 PM EDT Z-Seamus and Medrol D[facility]pak [facility] * Telephone Encounter - Madeline Jolly [...] 11:40 AM EDT Office Visit Family Medicine [address] [place] [phone] Narcisa Ordonez MD [address] [place] [address] [place] [address] 03/16/2025 10:00 AM EDT Office Visit Pulmonary Medicine, [facility] [address] [place] [phone] Darwin Doyle MD [address] [facility] [place] [address] 03/24/2025 11:20 AM EDT Office Visit Family Medicine [address] [place] [phone] Narcisa Ordonez MD [address] [place] [address] [place] [address] 02/21/2026 10:30 AM EDT Imaging Radiology [facility] [address] [facility] [place] [address] [place] [...] filedocumented as of this encounter Care Teams Telegraph Operator Relationship Specialty Start Date End Date Narcisa Ordonez MD [address] [place] [address] [place] [phone] PCP - General Family Medicine 10/25/23 documented as of this encounter
--- OUTSIDE RECORDS SUMMARY | 2025-02-07 10:57 | External Medical Summary | Summary of Care ---
Author Name Unknown Organization [facility] Address [address] [facility] [place] [address] Phone [phone] Care Team Providers Care Learning And Development Specialist Name Role Phone Narcisa Ordonez MD Primary Care Prov ider Reason for Visit * Reason Onset Date Comments Advice 02/04/2025 Encounter Details Date Type Department Care Team (Late st Contact Info) Description 02/04/2025 Telephone Pulmonary Medicine, [facility] [address] [place] [address] Services, Scheduling [address] [facility] [place] [address] Advice Allergies Active Allergy Reactions Criticality Noted [...] 0.1 % Nasal Solution (Astelin) Administer 1 [place] into nostril in the morning and 1 [place] before bedtime. 30 mL 12 3 Active Fluticasone Propionate 50 MCG/ACT Nasal Suspension (Flonase Allergy Relief) Administer 1 [place] into nostril in the morning. Active Gabapentin [...] goal of less than 7.0% ([facility]),Hyperlipidem ia with target LDL less than 70,Coronary artery disease involving [place] coronary artery of [place] heart without angina pectoris,HTN, goal below 140/90 Inject 7.5 mg under the skin once a week. 2 mL 11 4 025 Active predniSONE 20 MG Oral Tablet (Deltasone)Indicat ions:COPD exacerbation ([facility]) 1 tab 3 times a day [...] depression 10/22/2023 Coronary artery disease invo lving [place] coronary artery of [place] heart without angina pectoris 10/22/2023 Impotence of [...] No 04/16/2024 Does the household have a [facility] source [facility]? (Household - for [...] and Medrol Dosepak prescription was submitted to [facility] pharmacy. * Telephone Encounter - Madeline Jolly [...] 11:40 AM EDT Office Visit Family Medicine [address] [phone] Narcisa Ordonez MD [address] [place] [address] [place] [address] 03/16/2025 10:00 AM EDT Office Visit Pulmonary Medicine, [facility] [address] [place] [phone] Darwin Doyle [facility] [place] [address] 03/24/2025 11:20 AM EDT Office Visit Family Medicine [address] [phone] Narcisa Ordonez MD [address] [place] [address] [place] [address] 02/21/2026 10:30 AM EDT Imaging Radiology [facility]st [facility] [place] [address] [place] [...] filedocumented as of this encounter Care Teams Learning And Development Specialist Relationship Specialty Start Date End Date Narcisa Ordonez MD [address] [place] [address] [place] [address] PCP - General Family Medicine 10/25/23 documented as of this encounter
--- OUTSIDE RECORDS SUMMARY | 2025-02-07 10:57 | External Medical Summary | Summary of Care ---
Author Name Unknown Organization [facility] Address [address] [facility] [place] [address] Phone [phone] Care Team Providers Care Poultry Process Worker Name Role Phone Narcisa Ordonez MD Primary Care Prov ider Reason for Visit * Reason Comments eRx-Medication Refill Encounter Details Date Type Department Care Team (Late st Contact Info) Description 01/19/2025 Refill Family Medicine [address] [place] [phone] Huber Squires [address] [place] [address] Allergies Active Allergy Reactions Criticality Noted Date Comments Lisinopril 04/15/2024 Not allergic but had CARMENCITA due to combination dehydration/ lisinopril/ mobic documented as of this encounter (statuses as of 01/21/2025) Medications MULTIVITAL PO TABS 1 tablet daily Active VITAMIN B COMPLEX PO CAPS 1 tablet daily Active VITAMIN B-12 500 MCG PO TABS 1 tablet daily Active BUSPIRONE HCL 10 MG PO TABSIndications:A nxiety state,Adjustment disorder with depressed mood take two tablets once daily 180 Tab 3 08/07/20 12 Active Azelastine HCl 0.1 % Nasal Solution (Astelin) Administer 1 [place] into nostril in the morning and 1 [place] before bedtime. 30 mL 12 10/18/20 23 Active Fluticasone Propionate 50 MCG/ACT Nasal Suspension (Flonase Allergy Relief) Administer 1 [place] into nostril in the morning. Active Gabapentin 400 MG Oral Capsule (Neurontin)Indica tions:Chronic pain of both knees Take 1 Capsule by mouth in the morning and 1 Capsule at noon and 1 Capsule before bedtime. 270 Capsule 3 05/27/20 24 Active Baclofen 20 MG Oral TabletIndications :Chronic pain of both knees Take 1 Tablet by mouth 2 times a day as needed for Pain. 180 Tablet 3 05/27/20 24 Active Lisinopril 40 MG Oral TabletIndications :HTN, goal below 140/90 Take 1 Tablet by mouth in the morning. 90 Tablet 3 07/22/20 24 Active Vitamin D3 50 MCG (2000 UT) Oral Capsule Take 1 Capsule by mouth in the morning. 07/22/20 24 Active amLODIPine Besylate 5 MG Oral Tablet (Norvasc)Indicati ons:HTN, goal below 140/90 Take 1 Tablet by mouth in the morning. 90 Tablet 1 09/11/20 24 Active Albuterol Sulfate HFA 108 (90 Base) MCG/ACT Inhalation Aerosol SolutionIndicatio ns:Pulmonary emphysema, unspecified emphysema type (HCC) Inhale 2 Puffs by mouth every 4 hours as needed for Wheezing. 54 g 5 09/14/20 24 2024 Active Trelegy Ellipta 100-62.5-25 MCG/ACT Aerosol Powder Breath Activated (Fluticasone-Umec lidinium-Vilanter ol)Indications:Pu lmonary emphysema, unspecified emphysema type (HCC) Inhale 1 Puff by mouth in the morning. 180 Blister Dosing Unit 5 09/14/20 24 2025 Active FLUoxetine HCl 40 MG Oral Capsule [...] 24 Active Meloxicam 7.5 MG Oral Tablet (Mobic)Indication s:Primary osteoarthritis of both knees Take 1 Tablet by mouth in the morning. for pain.. 90 Tablet 3 10/14/20 24 Active Pantoprazole Sodium 40 MG Oral Tablet Delayed Release (Protonix) Take 1 Tablet by mouth in the morning. 90 Tablet 3 10/14/20 24 Active Sildenafil Citrate 100 MG Oral Tablet (Viagra)Indicatio ns:Impotence of organic origin Take 1 Tablet by mouth as needed for Erectile Dysfunction. One pill by mouth 1-4 hours before intercourse, no more than 1 dose in 24 hours. 30 Tablet 5 10/23/20 24 Active Mounjaro 7.5 MG/0.5ML Subcutaneous Solution Auto-injector (Tirzepatide)Deepa cations:Chronic pain of both knees,Type 2 diabetes mellitus with hemoglobin A1c goal of less than 7.0% (HCC),Hyperlipide corrine with target LDL less than 70,Coronary artery disease involving [place] coronary artery of [place] heart without angina pectoris,HTN, goal below 140/90 Inject 7.5 mg under the skin once a week. 2 mL 11 11/03/20 24 2024 Active Amoxicillin-Pot Clavulanate 875-125 MG Oral Tablet (Augmentin)Indica tions:COPD exacerbation (HCC),Pneumonia of left lower lobe due to infectious organism Take 1 Tablet by mouth in the morning and 1 Tablet before bedtime. Do all this for 10 days. 20 Tablet 01/14/20 25 2024 Active predniSONE 20 MG Oral Tablet (Deltasone)Indica tions:COPD exacerbation (HCC) 1 tab 3 times a day for 3 days, then 1 tab 2 times a day for 3 days, then 1 tab daily for 3 days 18 Tablet 01/14/20 25 Active Clopidogrel Bisulfate 75 MG Oral Tablet (pLAVix) Take 1 Tablet by mouth in the morning. 30 Tablet 5 01/19/20 25 Active Nortriptyline HCl 25 MG Oral Capsule (Pamelor) take 2 capsules by mouth at bedtime 60 Capsule 5 01/22/20 25 Active Nortriptyline HCl 25 MG Oral Capsule (Pamelor) Take 2 Capsules by mouth at bedtime. 60 Capsule 2 10/23/20 24 2024 Discontinued Hospital, Clinic, or Other Facility Administered Medication [...] as of this encounter (statuses as of 01/21/2025) Active Problems Problem Noted Date Diagnosed Date [...] depression 10/22/2023 Coronary artery disease invo lving [place] coronary artery of [place] heart without angina pectoris 10/22/2023 Impotence of organic origin 06/20/2011 Esophageal reflux 06/01/2011 HTN, goal below 140/90 06/01/2011 documented as of this encounter (statuses as of 01/21/2025) Immunizations Name Administration Dates Next Due Pneumococcal [...] No 04/16/2024 Does the household have a [facility] income? (Household - for ages [...] encounter Miscellaneous Notes * Telephone Encounter - Sudha Vila MD - 01/21/2025 9:12 AM EDTSigned Prescriptions: Disp Refills Nortriptyline HCl 25 MG Oral Capsule (Hilaria*60 Cap*5 Sig: take 2 capsules by mouth at bedtime Authorizing Provider: SUDHA VILA * Telephone Encounter - Shana Chacon [facility] - 01/20/2025 3:33 PM EDTPending Prescriptions: Disp Refills Nortriptyline HCl 25 MG Oral Capsule (Hilaria*60 Cap*5 Sig: take 2 capsules by mouth at bedtime * Telephone Encounter - Shana Chacon [facility] - 01/20/2025 3:32 PM EDT Please approve if patient is to continue. Did you pend patient's preferred pharmacy and medication before forwarding?yes Pharmacy: [id number] [address] [place] [address] Pending Prescriptions: Disp Refills Nortriptyline HCl 25 MG Oral Capsule (Magdalena*60 Cap*5 Sig: take 2 capsules by mouth at bedtime Last Visit: 01/13/2025 (in office), Visit date not found (telemedicine) Next Visit: 03/10/2025 If no future appointments scheduled, and last appointment is greater than a year ago, please schedule patient for a follow-up appointment Last date the medication was ordered: 10/23/24 Is this request for a controlled substance?No Urine Drug Screen:No results found for this or any previous visit. Patient Phone Numbers Labs: Lab Results Component Value Date/Time CREAT 1.2 09/10/2024 10:04 AM CREAT 1.25 01/30/2024 12:00 AM CREAT 0.8 03/26/2001 12:15 PM POTASSIUM 4.5 09/10/2024 10:04 AM POTASSIUM 5.1 01/30/2024 12:00 AM POTASSIUM 4.6 03/26/2001 12:15 PM TSH 1.32 10/03/2001 08:15 AM LDL 69 04/09/2024 12:41 PM LDL 68 01/30/2024 12:00 AM LDL 133 (H) 04/30/2002 12:54 PM LDLCALC 59.20 01/30/2024 12:00 AM LDLCALC 56 08/29/2021 11:55 AM ALT 18 04/09/2024 12:41 PM ALT 20 04/30/2002 12:54 PM ALT 16 (L) 10/28/1996 12:20 PM HGBA1C 6.2 (H) 04/27/2024 10:38 AM HGBA1C 6.2 (A) 01/30/2024 12:00 AM HGBA1C 6.6 08/29/2021 11:55 AM documented in this encounter Plan of Treatment Upcoming Encounters Date Type Department Care Team (Late st Contact Info) Description 03/10/2025 11:40 AM EDT Office Visit Family [address] [phone] Narcisa Ordonez MD [address] [place] [address] [place] [address] 03/16/2025 10:00 AM EDT Office Visit Pulmonary Medicine, [facility] [address] [facility] [place] [phone] Darwin Hernandez MD [address] [place], [place] [address] [address] 03/24/2025 11:20 AM EDT Office Visit Family Medicine [address] [phone] Narcisa Ordonez MD [address] [place] [address] [place] [address] 02/21/2026 10:30 AM EDT Imaging Radiology [facility] 1st [facility] [place] [address] [place] [phone] Health [...] filedocumented as of this encounter Care Teams Poultry Process Worker Relationship Specialty Start Date End Date Narcisa Ordonez MD [address] [place] [address] [place] [phone] PCP - General Family Medicine 10/25/23 documented as of this encounter
--- OUTSIDE RECORDS SUMMARY | 2025-02-07 10:57 | External Medical Summary | Summary of Care ---
Author Name Unknown Organization [facility] Address [address] [facility] [place] [address] Phone [phone] Care Team Providers Care Pressure Washer Name Role Phone Narcisa Ordonez MD Primary Care Prov ider Reason for Visit * Reason Onset Date Comments Advice 02/04/2025 Encounter Details Date Type Department Care Team (Late st Contact Info) Description 02/04/2025 Telephone Pulmonary Medicine, [facility] 132 [place] [address] Services, Scheduling [address] [facility] [place] [address] Advice Allergies Active Allergy Reactions Criticality Noted [...] 0.1 % Nasal Solution (Astelin) Administer 1 [place] into nostril in the morning and 1 [place] before bedtime. 30 mL 12 3 Active Fluticasone Propionate 50 MCG/ACT Nasal Suspension (Flonase Allergy Relief) Administer 1 [place] into nostril in the morning. Active Gabapentin [...] hemoglobin A1c goal of less than 7.0% ([facility]),Hyperlipidem ia with target LDL less than 70,Coronary artery disease involving [place] coronary artery of [place] heart without angina pectoris,HTN, goal below 140/90 Inject 7.5 mg under the skin once a week. 2 mL 11 4 025 Active predniSONE 20 MG Oral Tablet (Deltasone)Indicat ions:COPD exacerbation ([facility]) 1 tab 3 times a day [...] depression 10/22/2023 Coronary artery disease invo lving [place] coronary artery of [place] heart without angina pectoris 10/22/2023 Impotence of [...] No 04/16/2024 Does the household have a [facility] source [facility]? (Household - for ages [...] and Medrol Dosepak prescription was submitted to [facility]. * Telephone Encounter - Madeline Jolly OSA - 02/04/2025 3:28 PM EDT Patient calling stating that he was told would need to have a script placed to have the prednisone, and amoxicillin on hand, and she stated that [...] 11:40 AM EDT Office Visit Family Medicine [address] [phone] Narcisa Ordonez MD [address] [place] [address] [place] [address] 03/16/2025 10:00 AM EDT Office Visit Pulmonary Medicine, [facility] [address] [place] [phone] Darwin Doyle MD [facility] [place] [address] 03/24/2025 11:20 AM EDT Office Visit Family Medicine [address] [phone] Narcisa Ordonez MD [address] [place] [address] [place] [address] 02/21/2026 10:30 AM EDT Imaging Radiology [facility] 1st [facility] [address] [place] [...] filedocumented as of this encounter Care Teams Pressure Washer Relationship Specialty Start Date End Date Narcisa Ordonez MD [address] [place] [address] [place] [id number] PCP - General Family Medicine 10/25/23 documented as of this encounter
--- OUTSIDE RECORDS SUMMARY | 2025-02-07 10:58 | External Medical Summary | Summary of Care ---
Author Name Unknown Organization [facility] Address [address] [facility] [place] [address] Phone [phone] Care Team Providers Care Special Education Tutor Name Role Phone Narcisa Ordonez MD Primary Care Prov ider Reason for Visit * Reason Onset Date Comments Med Request 12/22/2024 Encounter Details Date Type Department Care Team (Late st Contact Info) Description 12/22/2024 Telephone Family Medicine [address] [phone] Narcisa Ordonez MD [address] [place] [address] [place] [address] Med Request Allergies Active Allergy Reactions Criticality Noted Date Comments Lisinopril 04/15/2024 Not allergic but had CARMENCITA due to combination dehydration/ lisinopril/ mobic documented as of this encounter (statuses as of 12/23/2024) Medications MULTIVITAL PO TABS 1 tablet daily [...] 0.1 % Nasal Solution (Astelin) Administer 1 [place] into nostril in the morning and 1 [place] before bedtime. 30 mL 12 10/18/20 23 Active Fluticasone Propionate 50 MCG/ACT Nasal Suspension (Flonase Allergy Relief) Administer 1 [place] into nostril in the morning. Active Magnesium [...] as of this encounter (statuses as of 12/23/2024) Active Problems Problem Noted Date Diagnosed Date [...] as of this encounter (statuses as of 12/23/2024) Immunizations Name Administration Dates Next Due Pneumococcal [...] encounter Miscellaneous Notes * Telephone Encounter - Amy Merlos RN - 12/22/2024 4:00 PM EST Meds were already sent * Telephone Encounter - Alyssa Owens PHARM Tech - 12/22/2024 11:59 AM EST Patient stated he may need a stronger dosage of the Prednisone for his COPD. Patient would like to know can the doctor send over a script to [facility][id number] Thank you, Alyssa Owens Digital Court Reporter [facility] 12/22/2024, 12:00 PM documented in this encounter Plan of Treatment Upcoming Encounters Date Type Department Care Team (Late st Contact Info) Description 03/16/2025 10:00 AM EDT Office Visit Pulmonary Medicine, [facility] 132 [facility] [place] [address] Darwin Hernandez MD [address] [place], [place] [address] [address] 03/24/2025 11:20 AM EDT Office Visit Family Medicine [address] [phone] Narcisa Ordonez MD [address] [place] [address] [place] [address] 02/21/2026 10:30 AM EDT Imaging Radiology [address] [place] [phone] Health Maintenance Due Date Last Done Comments [...] filedocumented as of this encounter Care Teams Special Education Tutor Relationship Specialty Start Date End Date Narcisa Ordonez MD [address] [place] [address] [place] [phone] PCP - General Family Medicine 10/25/23 documented as of this encounter
--- OUTSIDE RECORDS SUMMARY | 2025-02-07 10:58 | External Medical Summary | Summary of Care ---
Author Name Unknown Organization [facility] Address [address] [facility] [place] [address] Phone [phone] Care Team Providers Care Bulk Tank Driver Name Role Phone Narcisa Ordonez MD Primary Care Prov ider Reason for Visit * Reason Onset Date Comments Med Request 12/22/2024 Encounter Details Date Type Department Care Team (Late st Contact Info) Description 12/22/2024 Telephone Family Medicine [address] [phone] Narcisa Ordonez MD [address] [place] [address] [place] [address] Med Request Allergies Active Allergy Reactions [...] 0.1 % Nasal Solution (Astelin) Administer 1 [place] into nostril in the morning and 1 [place] before bedtime. 30 mL 12 10/18/20 23 Active Fluticasone Propionate 50 MCG/ACT Nasal Suspension (Flonase Allergy Relief) Administer 1 [place] into nostril in the morning. Active Magnesium [...] LDL less than 70,Coronary artery disease involving [place] coronary artery of [place] heart without angina pectoris,HTN, goal below 140/90 [...] depression 10/22/2023 Coronary artery disease invo lving [place] coronary artery of [place] heart without angina pectoris 10/22/2023 Impotence of [...] Telephone Encounter - Amy Merlos RN - 01/11/2025 4:39 PM EST Appt given for Wed * Telephone Encounter - Holli Awad PHARM Tech - 01/11/2025 3:53 PM EST Pt calling in to advise that the medications currently prescribed are not working for him. Pt stated that neither the antibiotic or med pack are working effectively. Pt stated that he is suffering from a flare up, his throat is coarse and he is coughing up green mucus. Pt requesting if something else can be prescribed, and pt advised that this keeps happening often. Pt wondering if any other testing or things can be done for this issue. [id number]. Pt call back is [phone] Thank you, Holli Awad Commissioned Police Officer [facility] 01/11/2025,4:00 PM * Telephone Encounter - Amy Merlos RN - 12/22/2024 4:00 PM EST Meds were already sent * Telephone Encounter - Alyssa Owens PHARM Tech - 12/22/2024 11:59 AM EST Patient stated he may need a stronger dosage of the Prednisone for his COPD. Patient would like to know can the doctor send over a script to [id number] [place] Thank you, Alyssa Owens Commissioned Police Officer [facility] 12/22/2024, 12:00 PM documented in this encounter Plan of Treatment Upcoming Encounters Date Type Department Care Team (Late st Contact Info) Description 01/13/2025 3:00 PM EST Office Visit [address] [phone] Narcisa Ordonez MD [address] [place] [address] [place] [address] 03/16/2025 10:00 AM EDT Office Visit Pulmonary Medicine, [facility] [address] [place] [address] Darwin Hernandez MD [address] [facility] [address] 03/24/2025 11:20 AM EDT Office Visit Family Medicine [address] [place] [phone] Narcisa Ordonez MD [address] [place] [address] [place] [address] 02/21/2026 10:30 AM EDT Imaging Radiology [facility] 1st [facility] [address] [place] [phone] Health Maintenance Due Date Last Done Comments [...] filedocumented as of this encounter Care Teams Bulk Tank Driver Relationship Specialty Start Date End Date Narcisa Ordonez MD [address] [place] [address] [place] [phone] PCP - General Family Medicine 10/25/23 documented as of this encounter
--- OUTSIDE RECORDS SUMMARY | 2025-02-07 10:58 | External Medical Summary | Summary of Care ---
Author Name Unknown Organization [facility] Address [address] [facility] [place] [address] Phone [phone] Care Team Providers Care Api Developer Name Role Phone Narcisa Ordonez MD Primary Care Prov ider Reason for Visit * Reason Onset Date Comments Fax 12/11/2024 Encounter Details Date Type Department Care Team (Late st Contact Info) Description 12/11/2024 Telephone Family Medicine [address] [phone] Narcisa Ordonez MD [address] [place] [address] [place] [address] Fax Allergies Active Allergy Reactions Criticality Noted Date Comments Lisinopril 04/15/2024 Not allergic but had CARMENCITA due to combination dehydration/ lisinopril/ mobic documented as of this encounter (statuses as of 12/11/2024) Medications MULTIVITAL PO TABS 1 tablet daily [...] 0.1 % Nasal Solution (Astelin) Administer 1 [place] into nostril in the morning and 1 [place] before bedtime. 30 mL 12 10/18/20 23 Active Fluticasone Propionate 50 MCG/ACT Nasal Suspension (Flonase Allergy Relief) Administer 1 [place] into nostril in the morning. Active Magnesium [...] morning. 90 Tablet 3 10/14/20 24 Active Doxycycline Hyclate 100 MG Oral CapsuleIndications :Bronchitis, complicated Take 1 Capsule by mouth in the morning and 1 Capsule before bedtime. until gone. Rescue kit. 20 Capsule 10/23/20 24 Active methylPREDNISolone 4 MG Oral Tablet Therapy Pack (Medrol Dosepack)Indicatio ns:Bronchitis, complicated follow package directions 21 Tablet 10/23/20 24 Active Nortriptyline HCl 25 MG Oral [...] LDL less than 70,Coronary artery disease involving [place] coronary artery of [place] heart without angina pectoris,HTN, goal below 140/90 Inject 7.5 mg under the skin once a week. 2 mL 11 11/03/20 24 025 Active Hospital, Clinic, or Other Facility Administered [...] as of this encounter (statuses as of 12/11/2024) Active Problems Problem Noted Date Diagnosed Date Chronic pain of both knees 05/27/2024 Pulmonary emphysema 10/22/2023 Type 2 diabetes mellitus wit h hemoglobin A1c goal of less than 7.0% 10/22/2023 Hyperlipidemia with target LDL less than 70 10/11 History of tobacco abuse 10/22/2023 Bipolar depression 10/22/2023 Coronary artery disease invo lving [place] coronary artery of [place] heart without angina pectoris 10/22/2023 Impotence of organic origin 06/20/2011 Esophageal reflux 06/01/2011 HTN, goal below 140/90 06/01/2011 documented as of this encounter (statuses as of 12/11/2024) Immunizations Name Administration Dates Next Due Pneumococcal [...] ages 0-17 years) Not on file 04/16/2024 Sex and Gender Information Value Date Recorded Sex Assigned at Not on file Legal Sex Male 5:00 AM EST Gender Identity Not on file Sexual Orientation Not on file Occupation Industry Job Start Date Job End Date retired. - [employer] 18 years. Not on file Not on file Not on file documented as of this encounter Miscellaneous Notes * Telephone Encounter - Luis Nicole OSA - 12/11/2024 10:44 AM EST I faxed 04/09/24 lab results to the fax # provided in message. * Telephone Encounter - Cami Sexton OSA - 12/11/2024 9:36 AM EST Caller requesting the following information to be faxed: Name/Company of caller: [employer] Information requested to be faxed:04/09/24 Lipid panel results Fax number: [phone] Attention to Name/Company: n/a Any additional information?: n/a documented in this encounter Plan of Treatment Upcoming Encounters Date Type Department Care Team (Late st Contact Info) Description 03/16/2025 10:00 AM EDT Office Visit Pulmonary Medicine, [facility] [address] [facility] [place] [address] Darwin Hernandez MD [address] [facility] [place] [address] 03/24/2025 11:20 AM EDT Office Visit Family Medicine [address] [phone] Narcisa Ordonez MD [address] [place] [address] [place] [address] 02/21/2026 10:30 AM EDT Imaging Radiology [address] 132 [facility] [place] [phone] Health Maintenance Due Date Last Done Comments Cologuard 2006 Fecal Occult Blood Test 2006 Sigmoidoscopy 2006 Pneumococcal Vaccine: 50+ Years (3 of 3 - PCV20 or PCV21) 08/09/2021 08/09/2016, 04/28/2014, 04/28/2014 COVID-19 Vaccine ( - season) 2024 Influenza Vaccine (FLU shot) (#1) 2024 10/15/2023, 10/15/2023 HbA1c 10/27/2024 04/27/2024, 03/13, 01/30/2024, Additional history exists Albumin/Creatinine Ratio 04/09/2025 04/09/2024, 03/11/2023 Diabetic Eye Exam 04/27/2025 04/27/2024 Diabetic Foot [...] filedocumented as of this encounter Care Teams Api Developer Relationship Specialty Start Date End Date Narcisa Ordonez MD [address] [place] [address] [place] [phone] PCP - General Family Medicine 10/25/23 documented as of this encounter
--- OUTSIDE RECORDS SUMMARY | 2025-02-07 10:58 | External Medical Summary | Summary of Care ---
Author Name Unknown Organization [facility] Address [address] [facility] [place] [address] Phone [phone] Care Team Providers Care Head Stock Operator Name Role Phone Narcisa Ordonez MD Primary Care Prov ider Reason for Visit * Reason Onset Date Comments Med Request 10/29/2024 Encounter Details Date Type Department Care Team (Late st Contact Info) Description 10/29/2024 Telephone Family Medicine [address] [phone] Narcisa Ordonez MD [address] [place] [address] [place] [address] Med Request Allergies Active Allergy Reactions Criticality Noted Date Comments Lisinopril 04/15/2024 Not allergic but had CARMENCITA due to combination dehydration/ lisinopril/ mobic documented as of this encounter (statuses as of 11/03/2024) Medications MULTIVITAL PO TABS 1 tablet daily [...] 0.1 % Nasal Solution (Astelin) Administer 1 [place] into nostril in the morning and 1 [place] before bedtime. 30 mL 12 10/18/20 23 Active Fluticasone Propionate 50 MCG/ACT Nasal Suspension (Flonase Allergy Relief) Administer 1 [place] into nostril in the morning. Active Magnesium [...] LDL less than 70,Coronary artery disease involving [place] coronary artery of [place] heart without angina pectoris,HTN, goal below 140/90 [...] as of this encounter (statuses as of 11/03/2024) Active Problems Problem Noted Date Diagnosed Date Chronic pain of both knees 05/27/2024 Pulmonary emphysema 10/22/2023 Type 2 diabetes mellitus wit h hemoglobin A1c goal of less than 7.0% 10/22/2023 Hyperlipidemia with target LDL less than 70 10/11 History of tobacco abuse 10/22/2023 Bipolar depression 10/22/2023 Coronary artery disease invo lving [place] coronary artery of [place] heart without angina pectoris 10/22/2023 Impotence of organic origin 06/20/2011 Esophageal reflux 06/01/2011 HTN, goal below 140/90 06/01/2011 documented as of this encounter (statuses as of 11/03/2024) Immunizations Name Administration Dates Next Due Pneumococcal [...] Start Date Job End Date retired. - [employer] 18 years. Not on file Not on file Not on file documented as of this encounter Miscellaneous Notes * Telephone Encounter - Patience Ellis, manual lathe machinist - 10/29/2024 8:35 AM EST Phamracy called asking what dose of the Mounjaro pt should be on , according to them it should be 7.5, they would like to confirm the dosage and have a new script sent over for the correct one pleaseadvise Thank you, Patience Ellis,dishwasher Flavorings Compounder II [facility] 10/29/2024, 8:36 AM documented in this encounter Plan of Treatment Upcoming Encounters Date Type Department Care Team (Late st Contact Info) Description 03/16/2025 10:20 AM EDT Office Visit Pulmonary Medicine, [facility] [address] [facility] [place] [address] Darwin Hernandez MD [facility] [place] [facility] [place] [address] 03/24/2025 11:20 AM EDT Office Visit Family Medicine [address] [place] [phone] Narcisa Ordonez MD [address] [place] [address] [place] [address] 02/21/2026 10:30 AM EDT Imaging Radiology [address] 132 [facility] [place] [address] Health Maintenance Due Date Last Done Comments Cologuard 2006 Colonoscopy 2006 Colorectal Cancer Screening 2006 Fecal Occult Blood Test 2006 Sigmoidoscopy 2006 Pneumococcal Vaccine: Pediatrics (0 to 5 Years) and At-Risk Patients (6 to 64 Years) (3 of 3 - PCV20 or PCV21) [...] 04/28/2014 Zoster Vaccines Completed 01/10/2021, 09/11, 08/09/2016 Lung [...] of this encounter Visit Diagnoses Diagnosis Chronic pain of both knees- Primary Type 2 diabetes mellitus with hemoglobin A1c goal of less than 7.0% (HCC) Hyperlipidemia with target LDL less than 70 Other and unspecified hyperlipidemia Coronary artery disease involving [place] coronary artery of [place] heart without angina pectoris HTN, goal below 140/90 Unspecified essential hypertension documented in this encounter Care Teams Head Stock Operator Relationship Specialty Start Date End Date Narcisa Ordonez MD [address] [place] [address] [place] [address] PCP - General Family Medicine 10/25/23 documented as of this encounter
--- OUTSIDE RECORDS SUMMARY | 2025-02-07 10:58 | External Medical Summary | Summary of Care ---
Author Name Unknown Organization [facility] Address [address] [facility] [place] [address] Phone [phone] Care Team Providers Care Track Laying Machine Operator Name Role Phone Narcisa Ordonez MD Primary Care Prov ider Encounter Details Date Type Department Care Team (Late st Contact Info) Description 11/17/2024 Orders Only Family Medicine [address] [phone] Huber Squires [address] [place] [address] Allergies Active Allergy Reactions Criticality Noted Date Comments Lisinopril 04/15/2024 Not allergic but had CARMENCITA due to combination dehydration/ lisinopril/ mobic documented as of this encounter (statuses as of 11/17/2024) Medications MULTIVITAL PO TABS 1 tablet daily [...] 0.1 % Nasal Solution (Astelin) Administer 1 [place] into nostril in the morning and 1 [place] before bedtime. 30 mL 12 10/18/20 23 Active Fluticasone Propionate 50 MCG/ACT Nasal Suspension (Flonase Allergy Relief) Administer 1 [place] into nostril in the morning. Active Magnesium [...] LDL less than 70,Coronary artery disease involving [place] coronary artery of [place] heart without angina pectoris,HTN, goal below 140/90 [...] as of this encounter (statuses as of 11/17/2024) Active Problems Problem Noted Date Diagnosed Date Chronic pain of both knees 05/27/2024 Pulmonary emphysema 10/22/2023 Type 2 diabetes mellitus wit h hemoglobin A1c goal of less than 7.0% 10/22/2023 Hyperlipidemia with target LDL less than 70 10/11 History of tobacco abuse 10/22/2023 Bipolar depression 10/22/2023 Coronary artery disease invo lving [place] coronary artery of [place] heart without angina pectoris 10/22/2023 Impotence of organic origin 06/20/2011 Esophageal reflux 06/01/2011 HTN, goal below 140/90 06/01/2011 documented as of this encounter (statuses as of 11/17/2024) Immunizations Name Administration Dates Next Due Pneumococcal [...] Start Date Job End Date retired. - [employer] 18 years. Not on file Not on file Not on file documented as of this encounter Plan of Treatment Upcoming Encounters Date Type Department Care Team (Late st Contact Info) Description 03/16/2025 10:20 AM EDT Office Visit Pulmonary Medicine, [facility] [address] [facility] [place] [address] Darwin Hernandez MD [address] [place] [phone] 03/24/2025 11:20 AM EDT Office Visit Family Medicine [address] [place] [phone] Narcisa Ordonez MD [address] [place] [address] [place] [address] 02/21/2026 10:30 AM EDT Imaging Radiology [address], [place] [address] [facility] [place] [address] Health Maintenance Due Date Last Done Comments Cologuard 2006 Colonoscopy 2006 08/15/2023 Colorectal Cancer Screening 2006 Fecal Occult Blood [...] Procedure Name Priority Date/Time Associated Diagnosis Comments COLONOSCOPY, OUTSIDE PROCEDURE Routine 08/15/2023 documented in this encounter Results * COLONOSCOPY, OUTSIDE PROCEDURE (08/15/2023) 08/15/2023 us History Per Patient GASTRO LOWER Final Result OUTSIDE LAB (SEE SCANNED REPORT) documented in this encounter Care Teams Track Laying Machine Operator Relationship Specialty Start Date End Date Narcisa Ordonez MD [address] [place] [address] [place] [phone] PCP - General Family Medicine 10/25/23 documented as of this encounter
--- OUTSIDE RECORDS SUMMARY | 2025-02-07 10:58 | External Medical Summary | Summary of Care ---
Author Name Unknown Organization [facility] Address [address] [facility] [place] [address] Phone [phone] Care Team Providers Care Acquisition Associate Name Role Phone Narcisa Ordonez MD Primary Care Prov ider Reason for Visit * Reason Onset Date Comments Med Request 10/15/2024 Encounter Details Date Type Department Care Team (Late st Contact Info) Description 10/15/2024 Telephone Pulmonary Medicine, [facility] 132 [facility] [place] [phone] Services, Scheduling [address] [place] [address] Med Request Allergies Active Allergy Reactions Criticality Noted Date Comments Lisinopril 04/15/2024 Not allergic but had CARMENCITA due to combination dehydration/ lisinopril/ mobic documented as of this encounter (statuses as of 10/16/2024) Medications MULTIVITAL PO TABS 1 tablet daily Active VITAMIN B COMPLEX PO CAPS 1 tablet daily Activ e VITAMIN B-12 500 MCG PO TABS 1 tablet daily Act nancy VIAGRA 100 MG PO TABSIndications:Im potence of organic origin One pill by mouth 1-4 hours before intercourse, no more than 1 dose in 24 hours. 30 Tab 5 05/26/20 12 Active BUSPIRONE HCL 10 MG PO TABSIndications:An xiety state,Adjustment disorder with depressed mood take two tablets once daily 180 Tab 3 08/07/20 12 Active Budesonide 0.5 MG/2ML Inhalation Suspension (Pulmicort) As directed in nasal rinse twice a day 120 mL 12 10/18/20 23 Active Azelastine HCl 0.1 % Nasal Solution (Astelin) Administer 1 [place] into nostril in the morning and 1 [place] before bedtime. 30 mL 12 10/18/20 23 Active Fluticasone Propionate 50 MCG/ACT Nasal Suspension (Flonase Allergy Relief) Administer 1 [place] into nostril in the morning. Active Magnesium 400 MG Oral Tablet Take by mouth. Act nancy Nortriptyline HCl 25 MG Oral Capsule (Pamelor) Take 1 Capsule by mouth at bedtime. 2 tabs daily Active Tamsulosin HCl 0.4 MG Oral Capsule [...] morning. 90 Tablet 3 10/14/20 24 Active Pantoprazole Sodium 40 MG Oral Tablet Delayed Release (Protonix) Take 1 Tablet by mouth in the morning. 90 Tablet 1 10/15/20 24 Active methylPREDNISolone 4 MG Oral Tablet Therapy Pack (Medrol Dosepack) follow package directions 21 Tablet 10/16/20 24 Active Doxycycline Hyclate 100 MG Oral Capsule Take 1 Capsule by mouth in the morning and 1 Capsule before bedtime. until gone. Rescue kit. 20 Capsule 10/16/20 24 Active methylPREDNISolone 4 MG Oral Tablet Therapy Pack (Medrol Dosepack) follow package directions 21 Tablet 09/14/20 24 024 Discontin ued(Refil l) Hospital, Clinic, or Other Facility Administered Medication [...] as of this encounter (statuses as of 10/16/2024) Active Problems Problem Noted Date Diagnosed Date Chronic pain of both knees 05/27/2024 Pulmonary emphysema 10/22/2023 Type 2 diabetes mellitus wit h hemoglobin A1c goal of less than 7.0% 10/22/2023 Hyperlipidemia with target LDL less than 70 10/11 History of tobacco abuse 10/22/2023 Bipolar depression 10/22/2023 Coronary artery disease invo lving [place] coronary artery of [place] heart without angina pectoris 10/22/2023 Impotence of organic origin 06/20/2011 Esophageal reflux 06/01/2011 HTN, goal below 140/90 06/01/2011 documented as of this encounter (statuses as of 10/16/2024) Immunizations Name Administration Dates Next Due Pneumococcal [...] Start Date Job End Date retired. - [employer] 18 years. Not on file Not on file Not on file documented as of this encounter Miscellaneous Notes * Telephone Encounter - Francisca Haddad LPN - 10/16/2024 11:[address] Doyle: Rescue Pack Refill ordered. Pt aware. He will call if he becomes symptomatic and starts the rescue pack. * Addendum Note - Darwin Doyle MD - 10/16/2024 11:37 AM ESTAddended by: DARWIN DOYLE on: 10/16/2024 11:37 AM Modules accepted: Orders * Addendum Note - Francisca Haddad LPN - 10/16/2024 7:57 AM ESTAddended by: FRANCISCA HADDAD on: 10/16/2024 07:57 AM Modules accepted: Orders * Telephone Encounter - Francisca Haddad LPN - 10/16/2024 7:54 AM EST Pt is requesting refill of his rescue kit. It was last filled 09/14/24. I clarified with the pt-he is not currently ill, just wanting to have the rescue kit available. * Telephone Encounter - Gloria Dewitt OSA - 10/15/2024 4:08 PM EST Pt is needing a script for his Doxycycline 100 Mg tablets and the methylPREDNISolone 4 MG Oral Tablet Thera*21 Tab this will need to go to the [facility] [place]. documented in this encounter Plan of Treatment Upcoming Encounters Date Type Department Care Team (Late st Contact Info) Description 10/23/2024 10:20 AM EST Office Visit Family [address] [phone] Huber Squires CRNP [address] [place] [address] [place] [address] 03/16/2025 10:20 AM EDT Office Visit Pulmonary Medicine, [facility] 132 [facility] [place] [address] Darwin Doyle MD [address] [facility] [phone] 03/24/2025 11:20 AM EDT Office Visit Family [address] [phone] Narcisa Ordonez MD [address] [place] [address] [place] [address] 02/21/2026 10:30 AM EDT Imaging Radiology [address], [address] [place] [address] Health Maintenance Due Date Last Done Comments Cologuard 2006 Colonoscopy 2006 Colorectal Cancer Screening 2006 Fecal Occult Blood Test 2006 Sigmoidoscopy 2006 COVID-19 Vaccine ( season) 2024 Influenza Vaccine (FLU shot) (#1) 2024 10/15/2023, 10/15/2023 HbA1c 10/27/2024 04/27/2024, 03/13, 01/30/2024, Additional history exists Albumin/Creatinine Ratio 04/09/2025 04/09/2024, 01/10 Diabetic Eye Exam 04/27/2025 04/27/2024 Diabetic Foot Exam 05/27/2025 05/27/2024 GFR 09/10/2025 09/10/2024, 07/12, 05/26/2024, Additional history exists O2 ASSESSMENT COMPLETED IN PAST YEAR FOR COPD 09/14/2025 09/14/2024 Pneumococcal Vaccine: Pediatrics (0 to 5 Years) and At-Risk Patients (6 to 64 Years) (3 of 3 - PPSV23 or PCV20) 2026 08/09/2016, 04/28/2014, 04/28/2014 DTap/Tdap Vaccines (3 - Td or Tdap) [...] filedocumented as of this encounter Care Teams Acquisition Associate Relationship Specialty Start Date End Date Narcisa Ordonez MD [address] [place] [address] [place] [phone] PCP - General Family Medicine 10/25/23 documented as of this encounter
--- OUTSIDE RECORDS SUMMARY | 2025-02-07 10:58 | External Medical Summary | Summary of Care ---
Author Name Unknown Organization [facility] Address [address] [facility] [place] [address] Phone [phone] Care Team Providers Care Meal Cook Name Role Phone Narcisa Ordonez MD Primary Care Prov ider Reason for Visit * Reason Comments Re-Check Encounter Details Date Type Department Care Team (Latest Contact Info) Description 10/23/2024 10:20 AM EST Office Visit Family Medicine [address] [phone] Huber Squires [address] [place] [address] Type 2 diabetes mellitus with hemoglobin A1c goal of less than 7.0% ([facility])*; Bronchitis, complicated; HTN, goal below 140/90; Impotence of organic origin; Primary osteoarthritis of both knees Allergies Active Allergy Reactions Criticality Noted Date Comments Lisinopril 04/15/2024 Not allergic but had CARMENCITA due to combination dehydration/ lisinopril/ mobic documented as of this encounter (statuses as of 10/23/2024) Medications MULTIVITAL PO TABS 1 tablet daily Active VITAMIN B COMPLEX PO CAPS 1 tablet daily Activ e VITAMIN B-12 500 MCG PO TABS 1 tablet daily Act nancy BUSPIRONE HCL 10 MG PO TABSIndications:An xiety state,Adjustment disorder with depressed mood take two tablets once daily 180 Tab 3 09/27/20 12 Active Budesonide 0.5 MG/2ML Inhalation Suspension (Pulmicort) As directed in nasal rinse twice a day 120 mL 12 10/18/20 23 Active Additional Information Patient not taking.Reported on 10/23/2024 Azelastine HCl 0.1 % Nasal Solution (Astelin) Administer 1 [place] into nostril in the morning and 1 [place] before bedtime. 30 mL 12 10/18/20 23 Active Fluticasone Propionate 50 MCG/ACT Nasal Suspension (Flonase Allergy Relief) Administer 1 [place] into nostril in the morning. Active Magnesium [...] hours. 30 Tablet 5 10/23/20 24 Active VIAGRA 100 MG PO TABSIndications:Im potence of organic origin One pill by mouth 1-4 hours before intercourse, no more than 1 dose in 24 hours. 30 Tab 5 05/26/20 12 024 Discontin ued(Refil l) Nortriptyline HCl 25 MG Oral Capsule (Pamelor) Take 1 Capsule by mouth at bedtime. 2 tabs daily 024 Discontin ued(Refil l) Pantoprazole Sodium 40 MG Oral Tablet Delayed Release (Protonix) Take 1 Tablet by mouth in the morning. 90 Tablet 1 10/15/20 24 Discontin ued(Medic ation List Clean Up) methylPREDNISolone 4 MG Oral Tablet Therapy Pack (Medrol Dosepack) follow package directions 21 Tablet 10/16/20 24 024 Discontin ued(Refil l) Doxycycline Hyclate 100 MG Oral Capsule Take 1 Capsule by mouth in the morning and 1 Capsule before bedtime. until gone. Rescue kit. 20 Capsule 10/16/20 24 024 Discontin ued(Refil l) Hospital, Clinic, [...] as of this encounter (statuses as of 10/23/2024) Active Problems Problem Noted Date Diagnosed Date Chronic pain of both knees 05/27/2024 Pulmonary emphysema 10/22/2023 Type 2 diabetes mellitus wit h hemoglobin A1c goal of less than 7.0% 10/22/2023 Hyperlipidemia with target LDL less than 70 10/11 History of tobacco abuse 10/22/2023 Bipolar depression 10/22/2023 Coronary artery disease invo lving [place] coronary artery of [place] heart without angina pectoris 10/22/2023 Impotence of organic origin 06/20/2011 Esophageal reflux 06/01/2011 HTN, goal below 140/90 06/01/2011 documented as of this encounter (statuses as of 10/23/2024) Immunizations Name Administration Dates Next Due Pneumococcal [...] Sign Reading Time Taken Comments Blood Pressure 130/76 10/23/2024 10:27 AM EST Pulse 88 10/23/2024 10:27 AM EST Temperature 36.4 C (97.5 F) 10/23/2024 10:[address] Respiratory Rate 16 10/23/2024 10:27 AM EST Oxygen Saturation 95% 10/23/2024 10:27 AM EST Inhaled Oxygen Concentration - - Weight 92.1 kg (203 lb) 10/23/2024 10:27 AM EST Height - - Body Mass Index 32.27 09/14/2024 10:50 AM EST documented in this encounter Nursing Notes * Marquita Villegas LPN - 10/23/2024 10:25 AM EST 6 month recheck Med refills Discuss increasing the Meloxicam to 15 mg documented in this encounter Plan of Treatment Upcoming Encounters Date Type Department Care Team (Late st Contact Info) Description 03/16/2025 10:20 AM EDT Office Visit Pulmonary Medicine, [address] [place] [address] Darwin Hernandez MD [address] [facility] [address] 03/24/2025 11:20 AM EDT Office Visit Family Medicine [address] [place] [phone] Narcisa Ordonez MD [address] [place] [address] [place] [address] 02/21/2026 10:30 AM EDT Imaging Radiology [address] 132 [place] [address] Scheduled Orders Name Type Priority Associated Diagnoses Orde r Schedule HEMOGLOBIN A1C Lab Routine Type 2 diabetes mellitus with hemoglobin A1c goal of less than 7.0% (HCC) Expected: 10/23/2024 (Approximate), Expires: 10/23/2025 Health Maintenance Due Date Last Done Comments [...] IN PAST YEAR FOR COPD 10/23/2025 10/23/2024 Pneumococcal Vaccine: Pediatrics (0 to 5 Years) [...] as of this encounter Visit Diagnoses Diagnosis Type 2 diabetes mellitus with hemoglobin A1c goal of less than 7.0% (HCC)- Primary Bronchitis, complicated Bronchitis, not specified as acute or chronic HTN, goal below 140/90 Unspecified essential hypertension Impotence of organic origin Primary osteoarthritis of both knees Primary localized osteoarthrosis, lower leg documented in this encounter Care Teams Meal Cook Relationship Specialty Start Date End Date Narcisa Ordonez MD [address] [place] [address] [place] [address] PCP - General Family Medicine 10/25/23 documented as of this encounter
--- OUTSIDE RECORDS SUMMARY | 2025-02-07 10:58 | External Medical Summary | Summary of Care ---
Author Name Unknown Organization [facility] Address [address] [facility] [place] [address] Phone [phone] Care Team Providers Care Kinesiologist Name Role Phone Narcisa Ordonez MD Primary Care Prov ider Reason for Visit * Reason Onset Date Comments Med Request 12/22/2024 Encounter Details Date Type Department Care Team (Late st Contact Info) Description 12/22/2024 Telephone Family Medicine [address] [phone] Narcisa Ordonez MD [address] [place] [address] [place] [address] Med Request Allergies Active Allergy Reactions [...] 0.1 % Nasal Solution (Astelin) Administer 1 [place] into nostril in the morning and 1 [place] before bedtime. 30 mL 12 10/18/20 23 Active Fluticasone Propionate 50 MCG/ACT Nasal Suspension (Flonase Allergy Relief) Administer 1 [place] into nostril in the morning. Active Magnesium [...] LDL less than 70,Coronary artery disease involving [place] coronary artery of [place] heart without angina pectoris,HTN, goal below 140/90 [...] depression 10/22/2023 Coronary artery disease invo lving [place] coronary artery of [place] heart without angina pectoris 10/22/2023 Impotence of [...] for this issue. Pt [id number]. Pt call back is [phone] Thank you, Holli Awad Anodizing Line Operator I [facility] 01/11/2025,4:00 [...] the doctor send over a script to [facility][id number] [facility] [place] Thank you, Alyssa Owens Anodizing Line Operator [facility] 12/22/2024, 12:00 PM documented in this encounter Plan of Treatment Upcoming Encounters Date Type Department Care Team (Late st Contact Info) Description 01/13/2025 3:00 PM EST Office Visit [address] [phone] Narcisa Ordonez MD [address] [place] [address] [place] [address] 03/16/2025 10:00 AM EDT Office Visit Pulmonary Medicine, [facility] [address] [place] [address] Darwin Hernandez [facility] [address] [facility] [address] 03/24/2025 11:20 AM EDT Office Visit Family Medicine [address] [place] [phone] Narcisa Ordonez MD [address] [place] [address] [place] [address] 02/21/2026 10:30 AM EDT Imaging Radiology [facility] [address] [place] [phone] Health Maintenance Due Date Last Done Comments [...] filedocumented as of this encounter Care Teams Kinesiologist Relationship Specialty Start Date End Date Narcisa Ordonez MD [address] [place] [address] [place] [phone] PCP - General Family Medicine 10/25/23 documented as of this encounter
--- OUTSIDE RECORDS SUMMARY | 2025-02-07 10:58 | External Medical Summary | Summary of Care ---
Author Name Unknown Organization [facility] Address [address] [facility] [place] [address] Phone [phone] Care Team Providers Care Appraiser Irrigation Tax Name Role Phone Narcisa Ordonez MD Primary Care Prov ider Reason for Visit * Reason Onset Date Comments Encounter Created in Error 01/11/2025 Encounter Details Date Type Department Care Team (Late st Contact Info) Description 01/11/2025 Telephone [facility] Medicine [address] [phone] Narcisa Ordonez MD [address] [place] [address] Encounter Created in Error Allergies Active Allergy Reactions Criticality Noted Date [...] 0.1 % Nasal Solution (Astelin) Administer 1 [place] into nostril in the morning and 1 [place] before bedtime. 30 mL 12 10/18/20 23 Active Fluticasone Propionate 50 MCG/ACT Nasal Suspension (Flonase Allergy Relief) Administer 1 [place] into nostril in the morning. Active Magnesium [...] hemoglobin A1c goal of less than 7.0% ([facility]),Hyperlipidem ia with target LDL less than 70,Coronary artery disease involving [place] coronary artery of [place] heart without angina pectoris,HTN, goal below 140/90 [...] depression 10/22/2023 Coronary artery disease invo lving [place] coronary artery of [place] heart without angina pectoris 10/22/2023 Impotence of [...] No 04/16/2024 Does the household have a [facility] source of income? (Household - [...] 3:00 PM EST Office Visit Family Medicine [address] [phone] Narcisa Ordonez MD [address] [place] [address] [place] [phone] 03/16/2025 10:00 AM EDT Office Visit Pulmonary Medicine, [facility] [address] [facility] [place] [address] Darwin Hernandez MD [address] [place], [place] [address] [address] 03/24/2025 11:20 AM EDT Office Visit Family Medicine [address] [place] [phone] Narcisa Ordonez MD [address] [place] [address] [place] [address] 02/21/2026 10:30 AM EDT Imaging Radiology [address] [facility] [phone] Health Maintenance Due Date Last Done Comments [...] filedocumented as of this encounter Care Teams Appraiser Irrigation Tax Relationship Specialty Start Date End Date Narcisa Ordonez MD [address] [place] [address] [place] [phone] PCP - General Family Medicine 10/25/23 documented as of this encounter
--- OUTSIDE RECORDS SUMMARY | 2025-02-07 10:58 | External Medical Summary | Summary of Care ---
Author Name Unknown Organization [facility] Address [address] [facility] [place] [address] Phone [phone] Care Team Providers Care Manager Philosophy Name Role Phone Narcisa Ordonez MD Primary Care Prov ider Encounter Details Date Type Department Care Team (Late st Contact Info) Description 10/27/2024 Orders Only PATIENT PORTAL DO NOT DELETE THIS DEPT USED BY KAM[place] GARCIA [id number] Allergies Active Allergy Reactions Criticality Noted Date Comments Lisinopril 04/15/2024 Not allergic but had CARMENCITA due to combination dehydration/ lisinopril/ mobic documented as of this encounter (statuses as of 10/27/2024) Medications MULTIVITAL PO TABS 1 tablet daily [...] 0.1 % Nasal Solution (Astelin) Administer 1 [place] into nostril in the morning and 1 [place] before bedtime. 30 mL 12 10/18/20 23 Active Fluticasone Propionate 50 MCG/ACT Nasal Suspension (Flonase Allergy Relief) Administer 1 [place] into nostril in the morning. Active Magnesium [...] in 24 hours. 30 Tablet 5 10/23/20 Active Hospital, Clinic, or Other Facility Administered [...] as of this encounter (statuses as of 10/27/2024) Active Problems Problem Noted Date Diagnosed Date Chronic pain of both knees 05/27/2024 Pulmonary emphysema 10/22/2023 Type 2 diabetes mellitus wit h hemoglobin A1c goal of less than 7.0% 10/22/2023 Hyperlipidemia with target LDL less than 70 10/11 History of tobacco abuse 10/22/2023 Bipolar depression 10/22/2023 Coronary artery disease invo lving [place] coronary artery of [place] heart without angina pectoris 10/22/2023 Impotence of organic origin 06/20/2011 Esophageal reflux 06/01/2011 HTN, goal below 140/90 06/01/2011 documented as of this encounter (statuses as of 10/27/2024) Immunizations Name Administration Dates Next Due Pneumococcal [...] Start Date Job End Date retired. - [employer] 18 years. Not on file Not on file Not on file documented as of this encounter Plan of Treatment Upcoming Encounters Date Type Department Care Team (Late st Contact Info) Description 03/16/2025 10:20 AM EDT Office Visit Pulmonary Medicine, [facility] 132 [facility] [place] [address] Darwin Hernandez MD [address] [facility] [place] [address] 03/24/2025 11:20 AM EDT Office Visit Family Medicine [address] [place] [phone] Narcisa Ordonez MD [address] [place] [address] [place] [address] 02/21/2026 10:30 AM EDT Imaging Radiology [address] 132 [facility] [place] [address] Health Maintenance Due Date Last Done Comments [...] filedocumented as of this encounter Care Teams Manager Philosophy Relationship Specialty Start Date End Date Narcisa Ordonez MD [address] [place] [address] [place] [phone] PCP - General Family Medicine 10/25/23 documented as of this encounter
--- OUTSIDE RECORDS SUMMARY | 2025-02-07 10:58 | External Medical Summary | Summary of Care ---
Author Name Unknown Organization [facility] Address [address] [facility] [place] [address] Phone [phone] Care Team Providers Care Circulation Clerk Name Role Phone Narcisa Ordonez MD Primary Care Prov ider Encounter Details Date Type Department Care Team (Late st Contact Info) Description 12/29/2024 Result Scan Unspecified Department <No scans attached> Allergies Active Allergy Reactions Criticality Noted Date Comments Lisinopril 04/15/2024 Not allergic but had CARMENCITA due to combination dehydration/ lisinopril/ mobic documented as of this encounter (statuses as of 12/31/2024) Medications MULTIVITAL PO TABS 1 tablet daily [...] 0.1 % Nasal Solution (Astelin) Administer 1 [place] into nostril in the morning and 1 [place] before bedtime. 30 mL 12 10/18/20 23 Active Fluticasone Propionate 50 MCG/ACT Nasal Suspension (Flonase Allergy Relief) Administer 1 [place] into nostril in the morning. Active Magnesium [...] LDL less than 70,Coronary artery disease involving [place] coronary artery of [place] heart without angina pectoris,HTN, goal below 140/90 [...] as of this encounter (statuses as of 12/31/2024) Active Problems Problem Noted Date Diagnosed Date Chronic pain of both knees 05/27/2024 Pulmonary emphysema 10/22/2023 Type 2 diabetes mellitus wit h hemoglobin A1c goal of less than 7.0% 10/22/2023 Hyperlipidemia with target LDL less than 70 10/11 History of tobacco abuse 10/22/2023 Bipolar depression 10/22/2023 Coronary artery disease invo lving [place] coronary artery of [place] heart without angina pectoris 10/22/2023 Impotence of organic origin 06/20/2011 Esophageal reflux 06/01/2011 HTN, goal below 140/90 06/01/2011 documented as of this encounter (statuses as of 12/31/2024) Immunizations Name Administration Dates Next Due Pneumococcal [...] 10:00 AM EDT Office Visit [facility] 132 [facility] [place] [address] Darwin Hernandez MD [address] [place] [phone] 03/24/2025 11:20 AM EDT Office Visit Family Medicine [address] [place] [phone] Narcisa Ordonez MD [address] [place] [address] [place] [address] 02/21/2026 10:30 AM EDT Imaging Radiology [facility]st [facility], [place] [address] [place] [phone] Health Maintenance Due Date Last Done Comments [...] Procedure Name Priority Date/Time Associated Diagnosis Comments ECHOCARDIOLOGY SCANNED RESULT 12/29/2024 documented in this encounter Results * ECHOCARDIOLOGY SCANNED RESULT (12/29/2024) 12/29/2024 us No Physician Data Unknown ECHOCARDIOLOGY Final Result documented in this encounter Care Teams Circulation Clerk Relationship Specialty Start Date End Date Narcisa Ordonez MD [address] [place] [address] [place] [address] PCP - General Family Medicine 10/25/23 documented as of this encounter
--- OUTSIDE RECORDS SUMMARY | 2025-02-07 10:58 | External Medical Summary | Summary of Care ---
Author Name Unknown Organization [facility] Address [address] [facility] [place] [address] Phone [phone] Care Team Providers Care Teletypewriter Operator Name Role Phone Philippe Bailon MD Primary Care Prov ider Reason for Visit * Reason Onset Date Comments Medication Refill 12/22/2024 Encounter Details Date Type Department Care Team (Late st Contact Info) Description 12/22/2024 Refill Family Medicine [address] [phone] Philippe Bailon MD [address] [place] [address] Bronchitis, complicated Allergies Active Allergy Reactions Criticality Noted Date Comments Lisinopril 04/15/2024 Not allergic but had CARMENCITA due to combination dehydration/ lisinopril/ mobic documented as of this encounter (statuses as of 12/22/2024) Medications MULTIVITAL PO TABS 1 tablet daily [...] 0.1 % Nasal Solution (Astelin) Administer 1 [place] into nostril in the morning and 1 [place] before bedtime. 30 mL 12 10/18/20 23 Active Fluticasone Propionate 50 MCG/ACT Nasal Suspension (Flonase Allergy Relief) Administer 1 [place] into nostril in the morning. Active Magnesium [...] goal of less than 7.0% ([facility]),Hyperlipidem ia with target LDL less than 70,Coronary artery disease involving [place] coronary artery of [place] heart without angina pectoris,HTN, goal below 140/90 [...] Rescue kit. 20 Capsule 12/22/19 25 Active Doxycycline Hyclate 100 MG Oral CapsuleIndications :Bronchitis, complicated Take 1 Capsule by mouth in the morning and 1 Capsule before bedtime. until gone. Rescue kit. 20 Capsule 10/23/20 24 025 Discontin ued(Refil l) methylPREDNISolone 4 MG Oral Tablet Therapy Pack (Medrol Dosepack)Indicatio ns:Bronchitis, complicated follow package directions 21 Tablet 10/23/20 24 025 Discontin ued(Refil l) Hospital, Clinic, or Other [...] as of this encounter (statuses as of 12/22/2024) Active Problems Problem Noted Date Diagnosed Date Chronic pain of both knees 05/27/2024 Pulmonary emphysema 10/22/2023 Type 2 diabetes mellitus wit h hemoglobin A1c goal of less than 7.0% 10/22/2023 Hyperlipidemia with target LDL less than 70 10/11 History of tobacco abuse 10/22/2023 Bipolar depression 10/22/2023 Coronary artery disease invo lving [place] coronary artery of [place] heart without angina pectoris 10/22/2023 Impotence of organic origin 06/20/2011 Esophageal reflux 06/01/2011 HTN, goal below 140/90 06/01/2011 documented as of this encounter (statuses as of 12/22/2024) Immunizations Name Administration Dates Next Due Pneumococcal [...] Start Date Job End Date retired. - [employer] 18 years. Not on file Not on file Not on file documented as of this encounter Miscellaneous Notes * Telephone Encounter - Philippe Bailon MD - 12/22/2024 2:17 PM EST Signed Prescriptions: Disp Refills methylPREDNISolone 4 MG Oral Tablet Therap*21 Tab*0 Sig: follow package directions Authorizing Provider: PHILIPPE BAILON Doxycycline Hyclate 100 MG Oral Capsule 20 Cap*0 Sig: Take 1 Capsule by mouth in the morning and 1 Capsule before bedtime. until gone. Rescue kit. Authorizing Provider: PHILIPPE BAILON * Telephone Encounter - Alyssa Owens, cloth desizing range tender - 12/22/2024 11:58 AM EST Did you pend patient's preferred pharmacy and medication before forwarding?yes Pharmacy: [id number] Pending Prescriptions: Disp Refills methylPREDNISolone 4 MG Oral Tablet Thera*21 Tab*0 Sig: follow package directions Doxycycline Hyclate 100 MG Oral Capsule 20 Cap*0 Sig: Take 1 Capsule by mouth in the morning and 1 Capsule before bedtime. until gone. Rescue kit. Last Visit: 10/23/2024 (in office), Visit date not found (telemedicine) Next Visit: 03/24/2025 If no future appointments scheduled, and last appointment is greater than a year ago, please schedule patient for a follow-up appointment Last date the medication was ordered: 10/23/2024 Is this request for a controlled substance?No [...] 10:00 AM EDT Office Visit Pulmonary Medicine, [address] [place] [address] Darwin Hernandez MD [address] [place] [address] [place] [address] 03/24/2025 11:20 AM EDT Office Visit Family Medicine [address] [place] [phone] Philippe Bailon MD [address] [place] [address] [place] [address] 02/21/2026 10:30 AM EDT Imaging Radiology [facility] 1st [facility], [place] [address] [place] [...] as of this encounter Visit Diagnoses Diagnosis Bronchitis, complicated Bronchitis, not specified as acute or chronic documented in this encounter Care Teams Teletypewriter Operator Relationship Specialty Start Date End Date Philippe Bailon MD [address] [place] [address] [place] [phone] PCP - General Family Medicine 10/25/23 documented as of this encounter
--- OUTSIDE RECORDS SUMMARY | 2025-02-07 10:58 | External Medical Summary | Summary of Care ---
Author Name Unknown Organization [facility] Address [address] [place] [place] [address] Phone [phone] Care Team Providers Care Pumper Gauger Apprentice Name Role Phone Narcisa Ordonez MD Primary Care Prov ider Reason for Visit * Reason Onset Date Comments Med Request 10/15/2024 Encounter Details Date Type Department Care Team (Late st Contact Info) Description 10/15/2024 Telephone Pulmonary Medicine, [facility] 132 [facility] [place] [phone] Services, Scheduling [address] [place] [address] Med Request Allergies Active Allergy Reactions Criticality [...] 0.1 % Nasal Solution (Astelin) Administer 1 [place] into nostril in the morning and 1 [place] before bedtime. 30 mL 12 10/18/20 23 Active Fluticasone Propionate 50 MCG/ACT Nasal Suspension (Flonase Allergy Relief) Administer 1 [place] into nostril in the morning. Active Magnesium [...] depression 10/22/2023 Coronary artery disease invo lving [place] coronary artery of [place] heart without angina pectoris 10/22/2023 Impotence of [...] 10:20 AM EST Office Visit Family Medicine [address] [phone] Huber Squires CRNP [address] [place] [address] [place] [address] 03/16/2025 10:20 AM EDT Office Visit Pulmonary Medicine, [facility] 132 [facility] [place] [address] Darwin Doyle MD [facility] [address] 03/24/2025 11:20 AM EDT Office Visit Family Medicine [address] [phone] Narcisa Ordonez MD [address] [place] [address] [place] [address] 02/21/2026 10:30 AM EDT Imaging Radiology [address] 132 [facility] [place] [address] Health Maintenance Due Date Last Done Comments [place] 2006 Colonoscopy 2006 Colorectal Cancer Screening 2006 [...] filedocumented as of this encounter Care Teams Pumper Gauger Apprentice Relationship Specialty Start Date End Date Narcisa Ordonez MD [address] [place] [address] [place] [phone] PCP - General Family Medicine 10/25/23 documented as of this encounter
--- OUTSIDE RECORDS SUMMARY | 2025-02-07 10:59 | External Medical Summary | Summary of Care ---
Author Name Unknown Organization [facility] Address [address] [facility] [place] [address] Phone [phone] Care Team Providers Care Production Mechanic Tin Cans Name Role Phone Philippe Bailon MD Primary Care Prov ider Reason for Visit * Reason Comments eRx-Medication Refill Encounter Details Date Type Department Care Team (Late st Contact Info) Description 09/20/2024 Refill Family Medicine [address] [phone] Philippe Bailon MD [address] [place] [address] [place] [address] Allergies Active Allergy Reactions Criticality Noted Date Comments Lisinopril 04/15/2024 Not allergic but had CARMENCITA due to combination dehydration/ lisinopril/ mobic documented as of this encounter (statuses as of 09/22/2024) Medications MULTIVITAL PO TABS 1 tablet daily Active VITAMIN B COMPLEX PO CAPS 1 tablet daily Active VITAMIN B-12 500 MCG PO TABS 1 tablet daily Active VIAGRA 100 MG PO TABSIndications:I mpotence of organic origin One pill by mouth 1-4 hours before intercourse, no more than 1 dose in 24 hours. 30 Tab 5 05/26/20 12 Active BUSPIRONE HCL 10 MG PO TABSIndications:A nxiety state,Adjustment disorder with depressed mood take two tablets once daily 180 Tab 3 08/07/20 12 Active Budesonide 0.5 MG/2ML Inhalation Suspension (Pulmicort) As directed in nasal rinse twice a day 120 mL 12 10/18/20 23 Active Azelastine HCl 0.1 % Nasal Solution (Astelin) Administer 1 [place] into nostril in the morning and 1 [place] before bedtime. 30 mL 12 10/18/20 23 Active Atorvastatin Calcium 40 MG Oral Tablet (Lipitor) Take 1 Tablet by mouth at bedtime. 10/02/20 23 Active Fluticasone Propionate 50 MCG/ACT Nasal Suspension (Flonase Allergy Relief) Administer 1 [place] into nostril in the morning. Active Magnesium 400 MG Oral Tablet Take by mouth. Active Nortriptyline HCl 25 MG Oral Capsule (Pamelor) Take 1 Capsule by mouth at bedtime. 2 tabs daily Active Clopidogrel Bisulfate 75 MG Oral Tablet (pLAVix) take 1 tablet by mouth every 24 hours 08/15/20 23 Active Pantoprazole Sodium 40 MG Oral Tablet Delayed Release (Protonix) Take 1 Tablet by mouth in the morning. Active Tamsulosin HCl 0.4 MG Oral Capsule (Flomax) Take 1 Capsule by mouth in the morning. Active Finasteride 5 MG Oral Tablet (Proscar) Take 1 Tablet by mouth in the morning. Active lamoTRIgine 100 MG Oral Tablet (LaMICtal) Take 1 Tablet by mouth in the morning and 1 Tablet before bedtime. 180 Tablet 3 11/15/19 24 Active Meloxicam 7.5 MG Oral Tablet (Mobic)Indication s:Primary osteoarthritis of both knees Take 1 Tablet by mouth in the morning. for pain.. 30 Tablet 04/15/20 24 Active Gabapentin 400 MG Oral Capsule (Neurontin)Indica [...] 07/22/20 24 Active Vitamin D3 50 MCG (1999 [place]) Oral Capsule Take 1 Capsule by [...] Dosing Unit 5 09/14/20 24 2025 Active Doxycycline Hyclate 100 MG Oral Capsule Take 1 Capsule by mouth in the morning and 1 Capsule before bedtime. until gone.. 20 Capsule 09/14/20 24 Active methylPREDNISolon e 4 MG Oral Tablet Therapy Pack (Medrol Dosepack) follow package directions 21 Tablet 09/14/20 24 Active FLUoxetine HCl 40 MG Oral Capsule (PROzac) take 2 capsules by mouth IN THE MORNING 180 Capsule 1 09/22/20 24 Active FLUoxetine HCl 40 MG Oral Capsule (PROzac) Take 2 Capsules by mouth in the morning. 180 Capsule 1 02/10/20 24 2023 Discontinued Hospital, Clinic, or Other Facility Administered [...] as of this encounter (statuses as of 09/22/2024) Active Problems Problem Noted Date Diagnosed Date Chronic pain of both knees 05/27/2024 Pulmonary emphysema 10/22/2023 Type 2 diabetes mellitus wit h hemoglobin A1c goal of less than 7.0% 10/22/2023 Hyperlipidemia with target LDL less than 70 10/11 History of tobacco abuse 10/22/2023 Bipolar depression 10/22/2023 Coronary artery disease invo lving [place] coronary artery of [place] heart without angina pectoris 10/22/2023 Impotence of organic origin 06/20/2011 Esophageal reflux 06/01/2011 HTN, goal below 140/90 06/01/2011 documented as of this encounter (statuses as of 09/22/2024) Immunizations Name Administration Dates Next Due Pneumococcal [...] Start Date Job End Date retired. - [employer] 18 years. Not on file Not on file Not on file documented as of this encounter Miscellaneous Notes * Telephone Encounter - Konrad Thayer RPh - 09/22/2024 10:05 AM ESTSigned Prescriptions: Disp Refills FLUoxetine HCl 40 MG Oral Capsule (PROzac) 180 Ca*1 Sig: take 2 capsules by mouth IN THE MORNINGAuthorizing Provider: PHILIPPE BAILON User: KONRAD THAYER documented in this encounter Plan of Treatment Upcoming Encounters Date Type Department Care Team (Late st Contact Info) Description 10/23/2024 10:20 AM EST Office Visit Family Medicine [place] [facility] [place] [place] [phone] Huber Squires CRNP [address] [place] [address] [place] [phone] 03/16/2025 10:20 AM EDT Office Visit Pulmonary Medicine, [facility] [place] [address] Darwin Hernandez MD [address] [facility] [place] [address] 03/24/2025 11:20 AM EDT Office Visit Family Medicine [address] [place] [phone] Philippe Bailon MD [address] [place] [address] [place] [address] 02/21/2026 10:30 AM EDT Imaging Radiology [facility] [address] [facility] [place] [address] Health Maintenance Due Date Last Done Comments [...] filedocumented as of this encounter Care Teams Production Mechanic Tin Cans Relationship Specialty Start Date End Date Philippe Bailon MD [address] [place] [address] [place] [phone] PCP - General Family Medicine 10/25/23 documented as of this encounter
--- OUTSIDE RECORDS SUMMARY | 2025-02-07 10:59 | External Medical Summary | Summary of Care ---
Author Name Unknown Organization [facility] Address [address] [facility] [place] [address] Phone [phone] Care Team Providers Care Coat Operator Insulator Name Role Phone Narcisa Ordonez MD Primary Care Prov ider Reason for Visit * Reason Onset Date Comments Med Request 10/15/2024 Encounter Details Date Type Department Care Team (Late st Contact Info) Description 10/15/2024 Telephone Pulmonary Medicine, [facility] [address] [place], [place] [id number] Services, Scheduling [address] [place] [address] Med Request Allergies Active Allergy Reactions Criticality [...] dose in 24 hours. 30 Tab 5 2 Active BUSPIRONE HCL 10 MG PO TABSIndications:An xiety state,Adjustment disorder with depressed mood take two tablets once daily 180 Tab 3 2 Active Budesonide 0.5 MG/2ML Inhalation Suspension (Pulmicort) As directed in nasal rinse twice a day 120 mL 12 3 Active Azelastine HCl 0.1 % Nasal Solution (Astelin) Administer 1 [place] into nostril in the morning and 1 [place] before bedtime. 30 mL 12 3 Active Fluticasone Propionate 50 MCG/ACT Nasal Suspension (Flonase Allergy Relief) Administer 1 [place] into nostril in the morning. Active Magnesium [...] Blister Dosing Unit 5 4 026 Active methylPREDNISolone 4 MG Oral Tablet Therapy Pack (Medrol Dosepack) follow package directions 21 Tablet 4 Active FLUoxetine HCl 40 MG Oral Capsule (PROzac) take 2 capsules by mouth IN THE MORNING 180 Capsule 1 4 Active lamoTRIgine 100 MG Oral Tablet (LaMICtal) take 1 tablet by mouth every morning and BEFORE BEDTIME 180 Tablet 3 4 Active Clopidogrel Bisulfate 75 MG Oral Tablet (pLAVix) take 1 tablet by mouth once daily 90 Tablet 3 4 Active Atorvastatin Calcium 40 [...] the morning. 90 Tablet 3 4 Active Pantoprazole Sodium 40 MG Oral Tablet Delayed Release (Protonix) Take 1 Tablet by mouth in the morning. 90 Tablet 1 4 Active Hospital, Clinic, or Other Facility Administered [...] depression 10/22/2023 Coronary artery disease invo lving [place] coronary artery of [place] heart without angina pectoris 10/22/2023 Impotence of [...] encounter Miscellaneous Notes * Addendum Note - Francisca Haddad LPN [...] 10:20 AM EST Office Visit Family Medicine [address] [phone] Huber Squires CRNP [address] [place] [address] [place] [address] 03/16/2025 10:20 AM EDT Office Visit Pulmonary Medicine, [address] [place] [address] Darwin Hernandez MD [address] [facility] [address] 03/24/2025 11:20 AM EDT Office Visit Family Medicine [address] [phone] Narcisa Ordonez MD [address] [place] [address] [place] [address] 02/21/2026 10:30 AM EDT Imaging Radiology [address] [place] [address] Health Maintenance Due Date Last Done Comments [...] filedocumented as of this encounter Care Teams Coat Operator Insulator Relationship Specialty Start Date End Date Narcisa Ordonez MD [address] [place] [address] [place] [address] PCP - General Family Medicine 10/25/23 documented as of this encounter
--- OUTSIDE RECORDS SUMMARY | 2025-02-07 10:59 | External Medical Summary | Summary of Care ---
Author Name Unknown Organization [facility] Address [address] [facility] [place] [address] Phone [phone] Care Team Providers Care Steeler Name Role Phone Narcisa Ordonez MD Primary Care Prov ider Reason for Visit * Reason Comments Outpatient Testing Encounter Details Date Type Department Care Team (Late st Contact Info) Description 09/14/2024 12:00 PM EST Laboratory [facility], [facility] [phone] [facility] [address] Pulmonary emphysema, unspecified emphysema type (HCC); Recurrent cough Allergies Active Allergy Reactions Criticality Noted Date Comments Lisinopril 04/15/2024 Not allergic but had CARMENCITA due to combination dehydration/ lisinopril/ mobic documented as of this encounter (statuses as of 09/14/2024) Medications Medication Sig Dispensed Refills Start Date End Date Status MULTIVITAL PO TABS 1 tablet daily Ac tive VITAMIN B COMPLEX PO CAPS 1 tablet daily Active VITAMIN B-12 500 MCG PO TABS 1 tablet daily Active VIAGRA 100 MG PO TABSIndications:Impo tence of organic origin One pill by mouth 1-4 hours before intercourse, no more than 1 dose in 24 hours. 30 Tab 5 05/26/2012 Active BUSPIRONE HCL 10 MG PO TABSIndications:Anxi ety state,Adjustment disorder with depressed mood take two tablets once daily 180 Tab 3 08/07/2012 Active Budesonide 0.5 MG/2ML Inhalation Suspension (Pulmicort) As directed in nasal rinse twice a day 120 mL 12 10/18/2023 Active Azelastine HCl 0.1 % Nasal Solution (Astelin) Administer 1 [place] into nostril in the morning and 1 [place] before bedtime. 30 mL 12 10/18/2023 Active Atorvastatin Calcium 40 MG Oral Tablet (Lipitor) Take 1 Tablet by mouth at bedtime. 10/02/2023 Active Fluticasone Propionate 50 MCG/ACT Nasal Suspension (Flonase Allergy Relief) Administer 1 [place] into nostril in the morning. Active Magnesium [...] before bedtime. 180 Tablet 3 11/15/2023 Active FLUoxetine HCl 40 MG Oral Capsule (PROzac) Take 2 Capsules by mouth in the morning. 180 Capsule 1 02/10/2024 Active Meloxicam 7.5 MG Oral Tablet (Mobic)Indications:P rimary osteoarthritis of both knees Take 1 Tablet by mouth in the morning. for pain.. 30 Tablet 04/15/2024 Active Gabapentin 400 MG Oral Capsule (Neurontin)Indicatio ns:Chronic pain of both knees Take 1 Capsule by mouth in the morning and 1 Capsule at noon and 1 Capsule before bedtime. 270 Capsule 3 05/27/2024 Active Baclofen 20 MG Oral TabletIndications:Ch ronic pain of both knees Take 1 Tablet by mouth 2 times a day as needed for Pain. 180 Tablet 3 05/27/2024 Active Lisinopril 40 MG Oral TabletIndications:HT N, goal below 140/90 Take 1 Tablet by mouth in the morning. 90 Tablet 3 07/22/2024 Active Vitamin D3 50 MCG (2000 UT) Oral Capsule Take 1 Capsule by mouth in the morning. 07/22/2024 Active amLODIPine Besylate 5 MG Oral Tablet (Norvasc)Indications :HTN, goal below 140/90 Take 1 Tablet by mouth in the morning. 90 Tablet 1 09/11/2024 Active Albuterol Sulfate HFA 108 (90 Base) MCG/ACT Inhalation Aerosol SolutionIndications: Pulmonary emphysema, unspecified emphysema type (HCC) Inhale 2 Puffs by mouth every 4 hours as needed for Wheezing. 54 g 5 09/14/2024 5 Active Trelegy Ellipta 100-62.5-25 MCG/ACT Aerosol Powder Breath Activated (Fluticasone-Umeclid inium-Vilanterol)Ind ications:Pulmonary emphysema, unspecified emphysema type (HCC) Inhale 1 Puff by mouth in the morning. 180 Blister Dosing Unit 5 09/14/2024 6 Active Doxycycline Hyclate 100 MG Oral Capsule Take 1 Capsule by mouth in the morning and 1 Capsule before bedtime. until gone.. 20 Capsule 09/14/2024 Active methylPREDNISolone 4 MG Oral Tablet Therapy Pack (Medrol Dosepack) follow package directions 21 Tablet 09/14/2024 Active Hospital, Clinic, or Other Facility Administered [...] as of this encounter (statuses as of 09/14/2024) Active Problems Problem Noted Date Diagnosed Date Chronic pain of both knees 05/27/2024 Pulmonary emphysema 10/22/2023 Type 2 diabetes mellitus wit h hemoglobin A1c goal of less than 7.0% 10/22/2023 Hyperlipidemia with target LDL less than 70 10/11 History of tobacco abuse 10/22/2023 Bipolar depression 10/22/2023 Coronary artery disease invo lving [place] coronary artery of [place] heart without angina pectoris 10/22/2023 Impotence of organic origin 06/20/2011 Esophageal reflux 06/01/2011 HTN, goal below 140/90 06/01/2011 documented as of this encounter (statuses as of 09/14/2024) Immunizations Name Administration Dates Next Due Pneumococcal [...] 18 years and over) Not on file 06/06/202 4 Are you (or your family) palomo eless [...] 10:20 AM EST Office Visit Family Medicine [address] [phone] Huber Squires CRNP [address] [place] [address] [place] [address] 03/16/2025 10:20 AM EDT Office Visit Pulmonary Medicine, [address] [place] [address] Darwin Hernandez [facility] [address] 03/24/2025 11:20 AM EDT Office Visit Family Medicine [address] [place] [phone] Narcisa Ordonez MD [address] [place] [address] [place] [address] 02/21/2026 10:30 AM EDT Imaging Radiology [address] [place] [address] Pending Results Name Type Priority Associated Diagnoses Date /Time [facility] Lab Routine Pulmonary emphysema, unspecified emphysema type (HCC) Recurrent cough 09/14/2024 11:51 AM EST IGE Lab Routine Pulmonary emphysema, unspecified emphysema type (HCC) Recurrent cough 09/14/2024 11:51 AM EST [id number], QN Lab Routine Pulmonary emphysema, unspecified emphysema type (HCC) Recurrent cough 09/14/2024 11:51 AM EST Health Maintenance Due Date Last Done Comments [...] Cancer Screening Completed 07/24/2024 Alpha-1 Antitrypsin Discontinued HPV (Gardasil) Vaccine Aged Out No lo [...] Procedure Name Priority Date/Time Associated Diagnosis Comments DIFFERENTIAL, AUTOMATED Routine 09/14/2024 11:51 AM EST Pulmonary emphysema, unspecified emphysema type (HCC) Recurrent cough CBC Routine 09/14/2024 11:51 AM EST Pulmonary emphysema, unspecified emphysema type (HCC) Recurrent cough CBC Routine 09/14/2024 11:51 AM EST Pulmonary emphysema, unspecified emphysema type (HCC) Recurrent cough documented in this encounter Results * (ABNORMAL) DIFFERENTIAL, AUTOMATED (09/14/2024 11:51 AM EST) WBC 6.24 4.00 - 10.80 K/uL 09/14/2024 12:03 PM EST [facility] [place] 57-10 Neutrophils % 61.9 40.0 - 75.0 % 09/14/2024 12:03 PM EST [facility] [place] 57-10 Lymphocytes % 22.1 18.0 - 42.0 % 09/14/2024 12:03 PM EST [facility] [place] 57-10 Monocytes % 9.0 1.0 - 11.0 % 09/14/2024 12:03 PM EST [facility] [place] 57-10 Eosinophils % 6.4(H) 0.0 - 6.0 % 09/14/2024 12:03 PM EST [facility] [place] 57-10 Basophils % 0.6 0.0 - 2.0 % 09/14/2024 12:03 PM EST [facility] [place] 57-10 Absolute Neutrophils 3.86 1.80 - 7.70 K/uL 09/14/2024 12:03 PM EST [facility] [place] 57-10 Absolute Lymphocytes 1.38 1.00 - 4.80 K/ul 09/14/2024 12:03 PM EST [facility] [place] 57-10 Absolute Monocytes 0.56 0.00 - 1.10 K/uL 09/14/2024 12:03 PM EST [facility] [place] 57-10 Absolute Eosinophils 0.40 0.00 - 0.70 K/uL 09/14/2024 12:03 PM EST [facility] [place] 57-10 Absolute Basophils 0.04 0.00 - 0.20 K/uL 09/14/2024 12:03 PM EST [facility] [place] 57-10 Blood Venous blood specimen / Unknown Venipuncture / Unknown 09/14/2024 11:51 AM EST 09/14/2024 11:51 AM EST Darwin Hernandez MD [facility] Organization Address City/State/ZIP Co de Phone Number [facility] [place] [address] [place] [address] * (ABNORMAL) CBC (09/14/2024 11:51 AM EST) WBC 6.24 4.00 - 10.80 K/uL 09/14/2024 12:03 PM EST [facility] [place] 57-10 RBC 3.75 4.50 - 5.25 M/uL 09/14/2024 12:03 PM EST [facility] [place] 57-10 HGB 10.6(L) 14.0 - 16.8 g/dL 09/14/2024 12:03 PM EST [facility] [place] 57-10 HCT 33.8(L) 40.0 - 48.4 % 09/14/2024 12:03 PM EST [facility] [place] 57-10 MCV 90.1 82.0 - 99.5 fL 09/14/2024 12:03 PM EST [facility] [place] 57-10 MCH 28.3 27.0 - 34.0 pg 09/14/2024 12:03 PM EST [facility] [place] 57-10 MCHC 31.4 32.0 - 36.0 g/dL 09/14/2024 12:03 PM EST [facility] [place] 57-10 RDW 16.0 11.5 - 15.5 % 09/14/2024 12:03 PM EST [facility] [place] 57-10 PLT 191 140 - 400 K/uL 09/14/2024 12:03 PM EST [facility] [place] 57-10 MPV 10.6 6.6 - 11.1 fL 09/14/2024 12:03 PM EST [facility] [place] 57-10 Blood Venous blood specimen / Unknown Venipuncture / Unknown 09/14/2024 11:51 AM EST 09/14/2024 11:51 AM EST Darwin Hernandez MD LAB BLOOD ORDE TED [facility] Organization Address City/State/ZIP Co de Phone Number [facility] [place] [phone] [facility] [place] [address] documented in this encounter Visit Diagnoses Diagnosis Pulmonary emphysema, unspecified emphysema type (HCC) Recurrent cough Cough documented in this encounter Care Teams Steeler Relationship Specialty Start Date End Date Narcisa Ordonez MD [address] [place] [address] [place] [phone] PCP - General Family Medicine 10/25/23 documented as of this encounter
--- OUTSIDE RECORDS SUMMARY | 2025-02-07 10:59 | External Medical Summary ---
Author Name Unknown Address Unknown Organization K01:[facility] [place] [facility] [place] [address] Laboratory Report Ordering Provider Test Date Status VIVEK LINARES 09/14/2024 11:51:34 Final Observation Date Value Abnormality Reference (Units ) Status Dust Mite IgE, pteronyssinus 09/14/2024 11:51:34 <0.10 <0.10 (kUa/L) Final Dust Mite IgE, farinae 09/14/2024 11:51:34 <0.10 <0.10 (kUa/L) Final Cat Epithelium IgE 09/14/2024 11:51:34 <0.10 <0.10 (kUa/L) Final Dog Dander IgE 09/14/2024 11:51:34 <0.10 <0.10 (kUa/L) Final Bermuda grass IgE 09/14/2024 11:51:34 <0.10 <0.10 (kUa/L) Final Augustin IgE 09/14/2024 11:51:34 <0.10 <0.10 (kUa/L) Final Penicillium notatum IgE 09/14/2024 11:51:34 <0.10 <0.10 (kUa/L) Final Cladosporium IgE 09/14/2024 11:51:34 <0.10 <0.10 (kUa/L) Final Aspergillus IgE 09/14/2024 11:51:34 <0.10 <0.10 (kUa/L) Final Alternaria IgE 09/14/2024 11:51:34 0.37 Abnormal <0.10 (kUa/L) Final Setomelanomma rostrata IgE Ab [Units/volume] in Serum 09/14/2024 11:51:34 <0.10 <0.10 (kUa/L) Final Pullularia IgE 09/14/2024 11:51:34 <0.10 <0.10 (kUa/L) Final Acremonium sp IgE Ab [Units/volume] in Serum 09/14/2024 11:51:34 <0.10 <0.10 (kUa/L) Final Maple IgE Ab [Units/volume] in Serum 09/14/2024 11:51:34 <0.10 <0.10 (kUa/L) Final Silver Birch IgE Ab [Units/volume] in Serum 09/14/2024 11:51:34 <0.10 <0.10 (kUa/L) Final Deadwood IgE 09/14/2024 11:51:34 <0.10 <0.10 (kUa/L) Final Elm IgE 09/14/2024 11:51:34 <0.10 <0.10 (kUa/L) Final Bullard tree IgE 09/14/2024 11:51:34 <0.10 <0.10 (kUa/L) Final [place] IgE 09/14/2024 11:51:34 <0.10 <0.10 (kUa/L) Final White Jose IgE 09/14/2024 11:51:34 <0.10 <0.10 (kUa/L) Final Pecan or Wood Tree IgE 09/14/2024 11:51:34 <0.10 <0.10 (kUa/L) Final Common ragweed dry creek (nAmb a) 1 IgE Ab [Units/volume] in Serum 09/14/2024 11:51:34 <0.10 <0.10 (kUa/L) Final Mugwort IgE 09/14/2024 11:51:34 <0.10 <0.10 (kUa/L) Final Plaintain (Polish) IgE 09/14/2024 11:51:34 <0.10 <0.10 (kUa/L) Final Rico's Quarters IgE 09/14/2024 11:51:34 <0.10 <0.10 (kUa/L) Final Cocklebur IgE Ab [Units/volume] in Serum 09/14/2024 11:51:34 <0.10 <0.10 (kUa/L) Final Pigweed common IgE 09/14/2024 11:51:34 <0.10 <0.10 (kUa/L) Final Sheep sorrel IgE 09/14/2024 11:51:34 <0.10 <0.10 (kUa/L) Final
<0.10 kUa/L - Class 0 Allergen: Absence of Allergen Specific IgE
0.10-0.34 kUa/L - Class 0/1 Allergen: Low Level of Allergen Specific IgE
0.35-0.69 kUa/L - Class 1 Allergen: Low Level of Allergen Specific IgE
0.70-3.49 kUa/L - Class 2 Allergen: Moderate Level of Allergen Specific IgE
3.50-17.49 kUa/L - Class 3 Allergen: High Level of Allergen Specific IgE
17.5-49.99 kUa/L - Class 4 Allergen: Very High Level of Allergen Specific IgE
50.0-99.99 kUa/L - Class 5 Allergen: Very High Level of Allergen Specific IgE
>=100.0 kUa/L - Class 6 Allergen: Very High Level of Allergen Specific IgE Performing Location [facility] [place] [address] [facility] [place]. [facility] [place] [address]
--- OUTSIDE RECORDS SUMMARY | 2025-02-07 10:59 | External Medical Summary | Summary of Care ---
Author Name Unknown Organization [facility] Address [address] [facility] [place] [address] Phone [phone] Care Team Providers Care Drier And Pulverizer Tender Name Role Phone Narcisa Ordonez MD Primary Care Prov ider Reason for Visit * Reason Onset Date Comments Med Request 10/14/2024 Encounter Details Date Type Department Care Team (Late st Contact Info) Description 10/14/2024 Telephone Family Medicine [address] [phone] Narcisa Ordonez MD [address] [place] [address] [place] [address] Med Request Allergies Active Allergy Reactions Criticality Noted Date Comments Lisinopril 04/15/2024 Not allergic but had CARMENCITA due to combination dehydration/ lisinopril/ mobic documented as of this encounter (statuses as of 10/15/2024) Medications MULTIVITAL PO TABS 1 tablet daily Activ e VITAMIN B COMPLEX PO CAPS 1 tablet daily Active VITAMIN B-12 500 MCG PO TABS 1 tablet daily Act nancy VIAGRA 100 MG PO TABSIndications: Impotence of organic origin One pill by mouth 1-4 hours before intercourse, no more than 1 dose in 24 hours. 30 Tab 5 2 Active BUSPIRONE HCL 10 MG PO TABSIndications: Anxiety state,Adjustment disorder with depressed mood take two tablets once daily 180 Tab 3 2 Active Budesonide 0.5 MG/2ML Inhalation Suspension (Pulmicort) As directed in nasal rinse twice a day 120 mL 12 3 Active Azelastine HCl 0.1 % Nasal Solution (Astelin) Administer 1 [place] into nostril in the morning and 1 [place] before bedtime. 30 mL 12 3 Active Fluticasone Propionate 50 MCG/ACT Nasal Suspension (Flonase Allergy Relief) Administer 1 [place] into nostril in the morning. Active Magnesium [...] morning. Active Gabapentin 400 MG Oral Capsule (Neurontin)Indic ations:Chronic pain of both knees Take 1 Capsule by mouth in the morning and 1 Capsule at noon and 1 Capsule before bedtime. 270 Capsule 3 4 Active Baclofen 20 MG Oral TabletIndication s:Chronic pain of both knees Take 1 Tablet by mouth 2 times a day as needed for Pain. 180 Tablet 3 4 Active Lisinopril 40 MG Oral TabletIndication s:HTN, goal below 140/90 Take 1 Tablet by mouth in the morning. 90 Tablet 3 4 Active Vitamin D3 50 MCG (2000 UT) Oral Capsule Take 1 Capsule by mouth in the morning. 4 Active amLODIPine Besylate 5 MG Oral Tablet (Norvasc)Indicat ions:HTN, goal below 140/90 Take 1 Tablet by mouth in the morning. 90 Tablet 1 4 Active Albuterol Sulfate HFA 108 (90 Base) MCG/ACT Inhalation Aerosol SolutionIndicati ons:Pulmonary emphysema, unspecified emphysema type (HCC) Inhale 2 Puffs by mouth every 4 hours as needed for Wheezing. 54 g 5 4 025 Active Trelegy Ellipta 100-62.5-25 MCG/ACT Aerosol Powder Breath Activated (Fluticasone-Ume clidinium-Vilant jackie)Indications :Pulmonary emphysema, unspecified emphysema type (HCC) Inhale 1 Puff by mouth in the morning. 180 Blister Dosing Unit 5 4 026 Active methylPREDNISolo ne 4 MG Oral Tablet Therapy Pack (Medrol [...] at bedtime 90 Tablet 1 4 Active Pantoprazole Sodium 40 MG Oral Tablet Delayed Release (Protonix) Take 1 Tablet by mouth in the morning. 90 Tablet 1 4 Active Azithromycin 250 MG Oral Tablet (Zithromax)Indic ations:COPD exacerbation (HCC) Take 2 tabs by mouth on the first day, then 1 tab daily on days two through five 6 Tablet 4 024 Discontin ued(Patie nt preferenc e/discont inuation) Doxycycline Hyclate 100 MG Oral CapsuleIndicatio ns:COPD exacerbation (HCC) Take 1 Capsule by mouth in the morning and 1 Capsule before bedtime. Do all this for 7 days. Take for 7 days. 14 Capsule 4 024 Discontin ued(Patie nt preferenc e/discont inuation) Amoxicillin-Pot Clavulanate 875-125 MG Oral Tablet (Augmentin)Indic ations:Bronchiti s, complicated Take 1 Tablet by mouth in the morning and 1 Tablet before bedtime. Do all this for 10 days. 20 Tablet 4 024 Discontin ued(Patie nt preferenc e/discont inuation) Hospital, [...] as of this encounter (statuses as of 10/15/2024) Active Problems Problem Noted Date Diagnosed Date Chronic pain of both knees 05/27/2024 Pulmonary emphysema 10/22/2023 Type 2 diabetes mellitus wit h hemoglobin A1c goal of less than 7.0% 10/22/2023 Hyperlipidemia with target LDL less than 70 10/11 History of tobacco abuse 10/22/2023 Bipolar depression 10/22/2023 Coronary artery disease invo lving [place] coronary artery of [place] heart without angina pectoris 10/22/2023 Impotence of organic origin 06/20/2011 Esophageal reflux 06/01/2011 HTN, goal below 140/90 06/01/2011 documented as of this encounter (statuses as of 10/15/2024) Immunizations Name Administration Dates Next Due Pneumococcal [...] Start Date Job End Date retired. - [employer] 18 years. Not on file Not on file Not on file documented as of this encounter Miscellaneous Notes * Telephone Encounter - Cassie Rueda, youth support worker - 10/14/2024 2:36 PM EST Pt calling requesting the following medication below that is listed as "Historical". The following information was provided: Medication Name: Pantoprazole Sodium 40 MG Oral Tablet Delayed Release (Protonix) Directions: take 1 tab daily Preferred Quantity: 90 ds Previous Prescriber: Dr. Kwadwo Rivera Preferred Pharmacy: [id number] [address] [place] [address] Please review and approve if appropriate. Thanks, Cassie Rueda Chronometer Tester [facility] 10/14/2024,2:36 PM documented in this encounter Plan of Treatment Upcoming Encounters Date Type Department Care Team (Late st Contact Info) Description 10/23/2024 10:20 AM EST Office Visit Family Medicine [address] [phone] Huber Squires CRNP [address] [place] [address] [place] [address] 03/16/2025 10:20 AM EDT Office Visit Pulmonary Medicine, [address] [place] [address] Darwin Hernandez MD [facility] [place] [address] 03/24/2025 11:20 AM EDT Office Visit Family Medicine [address] [phone] Narcisa Ordonez MD [address] [place] [address] [place] [address] 02/21/2026 10:30 AM EDT Imaging Radiology [address] [place] [address] Health Maintenance Due Date Last Done Comments [...] filedocumented as of this encounter Care Teams Drier And Pulverizer Tender Relationship Specialty Start Date End Date Narcisa Ordonez MD [address] [place] [address] [place] [address] PCP - General Family Medicine 10/25/23 documented as of this encounter
--- OUTSIDE RECORDS SUMMARY | 2025-02-07 10:59 | External Medical Summary | Summary of Care ---
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 Name Role Phone Narcisa Ordonez MD Primary Care Prov ider Reason for Referral * Precert (Within 10 days (routine)) - Pending Review Specialty Diagnoses / Procedures Referred By Jimenez mccarthy Referred To Contact Radiology Diagnoses History of tobacco abuse Procedures CT CHEST LOW DOSE SCAN LUNG CANCER SCREEN 1 YEAR FOLLOW UP LUNG CANCER SCREENING PROGRAM REFERRAL LUNG CANCER SCREENING PROGRAM REFERRAL Darwin Hernandez [facility] [address] [facility] [address] Referral ID Status Reason Start Date Expiration Date V isits Requested Visits Authorized [id number] Pending Review 09/14/2024 [id number] Reason for Visit * Reason Comments NEW PATIENT New pulm. Pulmonary emphysema. Referred by Lj Agustin. COPD. Very SOB. * Evaluate & Treat - Unlimited Visits (Within 10 days (routine)) - Pending Review Specialty Diagnoses / Procedures Referred By Jimenez mccarthy Referred To Contact Pulmonary Diseases / Pulmonary Diagnoses Pulmonary emphysema, unspecified emphysema type (HCC) Narcisa Ordonez MD [address] [place] [address] [place] [address] Referral ID Status Reason Start Date Expiration Date Visits Requested Visits Authorized [id number] Pending Review Specialty Services Required 05/27/2024 [id number] Encounter Details Date Type Department Care Team (Late st Contact Info) Description 09/14/2024 10:40 AM EST Office Visit Pulmonary Medicine, [facility] [address] [place] [address] Darwin Hernandez MD [address] [place] [phone] History of tobacco abuse*; Pulmonary emphysema, unspecified emphysema type (HCC); Recurrent [...] 0.1 % Nasal Solution (Astelin) Administer 1 Wil[place] into nostril in the morning and 1 [place] before bedtime. 30 mL 12 10/18/2023 Active Atorvastatin Calcium 40 MG Oral Tablet (Lipitor) Take 1 Tablet by mouth at bedtime. 10/02/2023 Active Fluticasone Propionate 50 MCG/ACT Nasal Suspension (Flonase Allergy Relief) Administer 1 [place] into nostril in the morning. Active Magnesium [...] 02/10/2024 Active Meloxicam 7.5 MG Oral Tablet (Mobic)Indications: Primary osteoarthritis of both knees Take 1 Tablet by mouth in the morning. for pain.. 30 Tablet 04/15/2024 Active Gabapentin 400 MG Oral Capsule (Neurontin)Indicati ons:Chronic pain of both knees Take 1 Capsule by mouth in the morning and 1 Capsule at noon and 1 Capsule before bedtime. 270 Capsule 3 05/27/2024 Active Baclofen 20 MG Oral TabletIndications:C hronic pain of both knees Take 1 Tablet by mouth 2 times a day as needed for Pain. 180 Tablet 3 05/27/2024 Active Lisinopril 40 MG Oral TabletIndications:H TN, goal below 140/90 Take 1 Tablet by mouth in the morning. 90 Tablet 3 07/22/2024 Active Vitamin D3 50 MCG (2000 UT) Oral Capsule Take 1 Capsule by mouth in the morning. 07/22/2024 Active amLODIPine Besylate 5 MG Oral Tablet (Norvasc)Indication s:HTN, goal below 140/90 Take 1 Tablet by mouth in the morning. 90 Tablet 1 09/11/2024 Active Albuterol Sulfate HFA 108 (90 Base) MCG/ACT Inhalation Aerosol SolutionIndications :Pulmonary emphysema, unspecified emphysema type (HCC) Inhale 2 Puffs by mouth every 4 hours as needed for Wheezing. 54 g 5 09/14/2024 5 Active Trelegy Ellipta 100-62.5-25 MCG/ACT Aerosol Powder Breath Activated (Fluticasone-Umecli dinium-Vilanterol)I ndications:Pulmonar y emphysema, unspecified emphysema type (HCC) Inhale 1 Puff by mouth in the morning. 180 Blister Dosing Unit 5 09/14/2024 6 Active Doxycycline Hyclate 100 MG Oral Capsule Take 1 Capsule by mouth in the morning and 1 Capsule before bedtime. until gone.. 20 Capsule 09/14/2024 Active methylPREDNISolone 4 MG Oral Tablet Therapy Pack (Medrol Dosepack) follow package directions 21 Tablet 09/14/2024 Active Trelegy Ellipta 100-62.5-25 MCG/ACT Aerosol Powder Breath Activated (Fluticasone-Umecli dinium-Vilanterol)I ndications:Pulmonar y emphysema, unspecified emphysema type (HCC) Inhale 1 Puff by mouth in the morning. 90 Blister Dosing Unit 5 05/27/2024 4 Discontinu ed(Refill) Albuterol Sulfate HFA 108 (90 Base) MCG/ACT Inhalation Aerosol SolutionIndications :Pulmonary emphysema, unspecified emphysema type (HCC) Inhale 2 Puffs by mouth every 4 hours as needed for Wheezing. 18 g 5 05/27/2024 4 Discontinu ed(Refill) Hospital, Clinic, or Other Facility [...] depression 10/22/2023 Coronary artery disease invo lving [place] coronary artery of [place] heart without angina pectoris 10/22/2023 Impotence of [...] Sign Reading Time Taken Comments Blood Pressure 128/92 09/14/2024 10:50 AM EST Pulse 109 09/14/2024 10:50 AM EST Temperature 36 C (96.8 F) 09/14/2024 10:50 AM EST Respiratory Rate 16 09/14/2024 10:50 AM EST Oxygen Saturation 93% 09/14/2024 10:50 AM EST ra-rest Inhaled Oxygen Concentration - - Weight 91.6 kg (202 lb) 09/14/2024 10:50 AM EST Height 168.9 cm (5' 6.5") 09/14/2024 10:50 AM ES T Body Mass Index 32.12 09/14/2024 10:50 AM EST documented in this encounter Patient Instructions * Patient Instructions* Darwin Hernandez MD - 09/14/2024 11:17 AM EST Graeme Quezada [id number] Benefits of Quitting Smoking Why should I [...] Quit Line [employer] Free Quitline 2-157 QUIT NOW ( ) Your insurance company may also have more information and helpful programs to help you quit. Some may even help cover some of the costs. For example, [facility] members can call to find out about their smoking cessation program and medication coverage. Developed by Kareen Jasso MD, for [employer]. Published by [employer]. Last modified: 2006-03-22 Last reviewed: 2006-01-09 This content is reviewed periodically and is subject to change as new health information becomes available. The information is intended to inform and educate and is not a replacement for medical evaluation, advice, diagnosis or treatment by a healthcare professional. Adult Health Advisor 2005.4 Index Adult Health Advisor 2005.4 Credits Copyright 2006 [employer] and/or one of its subsidiaries. All Rights Reserved. documented in this encounter Progress Notes * Darwin Hernandez MD - 09/14/2024 10:52 AM EST Images from the original note were not included. 09/14/2024 Pulmonary Medicine, [address] [id number] Graeme Quezada 1960 male 64 year old Attending Physician Documentation: 64-year-old male [facility] Thirty-two pack-year smoking history quit 11 months ago History of pulmonary nodules Hx of covid viral illness Elementary school age child at home, Patient reports recent frequent Flare ups (since child started school) Moderate COPD, PFT 08/[address] scan chest , LDCT [facility] January 18, 2024 8 mm nodule right base Hypertension, lisinopril therapy status Hyperlipidemia BPH Current bronchodilator regimen: Trelegy, albuterol Physical examination: Alert, awake, episodic wheezing Class 3 throat No JVD Bilateral scattered coarse wheezing, no dullness S1, S2, no murmur No evidence of volume overload Nonlateralizing Neuro examination Moderate COPD Pulmonary nodules Recurrent bronchitis History of sick contacts as noted Recommendations: Avoid sick contacts Rescue pack therapy including doxycycline and Medrol Dosepak was provided (patient reports Z-Seamus does not help) Continue with LDCT monitoring Continue with current bronchodilator regimen : Trelegy, rescue albuterol Allergen screening profile was ordered Maintain physical activity status Call with change in respiratory symptoms status Pulmonary clinic follow-up recommended 1 year Follow Up: Return in about 6 months (around 03/14/2025) for Clinic Visit. | For: Clinic Visit | Check-out note: Avoid sick contacts Rescue pack therapy including doxycycline and Medrol Dosepak was provided (patient reports Z-Seamus does not help) Continue with LDCT monitoring Continue with current bronchodilator regimen : Trelegy, rescue albuterol Allergen screening profile was ordered Maintain physical activity status Call with change in respiratory symptoms status Pulmonary clinic follow-up recommended 1 year Darwin Hernandez MD Data review: Following reports, and data as outlined below was personally reviewed and interpreted by myself. CT Chest Without Contrast; Diagnostic Exam date and time: 07/24/2024 10:21 AM Age: 63 years old Clinical indication: Interstitial pulmonary disease, unspecified; Solitary pulmonary nodule; Additional info: Follow-up lung nodule, evaluation possible ild COMPARISON: CR (CHEST, ) 07/22/2024 10:41 AM FINDINGS: Lungs: Mild emphysematous changes noted. 3 mm pulmonary nodule superior segment right lower lobe series 4, image 126. Mild peribronchial thickening and mucous impaction lower lung lagunas. Subsegmental atelectasis and/or scarring at the lung bases. No infiltrate. IMPRESSION: 1. 3 mm right upper lobe pulmonary nodule. Recommend interval follow-up per Fleischner society criteria. 2. No acute findings. 3. Bronchitis of the lower lung lagunas. For patients at low risk (minimal or absent history of smoking and of other known risk factors), no routine follow-up is indicated. For patients at high risk (history of smoking or of other known risk factors), consider optional CT Chest at 12 months. (Reference: [place]) Spirometry revealed evidence of moderate airflow obstruction. There was no improvement in spirometry measured following bronchodilator administration.This interpretation has been electronically signed: REUBEN MERCADO MD 09/09/2024 10:56:24 AM Subjective CC: Chief Complaint Patient presents with NEW PATIENT New pulm. Pulmonary emphysema. Referred by Lj Agustin. COPD. Very SOB. HPI: Nursing Notes: Brooke Santiago LPN 09/14/24 1059 Signed Chief Complaint Patient presents with NEW PATIENT New pulm. Pulmonary emphysema. Referred by Lj Agustin. COPD. Very SOB. Interm History/Respiratory Symptoms Cough: yes- yellow phlegm. Hemoptysis: no Sinus Symptoms: yes-congestion Hospitalizations: none ED Trips: lower resp infection. 04/2024 Triggers: dust. Nocturnal: sleeps on one pillow CPAP/BiPAP/O2: no DME Supplier: no Flu Vaccine: 2022 Pneumovax: 2016 Prevnar: 2014 COVID 19: x2. MMRC Dyspnea Scale = 4 (I am too breathless to leave the house or I am breathless when dressing) Objective Filed Vitals: 09/14/24 1050 BP: 128/92 Pulse: 109 Resp: 16 Temp: 36 C (96.8 F) TempSrc: Tympanic SpO2: 93% Weight: 91.6 kg (202 lb) Height: 1.689 m (5' 6.5") Exam: Const: No signs of acute distress present. Head/Face: Normal on inspection. Eyes: Conjunctivae clear. Pupils equal round and reactive to light. ENMT: Oropharynx: No erythema, exudate or masses. Posterior pharynx is normal. Neck: Supple and symmetric. Resp: Respiratory examination as outlined above CV: Rate is regular. Rhythm is regular. No heart murmur appreciated. Extremities: No edema of the lower limbs bilaterally. Skin: Skin is warm and dry. Neuro: Coordination normal. No involuntary movement. Psych: Patient's attitude is cooperative. Mood is normal. Affect is normal. Tests reviewed with the patient: CT CHEST WO CONTRAST Result Date: 07/29/2024 IMPRESSION: 1. 3 mm right upper lobe pulmonary nodule. Recommend interval follow-up per Fleischner society criteria. 2. No acute findings. 3. Bronchitis of the lower lung lagunas. For patients at low risk (minimal or absent history of smoking and of other known risk factors), no routine follow-up isindicated. For patients at high risk (history of smoking or of other known risk factors), consider optional CT Chest at 12 months. (Reference: Crispin) References: Crispin Hinds et al. Guidelines for Management of Incidental Pulmonary Nodules Detected on CT Images: From the Fleischner Society 2017. Radiology. 2017;284(1):228-243. COMMENTS: The presence of pulmonary emphysema on CT is an independent risk factor for lung cancer. In the absence of a history or active diagnosis of lung cancer, it isrecommended that this patient with emphysema be evaluated for enrollment in a low dose CT lung cancer screening program. THIS DOCUMENT HAS BEEN ELECTRONICALLY SIGNED BY ELISEO VALERIO MD XR CHEST 2 VIEWS Result Date: 07/22/2024 IMPRESSION Slight peribronchial thickening is nonspecific but can be seen with bronchitis or asthma. No evidence of pneumonia. XR CHEST 2 VIEWS Result Date: 04/03/2024 IMPRESSION No evidence of acute cardiopulmonary disease. Available Radiologic data was reviewed by me in PACS. The images were shown to the patient and findings were discussed with the patient. HOME MEDICATIONS: Albuterol Sulfate HFA 108 (90 Base) MCG/ACT Inhalation Aerosol Solution Doxycycline Hyclate 100 MG Oral Capsule methylPREDNISolone 4 MG Oral Tablet Therapy Pack (Medrol Dosepack) Trelegy Ellipta 100-62.5-25 MCG/ACT Aerosol Powder Breath Activated (Basrzubjqdq-Irpyjtuqldre-Chzpjkomtk) amLODIPine Besylate 5 MG Oral Tablet (Norvasc) Vitamin D3 50 MCG (2000 UT) Oral Capsule Baclofen 20 MG Oral Tablet Atorvastatin Calcium 40 MG Oral Tablet (Lipitor) Clopidogrel Bisulfate 75 MG Oral Tablet (pLAVix) Finasteride 5 MG Oral Tablet (Proscar) Fluticasone Propionate 50 MCG/ACT Nasal Suspension (Flonase Allergy Relief) Magnesium 400 MG Oral Tablet Nortriptyline HCl 25 MG Oral Capsule (Pamelor) Pantoprazole Sodium 40 MG Oral Tablet Delayed Release (Protonix) Tamsulosin HCl 0.4 MG Oral Capsule (Flomax) Azelastine HCl 0.1 % Nasal Solution (Astelin) Budesonide 0.5 MG/2ML Inhalation Suspension (Pulmicort) MULTIVITAL PO TABS VITAMIN B COMPLEX PO CAPS VITAMIN B-12 500 MCG PO TABS Lisinopril 40 MG Oral Tablet Gabapentin 400 MG Oral Capsule (Neurontin) Meloxicam 7.5 MG Oral Tablet (Mobic) FLUoxetine HCl 40 MG Oral Capsule (PROzac) lamoTRIgine 100 MG Oral Tablet (LaMICtal) BUSPIRONE HCL 10 MG PO TABS VIAGRA 100 MG PO TABS Albuterol Sulfate (Proventil) (2.5 MG/3ML) 0.083% inhalation solution 2.5 mg Albuterol Sulfate (Proventil) (5 MG/ML) 0.5% *conc* inhalation solution 2.5 mg ROS: No reported history of Hemoptysis, Hematemesis, Melena No reported history of Dysuria, Hematuria, Flank Pain No reported history of chronic headache, seizures No reported history of Fall or trauma . No reported history of recent change in weight or appetite. No past medical history on file. Past Surgical History: Procedure Laterality Date TURP, RESIDUAL OR RECURRENT, COMPLETE 06/2024 Social History Socioeconomic History Marital status: Single Occupational History Occupation: retired. - [employer] 18 years. Tobacco Use Smoking status: Former Current packs/day: 0.00 Average packs/day: 1 pack/day for 32.0 years (32.0 ttl pk-yrs) Types: Cigarettes Start date: 10/07/1991 Quit date: 10/07/2023 Years since quittin.9 Smokeless tobacco: Never Vaping Use Vaping status: Former Substance and Sexual Activity Alcohol use: Yes Comment: sometimes Drug use: Never Social History Narrative 3 dogs Slight mold. Social Determinants of Health Financial Resource Strain: Low Risk (04/16/2024) Financial Resource Strain Do you have any trouble paying for your medications, or do you think you might in the future? (Adult - for ages 18 years and over): No Food Insecurity: No Food Insecurity (04/16/2024) Food Insecurity Do you need food for this week? (Adult - for ages 18 years and over): No Transportation Needs: No Transportation Needs (04/16/2024) Transportation Needs Do you have trouble getting a ride to medical visits or work? (Adult - for ages 18 years and over):Never True Social Connections: Socially Integrated (04/16/2024) Social Connections How often do you feel lonely or isolated from those around you? (Adult - for ages 18 years and over): Never Housing Stability: Low Risk (04/16/2024) Housing Stability Do you currently live in a fpc or have no steady place to sleep at night? (Adult - for ages 18 years and over): No Do you think you are at risk of becoming homeless? (Adult - for ages 18 years and over): No Family History Problem Relation Name Age of Onset Suicide attempts Father Review of patient's allergies indicates: Allergen Reactions Lisinopril Not allergic but had CARMENCITA due to combination dehydration/ lisinopril/ mobic The following information was reviewed/discussed with the [...] documented in this encounter Nursing Notes * Brooke Santiago LPN - 09/14/2024 10:52 AM EST Chief Complaint Patient presents with NEW PATIENT New pulm. Pulmonary emphysema. Referred by Lj Agustin. COPD. Very SOB. Interm History/Respiratory Symptoms Cough: yes- yellow phlegm. Hemoptysis: no Sinus Symptoms: yes-congestion Hospitalizations: none ED Trips: lower resp infection. 04/2024 Triggers: dust. Nocturnal: sleeps on one pillow CPAP/BiPAP/O2: no DME Supplier: no Flu Vaccine: 2022 Pneumovax: 2016 Prevnar: 2013 COVID 19: x2. MMRC Dyspnea Scale = 4 (I am too breathless to leave the house or I am breathless when dressing) documented in this encounter Plan of Treatment Upcoming Encounters Date Type Department Care Team (Late st Contact Info) Description 10/23/2024 10:20 AM EST Office Visit Family Medicine [address] [place] [phone] Huber Squires [address] [place] [id number] 03/16/2025 10:20 AM EDT Office Visit Pulmonary Medicine, [facility] [address] [facility] [place] [id number] Darwin Hernandez MD [address] [facility] [place] [id number] 03/24/2025 11:20 AM EDT Office Visit Family Medicine [address] [place] [phone] Narcisa Ordonez MD [address] [place] [address] [place] [id number] 02/21/2026 10:30 AM EDT Imaging Radiology [address] [place] [address] Pending Results Name Type Priority Associated Diagnoses Date /Time [facility] IGE PROFILE Lab Routine Pulmonary emphysema, unspecified emphysema type (HCC) Recurrent cough 09/14/2024 11:51 AM EST IGE Lab Routine Pulmonary emphysema, unspecified emphysema type (HCC) Recurrent cough 09/14/2024 11:51 AM EST [id number], QN Lab Routine Pulmonary emphysema, unspecified emphysema type (HCC) Recurrent cough 09/14/2024 11:51 AM EST Scheduled Orders Name Type Priority Associated Diagnoses Orde r Schedule CT CHEST LOW DOSE SCAN LUNG CANCER SCREEN 1 YEAR FOLLOW UP Medical Imaging Routine History of tobacco abuse Expected: 07/24/2025, Expires: 09/14/2026 [facility] IGE PROFILE Lab Routine Pulmonary emphysema, unspecified emphysema type (HCC) Recurrent cough Expected: 09/14/2024 (Approximate), Expires: 09/14/2025 IGE Lab Routine Pulmonary emphysema, unspecified emphysema type (HCC) Recurrent cough Expected: 09/14/2024 (Approximate), Expires: 09/14/2025 [id number], QN Lab Routine Pulmonary emphysema, unspecified emphysema type (HCC) Recurrent cough Expected: 09/14/2024, Expires: 09/14/2025 Health Maintenance Due Date Last Done Comments [...] as of this encounter Visit Diagnoses Diagnosis History of tobacco abuse- Primary Personal history of tobacco use, presenting hazards to health Pulmonary emphysema, unspecified emphysema type (HCC) Recurrent cough Cough documented in this encounter Care Teams Pig Iron Loader Relationship Specialty Start Date End Date Narcisa Ordonez MD [address] [place] [address] [place] [phone] PCP - General Family Medicine 10/25/23 documented as of this encounter
--- OUTSIDE RECORDS SUMMARY | 2025-02-07 10:59 | External Medical Summary | Summary of Care ---
Author Name Unknown Organization [facility] Address [address] [facility] [place] [address] Phone [phone] Care Team Providers Care Refresh Technician Name Role Phone Narcisa Bailon MD Primary Care Prov ider Reason for Visit * Reason Onset Date Comments Medication Refill 10/13/2024 Encounter Details Date Type Department Care Team (Late st Contact Info) Description 10/13/2024 Refill Pulmonary Medicine, [facility] [address] [facility] [place] [phone] Darwin Hernandez MD [address] [facility] [place] [address] Primary osteoarthritis of both knees Allergies Active Allergy Reactions Criticality Noted Date Comments Lisinopril 04/15/2024 Not allergic but had CARMENCITA due to combination dehydration/ lisinopril/ mobic documented as of this encounter (statuses as of 10/14/2024) Medications MULTIVITAL PO TABS 1 tablet daily [...] 0.1 % Nasal Solution (Astelin) Administer 1 [place] into nostril in the morning and 1 [place] before bedtime. 30 mL 12 10/18/20 23 Active Fluticasone Propionate 50 MCG/ACT Nasal Suspension (Flonase Allergy Relief) Administer 1 [place] into nostril in the morning. Active Magnesium [...] Dosing Unit 5 09/14/20 24 026 Active methylPREDNISolone 4 MG Oral Tablet [...] 1 Tablet by mouth in the morning. 024 Discontin ued(Refil l) Meloxicam 7.5 MG Oral Tablet (Mobic)Indications :Primary osteoarthritis of both knees Take 1 Tablet by mouth in the morning. for pain.. 30 Tablet 04/15/20 24 024 Discontin ued(Refil l) Doxycycline Hyclate 100 MG Oral Capsule Take 1 Capsule by mouth in the morning and 1 Capsule before bedtime. until gone.. 20 Capsule 09/14/20 24 024 Discontin ued(End of Procedure ) Hospital, Clinic, or Other Facility Administered Medication [...] as of this encounter (statuses as of 10/14/2024) Active Problems Problem Noted Date Diagnosed Date Chronic pain of both knees 05/27/2024 Pulmonary emphysema 10/22/2023 Type 2 diabetes mellitus wit h hemoglobin A1c goal of less than 7.0% 10/22/2023 Hyperlipidemia with target LDL less than 70 10/11 History of tobacco abuse 10/22/2023 Bipolar depression 10/22/2023 Coronary artery disease invo lving [place] coronary artery of [place] heart without angina pectoris 10/22/2023 Impotence of organic origin 06/20/2011 Esophageal reflux 06/01/2011 HTN, goal below 140/90 06/01/2011 documented as of this encounter (statuses as of 10/14/2024) Immunizations Name Administration Dates Next Due Pneumococcal [...] 04/16/2024 Does the household have a [facility] source [facility] income? (Household - for [...] encounter Miscellaneous Notes * Telephone Encounter - Narcisa Bailon MD - 10/14/2024 3:39 PM EST Signed Prescriptions: Disp Refills Meloxicam 7.5 MG Oral Tablet (Mobic) 90 Tab*3 Sig: Take 1 Tablet by mouth in the morning. for pain.. Authorizing Provider: NARCISA BAILON Pantoprazole Sodium 40 MG Oral Tablet [place]*90 Tab*3 Sig: Take 1 Tablet by mouth in the morning. Authorizing Provider: NARCISA BAILON Refused Prescriptions: Disp Refills Doxycycline Hyclate 100 MG Oral Capsule 20 Cap*0 Sig: Take 1 Capsule by mouth in the morning and 1 Capsule before bedtime. until gone.. Refused By: NARCISA WOOD Reason for Refusal: Refill Not Appropriate methylPREDNISolone 4 MG Oral Tablet Therap*21 Tab*0 Sig: follow package directions Refused By: NARCISA WOOD Reason for Refusal: Refill Not Appropriate * Telephone Encounter - Amy Merlos RN - 10/14/2024 3:32 PM EST Pt states this is to be kept on hand for his COPD per PULM. He will contact his guide plant aboutit He does need his meloxicam and Pantoprazole filled * Telephone Encounter - Narcisa Bailon MD - 10/14/2024 11:33 AM EST Not appropriate for refills. Please call patient to understand why he requested this? * Telephone Encounter - Narcisa Bailon MD - 10/14/2024 11:33 AM ESTRefused Prescriptions: Disp Refills Doxycycline Hyclate 100 MG Oral Capsule 20 Cap*0 Sig: Take 1 Capsule by mouth in the morning and 1 Capsule before bedtime. until gone.. Refused By: NARCISA WOOD Reason for Refusal: Refill Not Appropriate methylPREDNISolone 4 MG Oral Tablet Therap*21 Tab*0 Sig: follow package directions Refused By: Vi WOOD Reason for Refusal: Refill Not Appropriate * Telephone Encounter - Brooke Santiago LPN - 10/13/2024 3:35 PM ESTPending Prescriptions: Disp Refills Doxycycline Hyclate 100 MG Oral Capsule 20 Cap*0 Sig: Take 1 Capsule by mouth in the morning and 1 Capsule before bedtime. until gone.. methylPREDNISolone 4 MG Oral Tablet Therap*21 Tab*0 Sig: follow package directions * Telephone Encounter - Holli Awad, real estate professional - 10/13/2024 3:14 PM EST Did you pend patient's preferred pharmacy and medication before forwarding?yes [facility]acy: [id number] Pending Prescriptions: Disp Refills Doxycycline Hyclate 100 MG Oral Capsule 20 Cap*0 Sig: Take 1 Capsule by mouth in the morning and 1 Capsule before bedtime. until gone.. methylPREDNISolone 4 MG Oral Tablet Thera*21 Tab*0 Sig: follow package directions Last Visit: 09/10/2024 (in office), Visit date not found (telemedicine) Next Visit: 10/23/2024 If no future appointments scheduled, and last appointment is greater than a year ago, please schedule patient for a follow-up appointment Last date the medication was ordered: 09/14/2024 Is this request for a controlled substance?No [...] 10/23/2024 10:20 AM EST Office Visit Family [address] [phone] Huber Squires CRNP [address] [place] [address] [place] [address] 03/16/2025 10:20 AM EDT Office Visit Pulmonary Medicine, [facility] [address] [facility] [place] [address] Darwin Hernandez MD [facility] [address] 03/24/2025 11:20 AM EDT Office Visit Family Medicine [address] [phone] Narcisa Bailon MD [address] [place] [address] [place] [address] 02/21/2026 10:30 AM EDT Imaging Radiology [facility] [place] 132 [facility] [place] [address] Health Maintenance Due Date Last Done Comments [...] as of this encounter Visit Diagnoses Diagnosis Primary osteoarthritis of both knees Primary localized osteoarthrosis, lower leg documented in this encounter Care Teams Refresh Technician Relationship Specialty Start Date End Date Narcisa Bailon MD [address] [place] [address] [place] [address] PCP - General Family Medicine 10/25/23 documented as of this encounter
--- OUTSIDE RECORDS SUMMARY | 2025-02-07 10:59 | External Medical Summary ---
Author Name Unknown Address Unknown Organization K01:[facility] - [address] [place] [address] Laboratory Report Ordering Provider Test Date Status VIVEK LINARES 09/14/2024 11:51:34 Final Observation Date Value Abnormality Reference (Units ) Status IgE 09/14/2024 11:51:34 23.9 <=214.0 (k U/L) Final Performing Location [facility] - [address] [place] [id number]
--- OUTSIDE RECORDS SUMMARY | 2025-02-07 10:59 | External Medical Summary | Summary of Care ---
Author Name Unknown Organization [facility] Address [address] [facility] [place] [address] Phone [phone] Care Team Providers Care Master Technician Name Role Phone Narcisa Ordonez MD Primary Care Prov ider Reason for Visit * Reason Comments Pulmonary Function Test Spirogram with b chucklator Encounter Details Date Type Department Care Team (Latest Contact Info) Description 08/21/2024 11:00 AM EDT PulmDiagnostic Ancillary [address] [place] [phone] [place] [address] [facility] [place] [phone] Pulmonary emphysema, unspecified emphysema type (HCC)* Allergies Active Allergy Reactions Criticality Noted Date Comments Lisinopril 04/15/2024 Not allergic but had CARMENCITA due to combination dehydration/ lisinopril/ mobic documented as of this encounter (statuses as of 09/12/2024) Medications Medication Sig Dispensed Refills Start Date [...] 0.1 % Nasal Solution (Astelin) Administer 1 [place] into nostril in the morning and 1 [place] before bedtime. 30 mL 12 10/18/2023 Active Atorvastatin Calcium 40 MG Oral Tablet (Lipitor) Take 1 Tablet by mouth at bedtime. 10/02/2023 Active Fluticasone Propionate 50 MCG/ACT Nasal Suspension (Flonase Allergy Relief) Administer 1 [place] into nostril in the morning. Active Magnesium [...] morning. for pain.. 30 Tablet 04/15/2024 Active Trelegy Ellipta 100-62.5-25 MCG/ACT Aerosol Powder Breath Activated (Fluticasone-Umecli dinium-Vilanterol)I ndications:Pulmonar y emphysema, unspecified emphysema type (HCC) Inhale 1 Puff by mouth in the morning. 90 Blister Dosing Unit 5 05/27/2024 Active Albuterol Sulfate HFA 108 (90 Base) MCG/ACT Inhalation Aerosol SolutionIndications :Pulmonary emphysema, unspecified emphysema type (HCC) Inhale 2 Puffs by mouth every 4 hours as needed for Wheezing. 18 g 5 05/27/2024 Active Gabapentin 400 MG Oral Capsule (Neurontin)Indicati [...] by mouth in the morning. 07/22/2024 Active predniSONE 10 MG Oral Tablet (Deltasone)Indicati ons:COPD exacerbation (HCC) Take 5 tabs for 2 days, 4 tabs for 2 days, 3 tabs for 2 days, 2 tabs for 2 days 1 tab for 2 days 30 Tablet 07/30/2024 4 Discontinu ed(Refill) Hospital, Clinic, or Other [...] as of this encounter (statuses as of 09/12/2024) Active Problems Problem Noted Date Diagnosed Date Chronic pain of both knees 05/27/2024 Pulmonary emphysema 10/22/2023 Type 2 diabetes mellitus wit h hemoglobin A1c goal of less than 7.0% 10/22/2023 Hyperlipidemia with target LDL less than 70 10/11 History of tobacco abuse 10/22/2023 Bipolar depression 10/22/2023 Coronary artery disease invo lving [place] coronary artery of [place] heart without angina pectoris 10/22/2023 Impotence of organic origin 06/20/2011 Esophageal reflux 06/01/2011 HTN, goal below 140/90 06/01/2011 documented as of this encounter (statuses as of 09/12/2024) Immunizations Name Administration Dates Next Due Pneumococcal [...] 1 12/07/1990 - 10/07/2023 Smokeless Tobacco: Never Tobacco Cessation:Counseling Given: Not Answered Alcohol Use Standard Drinks/Week Comments Yes 0 [...] Pressure - - Pulse - - Temperature - - Respiratory Rate - - Oxygen Saturation - - Inhaled Oxygen Concentration - - Weight 89.8 kg (198 lb) 08/21/2024 11:11 AM EDT Height 168.9 cm (5' 6.5") 08/21/2024 11:11 AM ED T Body Mass Index 31.48 08/21/2024 11:11 AM EDT documented in this encounter Nursing Notes * Kristen Villarreal RRT - 08/21/2024 11:22 AM EDT Graeme Quezada was identified bu name, Date of : (1960), and . Vitals were obtained for testing. Body mass index is 31.48 kg/m. . Pt has a 1 ppd for 32 years smoking history and quit 9 months ago. 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 Pt has been exeperiencing alot of coughing wheezing and shortness of breath. Pt has a congested cough.Spirometry performed before and after a slow volume nebulizer treatment of 0.5ml of albuterol in 3 ml of NSS. Administrations This Visit Albuterol Sulfate (Proventil) (2.5 MG/3ML) 0.083% inhalation solution 2.5 mg Admin Date 08/21/2024 Action Given Dose 2.5 mg Route Nebulizer Documented By Kristen Villarreal RRT documented in this encounter Plan of Treatment Upcoming Encounters Date Type Department Care Team (Late st Contact Info) Description 09/14/2024 10:40 AM EST Office Visit Pulmonary Medicine, [facility] [address] [place] [address] Darwin Hernandez MD [address] [place] [address] 10/23/2024 10:20 AM EST Office Visit Family [address] [place] [phone] Huber Squires CRNP [address] [place] [address] [place] [address] 03/24/2025 11:20 AM EDT Office Visit [address] [place] [phone] Narcisa Ordonez MD [address] [place] [address] [place] [address] Health Maintenance Due Date Last Done Comments [...] ASSESSMENT COMPLETED IN PAST YEAR FOR COPD 09/11/2025 09/11/2024 Pneumococcal Vaccine: Pediatrics (0 to 5 Years) [...] Procedure Name Priority Date/Time Associated Diagnosis Comments SPIROMETRY B/A BRONCHODILATOR Routine 08/21/2024 11:01 AM EDT Pulmonary emphysema, unspecified emphysema type (HCC) documented in this encounter Results * SPIROMETRY B/A BRONCHODILATOR (08/21/2024 11:01 AM EDT) FVC Actual Pre 3.13 L [facility] NGER [facility] FVC Actual Pre %Predict 84 % [facility] FVC Actual Post 2.11 L SHAILA MARIS [facility]REEZE FVC Actual Post %Change -27 % [facility] FEV1 Actual Pre 1.85 L SHAILA MARIS BREEZE FEV1 Actual Pre %Predict 63 % [facility] FEV1 Actual Post 1.55 L [facility] FEV1 Actual Post %Change -10 % [facility] FEV1/FVC Actual Pre 59 % [facility] FEV1/FVC Actual Post 74 % [facility] FEF 25-75% Actual Pre 0.69 L/sec [facility] FEF 25-75% Actual Pre %Predict 26 % [facility] 08/21/2024 11:0 1 AM EDT Narrative RENETTA ALMAZAN - 08/21/2024 11:01 AM EDT Spirometry revealed evidence of moderate airflow obstruction. There was no improvement in spirometry measured following bronchodilator administration.This interpretation has been electronically signed: REUBEN MERCADO MD 09/09/2024 10:56:24 AM Narcisa Agustin MD MEDICINE RENETTA ALMAZAN documented in this encounter Visit Diagnoses Diagnosis Pulmonary emphysema, unspecified emphysema type (HCC)- Primary documented in this encounter Administered Medications Active Administered Medications - up to 3 most recent administrations Medication Order MAR Action Action Date Dose Rate Site Albuterol Sulfate (Proventil) (2.5 MG/3ML) 0.083% inhalation solution 2.5 mg 2.5 mg, Nebulizer, PRN Other, Starting on Sat06/05/24 at 1037, Until Discontinued, Only one type of albuterol product should be administered (Nebulizer or Inhaler). Please select and document on the appropriate albuterol product order. Given 08/21/2024 11:00 AM EDT 2.5 mg documented in this encounter Care Teams Master Technician Relationship Specialty Start Date End Date Narcisa Ordonez MD [address] [place] [address] [place] [phone] PCP - General Family Medicine 10/25/23 documented as of this encounter
--- OUTSIDE RECORDS SUMMARY | 2025-02-07 10:59 | External Medical Summary ---
Author Name Unknown Address Unknown Organization K0G:[facility] [address] - [address] [place] [address] Laboratory Report Ordering Provider Test Date Status VIVEK LINARES 09/14/2024 11:51:34 Final Observation Date Value Abnormality Reference (Units ) Status SYNC LEUKOCYTES IN BLOOD BY AUTOMATED COUNT 09/14/2024 11:51:34 6.24 4.00-10.80 (K/uL) Final Segs 09/14/2024 11:51:34 61.9 40.0-75.0 (%) Final Lymphs % 09/14/2024 11:51:34 22.1 18.0-42.0 (%) Final Monos 09/14/2024 11:51:34 9.0 1.0-11.0 (%) Final Eosinophils 09/14/2024 11:51:34 6.4 Above high normal 0.0-6.0 (%) Final Basos 09/14/2024 11:51:34 0.6 0.0-2.0 (%) Final Absolute Segs 09/14/2024 11:51:34 3.86 1.80-7.70 (K/uL) Final Lymphs, absolute 09/14/2024 11:51:34 1.38 1.00-4.80 (K/ul) Final Monos, Abs 09/14/2024 11:51:34 0.56 0.00-1.10 (K/uL) Final Eos, Abs 09/14/2024 11:51:34 0.40 0.00-0.70 (K/uL) Final Basos, Abs 09/14/2024 11:51:34 0.04 0.00-0.20 (K/uL) Final Performing Location [facility] 0 - [address] [place] [address]
--- OUTSIDE RECORDS SUMMARY | 2025-02-07 10:59 | External Medical Summary | Summary of Care ---
Author Name Unknown Organization [facility] Address [address] [facility] [place] [address] Phone [phone] Care Team Providers Care Studio Potter Name Role Phone Narcisa Ordonez MD Primary Care Prov ider Reason for Visit * Reason Onset Date Comments Med Request 10/15/2024 Encounter Details Date Type Department Care Team (Late st Contact Info) Description 10/15/2024 Telephone Pulmonary Medicine, [facility] [address] [place], [place] [phone] Services, Scheduling [address] [place] [address] Med Request Allergies Active Allergy Reactions Criticality [...] 0.1 % Nasal Solution (Astelin) Administer 1 [place] into nostril in the morning and 1 [place] before bedtime. 30 mL 12 3 Active Fluticasone Propionate 50 MCG/ACT Nasal Suspension (Flonase Allergy Relief) Administer 1 [place] into nostril in the morning. Active Magnesium [...] depression 10/22/2023 Coronary artery disease invo lving [place] coronary artery of [place] heart without angina pectoris 10/22/2023 Impotence of [...] rescue kit. It was last filled 09/14/24. * Telephone Encounter - Gloria Dewitt OSA [...] 10:20 AM EST Office Visit Family Medicine [address] [phone] Huber Squires CRNP [address] [place] [address] [place] [address] 03/16/2025 10:20 AM EDT Office Visit Pulmonary Medicine, [facility] 132 [facility] [place] [address] Darwin Hernandez MD [facility] [address] 03/24/2025 11:20 AM EDT Office Visit Family Medicine [address] [place] [phone] Narcisa Ordonez MD [address] [place] [address] [place] [address] 02/21/2026 10:30 AM EDT Imaging Radiology [address] 132 [facility] [place] [address] Health Maintenance Due Date Last Done Comments [...] filedocumented as of this encounter Care Teams Studio Potter Relationship Specialty Start Date End Date Narcisa Ordonez MD [address] [place] [address] [place] [phone] PCP - General Family Medicine 10/25/23 documented as of this encounter
--- OUTSIDE RECORDS SUMMARY | 2025-02-07 10:59 | External Medical Summary ---
Author Name Unknown Address Unknown Organization [facility] - [address] [place] [address] Laboratory Report Ordering Provider Test Date Status VIVEK LINARES 09/14/2024 11:51:34 Final Observation Date Value Abnormality Reference (Units ) Status WBC, Total 09/14/2024 11:51:34 6.24 4.00-10.8 0 (K/uL) Final RBC 09/14/2024 11:51:34 3.75 4.50-5.25 (M/uL) Final Hemoglobin 09/14/2024 11:51:34 10.6 Below low normal 14 .0-16.8 (g/dL) Final HCT 09/14/2024 11:51:34 33.8 Below low normal 40. 0-48.4 (%) Final MCV 09/14/2024 11:51:34 90.1 82.0-99.5 (fL) Final MCH 09/14/2024 11:51:34 28.3 27.0-34.0 (pg) Final MCHC 09/14/2024 11:51:34 31.4 32.0-36.0 (g/dL) Final RDW 09/14/2024 11:51:34 16.0 11.5-15.5 (%) Final Platelets 09/14/2024 11:51:34 191 140-400 (K /uL) Final MPV 09/14/2024 11:51:34 10.6 6.6-11.1 ( fL) Final Performing Location [facility] 0 - [address] [place] [address]
--- OUTSIDE RECORDS SUMMARY | 2025-02-07 10:59 | External Medical Summary | Summary of Care ---
Author Name Unknown Organization [facility] Address [address] [facility] [place] [address] Phone [phone] Care Team Providers Care Dielectric Press Operator Name Role Phone Philippe Bailon MD Primary Care Prov ider Reason for Visit * Reason Comments eRx-Medication Refill Encounter Details Date Type Department Care Team (Late st Contact Info) Description 10/05/2024 Refill Family Medicine [address] [phone] Philippe Bailon MD [address] [place] [address] Allergies Active Allergy Reactions Criticality Noted Date Comments Lisinopril 04/15/2024 Not allergic but had CARMENCITA due to combination dehydration/ lisinopril/ mobic documented as of this encounter (statuses as of 10/06/2024) Medications MULTIVITAL PO TABS 1 tablet daily [...] 0.1 % Nasal Solution (Astelin) Administer 1 [place] into nostril in the morning and 1 [place] before bedtime. 30 mL 12 10/18/20 23 Active Fluticasone Propionate 50 MCG/ACT Nasal Suspension (Flonase Allergy Relief) Administer 1 [place] into nostril in the morning. Active Magnesium 400 MG Oral Tablet Take by mouth. Active Nortriptyline HCl 25 MG Oral Capsule (Pamelor) Take 1 Capsule by mouth at bedtime. 2 tabs daily Active Pantoprazole Sodium 40 MG Oral Tablet Delayed Release (Protonix) Take 1 Tablet by mouth in the morning. Active Tamsulosin HCl 0.4 MG Oral Capsule (Flomax) Take 1 Capsule by mouth in the morning. Active Finasteride 5 MG Oral Tablet (Proscar) Take 1 Tablet by mouth in the morning. Active Meloxicam 7.5 MG Oral Tablet (Mobic)Indication [...] bedtime 90 Tablet 1 10/06/20 24 Active Atorvastatin Calcium 40 MG Oral Tablet (Lipitor) Take 1 Tablet by mouth at bedtime. 10/02/20 23 2023 Discontinued Clopidogrel Bisulfate 75 MG Oral Tablet (pLAVix) take 1 tablet by mouth every 24 hours 08/15/20 23 2023 Discontinued lamoTRIgine 100 MG Oral Tablet (LaMICtal) Take 1 Tablet by mouth in the morning and 1 Tablet before bedtime. 180 Tablet 3 11/15/19 24 2023 Discontinued Hospital, Clinic, or Other [...] as of this encounter (statuses as of 10/06/2024) Active Problems Problem Noted Date Diagnosed Date Chronic pain of both knees 05/27/2024 Pulmonary emphysema 10/22/2023 Type 2 diabetes mellitus wit h hemoglobin A1c goal of less than 7.0% 10/22/2023 Hyperlipidemia with target LDL less than 70 10/11 History of tobacco abuse 10/22/2023 Bipolar depression 10/22/2023 Coronary artery disease invo lving [place] coronary artery of [place] heart without angina pectoris 10/22/2023 Impotence of organic origin 06/20/2011 Esophageal reflux 06/01/2011 HTN, goal below 140/90 06/01/2011 documented as of this encounter (statuses as of 10/06/2024) Immunizations Name Administration Dates Next Due Pneumococcal [...] Start Date Job End Date retired. - [employer] 18 years. Not on file Not on file Not on file documented as of this encounter Miscellaneous Notes * Telephone Encounter - Philippe Bailon MD - 10/06/2024 4:09 PM EST Signed Prescriptions: Disp Refills lamoTRIgine 100 MG Oral Tablet (LaMICtal) 180 Ta*3 Sig: take 1 tablet by mouth every morning and BEFORE BEDTIME Authorizing Provider: PHILIPPE BAILON Clopidogrel Bisulfate 75 MG Oral Tablet (p*90 Tab*3 Sig: take 1 tablet by mouth once daily Authorizing Provider: PHILIPPE BAILON Atorvastatin Calcium 40 M G Oral Tablet (Li*90 Tab*1 Sig: take 1 tablet by mouth at bedtime Authorizing Provider: PHILIPPE BAILON Refused Prescriptions: Disp Refills Meloxicam 15 MG Oral Tablet (Mobic) 90 Tab* Sig: take 1 tablet by mouth once daily Refused By: SARAH HACKETT Reason for Refusal: Refill Not Appropriate Reason for Refusal Comment: 7.5 mg current dose -- * Telephone Encounter - Sarah Hackett [facility] - 10/06/2024 3:48 PM ESTPending Prescriptions: Disp Refills lamoTRIgine 100 MG Oral Tablet (LaMICtal) 180 Ta*3 Sig: take 1 tablet by mouth every morning and BEFORE BEDTIME Clopidogrel Bisulfate 75 MG Oral Tablet (p*90 Tab*3 Sig: take 1 tablet by mouth once daily Atorvastatin Calcium 40 MG Oral Tablet (Li*90 Tab*1 Sig: take 1 tablet by mouth at bedtime Refused Prescriptions: Disp Refills Meloxicam 15 MG Oral Tablet (Mobic) 90 Tab* Sig: take 1 tablet by mouth once daily Refused By: SARAH HACKETT Reason for Refusal: Refill Not Appropriate Reason for Refusal Comment: 7.5 mg current dose * Telephone Encounter - Sarah Hackett [facility] - 10/06/2024 3:45 PM EST Lamotrigine: [facility] is currently not authorized to approve refills for the pended medication(s) per refill protocol. Please approve if appropriate. Atorvastatin and Clopidogrel: Pharmacists cannot authorize refills for meds listed as "historical" in chart. Please approve if appropriate. Thank you, Sarah Hackett, PharmD Clinical Pharmacist [facility] ([facility]) [phone] 10/06/2024, 3:47 PM documented in this encounter Plan of Treatment Upcoming Encounters Date Type Department Care Team (Late st Contact Info) Description 10/23/2024 10:20 AM EST Office Visit Family Medicine [address] [phone] Huber Squires CRNP [address] [place] [address] [place] [address] 03/16/2025 10:20 AM EDT Office Visit Pulmonary Medicine, [address] [place] [address] Darwin Hernandez MD [address] [place] [address] [place] [address] 03/24/2025 11:20 AM EDT Office Visit Family Medicine [address] [phone] Philippe Bailon MD [address] [place] [address] [place] [address] 02/21/2026 10:30 AM EDT Imaging Radiology [address] [place] [address] Health Maintenance Due Date Last Done Comments [...] filedocumented as of this encounter Care Teams Dielectric Press Operator Relationship Specialty Start Date End Date Philippe Bailon MD [address] [place] [address] [place] [phone] PCP - General Family Medicine 10/25/23 documented as of this encounter
--- OUTSIDE RECORDS SUMMARY | 2025-02-07 10:59 | External Medical Summary | Summary of Care ---
Author Name Unknown Organization [facility] Address [address] [facility] [place] [address] Phone [phone] Care Team Providers Care Sales Trader Name Role Phone Narcisa Ordonez MD Primary Care Prov ider Reason for Visit * Reason Onset Date Comments Test Results 09/28/2024 Allergen screen, A1A Encounter Details Date Type Department Care Team (Late st Contact Info) Description 09/28/2024 Telephone Pulmonary Medicine, [facility] [address] [facility] [place] [address] Darwin Hernandez MD [address] [facility] [place] [address] Test Results (Allergen screen, A1A) Allergies Active Allergy Reactions Criticality Noted Date Comments Lisinopril 04/15/2024 Not allergic but had CARMENCITA due to combination dehydration/ lisinopril/ mobic documented as of this encounter (statuses as of 09/28/2024) Medications MULTIVITAL PO TABS 1 tablet daily [...] 0.1 % Nasal Solution (Astelin) Administer 1 [place] into nostril in the morning and 1 [place] before bedtime. 30 mL 12 3 Active Atorvastatin Calcium 40 MG Oral Tablet (Lipitor) Take 1 Tablet by mouth at bedtime. 3 Active Fluticasone Propionate 50 MCG/ACT Nasal Suspension (Flonase Allergy Relief) Administer 1 [place] into nostril in the morning. Active Magnesium 400 MG Oral Tablet Take by mouth. Act nancy Nortriptyline HCl 25 MG Oral Capsule (Pamelor) Take 1 Capsule by mouth at bedtime. 2 tabs daily Active Clopidogrel Bisulfate 75 MG Oral Tablet (pLAVix) take 1 tablet by mouth every 24 hours 3 Active Pantoprazole Sodium 40 MG Oral Tablet [...] 1 Tablet before bedtime. 180 Tablet 3 4 Active Meloxicam 7.5 MG Oral Tablet (Mobic)Indications :Primary osteoarthritis of both knees Take 1 Tablet by mouth in the morning. for pain.. 30 Tablet 4 Active Gabapentin 400 MG Oral Capsule (Neurontin)Indicat [...] Blister Dosing Unit 5 4 026 Active Doxycycline Hyclate 100 MG Oral Capsule Take 1 Capsule by mouth in the morning and 1 Capsule before bedtime. until gone.. 20 Capsule 4 Active methylPREDNISolone 4 MG Oral Tablet Therapy Pack (Medrol Dosepack) follow package directions 21 Tablet 4 Active FLUoxetine HCl 40 MG Oral Capsule (PROzac) take 2 capsules by mouth IN THE MORNING 180 Capsule 1 4 Active Hospital, Clinic, or Other [...] as of this encounter (statuses as of 09/28/2024) Active Problems Problem Noted Date Diagnosed Date Chronic pain of both knees 05/27/2024 Pulmonary emphysema 10/22/2023 Type 2 diabetes mellitus wit h hemoglobin A1c goal of less than 7.0% 10/22/2023 Hyperlipidemia with target LDL less than 70 10/11 History of tobacco abuse 10/22/2023 Bipolar depression 10/22/2023 Coronary artery disease invo lving [place] coronary artery of [place] heart without angina pectoris 10/22/2023 Impotence of organic origin 06/20/2011 Esophageal reflux 06/01/2011 HTN, goal below 140/90 06/01/2011 documented as of this encounter (statuses as of 09/28/2024) Immunizations Name Administration Dates Next Due Pneumococcal [...] Start Date Job End Date retired. - [employer] 18 years. Not on file Not on file Not on file documented as of this encounter Miscellaneous Notes * Telephone Encounter - Francisca Gannon LPN - 09/28/2024 7:52 AM EST ----- Message from Darwin Hernandez MD sent at 09/25/2024 4:23 PM EST ----- Allergen screening profile shows elevated eosinophil count at 6.4% (normal up to 6%). Allergen screening profile shows class 1 reactivity to Alternaria grasses. Normal IgE level noted. Alpha-1 antitrypsin (lung protective enzyme) levels are normal. Chart note documented in this encounter Plan of Treatment Upcoming Encounters Date Type Department Care Team (Late st Contact Info) Description 10/23/2024 10:20 AM EST Office Visit Family Medicine [address] [place] [phone] Huber Squires [address] [place] [address] 03/16/2025 10:20 AM EDT Office Visit Pulmonary Medicine, [facility] [address] [facility] [place] [address] Darwin Hernandez MD [address] [place] [address] 03/24/2025 11:20 AM EDT Office Visit Family Medicine [address] [place] [phone] Narcisa Ordonez MD [address] [place] [address] [place] [address] 02/21/2026 10:30 AM EDT Imaging Radiology [facility]st [facility] [address] [facility] [place] [address] Health Maintenance Due Date Last Done Comments [...] as of this encounter Care Teams Sales Trader Relationship Specialty Start Date End Date Narcisa Ordonez MD [address] [place] [address] [place] [address] PCP - General Family Medicine 10/25/23 documented as of this encounter
--- OUTSIDE RECORDS SUMMARY | 2025-02-07 10:59 | External Medical Summary ---
Author Name Unknown Address Unknown Organization : Laboratory Report Ordering Provider Test Date Status VIVEK LINARES 09/14/2024 11:51:34 Final Observation Date Value Abnormality Reference (Units ) Status Alpha-1 antitrypsin 09/14/2024 11:51:34 156 83-199 (mg/dL) Final Test Performed at:
[facility]
[address] [facility]
[place] [address]
Cory Paulino M.D., Ph.D.,Director of Laboratories Performing Location
--- OUTSIDE RECORDS SUMMARY | 2025-02-07 10:59 | External Medical Summary | Summary of Care ---
Author Name Unknown Organization [facility] Address [address] [facility] [place] [address] Phone [phone] Care Team Providers Care Design Engineering Technician Name Role Phone Narcisa Ordonez MD Primary Care Prov ider Encounter Details Date Type Department Care Team (Late st Contact Info) Description 09/11/2024 Telephone Family Medicine [address] [place] [phone] Estella Lamas PA-C [address] [place] [address] [place], [place] [id number] Allergies Active Allergy Reactions Criticality Noted Date Comments Lisinopril 04/15/2024 Not allergic but had CARMENCITA due to combination dehydration/ lisinopril/ mobic documented as of this encounter (statuses as of 09/11/2024) Medications Medication Sig Dispensed Refills Start Date [...] 0.1 % Nasal Solution (Astelin) Administer 1 [place] into nostril in the morning and 1 [place] before bedtime. 30 mL 12 10/18/2023 Active Atorvastatin Calcium 40 MG Oral Tablet (Lipitor) Take 1 Tablet by mouth at bedtime. 10/02/2023 Active Fluticasone Propionate 50 MCG/ACT Nasal Suspension (Flonase Allergy Relief) Administer 1 [place] into nostril in the morning. Active Magnesium [...] 05/27/2024 Active Gabapentin 400 MG Oral Capsule (Neurontin)Indicatio [...] 3 07/22/2024 Active Vitamin D3 50 MCG (1999 UT) Oral Capsule Take 1 Capsule by mouth in the morning. 07/22/2024 Active amLODIPine Besylate 5 MG Oral Tablet (Norvasc)Indications :HTN, goal below 140/90 Take 1 Tablet by mouth in the morning. 90 Tablet 1 09/11/2024 Active Hospital, Clinic, or Other Facility Administered [...] as of this encounter (statuses as of 09/11/2024) Active Problems Problem Noted Date Diagnosed Date Chronic pain of both knees 05/27/2024 Pulmonary emphysema 10/22/2023 Type 2 diabetes mellitus wit h hemoglobin A1c goal of less than 7.0% 10/22/2023 Hyperlipidemia with target LDL less than 70 10/11 History of tobacco abuse 10/22/2023 Bipolar depression 10/22/2023 Coronary artery disease invo lving [place] coronary artery of [place] heart without angina pectoris 10/22/2023 Impotence of organic origin 06/20/2011 Esophageal reflux 06/01/2011 HTN, goal below 140/90 06/01/2011 documented as of this encounter (statuses as of 09/11/2024) Immunizations Name Administration Dates Next Due Pneumococcal [...] encounter Miscellaneous Notes * Telephone Encounter - Marquita Villegas LPN - 09/11/2024 1:11 PM EDT Pt aware. * Telephone Encounter - Estella Lamas PA-C - 09/11/2024 12:53 PM EDT Amlodipine 5 mg sent to pharmacy. Return in 3 weeks for nurse visit BP check. * Telephone Encounter - Marquita Villegas LPN - 09/11/2024 11:21 AM EDT Wrist cuff 155/95, 81 Mine 140/96 left, 143/78 Dinamap 140/96 documented in this encounter Plan of Treatment Upcoming Encounters Date Type Department Care Team (Late st Contact Info) Description 09/14/2024 10:40 AM EST Office Visit Pulmonary Medicine, [facility] [address] [facility] [place] [address] Darwin Hernandez MD [address] [facility] [id number] 10/23/2024 10:20 AM EST Office Visit Family Medicine [address] [place] [phone] Huber Squires CRNP [address] [place] [address] [place] [address] 03/24/2025 11:20 AM EDT Office Visit Family Medicine [address] [place] [phone] Narcisa Ordonez MD [address] [place] [address] [place] [address] Health Maintenance Due Date Last Done Comments [...] as of this encounter Visit Diagnoses Diagnosis HTN, goal below 140/90- Primary Unspecified essential hypertension documented in this encounter Care Teams Design Engineering Technician Relationship Specialty Start Date End Date Narcisa Ordonez MD [address] [place] [address] [place] [address] PCP - General Family Medicine 10/25/23 documented as of this encounter
--- OUTSIDE RECORDS SUMMARY | 2025-02-07 10:59 | External Medical Summary | Summary of Care ---
Author Name Unknown Organization [facility] Address [address] [facility] [place] [address] Phone [phone] Care Team Providers Care Rubber Belt Splicer Name Role Phone Narcisa Ordonez MD Primary Care Prov ider Reason for Visit * Reason Comments eRx-Medication Refill Encounter Details Date Type Department Care Team (Late st Contact Info) Description 10/13/2024 Refill Family Medicine [address] [phone] Narcisa Ordonez MD [address] [place] [address] [place] [address] Primary osteoarthritis of both knees Allergies Active [...] 0.1 % Nasal Solution (Astelin) Administer 1 [place] into nostril in the morning and 1 [place] before bedtime. 30 mL 12 10/18/20 23 Active Fluticasone Propionate 50 MCG/ACT Nasal Suspension (Flonase Allergy Relief) Administer 1 [place] into nostril in the morning. Active Magnesium [...] bedtime 90 Tablet 1 10/06/20 24 Active Pantoprazole Sodium 40 MG Oral [...] depression 10/22/2023 Coronary artery disease invo lving [place] coronary artery of [place] heart without angina pectoris 10/22/2023 Impotence of [...] Start Date Job End Date retired. - [employer] 18 years. Not on file Not on file Not on file documented as of this encounter Miscellaneous Notes * Telephone Encounter - Amy Merlos RN - 10/14/2024 3:34 PM ESTRefused Prescriptions: Disp Refills Meloxicam 7.5 MG Oral Tablet [Pharmacy Med*30 Tab*0 Sig: Take 1 Tablet by mouth in the morning. for pain.. Refused By: AMY MERLOS Reason for Refusal: Duplicate Request * Telephone Encounter - Amy Merlos RN - 10/14/2024 3:34 PM ESTRefused Prescriptions: Disp Refills Meloxicam 7.5 MG Oral Tablet [Pharmacy Med*30 Tab*0 Sig: Take 1 Tablet by mouth in the morning. for pain.. Refused By: AMY MERLOS Reason for Refusal: Duplicate Request * Telephone Encounter - Cassie Rueda, packer dried beef - 10/14/2024 2:35 PM EST Did you pend patient's preferred pharmacy and medication before forwarding?yes Pharmacy: [id number] [address] [place] [address] Pending Prescriptions: Disp Refills Meloxicam 7.5 MG Oral Tablet (Mobic) [Pha*30 Tab*0 Sig: take 1 tablet by mouth IN THE MORNING for pain Last Visit: 09/10/2024 (in office), Visit date not found (telemedicine) Next Visit: 10/23/2024 If no future appointments scheduled, and last appointment is greater than a year ago, please schedule patient for a follow-up appointment Last date the medication was ordered: 04/15/2024 Is this request for a controlled substance?No [...] 10:20 AM EST Office Visit Family Medicine [address] [phone] Huber Squires CRNP [address] [place] [address] [place] [address] 03/16/2025 10:20 AM EDT Office Visit Pulmonary Medicine, [facility] [address] [place] [address] Darwin Hernandez [facility] [address] [facility] [address] 03/24/2025 11:20 AM EDT Office Visit Family Medicine [address] [phone] Narcisa Ordonez MD [address] [place] [address] [place] [address] 02/21/2026 10:30 AM EDT Imaging Radiology [facility]st [facility] [address] [place] [address] Health Maintenance Due Date Last Done Comments [...] leg documented in this encounter Care Teams Rubber Belt Splicer Relationship Specialty Start Date End Date Narcisa Ordonez MD [address] [place] [address] [place] [phone] PCP - General Family Medicine 10/25/23 documented as of this encounter
--- OUTSIDE RECORDS SUMMARY | 2025-02-07 10:59 | External Medical Summary | Summary of Care ---
Author Name Unknown Organization [facility] Address [address] [facility] [place] [address] Phone [phone] Care Team Providers Care Sawing And Assembly Supervisor Name Role Phone Narcisa Ordonez MD Primary Care Prov ider Reason for Visit * Reason Onset Date Comments Med Request 10/15/2024 Encounter Details Date Type Department Care Team (Late st Contact Info) Description 10/15/2024 Telephone Pulmonary Medicine, [facility] 132 [place], [place] [phone] Services, Scheduling [address] [place] [address] Med Request Allergies Active Allergy Reactions Criticality [...] 0.1 % Nasal Solution (Astelin) Administer 1 [place] into nostril in the morning and 1 [place] before bedtime. 30 mL 12 3 Active Fluticasone Propionate 50 MCG/ACT Nasal Suspension (Flonase Allergy Relief) Administer 1 [place] into nostril in the morning. Active Magnesium [...] encounter Miscellaneous Notes * Telephone Encounter - Gloria Dewitt OSA [...] AM EST Office Visit Family Medicine [address] [place] [phone] Huber Squires [address] [place] [address] 03/16/2025 10:20 AM EDT Office Visit Pulmonary Medicine, [facility] 132 [facility] [place] [address] Darwin Hernandez MD [address] [facility] [phone] 03/24/2025 11:20 AM EDT Office Visit Family Medicine [address] [place] [phone] Narcisa Ordonez MD [address] [place] [address] [place] [address] 02/21/2026 10:30 AM EDT Imaging Radiology [address], [address] [place] [address] Health Maintenance Due Date Last Done Comments [...] filedocumented as of this encounter Care Teams Sawing And Assembly Supervisor Relationship Specialty Start Date End Date Narcisa Ordonez MD [address] [place] [address] [place] [phone] PCP - General Family Medicine 10/25/23 documented as of this encounter
--- OUTSIDE RECORDS SUMMARY | 2025-02-07 11:00 | External Medical Summary | Summary of Care ---
Author Name Unknown Organization [facility] Address [address] [facility] [place] [address] Phone [phone] Care Team Providers Care Roller Picker Name Role Phone Narcisa Ordonez MD Primary Care Prov ider Reason for Visit * Reason Comments Outpatient Testing Encounter Details Date Type Department Care Team (Late st Contact Info) Description 09/10/2024 10:00 AM EDT Laboratory Laboratory [address] [place] [phone] [place] [address] [employer] Other*[id number]; HTN, goal below 140/90 Allergies Active Allergy Reactions Criticality Noted Date Comments Lisinopril 04/15/2024 Not allergic but had CARMENCITA due to combination dehydration/ lisinopril/ mobic documented as of this encounter (statuses as of 09/10/2024) Medications Medication Sig Dispensed Refills Start Date [...] 0.1 % Nasal Solution (Astelin) Administer 1 [place] into nostril in the morning and 1 [place] before bedtime. 30 mL 12 10/18/2023 Active Atorvastatin Calcium 40 MG Oral Tablet (Lipitor) Take 1 Tablet by mouth at bedtime. 10/02/2023 Active Fluticasone Propionate 50 MCG/ACT Nasal Suspension (Flonase Allergy Relief) Administer 1 [place] into nostril in the morning. Active Magnesium [...] by mouth in the morning. 07/22/2024 Active Hospital, Clinic, or Other Facility Administered [...] as of this encounter (statuses as of 09/10/2024) Active Problems Problem Noted Date Diagnosed Date Chronic pain of both knees 05/27/2024 Pulmonary emphysema 10/22/2023 Type 2 diabetes mellitus wit h hemoglobin A1c goal of less than 7.0% 10/22/2023 Hyperlipidemia with target LDL less than 70 10/11 History of tobacco abuse 10/22/2023 Bipolar depression 10/22/2023 Coronary artery disease invo lving [place] coronary artery of [place] heart without angina pectoris 10/22/2023 Impotence of organic origin 06/20/2011 Esophageal reflux 06/01/2011 HTN, goal below 140/90 06/01/2011 documented as of this encounter (statuses as of 09/10/2024) Immunizations Name Administration Dates Next Due Pneumococcal [...] Team (Late st Contact Info) Description 09/11/2024 11:00 AM EDT Nurse Only Ancillary [address] [place] [address] [place], Nurse [address] [place] [address] 09/14/2024 10:40 AM EST Office Visit Pulmonary Medicine, [address] [place] [address] Darwin Hernandez [facility] [address] 10/23/2024 10:20 AM EST Office Visit Family Medicine [address] [place] [phone] Huber Squires CRNP [address] [place] [address] [place] [address] 03/24/2025 11:20 AM EDT Office Visit Family Medicine [address] [place] [phone] Narcisa Ordonez MD [address] [place] [address] [place] [address] Pending Results Name Type Priority Associated Diagnoses Date /Time MYCODE SUBSEQUENT ADULT Lab Routine [employer] Other*[id number] 09/10/2024 10:04 AM EDT BASIC METABOLIC PANEL Lab Routine HTN, goal below 140/90 09/10/2024 10:04 AM EDT MAGNESIUM Lab Routine HTN, goal below 140/90 09/10/2024 10:04 AM EDT MYCODE SST1 Lab Routine [employer] Other*[id number] 09/10/2024 10:04 AM EDT MYCODE SST2 Lab Routine [employer] Other*[id number] 09/10/2024 10:04 AM EDT Health Maintenance Due Date Last Done Comments Cologuard 2006 Colonoscopy 2006 Colorectal Cancer Screening 2006 Fecal Occult Blood Test 2006 Sigmoidoscopy 2006 COVID-19 Vaccine ( season) 2024 Influenza Vaccine (FLU shot) (#1) 2024 10/15/2023, 10/15/2023 HbA1c 10/27/2024 04/27/2024, 03/13, 01/30/2024, Additional history exists Albumin/Creatinine Ratio 04/09/2025 04/09/2024, 01/10 Diabetic Eye Exam 04/27/2025 04/27/2024 Diabetic Foot Exam 05/27/2025 05/27/2024 GFR 07/22/2025 07/22/2024, 05/11, 04/27/2024, Additional history exists O2 ASSESSMENT COMPLETED IN PAST YEAR FOR COPD 09/10/2025 09/10/2024 Pneumococcal Vaccine: Pediatrics (0 to 5 Years) [...] as of this encounter Visit Diagnoses Diagnosis [employer] Other*[id number] HTN, goal below 140/90 Unspecified essential hypertension documented in this encounter Care Teams Roller Picker Relationship Specialty Start Date End Date Narcisa Ordonez MD [address] [place] [address] [place] [address] PCP - General Family Medicine 10/25/23 documented as of this encounter
--- OUTSIDE RECORDS SUMMARY | 2025-02-07 11:00 | External Medical Summary ---
Author Name Unknown Address Unknown Organization K01:[facility] [address] [place] [id number] Laboratory Report Ordering Provider Test Date Status BAYRON TERRELL 09/10/2024 10:04:48 Final Observation Date Value Abnormality Reference (Units ) Status Magnesium 09/10/2024 10:04:48 1.8 1.5-2.6 (m g/dL) Final Performing Location [facility] [address] [place] [id number]
--- OUTSIDE RECORDS SUMMARY | 2025-02-07 11:00 | External Medical Summary | Summary of Care ---
Author Name Unknown Organization [facility] Address [address] [facility] [place] [address] Phone [phone] Care Team Providers Care Zipper Ironer Name Role Phone Narcisa Ordonez MD Primary Care Prov ider Reason for Visit * Reason Comments Acute Encounter Details Date Type Department Care Team (Late st Contact Info) Description 09/10/2024 9:20 AM EDT Office Visit Family Medicine [address] [phone] Estella Lamas PA-C [address] [place] [address] [place] [address] HTN, goal below 140/90* Allergies Active Allergy Reactions Criticality Noted Date [...] 2 Active BUSPIRONE HCL 10 MG PO TABSIndications:Anx iety state,Adjustment disorder with depressed mood take two tablets once daily 180 Tab 3 2 Active Budesonide 0.5 MG/2ML Inhalation Suspension (Pulmicort) As directed in nasal rinse twice a day 120 mL 12 3 Active Azelastine HCl 0.1 % Nasal Solution (Astelin) Administer 1 [place] into nostril in the morning and 1 [place] before bedtime. 30 mL 12 3 Active Atorvastatin Calcium 40 MG Oral Tablet (Lipitor) Take 1 Tablet by mouth at bedtime. 3 Active Fluticasone Propionate 50 MCG/ACT Nasal Suspension (Flonase Allergy Relief) Administer 1 [place] into nostril in the morning. Active Magnesium [...] before bedtime. 180 Tablet 3 4 Active FLUoxetine HCl 40 MG Oral Capsule (PROzac) Take 2 Capsules by mouth in the morning. 180 Capsule 1 4 Active Meloxicam 7.5 MG Oral Tablet (Mobic)Indications: Primary osteoarthritis of both knees Take 1 Tablet by mouth in the morning. for pain.. 30 Tablet 4 Active Trelegy Ellipta 100-62.5-25 MCG/ACT Aerosol Powder Breath Activated (Fluticasone-Umecli dinium-Vilanterol)I ndications:Pulmonar y emphysema, unspecified emphysema type (HCC) Inhale 1 Puff by mouth in the morning. 90 Blister Dosing Unit 5 4 Active Albuterol Sulfate HFA 108 (90 Base) MCG/ACT Inhalation Aerosol SolutionIndications :Pulmonary emphysema, unspecified emphysema type (HCC) Inhale 2 Puffs by mouth every 4 hours as needed for Wheezing. 18 g 5 4 Active Gabapentin 400 MG Oral Capsule (Neurontin)Indicati ons:Chronic pain of both knees Take 1 Capsule by mouth in the morning and 1 Capsule at noon and 1 Capsule before bedtime. 270 Capsule 3 4 Active Baclofen 20 MG Oral TabletIndications:C hronic pain of both knees Take 1 Tablet by mouth 2 times a day as needed for Pain. 180 Tablet 3 4 Active Lisinopril 40 MG Oral TabletIndications:H TN, goal below 140/90 Take 1 Tablet by mouth in the morning. 90 Tablet 3 4 Active Vitamin D3 50 MCG (2000 UT) Oral Capsule Take 1 Capsule by mouth in the morning. 4 Active predniSONE 10 MG Oral Tablet (Deltasone)Indicati ons:COPD exacerbation (HCC) Take 5 tabs for 2 days, 4 tabs for 2 days, 3 tabs for 2 days, 2 tabs for 2 days 1 tab for 2 days 30 Tablet 4 09/10/20 24 Discontinued Hospital, Clinic, or Other Facility Administered [...] depression 10/22/2023 Coronary artery disease invo lving [place] coronary artery of [place] heart without angina pectoris 10/22/2023 Impotence of [...] Sign Reading Time Taken Comments Blood Pressure 138/78 09/10/2024 9:41 AM EDT Pulse 85 09/10/2024 9:41 AM EDT Temperature 36.4 C (97.5 F) 09/10/2024 9:41 AM ED T Respiratory Rate - - Oxygen Saturation 96% 09/10/2024 9:41 AM EDT Inhaled Oxygen Concentration - - Weight 90.7 kg (200 lb) 09/10/2024 9:41 AM EDT Height - - Body Mass Index 31.8 08/21/2024 11:11 AM EDT documented in this encounter Progress Notes * Estella Lamas PA-C - 09/10/2024 9:44 AM EDT Nursing Notes: Katlyn Torres LPN 09/10/24 0942 Sign at exiting of workspace Blood pressure has been "out of wack" Checks at home with a wrist cuff Since 09/03 Light headed & balance was off Pt here today with elevated BP readings. Pt states that it has been elevated over the past couple weeks. Pt has a monitor at home. It is a wrist cuff. His significant other has also been checking hisan dit has been ok. Pt did have some headaches. Pt does have SOB but pt with COPD. Pt denies swelling in legs, facial flushing, ringing in ears. He was feeling lightheaded but this cleared. Pt feels good now. BP good today. Pt didn't bring in cuff. Pt worried about his magnesium and potassium. Review of patient's allergies indicates: Allergen Reactions Lisinopril Not allergic but had CARMENCITA due to combination dehydration/ lisinopril/ mobic Current Outpatient Medications Medication Sig Dispense Refill [...] two tablets once daily 180 Tab 3 Budesonide 0.5 MG/2ML Inhalation Suspension (Pulmicort) As directed in nasal rinse twice a day 120 mL 12 Azelastine HCl 0.1 % Nasal Solution (Astelin) Administer 1 [place] into nostril in the morning and 1 [place] before bedtime. 30 mL 12 Atorvastatin Calcium 40 MG Oral Tablet (Lipitor) Take 1 Tablet by mouth at bedtime. Fluticasone Propionate 50 MCG/ACT Nasal Suspension (Flonase Allergy Relief) Administer 1 [place] intonostril in the morning. Magnesium 400 MG Oral Tablet Take by mouth. Nortriptyline HCl 25 MG Oral Capsule (Pamelor) Take 1 Capsule by mouth at bedtime. 2 tabs daily Clopidogrel Bisulfate 75 MG Oral Tablet (pLAVix) take 1 tablet by mouth every 24 hours Pantoprazole Sodium 40 MG Oral Tablet Delayed Release (Protonix) Take 1 Tablet by mouth in the morning. Tamsulosin HCl 0.4 MG Oral Capsule (Flomax) Take 1 Capsule by mouth in the morning. Finasteride 5 MG Oral Tablet (Proscar) Take 1 Tablet by mouth in the morning. lamoTRIgine 100 MG Oral Tablet (LaMICtal) Take 1 Tablet by mouth in the morning and 1 Tablet beforebedtime. 180 Tablet 3 FLUoxetine HCl 40 MG Oral Capsule (PROzac) Take 2 Capsules by mouth in the morning. 180 Capsule 1 Meloxicam 7.5 MG Oral Tablet (Mobic) Take 1 Tablet by mouth in the morning. for pain.. 30 Tablet 0 Trelegy Ellipta 100-62.5-25 MCG/ACT Aerosol Powder Breath Activated (Nflddkeqoyy-Acqkyszpeyho-Jtzvnleypa) Inhale 1 Puff by mouth in the morning. 90 Blister Dosing Unit 5 Albuterol Sulfate HFA 108 (90 Base) MCG/ACT Inhalation Aerosol Solution Inhale 2 Puffs by mouth every 4 hours as needed for Wheezing. 18 g 5 Gabapentin 400 MG Oral Capsule (Neurontin) Take 1 Capsule by mouth in the morning and 1 Capsule at noon and 1 Capsule before bedtime. 270 Capsule 3 Baclofen 20 MG Oral Tablet Take 1 Tablet by mouth 2 times a day as needed for Pain. 180 Tablet 3 Lisinopril 40 MG Oral Tablet Take 1 Tablet by mouth in the morning. 90 Tablet 3 Vitamin D3 50 MCG (2000 UT) Oral Capsule Take 1 Capsule by mouth in the morning. Current Facility-Administered Medications Medication Dose Route Frequency Provider Last Rate Last Admin Albuterol Sulfate (Proventil) (2.5 MG/3ML) 0.083% inhalation solution 2.5 mg 2.5 mg Nebulizer PRN 2.5 mg at 08/21/24 1100 Albuterol Sulfate (Proventil) (5 MG/ML) 0.5% *conc* inhalation solution 2.5 mg 2.5 mg Nebulizer PRN No past medical history on file. Social History Socioeconomic History Marital status: Single Spouse name: Not on file Number of children: Not on file Years of education: Not on file Highest education level: Not on file Occupational History Not on file Tobacco Use Smoking status: Former Current packs/day: 0.00 Average packs/day: 1 pack/day for 32.0 years (32.0 ttl pk-yrs) Types: Cigarettes Start date: 10/07/1991 Quit date: 10/07/2023 Years since quittin.9 Smokeless tobacco: Never Substance and Sexual Activity Alcohol use: Yes Comment: sometimes Drug use: Never Sexual activity: Not on file Other Topics Concern Not on file Social History Narrative Not on file Social Determinants of Health Financial Resource Strain: Low Risk (04/16/2024) Financial Resource Strain Do you have any trouble paying for your medications, or do you think you might in the future? (Adult - for ages 18 years and over): No Does your family have trouble paying for medicine? (Household - for ages 0-17 years): Not on file Food Insecurity: No Food Insecurity (04/16/2024) Food Insecurity Do you need food for this week? (Adult - for ages 18 years and over): No Are you able to get enough food for your family? (Household - for ages 0-17 years): Not on file Does your family need food this week? (Household - for ages 0-17 years): Not on file Do you always have enough food for your family? (Household - for ages 0-17 years): Not on file Transportation Needs: No Transportation Needs (04/16/2024) Transportation Needs Do you have trouble getting a ride to medical visits or work? (Adult - for ages 18 years and over):Never True Does your family have a hard time getting a ride to doctors visits? (Household - for ages 0-17 years): Not on file Has lack of transportation kept you from medical appointments, meetings, work, or from getting things needed for daily living? Check all that apply. (Adult - for ages 18 years and over): Not on file Do you (or your family) have trouble finding or paying for a ride (transportation)? (Household - for ages 0-17 years): Not on file Social Connections: Socially Integrated (04/16/2024) Social Connections How often do you feel lonely or isolated from those around you? (Adult - for ages 18 years and over): Never Housing Stability: Low Risk (04/16/2024) Housing Stability Do you currently live in a custodial or have no steady place to sleep at night? (Adult - for ages 18 years and over): No Do you think you are at risk of becoming homeless? (Adult - for ages 18 years and over): No Does your family worry about paying for your home or becoming homeless? (Household - for ages 0-17 years): Not on file Are you homeless or worried that you might be in the future? (Adult - for ages 18 years and over): Not on file Are you (or your family) homeless or worried that you might be in the future? (Household - for ages0-17 years): Not on file O:Blood pressure 138/78, pulse 85, temperature 36.4 C (97.5 F), temperature source Tympanic, weight 90.7 kg (200 lb), SpO2 96%. GENERAL: alert, healthy, and no distress HEART: regular rate & rhythm, no murmur, and no gallops LUNGS: chest symmetric with normal AP diameter, no chest deformities noted, no chest wall tenderness, lungs clear to auscultation A:HTN, goal below 140/90 (Primary) - BASIC METABOLIC PANEL; Future; Expected date: 09/10/2024 - MAGNESIUM; Future; Expected date: 09/10/2024 Will check some labs. Any questions/problems, please call. Return tomorrow for nurse visit BP checkwith wrist cuff. Any questions/problems, please call. If anything changes, worsens, develops new sx, please call ANA MARIA. Follow Up: Return if symptoms worsen or fail to improve. Estella Lamas PA-C documented in this encounter Nursing Notes * Katlyn Torres LPN - 09/10/2024 9:41 AM EDT Blood pressure has been "out of wack" Checks at home with a wrist cuff Since 09/03 Light headed & balance was off documented in this encounter Plan of Treatment Upcoming Encounters Date Type Department Care Team (Late st Contact Info) Description 09/11/2024 11:00 AM EDT Nurse Only Ancillary [address] [place] [phone] Nurse [place] [address] [place] [address] 09/14/2024 10:40 AM EST Office Visit Pulmonary Medicine, [address] [place] [address] Darwin Hernandez MD [address] [facility] [place] [address] 10/23/2024 10:20 AM EST Office Visit Family Medicine [address] [place] [phone] Huber Squires CRNP [address] [place] [address] [place] [address] 03/24/2025 11:20 AM EDT Office Visit Family Medicine [address] [place] [phone] Narcisa Ordonez MD [address] [place] [address] [place] [address] Pending Results Name Type Priority Associated Diagnoses Date /Time BASIC METABOLIC PANEL Lab Routine HTN, goal below 140/90 09/10/2024 10:04 AM EDT MAGNESIUM Lab Routine HTN, goal below 140/90 09/10/2024 10:04 AM EDT Scheduled Orders Name Type Priority Associated Diagnoses Orde r Schedule BASIC METABOLIC PANEL Lab Routine HTN, goal below 140/90 Expected: 09/10/2024 (Approximate), Expires: 09/10/2025 MAGNESIUM Lab Routine HTN, goal below 140/90 Expected: 09/10/2024 (Approximate), Expires: 09/10/2025 Health Maintenance Due Date Last Done Comments [...] hypertension documented in this encounter Care Teams Zipper Ironer Relationship Specialty Start Date End Date Narcisa Ordonez MD [address] [place] [address] [place] [phone] PCP - General Family Medicine 10/25/23 documented as of this encounter
--- OUTSIDE RECORDS SUMMARY | 2025-02-07 11:00 | External Medical Summary | Summary of Care ---
Author Name Unknown Organization [facility] Address [address] [place] [address] Phone [phone] Care Team Providers Care Mold Builder Name Role Phone Narcisa Ordonez MD Primary Care Prov ider Encounter Details Date Type Department Care Team (Late st Contact Info) Description 08/05/2024 Documentation STAIR LUNG NODULE [address] [place], [place] [id number] Tomy Patton MD [address] [place], [place] [phone] Allergies Active Allergy Reactions Criticality Noted Date Comments Lisinopril 04/15/2024 Not allergic but had CARMENCITA due to combination dehydration/ lisinopril/ mobic documented as of this encounter (statuses as of 08/21/2024) Medications Medication Sig Dispensed Refills Start Date [...] 0.1 % Nasal Solution (Astelin) Administer 1 [place] into nostril in the morning and 1 [place] before bedtime. 30 mL 12 10/18/2023 Active Atorvastatin Calcium 40 MG Oral Tablet (Lipitor) Take 1 Tablet by mouth at bedtime. 10/02/2023 Active Fluticasone Propionate 50 MCG/ACT Nasal Suspension (Flonase Allergy Relief) Administer 1 [place] into nostril in the morning. Active Magnesium [...] by mouth in the morning. 07/22/2024 Active Doxycycline Hyclate 100 MG Oral CapsuleIndications: COPD exacerbation (HCC) Take 1 Capsule by mouth in the morning and 1 Capsule before bedtime. Do all this for 7 days. Take for 7 days. 14 Capsule 07/30/2024 08/06/20 24 predniSONE 10 MG Oral Tablet (Deltasone)Indicati ons:COPD exacerbation (HCC) Take 5 tabs for 2 days, 4 tabs for 2 days, 3 tabs for 2 days, 2 tabs for 2 days 1 tab for 2 days 30 Tablet 07/30/2024 08/21/20 24 Discontinue d(Refill) Hospital, Clinic, or Other Facility Administered Medication [...] as of this encounter (statuses as of 08/21/2024) Active Problems Problem Noted Date Diagnosed Date Chronic pain of both knees 05/27/2024 Pulmonary emphysema 10/22/2023 Type 2 diabetes mellitus wit h hemoglobin A1c goal of less than 7.0% 10/22/2023 Hyperlipidemia with target LDL less than 70 10/11 History of tobacco abuse 10/22/2023 Bipolar depression 10/22/2023 Coronary artery disease invo lving [place] coronary artery of [place] heart without angina pectoris 10/22/2023 Impotence of organic origin 06/20/2011 Esophageal reflux 06/01/2011 HTN, goal below 140/90 06/01/2011 documented as of this encounter (statuses as of 08/21/2024) Immunizations Name Administration Dates Next Due Pneumococcal [...] on file documented as of this encounter Progress Notes * Arianna Johnson LPN - 08/21/2024 3:02 PM EDT Patient disenrolled from STAIR Program for Pulmonary Nodule - banner removed * Tomy Patton MD - 08/05/2024 2:10 PM EDT Lung Nodule Provider Review - Follow-up Clinical Summary: From my initial STAIR evaluation that was done on July 01, 2024: 63-year-old male former cigarette smoker (estimated 32 pack-year, quit less than 1 year ago), who has no personal history of cancer. He apparently is in the lung cancer screening program at [facility], and he had a low-dose CT scan performed on January 18, 2024 that revealed, by report, an 8 mm nodule at the right base that had not been reported previously. This was scored Lung-RADS 3. In my review, there was an 11 mm rounded pleural-based nodule posteromedially in the right lower lobe on a CT scan done January 16, 2024 that was not clearly visualized on prior studies. A follow-up CT scan at a six-month interval was ordered. Reviewed below Imaging Interpretation: Chest CT scan dated July 24, 2024, compared with CT scan performed January 16, 2024. Lung nodules: multiple Location: The principal nodular opacity that was seen posteromedially in the right lower lobe, pleural-based, does not appear to be discrete nodule, and who was now better imaging quality. Rather, this appears to be part of the larger scar complex or atelectasis. Characteristics: Solid Co-morbidity : findings of emphysema (upper lobe predominant centrilobular pattern). Pulmonary Nodule Care Plan: [facility] Ref[facility] ordered & CT imaging recommended Details: No worrisome nodules visualized in the current CT scan, but rather what appears to be scarring or atelectasis. He remains at high-risk for the development of lung cancer, so referral back for continued lung cancer screening with the next scan in 1 year is recommended. 2. Non-Pulmonary Nodule Incidental Finding: none 3. Patient contacted to review recommendations and next steps: No, letter to be sent by STAIR Coordinator (CT in >=12 months, no follow-up needed, or patient [facility]) 4. Message forwarded to STAIR Pool. Tomy Patton MD STAIR (System to Track Abnormalities of Importance Reliably) ;le documented in this encounter Plan of Treatment Upcoming Encounters Date Type Department Care Team (Late st Contact Info) Description 09/14/2024 1:00 PM EST Office Visit Pulmonary Medicine, [facility] [address] [facility] [place] [address] Darwin Hernandez MD [facility] [place] [phone] 10/23/2024 10:20 AM EST Office Visit Family Medicine [address] [place] [phone] Huber Squires CRNP [address] [place] [address] [place] [address] 03/24/2025 11:20 AM EDT Office Visit Family Medicine [address] [place] [phone] Narcisa Ordonez MD [address] [place] [address] [place] [address] Health Maintenance Due Date Last Done Comments Cologuard 2006 Colonoscopy 2006 Fecal Occult Blood Test 2006 Sigmoidoscopy 2006 *COPD SEVERITY VERIFIED BY PFT 10/25/2023 COVID-19 Vaccine ( season) 2024 Influenza Vaccine (FLU shot) (#1) 2024 10/15/2023, 10/15/2023 Colorectal Cancer Screening 08/26/2024 Postponed from 2006 (Acute Illness) HbA1c 10/27/2024 04/27/2024, 03/13, 01/30/2024, Additional history exists Albumin/Creatinine Ratio 04/09/2025 04/09/2024, 01/10 Diabetic Eye Exam 04/27/2025 04/27/2024 Diabetic Foot Exam 05/27/2025 05/27/2024 GFR 07/22/2025 07/22/2024, 05/11, 04/27/2024, Additional history exists O2 ASSESSMENT COMPLETED IN PAST YEAR FOR COPD 08/21/2025 08/21/2024 Pneumococcal Vaccine: Pediatrics (0 to 5 Years) [...] filedocumented as of this encounter Care Teams Mold Builder Relationship Specialty Start Date End Date Narcisa Ordonez MD [address] [place] [address] [place] [address] PCP - General Family Medicine 10/25/23 documented as of this encounter
--- OUTSIDE RECORDS SUMMARY | 2025-02-07 11:00 | External Medical Summary | Summary of Care ---
Author Name Unknown Organization [facility] Address [address] [facility] [place] [address] Phone [phone] Care Team Providers Care Emergency Technician Name Role Phone Narcisa Ordonez MD Primary Care Prov ider Reason for Visit * Reason Comments Acute Encounter Details Date Type Department Care Team (Late st Contact Info) Description 08/21/2024 11:20 AM EDT Office Visit Family Medicine [address] [phone] Estella Lamas PA-C [address] [place] [address] [place] [address] Bronchitis, complicated*; COPD exacerbation (HCC) Allergies Active Allergy Reactions Criticality Noted Date [...] 0.1 % Nasal Solution (Astelin) Administer 1 Flora into nostril in the morning and 1 Flora before bedtime. 30 mL 12 10/18/2023 Active Atorvastatin Calcium 40 MG Oral Tablet (Lipitor) Take 1 Tablet by mouth at bedtime. 10/02/2023 Active Fluticasone Propionate 50 MCG/ACT Nasal Suspension (Flonase Allergy Relief) Administer 1 Flora into nostril in the morning. Active Magnesium [...] by mouth in the morning. 07/22/2024 Active Amoxicillin-Pot Clavulanate 875-125 MG Oral Tablet (Augmentin)Indicati ons:Bronchitis, complicated Take 1 Tablet by mouth in the morning and 1 Tablet before bedtime. Do all this for 10 days. 20 Tablet 08/21/2024 4 Active predniSONE 10 MG Oral Tablet (Deltasone)Indicati ons:COPD exacerbation (HCC) Take 5 tabs for 2 days, 4 tabs for 2 days, 3 tabs for 2 days, 2 tabs for 2 days 1 tab for 2 days 30 Tablet 08/21/2024 Active predniSONE 10 MG Oral Tablet (Deltasone)Indicati [...] depression 10/22/2023 Coronary artery disease invo lving [place] coronary artery of [place] heart without angina pectoris 10/22/2023 Impotence of [...] Sign Reading Time Taken Comments Blood Pressure 134/82 08/21/2024 11:34 AM EDT Pulse 89 08/21/2024 11:34 AM EDT Temperature - - Respiratory Rate - - Oxygen Saturation 96% 08/21/2024 11:34 AM EDT Inhaled Oxygen Concentration - - Weight - - Height - - Body Mass Index - - documented in this encounter Progress Notes * Estella Lamas PA-C - 08/21/2024 11:38 AM EDT Nursing Notes: Katlyn Torres LPN 08/21/24 1138 Signed Chronic bronchitis Has it again Had to have 2 "bouts" last time because it wouldn't clear up Z pack doesn't work Saw PCP a few weeks ago "Not being aggressive enough with the prednisone" Coughing up green "finally" Cannot do anything other than sitting & resting. Pt here today with ongoing cough. Pt does have COPD. Pt was given zpack and doxycycline. This didn't clear. He started to improve while on the doxycycline but once he stopped the med, the sx returned. Pt denies fever, chills, nausea, vomiting, diarrhea, chest pain. He has some mild wheezing and SOB. Pt denies nasal/head congestion, sore throat, ear pain. Pt just had PFT today. He sees pulm in a month. Review of patient's allergies indicates: Allergen Reactions [...] 0.1 % Nasal Solution (Astelin) Administer 1 Flora into nostril in the morning and 1 Flora before bedtime. 30 mL 12 Atorvastatin Calcium 40 MG Oral Tablet (Lipitor) Take 1 Tablet by mouth at bedtime. Fluticasone Propionate 50 MCG/ACT Nasal Suspension (Flonase Allergy Relief) Administer 1 Flora intonostril in the morning. Magnesium 400 MG [...] Ellipta 100-62.5-25 MCG/ACT Aerosol Powder Breath Activated (Ptjelrfpgyl-Xlujrrqceefj-Rhialsftsd) Inhale 1 Puff by mouth in the [...] 1 Capsule by mouth in the morning. predniSONE 10 MG Oral Tablet (Deltasone) Take 5 tabs for 2 days, 4 tabs for 2 days, 3 tabs for 2 days, 2 tabs for 2 days 1 tab for 2 days 30 Tablet 0 Current Facility-Administered Medications Medication Dose Route Frequency [...] date: 10/07/1991 Quit date: 10/07/2023 Years since quittin.8 Smokeless tobacco: Never Substance and Sexual Activity [...] Stability Do you currently live in a intermediate or have no steady place to sleep [...] ages0-17 years): Not on file O:Blood pressure 134/82, pulse 89, SpO2 96%. GENERAL: alert, healthy, and no distress NECK: supple, no adenopathy, no bruits, thyroid normal size, non-tender, without nodularity EYES: conjunctiva are pink and non-injected, sclera clear HEART: regular rate & rhythm, no murmur, and no gallops LUNGS: chest symmetric with normal AP diameter, no chest deformities noted, no chest wall tenderness, mild expiratory wheezes bilaterally A:Bronchitis, complicated (Primary) - Amoxicillin-Pot Clavulanate 875-125 MG Oral Tablet (Augmentin); Take 1 Tablet by mouth in the morning and 1 Tablet before bedtime. Do all this for 10 days. COPD exacerbation (HCC) - predniSONE 10 MG Oral Tablet (Deltasone); Take 5 tabs for 2 days, 4 tabs for 2 days, 3 tabs for 2days, 2 tabs for 2 days 1 tab for 2 days Start above meds. Any questions/problems, please call. If anything changes, worsens, develops new sx, please call [facility]. Follow Up: Return if symptoms worsen or fail to improve. Estella Lamas PA-C documented in this encounter Nursing Notes * Katlyn Torres LPN - 08/21/2024 11:32 AM EDT Chronic bronchitis Has it again Had to have 2 "bouts" last time because it wouldn't clear up Z pack doesn't work Saw PCP a few weeks ago "Not being aggressive enough with the prednisone" Coughing up green "finally" Cannot do anything other than sitting & resting. documented in this encounter Plan of Treatment Upcoming Encounters Date Type Department Care Team (Late st Contact Info) Description 09/14/2024 1:00 PM EST Office Visit Pulmonary Medicine, [address] [place] [address] Darwin Hernandez MD [address] [place] [address] 10/23/2024 10:20 AM EST Office Visit [address] [phone] Huber Squires CRNP [address] [place] [address] [place] [address] 03/24/2025 11:20 AM EDT Office Visit [address] [phone] Narcisa Ordonez MD [address] [place] [address] [place] [id number] Health Maintenance Due Date Last Done Comments [...] ASSESSMENT COMPLETED IN PAST YEAR FOR COPD 07/22/2025 07/22/2024 Pneumococcal Vaccine: Pediatrics (0 to 5 Years) [...] of this encounter Visit Diagnoses Diagnosis Bronchitis, complicated- Primary Bronchitis, not specified as acute or chronic COPD exacerbation (HCC) Obstructive chronic bronchitis with exacerbation documented in this encounter Care Teams Emergency Technician Relationship Specialty Start Date End Date Narcisa Ordonez MD [address] [place] [address] [place] [phone] PCP - General Family Medicine 10/25/23 documented as of this encounter
--- OUTSIDE RECORDS SUMMARY | 2025-02-07 11:00 | External Medical Summary | Summary of Care ---
Author Name Unknown Organization [facility] Address [address] [facility] [place] [address] Phone [phone] Care Team Providers Care Cleat Maker Name Role Phone Narcisa Ordonez MD Primary Care Prov ider Reason for Visit * Reason Comments Pulmonary Function Test Spirogram with b chucklator Encounter Details Date Type Department Care Team (Latest Contact Info) Description 08/21/2024 11:00 AM EDT PulmDiagnostic Ancillary [address] [place] [phone] [place], [place] [address] [facility] [place] [phone] Pulmonary emphysema, unspecified emphysema type (HCC)* Allergies [...] 0.1 % Nasal Solution (Astelin) Administer 1 Lovely into nostril in the morning and 1 Lovely before bedtime. 30 mL 12 10/18/2023 Active Atorvastatin Calcium 40 MG Oral Tablet (Lipitor) Take 1 Tablet by mouth at bedtime. 10/02/2023 Active Fluticasone Propionate 50 MCG/ACT Nasal Suspension (Flonase Allergy Relief) Administer 1 Lovely into nostril in the morning. Active Magnesium [...] 07/22/2024 Active predniSONE 10 MG Oral Tablet (Deltasone)Indicatio ns:COPD exacerbation (HCC) Take 5 tabs for 2 days, 4 tabs for 2 days, 3 tabs for 2 days, 2 tabs for 2 days 1 tab for 2 days 30 Tablet 07/30/2024 Active Hospital, Clinic, or Other Facility Administered [...] depression 10/22/2023 Coronary artery disease invo lving [place] coronary artery of [place] heart without angina pectoris 10/22/2023 Impotence [...] 1:00 PM EST Office Visit Pulmonary Medicine, [facility] [address] [facility] [place] [address] Darwin Hernandez MD [address] [place] [address] 10/23/2024 10:20 AM EST Office Visit Family Medicine [address] [place] [phone] Huber Squires CRNP [address] [place] [address] [place] [address] 03/24/2025 11:20 AM EDT Office Visit Family [address] [place] [phone] Narcisa Ordonez MD [address] [place] [address] [place] [phone] Pending Results Name Type Priority Associated Diagnoses Date /Time SPIROMETRY B/A BRONCHODILATOR Procedures Routine Pulmonary emphysema, unspecified emphysema type (HCC) 08/21/2024 11:01 AM EDT Health Maintenance Due Date Last [...] emphysema type (HCC) documented in this encounter Visit Diagnoses Diagnosis [...] mg documented in this encounter Care Teams Cleat Maker Relationship Specialty Start Date End Date Narcisa rOdonez MD [address] [place] [address] [place] [phone] PCP - General Family Medicine 10/25/23 documented as of this encounter
--- OUTSIDE RECORDS SUMMARY | 2025-02-07 11:00 | External Medical Summary ---
Author Name Unknown Address Unknown Organization K01:[facility] [place] [address] [facility] [address] [place] [id number] Laboratory Report Ordering Provider Test Date Status BAYRON TERRELL 09/10/2024 10:04:48 Final Observation Date Value Abnormality Reference (Units ) Status BUN 09/10/2024 10:04:48 12 6-20 (mg/dL) Final Creatinine 09/10/2024 10:04:48 1.2 0.6-1.2 (mg/dL) Final Glomerular filtration rate/1.73 sq M.predicted [Volume Rate/Area] in Serum, Plasma or Blood by Creatinine-based formula (CKD-EPI) 09/10/2024 10:04:48 70 >=60 (mL/min) Final eGFR is calculated based on the CKD-EPI 2020 equation. Sodium 09/10/2024 10:04:48 143 135-146 (m mol/L) Final Potassium 09/10/2024 10:04:48 4.5 3.5-5.1 (m mol/L) Final Cl 09/10/2024 10:04:48 105 98-107 (mm ol/L) Final CO2 09/10/2024 10:04:48 28 22-32 (mmo l/L) Final Anion gap 09/10/2024 10:04:48 10 7-15 (mmol /L) Final Glucose 09/10/2024 10:04:48 149 Above high normal 70 -120 (mg/dL) Final Calcium 09/10/2024 10:04:48 9.5 8.4-10.2 ( mg/dL) Final Performing Location [facility] [place] [facility] [address] [place] [address]
--- OUTSIDE RECORDS SUMMARY | 2025-02-07 11:00 | External Medical Summary | Summary of Care ---
Author Name Unknown Organization [facility] Address [address] [facility] [place] [address] Phone [phone] Care Team Providers Care Varnish Cooker Name Role Phone Narcisa Ordonez MD Primary Care Prov ider Reason for Visit * Reason Comments Blood Pressure Check Encounter Details Date Type Department Care Team (Late st Contact Info) Description 09/11/2024 11:00 AM EDT Nurse Only Ancillary [address] [place] [address] [place], Nurse [address] [place] [address] Blood Pressure Check Allergies Active Allergy Reactions Criticality Noted Date [...] 0.1 % Nasal Solution (Astelin) Administer 1 Moff[place] into nostril in the morning and 1 [place] before bedtime. 30 mL 12 10/18/2023 Active Atorvastatin Calcium 40 MG Oral Tablet (Lipitor) Take 1 Tablet by mouth at bedtime. 10/02/2023 Active Fluticasone Propionate 50 MCG/ACT Nasal Suspension (Flonase Allergy Relief) Administer 1 [place] into nostril in the morning. Active Magnesium [...] 3 07/22/2024 Active Vitamin D3 50 MCG (1999) Oral Capsule Take 1 Capsule by mouth [...] depression 10/22/2023 Coronary artery disease invo lving [place] coronary artery of [place] heart without angina pectoris 10/22/2023 Impotence of [...] Sign Reading Time Taken Comments Blood Pressure 126/68 09/11/2024 11:09 AM EDT Pulse 82 09/11/2024 11:09 AM EDT Temperature - - Respiratory Rate - - Oxygen Saturation 99% 09/11/2024 11:09 AM EDT Inhaled Oxygen Concentration - - Weight - - Height - - Body Mass Index - - documented in this encounter Nursing Notes * Marquita Villegas LPN - 09/11/2024 11:30 AM EDT Bp check documented in this encounter Plan of Treatment Upcoming Encounters Date Type Department Care Team (Late st Contact Info) Description 09/14/2024 10:40 AM EST Office Visit Pulmonary Medicine, [facility] [address] [facility] [place] [address] Darwin Hernandez MD [facility] [address] [facility] [place] [address] 10/23/2024 10:20 AM EST Office Visit Family [address] [place] [phone] Huber Squires CRNP [address] [place] [address] [place] [address] 03/24/2025 11:20 AM EDT Office Visit Family Medicine [address] [place] [phone] Narcisa Ordonez MD [address] [place] [address] [place] [address] Health Maintenance Due Date Last Done Comments [...] filedocumented as of this encounter Care Teams Varnish Cooker Relationship Specialty Start Date End Date Narcisa Ordonez MD [address] [place] [address] [place] [address] PCP - General Family Medicine 10/25/23 documented as of this encounter
--- OUTSIDE RECORDS SUMMARY | 2025-02-07 11:00 | External Medical Summary ---
Author Name Unknown Address Unknown Organization K01:[facility] [place] [address] [place] [id number] Laboratory Report Ordering Provider Test Date Status ROBBY HUITRON 09/10/2024 10:04:48 Final Observation Date Value Abnormality Reference (Units ) Status MYCODE SPECIMEN-SST 09/10/2024 10:04:48 Freezing of extracted DNA, whole blood and/or serum. Final Performing Location [facility] [place] [address] [place] [address]
--- NOTE | 2025-02-07 11:15 | Emergency Department Note ---
Impression & Plan Pneumonia, Anemia, Hypoxia ED Provider Note NAME: CLAU HOLLIS AGE: 64 SEX: M : 1960 ARRIVES VIA: Walk-In INFORMANT: Patient, ED PROVIDER(S): Estuardo Leach DO CHIEF COMPLAINT: Shortness of breath HPI: The patient is a 64-year-old male who presented to the emergency department for an evaluation of difficulty breathing. The patient's had a cough and difficulty breathing for the last 3 weeks. He notices no leg swelling or leg pain. He is had some hemoptysis. The patient was diagnosed with pneumonia 3 weeks ago. He was on a course of an antibiotic. He continued to worsen symptoms so he came to the emergency department for further evaluation. He is also concerned about his electrolytes. ROS: See above HPI for pertinent positives & negatives. A total of 10 systems reviewed and were otherwise negative. PAST MEDICAL HISTORY: See Below PAST SURGICAL HISTORY: See Below FAMILY HISTORY: See Below SOCIAL HISTORY: See Below HOME MEDICATIONS: See Below ALLERGIES: See Below VITALS: See Below PHYSICAL EXAMINATION: GENERAL: Patient is awake alert in no acute distress patient is resting comfortably and showing no signs of anxiety EYES: The conjunctivae are clear. The pupils are round and reactive. EARS, NOSE, MOUTH AND THROAT: The nose is without any evidence of any deformity. NECK: The neck is nontender and supple. RESPIRATORY: Diminished breath sounds are noted in the right lung field. There were rales noted in the left lung field. There is mild conversational dyspnea. CARDIOVASCULAR: Tachycardic and regular heart sounds were noted auscultation. There is no definite murmur. GASTROINTESTINAL: The abdomen is soft. Abdomen is nontender. MUSCULOSKELETAL/EXTREMITIES: There is no evidence of gross deformity full range of motion is noted in the hips and shoulders. SKIN: There is no obvious evidence of any rash. There are no petechiae, pallor or cyanosis noted. NEUROLOGIC: Patient is awake alert and oriented x3 MEDICAL DECISION MAKING: The patient is a 64-year-old male who presented to the emergency department for an evaluation of cough and difficulty breathing. The patient was hypoxic. Chest x-ray did not show anything obvious so CT of the chest was obtained to ensure there is no signs of venous thromboembolic disease. I discussed the patient's laboratory and radiographic studies with him. He was treated with a DuoNeb as well as IV antibiotics in the emergency department. I discussed his condition with the on-call [facility] hospitalist. They have agreed to evaluate the patient in the emergency department for further management and disposition. Triage Nursing notes reviewed. Prior medical records reviewed Vital Signs: reviewed and remarkable for hypoxia. Differential diagnosis: Reactive airway disease, pneumonia, pneumothorax, COPD, CHF, infections, cardiac ischemia, pulmonary embolism, musculoskeletal, gastrointestinal, as well as other pathologies. ER treatment provided: See below Diagnostics interpreted by me: ECG: EKG was obtained in the emergency department. My interpretation is sinus tachycardia at [address] abnormalities were noted. This was compared to a tracing from April 04, 2024. There was an increase in the rate otherwise no specific changes noted. Cardiac Monitoring: An order was placed for continuous cardiac monitoring. The monitor shows a rate of 92 bpm with sinus rhythm. Laboratory studies: As stated above and show below. Imaging studies: See below. Radiographic imaging was reviewed by myself Consultation(s): I discussed this case with Dr. [facility] Past Med/Surg History Problem List (Updated 02/07/25 @ 15:56 by Estuardo Leach DO) Hypoxia (Acute) Anemia (Acute) Pneumonia (Acute) Chronic renal failure, stage 3 (moderate) Bilateral pneumonia Acute hypoxic respiratory failure Hyperkalemia (Acute) Anemia (Acute) Weakness (Acute) Hypoxia Sepsis (Acute) Hypomagnesemia (Acute) Tachycardia (Acute) SOB (shortness of breath) (Acute) Anemia (Acute) COPD (chronic obstructive pulmonary disease) Hypertension (Acute) Hyperlipidemia (Acute) Bipolar disorder (Acute) Enlarged prostate (Acute) Diabetes mellitus (Acute) Sepsis Constipation CARMEN[place]A (acute kidney injury) (Acute) Hypomagnesemia Pneumonia Bipolar 1 disorder GERD (gastroesophageal reflux disease) CAD in [place] artery Benign localized hyperplasia of prostate with urinary obstruction and lower urinary tract symptoms (Acute) CTS (carpal tunnel syndrome) (Acute) Depression (Acute) Lung disease (Acute) Nocturnal enuresis (Acute) Painful intercourse (Acute) Peyronie's disease (Acute) Psychosexual disorder (Acute) Medical History Pneumonia HTN (hypertension) with goal to be determined BPH (benign prostatic hyperplasia) Arthritis Social History (Reviewed 02/07/25 @ 11:13 by HOWIE Cha Smoking Status: Former smoker Tobacco Type: Cigarettes Do You Dip or Chew Tobacco: No; Hx Alcohol Use: Yes Hx Substance Use: No Preferred Language: Estonian Communication Ability: Effective Doormaker Required: No Beliefs That Will Affect Care: None Current Living Situation: Family and Significant Other Feels Safe at Home: Yes Assistive Devices: None Allergies Allergies Allergy/AdvReac Type Severity Reaction Status Date / Time No Known Drug Allergies Allergy Verified 07/29/19 14:49 Home Meds Home Medications Medication Instructions Recorded Confirmed atorvastatin 40 mg tablet 40 mg PO QAM 03/04/23 02/07/25 buspirone 10 mg tablet 10 mg PO UD 03/04/23 02/07/25 clopidogrel 75 mg tablet 75 mg PO DAILY 03/04/23 02/07/25 finasteride 5 mg tablet 5 mg PO UD 03/04/23 02/07/25 fluoxetine 40 mg capsule 80 mg PO DAILY 03/04/23 02/07/25 fluticasone fur. 100 mcg-umeclid 1 ea inhalation DAILY 03/04/23 02/07/25 62.5 mcg-vilant 25 mcg inhalat.powder (Trelegy Ellipta) fluticasone propionate 50 50 mcg intranasal DAILY 03/04/23 02/07/25 mcg/actuation nasal spray,suspension lamotrigine 100 mg tablet 100 mg PO BID 03/04/23 02/07/25 metformin 500 mg tablet 500 mg PO UD 03/04/23 02/07/25 pantoprazole 40 mg tablet,delayed 40 mg PO DAILY 03/04/23 02/07/25 release tamsulosin 0.4 mg capsule 0.8 mg PO UD 03/04/23 02/07/25 alfuzosin 10 mg tablet,extended 10 mg PO UD 04/03/24 02/07/25 release 24 hr baclofen 20 mg tablet 20 mg BID 04/03/24 02/07/25 gabapentin 400 mg capsule 400 mg TID 04/03/24 02/07/25 amlodipine 5 mg tablet 5 mg PO DAILY 02/07/25 02/07/25 azithromycin 250 mg tablet 250 mg PO DIRECTED 02/07/25 02/07/25 lisinopril 40 mg tablet 40 mg PO DAILY 02/07/25 02/07/25 meloxicam 7.5 mg tablet 7.5 mg PO DAILY 02/07/25 02/07/25 methylprednisolone 4 mg tablets in 4 mg PO DIRECTED 02/07/25 02/07/25 a dose pack nortriptyline 25 mg capsule 50 mg PO HS 02/07/25 02/07/25 tirzepatide 7.5 mg/0.5 mL 7.5 mg subcut WK 02/07/25 02/07/25 subcutaneous pen injector (Marc) Results & Data (ED) Vital Signs Vital Signs - 24 hr 02/07/25 10:54 02/07/25 11:08 02/07/25 11:10 Temperature 36.6 C Temperature Source Oral Pulse Rate 122 H 117 H Pulse Rate from SpO2 Sensor Pulse Rhythm Regular Pulse Strength Normal Respiratory Rate 24 Respiratory Effort / Characteristics Labored Respiratory Pattern Regular Blood Pressure 114/75 Blood Pressure Mean 88 Blood Pressure Position Sitting Pulse Oximetry 91 88 L Oxygen Delivery Method Room Air Nasal Cannula Oxygen Flow Rate 0 Sepsis Recent Fever Within 48 Hours No Sepsis New/Unexplained Change in Mental Status No Sepsis Action Taken by Nursing No Action Required Oxygen Flow Rate - Titration 2 Pulse Oximetry Post Tiitration 94 02/07/25 11:20 02/07/25 11:21 02/07/25 11:22 Temperature Temperature Source Pulse Rate 115 H Pulse Rate from SpO2 Sensor 115 H Pulse Rhythm Pulse Strength Respiratory Rate 17 Respiratory Effort / Characteristics Respiratory Pattern Blood Pressure 116/75 Blood Pressure Mean 87 Blood Pressure Position Pulse Oximetry 89 L 94 Oxygen Delivery Method Room Air Room Air Nasal Cannula Oxygen Flow Rate 0 2 Sepsis Recent Fever Within 48 Hours Sepsis New/Unexplained Change in Mental Status Sepsis Action Taken by Nursing Oxygen Flow Rate - Titration Pulse Oximetry Post Tiitration 02/07/25 11:24 02/07/25 11:30 02/07/25 11:33 Temperature Temperature Source Pulse Rate 113 H 113 H Pulse Rate from SpO2 Sensor 113 H 113 H Pulse Rhythm Pulse Strength Respiratory Rate 11 L 19 Respiratory Effort / Characteristics Respiratory Pattern Blood Pressure 112/79 Blood Pressure Mean 89 Blood Pressure Position Pulse Oximetry 93 94 Oxygen Delivery Method Nasal Cannula Nasal Cannula Oxygen Flow Rate 2 2 Sepsis Recent Fever Within 48 Hours Sepsis New/Unexplained Change in Mental Status Sepsis Action Taken by Nursing Oxygen Flow Rate - Titration Pulse Oximetry Post Tiitration 02/07/25 11:35 02/07/25 11:39 02/07/25 12:00 Temperature Temperature Source Pulse Rate 110 H Pulse Rate from SpO2 Sensor 110 H Pulse Rhythm Pulse Strength Respiratory Rate 22 Respiratory Effort / Characteristics SOB on Exertion Respiratory Pattern Blood Pressure 116/80 Blood Pressure Mean 97 Blood Pressure Position Pulse Oximetry 92 Oxygen Delivery Method Oxygen Flow Rate Sepsis Recent Fever Within 48 Hours Sepsis New/Unexplained Change in Mental Status Sepsis Action Taken by Nursing Oxygen Flow Rate - Titration Pulse Oximetry Post Tiitration 02/07/25 12:06 02/07/25 12:30 02/07/25 12:30 Temperature Temperature Source Pulse Rate 109 H 101 H Pulse Rate from SpO2 Sensor 109 H 101 H Pulse Rhythm Pulse Strength Respiratory Rate 15 22 Respiratory Effort / Characteristics Respiratory Pattern Blood Pressure 103/74 Blood Pressure Mean 91 Blood Pressure Position Pulse Oximetry 93 93 Oxygen Delivery Method Nasal Cannula Nasal Cannula Oxygen Flow Rate 2 2 Sepsis Recent Fever Within 48 Hours Sepsis New/Unexplained Change in Mental Status Sepsis Action Taken by Nursing Oxygen Flow Rate - Titration Pulse Oximetry Post Tiitration 02/07/25 12:30 02/07/25 12:30 02/07/25 12:30 Temperature Temperature Source Pulse Rate Pulse Rate from SpO2 Sensor Pulse Rhythm Pulse Strength Respiratory Rate Respiratory Effort / Characteristics Respiratory Pattern Blood Pressure 103/74 103/74 103/74 Blood Pressure Mean 91 91 91 Blood Pressure Position Pulse Oximetry Oxygen Delivery Method Oxygen Flow Rate Sepsis Recent Fever Within 48 Hours Sepsis New/Unexplained Change in Mental Status Sepsis Action Taken by Nursing Oxygen Flow Rate - Titration Pulse Oximetry Post Tiitration 02/07/25 12:30 02/07/25 12:30 02/07/25 12:30 Temperature Temperature Source Pulse Rate Pulse Rate from SpO2 Sensor Pulse Rhythm Pulse Strength Respiratory Rate Respiratory Effort / Characteristics Respiratory Pattern Blood Pressure 103/74 103/74 103/74 Blood Pressure Mean 91 91 91 Blood Pressure Position Pulse Oximetry Oxygen Delivery Method Oxygen Flow Rate Sepsis Recent Fever Within 48 Hours Sepsis New/Unexplained Change in Mental Status Sepsis Action Taken by Nursing Oxygen Flow Rate - Titration Pulse Oximetry Post Tiitration 02/07/25 12:30 02/07/25 12:30 02/07/25 12:30 Temperature Temperature Source Pulse Rate Pulse Rate from SpO2 Sensor Pulse Rhythm Pulse Strength Respiratory Rate Respiratory Effort / Characteristics Respiratory Pattern Blood Pressure 103/74 103/74 103/74 Blood Pressure Mean 91 91 91 Blood Pressure Position Pulse Oximetry Oxygen Delivery Method Oxygen Flow Rate Sepsis Recent Fever Within 48 Hours Sepsis New/Unexplained Change in Mental Status Sepsis Action Taken by Nursing Oxygen Flow Rate - Titration Pulse Oximetry Post Tiitration 02/07/25 12:54 02/07/25 13:00 02/07/25 13:00 Temperature Temperature Source Pulse Rate 99 H Pulse Rate from SpO2 Sensor 100 H Pulse Rhythm Pulse Strength Respiratory Rate 26 H Respiratory Effort / Characteristics Respiratory Pattern Blood Pressure 108/71 108/71 Blood Pressure Mean 76 76 Blood Pressure Position Pulse Oximetry 95 Oxygen Delivery Method Oxygen Flow Rate Sepsis Recent Fever Within 48 Hours Sepsis New/Unexplained Change in Mental Status Sepsis Action Taken by Nursing Oxygen Flow Rate - Titration Pulse Oximetry Post Tiitration 02/07/25 13:00 02/07/25 13:00 02/07/25 13:00 Temperature Temperature Source Pulse Rate Pulse Rate from SpO2 Sensor Pulse Rhythm Pulse Strength Respiratory Rate Respiratory Effort / Characteristics Respiratory Pattern Blood Pressure 108/71 108/71 108/71 Blood Pressure Mean 76 76 76 Blood Pressure Position Pulse Oximetry Oxygen Delivery Method Oxygen Flow Rate Sepsis Recent Fever Within 48 Hours Sepsis New/Unexplained Change in Mental Status Sepsis Action Taken by Nursing Oxygen Flow Rate - Titration Pulse Oximetry Post Tiitration 02/07/25 13:00 02/07/25 13:00 02/07/25 13:00 Temperature Temperature Source Pulse Rate Pulse Rate from SpO2 Sensor Pulse Rhythm Pulse Strength Respiratory Rate Respiratory Effort / Characteristics Respiratory Pattern Blood Pressure 108/71 108/71 108/71 Blood Pressure Mean 76 76 76 Blood Pressure Position Pulse Oximetry Oxygen Delivery Method Oxygen Flow Rate Sepsis Recent Fever Within 48 Hours Sepsis New/Unexplained Change in Mental Status Sepsis Action Taken by Nursing Oxygen Flow Rate - Titration Pulse Oximetry Post Tiitration 02/07/25 13:06 02/07/25 13:30 02/07/25 13:30 Temperature Temperature Source Pulse Rate 96 H Pulse Rate from SpO2 Sensor 96 H Pulse Rhythm Pulse Strength Respiratory Rate 18 Respiratory Effort / Characteristics Respiratory Pattern Blood Pressure 119/75 119/75 Blood Pressure Mean 87 87 Blood Pressure Position Pulse Oximetry 96 Oxygen Delivery Method Oxygen Flow Rate Sepsis Recent Fever Within 48 Hours Sepsis New/Unexplained Change in Mental Status Sepsis Action Taken by Nursing Oxygen Flow Rate - Titration Pulse Oximetry Post Tiitration 02/07/25 13:30 02/07/25 13:30 02/07/25 13:30 Temperature Temperature Source Pulse Rate Pulse Rate from SpO2 Sensor Pulse Rhythm Pulse Strength Respiratory Rate Respiratory Effort / Characteristics Respiratory Pattern Blood Pressure 119/75 119/75 119/75 Blood Pressure Mean 87 87 87 Blood Pressure Position Pulse Oximetry Oxygen Delivery Method Oxygen Flow Rate Sepsis Recent Fever Within 48 Hours Sepsis New/Unexplained Change in Mental Status Sepsis Action Taken by Nursing Oxygen Flow Rate - Titration Pulse Oximetry Post Tiitration 02/07/25 13:30 02/07/25 13:30 02/07/25 13:30 Temperature Temperature Source Pulse Rate 96 H Pulse Rate from SpO2 Sensor 94 H Pulse Rhythm Pulse Strength Respiratory Rate 22 Respiratory Effort / Characteristics Respiratory Pattern Blood Pressure 119/75 119/75 Blood Pressure Mean 87 87 Blood Pressure Position Pulse Oximetry 95 Oxygen Delivery Method Oxygen Flow Rate Sepsis Recent Fever Within 48 Hours Sepsis New/Unexplained Change in Mental Status Sepsis Action Taken by Nursing Oxygen Flow Rate - Titration Pulse Oximetry Post Tiitration Home Medications Current Medication List: was personally reviewed by me Laboratory Data Attestation: I reviewed the patient's lab results. 02/07/25 11:20 02/07/25 11:20 Lab Results 02/07/25 02/07/25 Range/Units 11:20 13:22 WBC 8.44 (4.8-10.8) K/ul RBC 3.22 L (4.70-6.10) M/uL Hgb 9.8 L (14.0-18.0) g/dl Hct 29.1 L (42.0-52.0) % MCV 90.4 (80.0-100.0) fL MCH 30.4 (25.0-34.0) pg MCHC 33.7 (32.0-36.0) g/dL RDW Std Deviation 51.2 H (36.4-46.3) fL RDW Coeff of Christophe 15.7 H (11.5-14.5) % Plt Count 177 (130-400) K/uL MPV 10.4 (9.4-12.4) fL Immature Gran % (Auto) 0.5 % Neut % (Auto) 84.7 % Lymph % (Auto) 6.6 % Merrick % (Auto) 6.5 % Eos % (Auto) 1.5 % Baso % (Auto) 0.2 % Neut # (Auto) 7.14 H (1.40-6.50) K/uL Lymph # (Auto) 0.56 L (1.20-3.40) K/uL Merrick # (Auto) 0.55 (0.11-0.59) K/uL Eos # (Auto) 0.13 (0.00-0.50) K/uL Baso # (Auto) 0.02 (0.00-0.20) K/uL Immature Gran # (Auto) 0.04 (0.01-0.20) K/uL PT 11.4 (9.0-12.0) Seconds INR 1.1 (0.9-1.1) APTT 29 (21-31) Seconds PTT Ratio 1.1 D-Dimer 590 H* (0-500) ug/L FEU VBG pH 7.42 H (7.36-7.41) VBG pCO2 35 L (38-50) mmHg VBG pO2 35 mmHg VBG HCO3 23 mmol/L VBG O2 Saturation < 60.0 % VBG Base Excess -1.3 mEq/L Sodium 132 L (136-145) mmol/L Potassium 4.1 (3.5-5.1) mmol/L Chloride 100 (98-107) mmol/L Carbon Dioxide 24 (21-32) mmol/L Anion Gap 8 (3-11) BUN 19 (6-23) mg/dl Creatinine 1.43 H (0.6-1.4) mg/dl Est Cr Clr Drug Dosing 53.8 ml/min eGFR 55.06 BUN/Creatinine Ratio 13.3 (10-20) Glucose 162 H (70-99(Fasting)) mg/dl Lactate 0.7 (0.4-2.0) mmol/L Calcium 9.6 (8.6-10.3) mg/dl Magnesium 1.8 (1.7-2.4) mg/dl Total Bilirubin 1.3 H (0.2-1.0) mg/dl AST 17 (13-39) U/L ALT 33 (7-52) U/L Alkaline Phosphatase 97 (34-104) U/L Troponin I High Sens 6.3 (0-20) pg/ml C-Reactive Protein 28.39 H (0-0.5) mg/dl B-Natriuretic Peptide 32 (0-100) pg/ml Total Protein 7.3 (6.0-8.3) gm/dl Albumin 4.0 (3.4-5.0) gm/dl Globulin 3.3 (2.5-4.0) gm/dl Albumin/Globulin Ratio 1.2 (0.9-2) Procalcitonin 7.40 H (0-0.5) ng/ml Adenovirus (PCR) Not Detected (NotDetected) B. pertussis DNA (PCR) Not Detected (NotDetected) B.parapertussis DNA PCR Not Detected (NotDetected) C. pneumoniae DNA (PCR) Not Detected (NotDetected) Coronavirus OC43 (PCR) Not Detected (NotDetected) Coronavirus HKU1 (PCR) Not Detected (NotDetected) Coronavirus 229E (PCR) Not Detected (NotDetected) SARS-CoV-2 (PCR) Not Detected (NotDetected) Coronavirus NL63 (PCR) Not Detected (NotDetected) Human Metapneumovir PCR Not Detected (NotDetected) Influenza Type A (PCR) Not Detected (NotDetected) Influenza Type B (PCR) Not Detected (NotDetected) M. pneumoniae (PCR) Not Detected (NotDetected) Parainfluenza 1 (PCR) Not Detected (NotDetected) Parainfluenza 2 (PCR) Not Detected (NotDetected) Parainfluenza 3 (PCR) Not Detected (NotDetected) Parainfluenza 4 (PCR) Not Detected (NotDetected) RSV (PCR) Not Detected (NotDetected) Entero/Rhino (PCR) Not Detected (NotDetected) Administered Medications Discontinued Medications Sodium Chloride (Nss) 500 mls @ 999 mls/hr IV .Q31M ONE Stop: 02/07/25 12:37 Last Infusion: 02/07/25 12:46 Dose: Infused Documented By: Admin: 02/07/25 12:12 Dose: 999 mls/hr Documented By: ANNALISE Sodium Chloride (Nss) 1,000 mls @ 999 mls/hr IV .Q1H1M ONE Stop: 02/07/25 13:28 Last Infusion: 02/07/25 14:01 Dose: Infused Documented By: Admin: 02/07/25 12:46 Dose: 999 mls/hr Documented By: ANNALISE Ceftriaxone Sodium (Rocephin) 2,000 mg in 50 mls @ 100 mls/hr IV NOW STA Stop: 02/07/25 12:57 Last Infusion: 02/07/25 14:21 Dose: Infused Documented By: Admin: 02/07/25 13:45 Dose: 100 mls/hr Documented By: DON Ioversol (Optiray 320 125ml) 62 ml IV ONCE ONE Stop: 02/07/25 12:23 Last Admin: 02/07/25 12:22 Dose: 62 ml Documented By: NOÉ Imaging Data Attestation: I personally reviewed and interpreted this imaging study as follows: My Impression: 1 view chest x-ray was obtained in the emergency department. My interpretation is no free air or definite filtrate, final report below. CT of the chest was obtained in the emergency department. My interpretation is bilateral lower infiltrates noted, final report below. Radiologist's Impression: Chest X-Ray 02/07/25 11:06 EXAM: Radiograph of the Chest 1 View INDICATION: Dyspnea TECHNIQUE: Frontal view of the chest. COMPARISON: 04/03/2024 FINDINGS: Lungs and pleural spaces: Stable mild scar atelectasis left base. Minimal airway thickening is stable. No pleural effusion or pneumothorax. Heart: Shape and configuration within normal limits allowing for technique. Mediastinum: Normal contour. Bones/joints: Degenerative changes noted throughout the spine. No acute osseous abnormality seen. Soft tissues: No abnormality noted. No radiopaque foreign body noted. Upper abdomen: No abnormality noted. IMPRESSION: Mild acute and or chronic bronchitis and stable mild left base atelectasis. ACT 112: N/A Electronically signed by Marlin Mosqueda 02-07-2025 11:39 AM Chest CTA 02/07/25 12:07 EXAM: CT Angiography Chest With Intravenous Contrast INDICATION: Intermittent chest pain and recent pneumonia 3 weeks ago. TECHNIQUE: Axial computed tomographic angiography images of the chest with intravenous contrast. Sagittal and coronal reformatted images were created and reviewed. This CT exam was performed using one or more of the following dose reduction techniques: automated exposure control, adjustment of the mA and/or kV according to patient size, and/or use of iterative reconstruction technique. MIP reconstructed images were created and reviewed. CONTRAST: 62ml of Optiray 320 was administered intravenously. COMPARISON: 04/03/2024 FINDINGS: Pulmonary arteries: No abnormality noted. No pulmonary embolism. Aorta: There is mild atherosclerosis at the origin of the left subclavian artery. No aortic aneurysm or dissection. Lungs and pleural spaces: Centrilobular emphysematous changes stable. There is consolidation in both lower lobes left greater than right. No pleural effusion or pneumothorax. No bronchiectasis. Heart: Cardiomegaly. No right heart strain or pericardial effusion. There is marked left coronary calcification. Bones/joints: No acute or atypical chronic changes. Soft tissues: No abnormality noted. Lymph nodes: Mild reactive left hilar lymph nodes. Liver: Normal size and contour. Hypodense typical of steatosis. No mass or ductal dilation. IMPRESSION: 1. No pulmonary embolus noted. Impression bilateral lower lobe pneumonia. 2. Hepatic steatosis. ACT 112: N/A Electronically signed by Marlin Mosqueda 02-07-2025 12:38 PM Discharge Plan Visit Data Chief Complaint: Shortness of Breath/Dyspnea Stated Complaint: ABN LABS ED Provider: Estuardo Leach Discharge Problem: Pneumonia, Anemia, Hypoxia Patient Disposition: Admitted As Inpatient Discharge Instructions Interventions: ED Discharge Assessment Last Done: 02/07/25 14:28
[2025-02-07 11:30] LABS: Base Excess VBG -1.3 mEq/L; HCO3 VBG 23 mmol/L; Oxygen Saturation VBG < 60.0 %; PCO2 VBG 35 mmHg (38-50); PO2 VBG 35 mmHg; pH VBG 7.42 (7.36-7.41)
[2025-02-07 11:35] LABS: Hematocrit (blood only) 29.1 % (42.0-52.0); Hemoglobin 9.8 g/dl (14.0-18.0); Mean Corpuscular Hemoglobin 30.4 pg (25.0-34.0); Mean Corpuscular Hgb Conc 33.7 g/dL (32.0-36.0); Mean Corpuscular Volume 90.4 fL (80.0-100.0); Mean Platelet Volume 10.4 fL (9.4-12.4); Platelet Count 177 K/uL (130-400); RDW Coefficient of Variation 15.7 % (11.5-14.5); RDW Standard Deviation 51.2 fL (36.4-46.3); Red Blood Count 3.22 M/uL (4.70-6.10); White Blood Count 8.44 K/ul (4.8-10.8)
--- NOTE | 2025-02-07 11:39 | XRay Report ---
EXAM: Radiograph of the Chest 1 View INDICATION: Dyspnea TECHNIQUE: Frontal view of the chest. COMPARISON: 04/03/2024 FINDINGS: Lungs and pleural spaces: Stable mild scar atelectasis left base. Minimal airway thickening is stable. No pleural effusion or pneumothorax. Heart: Shape and configuration within normal limits allowing for technique. Mediastinum: Normal contour. Bones/joints: Degenerative changes noted throughout the spine. No acute osseous abnormality seen. Soft tissues: No abnormality noted. No radiopaque foreign body noted. Upper abdomen: No abnormality noted. IMPRESSION: Mild acute and or chronic bronchitis and stable mild left base atelectasis. ACT 112: N/A Electronically signed by Marlin Mosqueda 02-07-2025 11:39 AM
[2025-02-07 11:54] LABS: Basophils # (auto) 0.02 K/uL (0.00-0.20); Basophils % (auto) 0.2 %; Eosinophils # (auto) 0.13 K/uL (0.00-0.50); Eosinophils % (auto) 1.5 %; Immature Granulocytes # (auto) 0.04 K/uL (0.01-0.20); Immature Granulocytes % (auto) 0.5 %; Lymphocytes # (auto) 0.56 K/uL (1.20-3.40); Lymphocytes % (auto) 6.6 %; Monocytes # (auto) 0.55 K/uL (0.11-0.59); Monocytes % (auto) 6.5 %; Neutrophils # (auto) 7.14 K/uL (1.40-6.50); Neutrophils % (auto) 84.7 %
[2025-02-07 11:56] LABS: Albumin Globulin Ratio 1.2 (0.9-2); BUN Creatinine Ratio 13.3 (10-20); Bilirubin,Total 1.3 mg/dl (0.2-1.0); Calcium 9.6 mg/dl (8.6-10.3); Creatinine Clr Calc Pharmacy 53.8 ml/min; Globulin 3.3 gm/dl (2.5-4.0); Magnesium 1.8 mg/dl (1.7-2.4); Potassium 4.1 mmol/L (3.5-5.1); Total Protein 7.3 gm/dl (6.0-8.3)
[2025-02-07 12:03] LABS: Troponin I High Sensitivity 6.3 pg/ml (0-20)
[2025-02-07 12:05] LABS: INR 1.1 (0.9-1.1); Partial Thromboplastin Ratio 1.1; Partial Thromboplastin Time 29 Seconds (21-31); Prothrombin Time 11.4 Seconds (9.0-12.0)
[2025-02-07 12:07] LABS: D Dimer 590 ug/L FEU (0-500)
[2025-02-07] MEDS: SODIUM CHLORIDE 0.9% 500 ML IV ONE (12:12)
[2025-02-07] MEDS: OPTIRAY 320 125ml IV ONE (12:22)
[2025-02-07 12:28] LABS: Adenovirus PCR Not Detected (NotDetected); Bordetella parapertussis PCR Not Detected (NotDetected); Bordetella pertussis PCR Not Detected (NotDetected); Chlamydia pneumoniae PCR Not Detected (NotDetected); Coronavirus 229E PCR Not Detected (NotDetected); Coronavirus CoV-2 (COVID19)PCR Not Detected (NotDetected); Coronavirus HKU1 PCR Not Detected (NotDetected); Coronavirus NL63 PCR Not Detected (NotDetected); Coronavirus OC43PCR Not Detected (NotDetected); Human Metapneumovirus PCR Not Detected (NotDetected); Influenza A PCR Not Detected (NotDetected); Influenza B PCR Not Detected (NotDetected); Mycoplasma pneumoniae PCR Not Detected (NotDetected); Parainfluenza Virus 1 PCR Not Detected (NotDetected); Parainfluenza Virus 2 PCR Not Detected (NotDetected); Parainfluenza Virus 3 PCR Not Detected (NotDetected); Parainfluenza Virus 4 PCR Not Detected (NotDetected); Respiratory Syncytial VirusPCR Not Detected (NotDetected); Rhinovirus/Enterovirus PCR Not Detected (NotDetected)
--- NOTE | 2025-02-07 12:38 | CT Scan Report ---
EXAM: CT Angiography Chest With Intravenous Contrast INDICATION: Intermittent chest pain and recent pneumonia 3 weeks ago. TECHNIQUE: Axial computed tomographic angiography images of the chest with intravenous contrast. Sagittal and coronal reformatted images were created and reviewed. This CT exam was performed using one or more of the following dose reduction techniques: automated exposure control, adjustment of the mA and/or kV according to patient size, and/or use of iterative reconstruction technique. MIP reconstructed images were created and reviewed. CONTRAST: 62ml of Optiray 320 was administered intravenously. COMPARISON: 04/03/2024 FINDINGS: Pulmonary arteries: No abnormality noted. No pulmonary embolism. Aorta: There is mild atherosclerosis at the origin of the left subclavian artery. No aortic aneurysm or dissection. Lungs and pleural spaces: Centrilobular emphysematous changes stable. There is consolidation in both lower lobes left greater than right. No pleural effusion or pneumothorax. No bronchiectasis. Heart: Cardiomegaly. No right heart strain or pericardial effusion. There is marked left coronary calcification. Bones/joints: No acute or atypical chronic changes. Soft tissues: No abnormality noted. Lymph nodes: Mild reactive left hilar lymph nodes. Liver: Normal size and contour. Hypodense typical of steatosis. No mass or ductal dilation. IMPRESSION: 1. No pulmonary embolus noted. Impression bilateral lower lobe pneumonia. 2. Hepatic steatosis. ACT 112: N/A Electronically signed by Marlin Mosqueda 02-07-2025 12:38 PM
[2025-02-07] MEDS: SODIUM CHLORIDE 0.9% 1,000 ML IV ONE (12:46)
--- NOTE | 2025-02-07 13:23 | History & Physical Report ---
Date of Service February 07, 2025 Assessment & Plan (1) Acute hypoxic respiratory failure: (2) Bilateral pneumonia: (3) Chronic renal failure, stage 3 (moderate): (4) COPD (chronic obstructive pulmonary disease): (5) Diabetes mellitus: (6) BPH (benign prostatic hyperplasia): (7) Bipolar 1 disorder: Plan Patient is a 64-year-old gentleman presents emergency room with acute hypoxic respiratory failure and imaging evidence of bilateral pneumonia that seems to failed outpatient antibiotic therapy. Patient requires hospital level interventions for IV antibiotics and additional testing and oxygen support Admit to the [facility] unit Empiric cefepime and doxycycline. With patient's chronic lung disease is at risk for possible Pseudomonas infection Check sputum culture and urine Legionella Check MRSA nasal swab. Had been positive in the remote past, subsequently negative nasal swabs. Consider adding vancomycin if swab would be positive Oxygen support, titrate as able or needed Monitor glucose, insulin short acting scale per parameters to manage diabetes Continue other outpatient medications as ordered Continue home Trelegy DuoNebs as needed Patient does not seem to be overly bronchospastic, will hold off on any additional steroids at this time. Patient reports on 2 separate courses of steroid taper as patient prior to admission Antitussives and mucolytic's for symptom control History of Present Illness Chief Complaint: Short of breath and cough Primary Care Provider: Narcisa Abel MD Patient is a 64-year-old gentleman with history of COPD presents to the emergency room with complaints of cough and some shortness of breath. Patient reports that over the last 3 weeks he has had the symptoms. He is having at least 2 or 3 courses of Zithromax pack. He had 2 different courses of oral prednisone and a course of Augmentin. In the emergency room CT of the chest consistent with bilateral lower lobe infiltrates. He was also noted to be hypoxic on room air. He is referred to our service for further evaluation. Time my evaluation patient states that he is feeling a little bit better with oxygen supplementation. He reports he had a fever of 101.6 last night with chills and rigors. He admits to a little bit of hemoptysis but no purulent sputum. States that his appetite has been down a little bit but is drinking adequately. No chest pain or palpitations. Has noticed increasing shortness of breath and shortness of breath with activity. No swelling in his hands arms leg s or feet. His bowel and bladder activity have been within normal range for him. Allergies Allergy/AdvReac Type Severity Reaction Status Date / Time No Known Drug Allergies Allergy Verified 07/29/19 14:49 Home Medications Medication Instructions Recorded Confirmed Type atorvastatin 40 mg tablet 40 mg PO QAM 03/04/23 04/03/24 History buspirone 10 mg tablet 10 mg PO BID 03/04/23 04/03/24 History clopidogrel 75 mg tablet 75 mg PO DAILY 03/04/23 04/03/24 History finasteride 5 mg tablet 5 mg PO DAILY 03/04/23 04/03/24 History fluoxetine 40 mg capsule 80 mg PO DAILY 03/04/23 04/03/24 History fluticasone fur. 100 mcg-umeclid 1 ea inhalation DAILY 03/04/23 04/03/24 History 62.5 mcg-vilant 25 mcg inhalat.powder (Trelegy Ellipta) fluticasone propionate 50 50 mcg intranasal DAILY 03/04/23 04/03/24 History mcg/actuation nasal spray,suspension lamotrigine 100 mg tablet 100 mg PO BID 03/04/23 04/03/24 History metformin 500 mg tablet 500 mg PO BID 03/04/23 04/03/24 History pantoprazole 40 mg tablet,delayed 40 mg PO DAILY 03/04/23 04/03/24 History release semaglutide 0.25 mg or 0.5 mg (2 mg subcut 03/04/23 History mg/1.5 mL) subcutaneous pen injector (Ozempic) tamsulosin 0.4 mg capsule 0.8 mg PO HS 03/04/23 04/03/24 History alfuzosin 10 mg tablet,extended 10 mg PO DAILY 04/03/24 04/03/24 History release 24 hr amoxicillin 875 mg-potassium 1 tab BID 04/03/24 04/03/24 History clavulanate 125 mg tablet baclofen 20 mg tablet 20 mg BID 04/03/24 04/03/24 History gabapentin 400 mg capsule 400 mg TID 04/03/24 04/03/24 History prednisone 20 mg tablet 40 mg DAILY 04/03/24 04/03/24 History Past Med/Surg History Problem List (Updated 02/07/25 @ 13:21 by Mathieu Puga DO) Chronic renal failure, stage 3 (moderate) Bilateral pneumonia Acute hypoxic respiratory failure Hyperkalemia (Acute) Anemia (Acute) Weakness (Acute) Hypoxia Sepsis (Acute) Hypomagnesemia (Acute) Tachycardia (Acute) SOB (shortness of breath) (Acute) Anemia (Acute) COPD (chronic obstructive pulmonary disease) Hypertension (Acute) Hyperlipidemia (Acute) Bipolar disorder (Acute) Enlarged prostate (Acute) Diabetes mellitus (Acute) Sepsis Constipation [place] (acute kidney injury) (Acute) Hypomagnesemia Pneumonia Bipolar 1 disorder GERD (gastroesophageal reflux disease) CAD in [place] artery Benign localized hyperplasia of prostate with urinary obstruction and lower urinary tract symptoms (Acute) CTS (carpal tunnel syndrome) (Acute) Depression (Acute) Lung disease (Acute) Nocturnal enuresis (Acute) Painful intercourse (Acute) Peyronie's disease (Acute) Psychosexual disorder (Acute) Medical History Pneumonia HTN (hypertension) with goal to be determined BPH (benign prostatic hyperplasia) Arthritis Social History Smoking Status: Former smoker Tobacco Type: Cigarettes Do You Dip or Chew Tobacco: No; Hx Alcohol Use: Yes Hx Substance Use: No Preferred Language: Tamazight Communication Ability: Effective Heat Reader Required: No Beliefs That Will Affect Care: None Current Living Situation: Family and Significant Other Feels Safe at Home: Yes Assistive Devices: None Review of Systems Review of Systems: Pertinent positive and negative review of systems as mentioned in the HPI Physical Exam Physical Exam: Constitutional: Alert, ill in appearance, nontoxic HEENT: Mucous membranes moist. Sclera clear Neck: Soft, no adenopathy Lungs: Decreased breath sounds, Rales and crackles at bases bilaterally, prolonged expiratory phase, no wheezes CV: S1-S2, regular Abdomen: Soft, nontender, nondistended Extremities: No significant edema Musculoskeletal: No significant joint tenderness Neuro: No focal deficits Psych: Cooperative, normal mood Results & Data Results & Data Vital Signs (Past 12 Hours) Vital Signs Temp Pulse Resp BP Pulse Ox O2 Del Method O2 Flow Rate 02/07/25 12:30 101 H 22 93 Nasal Cannula 2 02/07/25 12:30 103/74 02/07/25 12:06 109 H 15 93 Nasal Cannula 2 02/07/25 12:00 116/80 02/07/25 11:39 110 H 22 92 02/07/25 11:33 113 H 19 94 Nasal Cannula 2 02/07/25 11:30 112/79 02/07/25 11:24 113 H 11 L 93 Nasal Cannula 2 02/07/25 11:22 116/75 94 Nasal Cannula 2 02/07/25 11:21 115 H 17 89 L Room Air 0 02/07/25 11:20 Room Air 02/07/25 11:10 88 L Nasal Cannula 0 02/07/25 11:08 117 H 02/07/25 10:54 36.6 C 122 H 24 114/75 91 Room Air Diagnostic Findings Reviewed imaging, laboratory and diagnostic studies. Pertinent findings as below. Personally reviewed chest CT images, consolidation lower lobes bilaterally Personally reviewed chest x-ray images, no obvious infiltrates Respiratory viral panel negative Creatinine 1.43, baseline Venous blood gas reviewed D-dimer 590, rest of coagulation panel unremarkable Hemoglobin 9.8, baseline WBCs 8.4 Code Status & VTE Plan VTE Prophylaxis Plan VTE Prophylaxis will be ordered: Yes
[2025-02-07 13:28] LABS: C Reactive Protein 28.39 mg/dl (0-0.5)
[2025-02-07] MEDS: cefTRIAXone SODIUM 2,000 MG/50 ML BAG IV STA (13:45)
[2025-02-07] MEDS ORDERED: BENZONATATE 100 MG CAPSULE PO PRN (15:06)
[2025-02-07] MEDS ORDERED: DEXTROSE 50% 50 ML SYRINGE IV PRN (15:06)
[2025-02-07] MEDS ORDERED: GLUCOSE 10 TAB/TUBE PO PRN (15:06)
[2025-02-07] MEDS ORDERED: CARBOHYDRATES FOR HYPOGLYCEMIA PO PRN (15:06)
[2025-02-07] MEDS ORDERED: POLYETHYLENE (MIRALAX) 17 GM PACK PO PRN (15:06)
[2025-02-07] MEDS ORDERED: GLUCAGON FOR INJ 1 MG VIAL SQ PRN (15:06)
[2025-02-07] MEDS ORDERED: ALBUT/IPRATROP 3MG/0.5MG NEB 3 ML VIAL NEB PRN (15:06)
[2025-02-07] MEDS ORDERED: GLUCOSE 40% GEL 15 GM TUBE PO PRN (15:06)
[2025-02-07] MEDS ORDERED: MELATONIN 3 MG TAB PO PRN (15:06)
[2025-02-07] MEDS: ENOXAPARIN INJ 40 MG/0.4 ML SYR SQ SCH (16:11)
[2025-02-07] MEDS: GABAPENTIN 400 MG CAP PO SCH (16:12)
[2025-02-07] MEDS: INSULIN ASPART PER UNIT CHARGE SC SCH (17:03)
[2025-02-07] MEDS: ACETAMINOPHEN 325 MG TAB PO PRN (17:13)
[2025-02-07] MEDS: busPIRone 5 MG TAB PO SCH (20:02)
[2025-02-07] MEDS: TAMSULOSIN HCL 0.4 MG CAP PO SCH (20:02)
[2025-02-07] MEDS: DOXYCYCLINE HYCLATE 100 MG CAP PO SCH (20:03)
[2025-02-07] MEDS: guaiFENesin 600 MG TABCR PO SCH (20:03)
[2025-02-07] MEDS: lamoTRIgine 100 MG TAB PO SCH (20:03)
[2025-02-08 07:50] LABS: Hematocrit (blood only) 25.9 % (42.0-52.0); Hemoglobin 8.7 g/dl (14.0-18.0); Mean Corpuscular Hemoglobin 30.7 pg (25.0-34.0); Mean Corpuscular Hgb Conc 33.6 g/dL (32.0-36.0); Mean Corpuscular Volume 91.5 fL (80.0-100.0); Mean Platelet Volume 10.3 fL (9.4-12.4); Platelet Count 181 K/uL (130-400); RDW Coefficient of Variation 15.5 % (11.5-14.5); RDW Standard Deviation 51.5 fL (36.4-46.3); Red Blood Count 2.83 M/uL (4.70-6.10); White Blood Count 4.89 K/ul (4.8-10.8)
[2025-02-08 08:08] LABS: Calcium 8.7 mg/dl (8.6-10.3); Creatinine Clr Calc Pharmacy 58.8 ml/min; Potassium 4.4 mmol/L (3.5-5.1)
--- NOTE | 2025-02-08 08:12 | Electrocardiogram Report ---
Test Reason : Blood Pressure : */* mmHG Vent. Rate : 119 BPM Atrial Rate : 119 BPM P-R Int : 168 ms QRS Dur : 104 ms QT Int : 304 ms P-R-T Axes : 73 54 64 degrees QTcB Int : 427 ms Sinus tachycardia Otherwise normal ECG When compared with ECG of 04-Apr-2024 10:45, Vent. rate has increased by 40 bpm Confirmed by Patricia Cyr (Nahed) on 02/08/2025 8:12:35 AM Referred By: REFERRED SELF Confirmed By: Patricia Cyr
[2025-02-08] MEDS: UMECLIDINIUM/VILANTEROL 62.5/25MCG 7 PUFFS/INHALER INH SCH (08:17)
[2025-02-08] MEDS: FLUTICASONE FUROATE 100MCG 14 PUFFS/INHALER INH SCH (08:17)
[2025-02-08] MEDS: FLUTICASONE PROPIONATE NA SPR 16 GM BTL SCH (08:17)
[2025-02-08] MEDS: FINASTERIDE 5 MG TAB PO SCH (08:18)
[2025-02-08] MEDS: FLUoxetine HCL 20 MG CAP PO SCH (08:19)
[2025-02-08] MEDS: ATORVASTATIN 40 MG TAB PO SCH (08:20)
[2025-02-08] MEDS: CLOPIDOGREL BISULFATE 75 MG TAB PO SCH (08:20)
[2025-02-08] MEDS: PANTOprazole 40 MG TAB PO SCH (08:21)
[2025-02-08] MEDS: CEFEPIME 2000MG 2,000 MG/20 ML SYR IV SCH (15:28)
--- NOTE | 2025-02-08 16:48 | Hospitalist Progress Note ---
Date of Service February 08, 2025 Assessment & Plan (1) Acute hypoxic respiratory failure: Plan: Significant COPD with recurrent respiratory infection and gets frequent treatment with steroid and antibiotic as an outpatient Presented with increasing shortness of breath with cough and noted to have acute hypoxic respiratory failure on admission Started with empiric cefepime and doxycycline: Empiric cefepime and doxycycline. With patient's chronic lung disease is at risk for possible Pseudomonas infection MRSA has been negative and vancomycin will not be needed Sputum culture is pending and urine nasion antigen pending Oxygen support, titrate as able or needed Has been requiring 2 L to maintain saturation Continue home Trelegy DuoNebs as needed Patient does not seem to be overly bronchospastic, will hold off on any additional steroids at this time. Patient reports on 2 separate courses of steroid taper as patient prior to admission Antitussives and mucolytic's for symptom control (2) Bilateral pneumonia: Plan: CT evidence of bilateral infiltration- elevated CRP to 28.39 and procalcitonin to 7.40 Has cough with ángel sputum but no definite hemoptysis Has been getting cefepime to cover possible Pseudomonas infection Awaiting sputum culture (3) Chronic renal failure, stage 3 (moderate): (4) COPD (chronic obstructive pulmonary disease): (5) Diabetes mellitus: Plan: Monitor blood glucose and the patient has been put on SSI (6) BPH (benign prostatic hyperplasia): (7) Bipolar 1 disorder: (8) Hypertension: Plan: Blood pressure remains stable at 112/72 Continue current medications (9) Hyperlipidemia: Plan Patient is a 64-year-old gentleman presents emergency room with acute hypoxic respiratory failure and imaging evidence of bilateral pneumonia that seems to failed outpatient antibiotic therapy. Patient requires hospital level interventions for IV antibiotics and additional testing and oxygen support DVT prophylaxis subcu Lovenox CODE STATUS full Admission and Anticipated Discharge Date Admission Date: February 07, 2025 Subjective 02/08/2025 The patient was seen and examined in medical floor He was admitted with hypoxic respiratory failure with significant history of severe COPD/asthma with recurrent respiratory infection Failed outpatient treatment Has been feeling a little better since admission still has cough and some shortness of breath at rest Review of Systems Review of Systems: All systems reviewed and are unremarkable except as noted below Physical Exam Physical Exam: Sitting on a chair without any acute distress Constitutional: well developed, well nourished, + ill appearing and + obese Eyes: PERRL, conjunctivae normal, anicteric sclerae ENMT: external ear and nose normal, oropharynx normal Neck: trachea midline, no thyromegaly Respiratory: + respiratory distress ( minimal distres s at rest with occasional cough) Auscultation: + diminished lung sounds, + crackles ( bibasilar crackles more on the left) and + wheezes ( minimal wheezing bilaterally) Gastrointestinal (Abdomen): Inspection/Auscultation: + abdomen distended and normal bowel sounds Percussion/Palpation: abdomen soft; abdomen nontender Musculoskeletal: No acute arthritis involving any of the joint Neurologic: normal touch/pain/proprioception and moves all extremities; no focal motor deficits Psychiatric: A+Ox3, euthymic affect Results & Data Results & Data Vital Signs (Past 12 Hours) Vital Signs Temp Pulse Resp BP Pulse Ox O2 Del Method O2 Flow Rate 02/08/25 11:55 37.2 C 90 18 112/72 93 Nasal Cannula 2 02/08/25 08:20 Nasal Cannula 2 02/08/25 07:59 36.7 C 84 18 122/74 93 Nasal Cannula 2 Laboratory Results Short CBC 02/08/25 Range/Units 07:28 WBC 4.89 (4.8-10.8) K/ul Hgb 8.7 L (14.0-18.0) g/dl Hct 25.9 L (42.0-52.0) % Plt Count 181 (130-400) K/uL BMP 02/08/25 07:28 Sodium 138 Potassium 4.4 Chloride 108 H Carbon Dioxide 26 BUN 17 Creatinine 1.31 Glucose 142 H Calcium 8.7 Medications Administered Current Inpatient Medications Acetaminophen (Acetaminophen 325 Mg Tab) 650 mg PO Q4H PRN PRN Reason: pain/fever Stop: 03/09/25 15:05 Last Admin: 02/07/25 17:13 Dose: 650 mg Albuterol (Albut/Ipratrop 3mg/0.5mg Neb 3 Ml Vial) 3 ml NEB Q4H PRN; Protocol PRN Reason: Wheezing/sob Stop: 03/09/25 15:05 Atorvastatin Calcium (Atorvastatin 40 Mg Tab) 40 mg PO QAM HECTOR Stop: 03/10/25 08:59 Last Admin: 02/08/25 08:20 Dose: 40 mg Benzonatate (Benzonatate 100 Mg Capsule) 200 mg PO Q8H PRN PRN Reason: cough Stop: 03/09/25 15:05 Buspirone HCl (Buspirone 5 Mg Tab) 10 mg PO BID HECTOR Stop: 03/09/25 20:59 Last Admin: 02/08/25 08:20 Dose: 10 mg Clopidogrel Bisulfate (Clopidogrel Bisulfate 75 Mg Tab) 75 mg PO DAILY HECTOR Stop: 03/10/25 08:59 Last Admin: 02/08/25 08:20 Dose: 75 mg Dextrose (Dextrose 50% 50 Ml Syringe) 25 - 50 ml IV UD PRN; Protocol PRN Reason: Hypoglycemia Protocol Stop: 03/09/25 15:05 Doxycycline Hyclate (Doxycycline Hyclate 100 Mg Cap) 100 mg PO BID HECTOR Stop: 02/12/25 20:59 Last Admin: 02/08/25 08:21 Dose: 100 mg Enoxaparin Sodium (Enoxaparin Inj 40 Mg/0.4 Ml Syr) 40 mg SQ Q24H HECTOR Stop: 03/09/25 15:05 Last Admin: 02/08/25 12:36 Dose: Not Given Finasteride (Finasteride 5 Mg Tab) 5 mg PO DAILY HECTOR Stop: 03/10/25 08:59 Last Admin: 02/08/25 08:18 Dose: 5 mg Fluoxetine HCl (Fluoxetine Hcl 20 Mg Cap) 80 mg PO DAILY HECTOR Stop: 03/10/25 08:59 Last Admin: 02/08/25 08:19 Dose: 80 mg Fluticasone Furoate (Fluticasone Furoate 100mcg 14 Puffs/Inhaler) 1 puffs INH DAILY HECTOR Stop: 03/10/25 08:59 Last Admin: 02/08/25 08:17 Dose: 1 puffs Fluticasone Propionate (Fluticasone Propionate Na Spr 16 Gm Btl) 1 sprays NA DAILY HECTOR Stop: 03/10/25 08:59 Last Admin: 02/08/25 08:17 Dose: 1 sprays Gabapentin (Gabapentin 400 Mg Cap) 400 mg PO TID HECTOR Stop: 03/09/25 15:05 Last Admin: 02/08/25 12:35 Dose: 400 mg Glucagon (Glucagon For Inj 1 Mg Vial) 1 mg SQ UD PRN; Protocol PRN Reason: Hypoglycemia Protocol Stop: 03/09/25 15:05 Glucose (Glucose 40% Gel 15 Gm Tube) 15 - 30 gm PO UD PRN; Protocol PRN Reason: Hypoglycemia Protocol Stop: 03/09/25 15:05 Glucose (Glucose 10 Tab/Tube) 4 - 8 tab PO UD PRN; Protocol PRN Reason: Hypoglycemia Protocol Stop: 03/09/25 15:05 Guaifenesin (Guaifenesin 600 Mg Tabcr) 1,200 mg PO Q12 HECTOR Stop: 03/09/25 20:59 Last Admin: 02/08/25 08:18 Dose: 1,200 mg Cefepime HCl (Maxipime 2000mg) 2,000 mg in 20 mls @ 5 mls/min IV Q12H HECTOR; Protocol Stop: 02/10/25 14:59 Last Admin: 02/08/25 15:28 Dose: 5 mls/min Insulin Aspart (Insulin Aspart Per Unit Charge) 0 units SC ACHS [facility] Stop: 03/09/25 16:29 Last Admin: 02/08/25 15:30 Dose: Not Given Lamotrigine (Lamotrigine 100 Mg Tab) 100 mg PO BID HECTOR; Protocol Stop: 03/09/25 20:59 Last Admin: 02/08/25 08:20 Dose: 100 mg Melatonin (Melatonin 3 Mg Tab) 6 mg PO HS PRN PRN Reason: Insomnia Stop: 03/09/25 15:05 Miscellaneous (Carbohydrates For Hypoglycemia ) 15 - 30 gm PO UD PRN PRN Reason: Hypoglycemia Protocol Stop: 03/09/25 15:05 Pantoprazole Sodium (Pantoprazole 40 Mg Tab) 40 mg PO DAILY HECTOR Stop: 03/10/25 08:59 Last Admin: 02/08/25 08:21 Dose: 40 mg Polyethylene Glycol (Polyethylene (Miralax) 17 Gm Pack) 17 gm PO DAILY PRN PRN Reason: Constipation Stop: 03/09/25 15:05 Tamsulosin HCl (Tamsulosin Hcl 0.4 Mg Cap) 0.8 mg PO HS HECTOR Stop: 03/09/25 20:59 Last Admin: 02/07/25 20:02 Dose: 0.8 mg Umeclidinium/Vilanterol (Umeclidinium/Vilanterol 62.5/25mcg 7 Puffs/Inhaler) 1 puffs INH DAILY HECTOR Stop: 03/10/25 08:59 Last Admin: 02/08/25 08:17 Dose: 1 puffs
[2025-02-08 17:25] VITALS: TEMP 98.2
[2025-02-08 20:06] VITALS: RESP 16
[2025-02-09 07:12] VITALS: BP 119/75
[2025-02-09 07:30] LABS: Basophils # (auto) 0.02 K/uL (0.00-0.20); Basophils % (auto) 0.5 %; Eosinophils # (auto) 0.32 K/uL (0.00-0.50); Eosinophils % (auto) 7.7 %; Hematocrit (blood only) 26.5 % (42.0-52.0); Hemoglobin 8.8 g/dl (14.0-18.0); Immature Granulocytes # (auto) 0.11 K/uL (0.01-0.20); Immature Granulocytes % (auto) 2.6 %; Lymphocytes # (auto) 0.79 K/uL (1.20-3.40); Lymphocytes % (auto) 18.9 %; Mean Corpuscular Hemoglobin 30.2 pg (25.0-34.0); Mean Corpuscular Hgb Conc 33.2 g/dL (32.0-36.0); Mean Corpuscular Volume 91.1 fL (80.0-100.0); Monocytes # (auto) 0.47 K/uL (0.11-0.59); Monocytes % (auto) 11.2 %; Neutrophils # (auto) 2.47 K/uL (1.40-6.50); Neutrophils % (auto) 59.1 %; Nucleated RBC # (auto) 0.03 K/uL (0.00-0.12); Nucleated RBC % (auto) 0.7 %; Platelet Count 217 K/uL (130-400); RDW Coefficient of Variation 15.7 % (11.5-14.5); RDW Standard Deviation 51.1 fL (36.4-46.3); Red Blood Count 2.91 M/uL (4.70-6.10); White Blood Count 4.18 K/ul (4.8-10.8)
[2025-02-09 07:52] LABS: BUN Creatinine Ratio 13.6 (10-20); Calcium 9.1 mg/dl (8.6-10.3); Creatinine Clr Calc Pharmacy 65.2 ml/min; Magnesium 2.1 mg/dl (1.7-2.4); Potassium 4.2 mmol/L (3.5-5.1)
--- NOTE | 2025-02-09 12:17 | Hospitalist Progress Note ---
Date of Service February 09, 2025 Assessment & Plan (1) Acute hypoxic respiratory failure: Plan: Patient is a 64-year-old gentleman presents emergency room with acute hypoxic respiratory failure and imaging evidence of bilateral pneumonia that seems to failed outpatient antibiotic therapy. Patient requires hospital level interventions for IV antibiotics and additional testing and oxygen support Acute respiratory failure with hypoxia Bilateral pneumonia Failed outpatient antibiotic, steroid course H/O COPD --Chest CTA:No pulmonary embolus noted. Impression bilateral lower lobe pneumonia. --BioFire negative -Nasal MRSA negative --Sputum culture and moderate normal ryan Urine Legionella pending --Follow-up with pulmonology as outpatient --Currently on cefepime, doxycycline Weaned off of supplemental oxygen Continue home [facility] Pulmonary hygiene Will obtain 2 step prior to discharge Advised to follow-up with pulmonology on discharge (2) Bilateral pneumonia: (3) Chronic renal failure, stage 3 (moderate): Plan: Renal function at baseline Monitor renal function (4) COPD (chronic obstructive pulmonary disease): Plan: Continue home inhalers (5) Diabetes mellitus: Plan: Last HbA1c 6.4 Continue insulin per protocol while hospitalized (6) BPH (benign prostatic hyperplasia): Plan: Continue tamsulosin (7) Bipolar 1 disorder: Plan: Continue home medications (8) Hypertension: Plan: Stable (9) Hyperlipidemia: Plan: Continue Lipitor Plan DVT Px SQ Lovenox CODE STATUS full code Disposition Home Admission and Anticipated Discharge Date Admission Date: February 07, 2025 Subjective Patient is seen and examined at bedside States feeling a lot better today Cough, dyspnea much improved Saturating low 90s on room air Denies any chest pain, dizziness, nausea, vomiting, abdominal pain Chest congestion resolved Eager to get discharged Review of Systems Review of Systems: All systems reviewed & are unremarkable except as noted in Subjective Physical Exam Physical Exam: Physical Exam: Vitals signs as noted above General Appearance:Moderately built and nourished, no apparent distress Head: normocephalic, Atraumatic Eyes: normal inspection, EOMI Neck: supple, Trachea midline Respiratory/Chest: Decreased breath sounds, CTA, No accessory muscle use Cardiovascular: S1, S2, No murmur Abdomen/GI:Soft, Non tender, Bowel sounds present Extremities/Musculoskeletal:normal inspection, no edema Neurologic/Psych:AAOX3, grossly no focal neurological deficits Skin: normal color, warm Results & Data Results & Data Vital Signs (Past 12 Hours) Vital Signs Temp Pulse Resp BP Pulse Ox O2 Del Method O2 Flow Rate 02/09/25 08:26 91 Room Air 02/09/25 08:20 Room Air 02/09/25 07:11 36.8 C 88 16 119/75 92 Nasal Cannula 2 Laboratory Results Short CBC 02/09/25 Range/Units 06:25 WBC 4.18 L (4.8-10.8) K/ul Hgb 8.8 L (14.0-18.0) g/dl Hct 26.5 L (42.0-52.0) % Plt Count 217 (130-400) K/uL BMP 02/09/25 06:25 Sodium 140 Potassium 4.2 Chloride 107 Carbon Dioxide 27 BUN 16 Creatinine 1.18 Glucose 127 H Calcium 9.1
[2025-02-09 12:29] VITALS: PULSE 116; O2SAT 93
--- NOTE | 2025-02-09 12:32 | Discharge Summary ---
Date of Service February 09, 2025 Admission HPI Per Admitting Provider Patient is a 64-year-old gentleman with history of COPD presents to the emergency room with complaints of cough and some shortness of breath. Patient reports that over the last 3 weeks he has had the symptoms. He is having at least 2 or 3 courses of Zithromax pack. He had 2 different courses of oral prednisone and a course of Augmentin. In the emergency room CT of the chest consistent with bilateral lower lobe infiltrates. He was also noted to be hypoxic on room air. He is referred to our service for further evaluation. Time my evaluation patient states that he is feeling a little bit better with oxygen supplementation. He reports he had a fever of 101.6 last night with chills and rigors. He admits to a little bit of hemoptysis but no purulent sputum. States that his appetite has been down a little bit but is drinking adequately. No chest pain or palpitations. Has noticed increasing shortness of breath and shortness of breath with activity. No swelling in his hands arms legs or feet. His bowel and bladder activity have been within normal range for him. Admission Exam Per Admitting Provider Constitutional: Alert, ill in appearance, nontoxic HEENT: Mucous membranes moist. Sclera clear Neck: Soft, no adenopathy Lungs: Decreased breath sounds, Rales and crackles at bases bilaterally, prolonged expiratory phase, no wheezes CV: S1-S2, regular Abdomen: Soft, nontender, nondistended Extremities: No significant edema Musculoskeletal: No significant joint tenderness Neuro: No focal deficits Psych: Cooperative, normal mood Principal Diagnosis Acute respiratory failure with hypoxia Bilateral pneumonia Discharge Data Allergies Allergy/AdvReac Type Severity Reaction Status Date / Time No Known Drug Allergies Allergy Verified 07/29/19 14:49 Consultations 02/07/25 12:57 ED Decision to Admit Stat Procedures Performed Laboratory Results WBC 4.18 K/ul (4.8-10.8) L 02/09/25 06:25 RBC 2.91 M/uL (4.70-6.10) L 02/09/25 06:25 Hgb 8.8 g/dl (14.0-18.0) L 02/09/25 06:25 Hct 26.5 % (42.0-52.0) L 02/09/25 06:25 MCV 91.1 fL (80.0-100.0) 02/09/25 06: MCH 30.2 pg (25.0-34.0) 02/09/25 06: MCHC 33.2 g/dL (32.0-36.0) 02/09/25: RDW Std Deviation 51.1 fL (36.4-46.3) H 02/09/25: RDW Coeff of Christophe 15.7 % (11.5-14.5) H 02/09/25: Plt Count 217 K/uL (130-400) 02/09/25: MPV 10.0 fL (9.4-12.4) 02/09/25: Immature Gran % (Auto) 2.6 % 02/09/25: Neut % (Auto) 59.1 % 02/09/25: Lymph % (Auto) 18.9 % 02/09/25: Greene % (Auto) 11.2 % 02/09/25: Eos % (Auto) 7.7 % 02/09/25: Baso % (Auto) 0.5 % 02/09/25: Neut # (Auto) 2.47 K/uL (1.40-6.50) 02/09/25: Lymph # (Auto) 0.79 K/uL (1.20-3.40) L 02/09/25:25 Greene # (Auto) 0.47 K/uL (0.11-0.59) 02/09/25: Eos # (Auto) 0.32 K/uL (0.00-0.50) 02/09/25: Baso # (Auto) 0.02 K/uL (0.00-0.20) 02/09/25: Immature Gran # (Auto) 0.11 K/uL (0.01-0.20) 02/09/25: Absolute Nucleated RBC 0.03 K/uL (0.00-0.12) 02/09/25: Nucleated RBC % (auto) 0.7 % 02/09/25: PT 11.4 Seconds (9.0-12.0) 02/07/25 11:20 INR 1.1 (0.9-1.1) 02/07/25 11:20 APTT 29 Seconds (21-31) 02/07/25 11:20 PTT Ratio 1.1 02/07/25 11:20 D-Dimer 590 ug/L FEU (0-500) H* 02/07/25 11:20 VBG pH 7.42 (7.36-7.41) H 02/07/25 11:20 VBG pCO2 35 mmHg (38-50) L 02/07/25 11:20 VBG pO2 35 mmHg 02/07/25 11:20 VBG HCO3 23 mmol/L 02/07/25 11:20 VBG O2 Saturation < 60.0 % 02/07/25 11:20 VBG Base Excess -1.3 mEq/L 02/07/25 11:20 Sodium 140 mmol/L (136-145) 02/09/25 06:25 Potassium 4.2 mmol/L (3.5-5.1) 02/09/25 06:25 Chloride 107 mmol/L (98-107) 02/09/25 06:25 Carbon Dioxide 27 mmol/L (21-32) 02/09/25 06:25 Anion Gap 6 (3-11) 02/09/25 06:25 BUN 16 mg/dl (6-23) 02/09/25 06:25 Creatinine 1.18 mg/dl (0.6-1.4) 02/09/25 06:25 Est Cr Clr Drug Dosing 65.2 ml/min 02/09/25 06:25 eGFR 69.34 02/09/25 06:25 BUN/Creatinine Ratio 13.6 (10-20) 02/09/25 06:25 Glucose 127 mg/dl (70-99(Fasting)) H 02/09/25 06:25 POC Glucose 118 mg/dl (70-99) H 02/07/25 16:39 Lactate 0.7 mmol/L (0.4-2.0) 02/07/25 13:22 Calcium 9.1 mg/dl (8.6-10.3) 02/09/25 06:25 Magnesium 2.1 mg/dl (1.7-2.4) 02/09/25 06:25 Total Bilirubin 1.3 mg/dl (0.2-1.0) H 02/07/25 11:20 AST 17 U/L (13-39) 02/07/25 11:20 ALT 33 U/L (7-52) 02/07/25 11:20 Alkaline Phosphatase 97 U/L (34-104) 02/07/25 11:20 Troponin I High Sens 6.3 pg/ml (0-20) 02/07/25 11:20 C-Reactive Protein 28.39 mg/dl (0-0.5) H 02/07/25 11:20 B-Natriuretic Peptide 32 pg/ml (0-100) 02/07/25 11:20 Total Protein 7.3 gm/dl (6.0-8.3) 02/07/25 11:20 Albumin 4.0 gm/dl (3.4-5.0) 02/07/25 11:20 Globulin 3.3 gm/dl (2.5-4.0) 02/07/25 11:20 Albumin/Globulin Ratio 1.2 (0.9-2) 02/07/25 11:20 Procalcitonin 7.40 ng/ml (0-0.5) H 02/07/25 11:20 Nasal Screen MRSA (PCR) Negative (Negative) 02/07/25 18:48 Adenovirus (PCR) Not Detected (NotDetected) 02/07/25 11:20 B. pertussis DNA (PCR) Not Detected (NotDetected) 02/07/25 11:20 B.parapertussis DNA PCR Not Detected (NotDetected) 02/07/25 11:20 C. pneumoniae DNA (PCR) Not Detected (NotDetected) 02/07/25 11:20 Coronavirus OC43 (PCR) Not Detected (NotDetected) 02/07/25 11:20 Coronavirus HKU1 (PCR) Not Detected (NotDetected) 02/07/25 11:20 Coronavirus 229E (PCR) Not Detected (NotDetected) 02/07/25 11:20 SARS-CoV-2 (PCR) Not Detected (NotDetected) 02/07/25 11:20 Coronavirus NL63 (PCR) Not Detected (NotDetected) 02/07/25 11:20 Human Metapneumovir PCR Not Detected (NotDetected) 02/07/25 11:20 Influenza Type A (PCR) Not Detected (NotDetected) 02/07/25 11:20 Influenza Type B (PCR) Not Detected (NotDetected) 02/07/25 11:20 M. pneumoniae (PCR) Not Detected (NotDetected) 02/07/25 11:20 Parainfluenza 1 (PCR) Not Detected (NotDetected) 02/07/25 11:20 Parainfluenza 2 (PCR) Not Detected (NotDetected) 02/07/25 11:20 Parainfluenza 3 (PCR) Not Detected (NotDetected) 02/07/25 11:20 Parainfluenza 4 (PCR) Not Detected (NotDetected) 02/07/25 11:20 RSV (PCR) Not Detected (NotDetected) 02/07/25 11:20 Entero/Rhino (PCR) Not Detected (NotDetected) 02/07/25 11:20 Impressions Chest X-Ray 02/07/25 11:06 EXAM: Radiograph of the Chest 1 View INDICATION: Dyspnea TECHNIQUE: Frontal view of the chest. COMPARISON: 04/03/2024 FINDINGS: Lungs and pleural spaces: Stable mild scar atelectasis left base. Minimal airway thickening is stable. No pleural effusion or pneumothorax. Heart: Shape and configuration within normal limits allowing for technique. Mediastinum: Normal contour. Bones/joints: Degenerative changes noted throughout the spine. No acute osseous abnormality seen. Soft tissues: No abnormality noted. No radiopaque foreign body noted. Upper abdomen: No abnormality noted. IMPRESSION: Mild acute and or chronic bronchitis and stable mild left base atelectasis. ACT 112: N/A Electronically signed by Marlin Msoqueda 02-07-2025 11:39 AM Chest CTA 02/07/25 12:07 EXAM: CT Angiography Chest With Intravenous Contrast INDICATION: Intermittent chest pain and recent pneumonia 3 weeks ago. TECHNIQUE: Axial computed tomographic angiography images of the chest with intravenous contrast. Sagittal and coronal reformatted images were created and reviewed. This CT exam was performed using one or more of the following dose reduction techniques: automated exposure control, adjustment of the mA and/or kV according to patient size, and/or use of iterative reconstruction technique. MIP reconstructed images were created and reviewed. CONTRAST: 62ml of Optiray 320 was administered intravenously. COMPARISON: 04/03/2024 FINDINGS: Pulmonary arteries: No abnormality noted. No pulmonary embolism. Aorta: There is mild atherosclerosis at the origin of the left subclavian artery. No aortic aneurysm or dissection. Lungs and pleural spaces: Centrilobular emphysematous changes stable. There is consolidation in both lower lobes left greater than right. No pleural effusion or pneumothorax. No bronchiectasis. Heart: Cardiomegaly. No right heart strain or pericardial effusion. There is marked left coronary calcification. Bones/joints: No acute or atypical chronic changes. Soft tissues: No abnormality noted. Lymph nodes: Mild reactive left hilar lymph nodes. Liver: Normal size and contour. Hypodense typical of steatosis. No mass or ductal dilation. IMPRESSION: 1. No pulmonary embolus noted. Impression bilateral lower lobe pneumonia. 2. Hepatic steatosis. ACT 112: N/A Electronically signed by Marlin Mosqueda 02-07-2025 12:38 PM Ordered Studies 02/07/25 12:07 CT angio chest PE protocol Stat Hospital Course (1) Acute hypoxic respiratory failure: Patient is a 64-year-old gentleman presents emergency room with acute hypoxic respiratory failure and imaging evidence of bilateral pneumonia that seems to failed outpatient antibiotic therapy. Patient requires hospital level interventions for IV antibiotics and additional testing and oxygen support Acute respiratory failure with hypoxia Bilateral pneumonia Failed outpatient antibiotic, steroid course H/O COPD --Chest CTA:No pulmonary embolus noted. Impression bilateral lower lobe pneumonia. --BioFire negative -Nasal MRSA negative --Sputum culture and moderate normal ryan Urine Legionella pending --Follow-up with pulmonology as outpatient --Currently on cefepime, doxycycline Weaned off of supplemental oxygen Continue home Trelegy Pulmonary hygiene 2 step: Patient did not qualify for supplemental oxygen Advised to follow-up with pulmonology on discharge (2) Bilateral pneumonia: (3) Chronic renal failure, stage 3 (moderate): Renal function at baseline Monitor renal function (4) COPD (chronic obstructive pulmonary disease): Continue home inhalers (5) Diabetes mellitus: Last HbA1c 6.4 Continue insulin per protocol while hospitalized (6) BPH (benign prostatic hyperplasia): Continue tamsulosin (7) Bipolar 1 disorder: Continue home medications (8) Hypertension: Stable (9) Hyperlipidemia: Continue Lipitor Plan DVT Px SQ Lovenox CODE STATUS full code Disposition Home Total Time Total Time Spent Total Time Spent (In Minutes): 45 minutes Discharge Plan Discharge Items Patient Disposition: Home - Self-Care Reason For Visit: RESP FAILURE Discharge Diagnosis: Acute respiratory failure with hypoxia Bilateral pneumonia Activity: Per Instructions section Exercise/Sports: Wait until after follow-up appointment Non-emergency contact: Primary Care Provider Call non-emergency contact if: you have any medication questions, your symptoms worsen, your pain is concerning for you and you have a fever Follow-up/Referrals: Narcisa Abel MD [Primary Care Provider] - (Date & Time 02/17/2025 10:20 AM Provider: Narcisa Ordonez MD [facility] ) Diet: Carb Consistent or DM2 Addtl Attending Provider Instructions: Follow-up with your primary care physician Dr. 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 Follow-up with your physician for results. --Complete the antibiotic course cefuroxime and doxycycline as prescribed --Hold taking the amlodipine as your blood pressure stable while you are off this medication. Monitor your blood pressure regularly and discuss with your primary care physician for further recommendations. -- Avoid taking meloxicam or other [id number] pain medications (except for acetaminophen) as they can worsen your kidney function. Seek immediate medical attention if your symptoms reoccur or worsen Please review medication list provided on discharge for any medication changes as instructed. Please call if you have any questions or problems. You can reach a [facility] hospitalist on duty at [facility] 24 hours a day by calling [phone] Pending Studies at Discharge: Yes Studies:: Blood cultures Stand-Alone Forms: [facility] Sprinkle, Smoking Cessation Medications and DC Order Prescriptions: New doxycycline hyclate 100 mg Capsule 100 mg PO BID Qty: 14 0RF cefuroxime axetil 500 mg tablet 500 mg PO BID Qty: 14 0RF Continued fluoxetine 40 mg capsule 80 mg PO DAILY atorvastatin 40 mg tablet 40 mg PO QAM metformin 500 mg tablet 500 mg PO UD Rx Instructions: 500 mg po bid. no fill history availble clopidogrel 75 mg tablet 75 mg PO DAILY tamsulosin 0.4 mg capsule 0.8 mg PO UD Rx Instructions: 0.8 mg po hs. last filled 05/07 30 day supply pantoprazole 40 mg tablet,delayed release (DR/EC) 40 mg PO DAILY buspirone 10 mg tablet 10 mg PO UD Rx Instructions: 10 mg po bid. no fill history available fluticasone propionate 50 mcg/actuation spray,suspension 50 mcg INTRANASAL DAILY Rx Instructions: otc/no fill history available lamotrigine 100 mg tablet 100 mg PO BID finasteride 5 mg tablet 5 mg PO UD Rx Instructions: 5 mg po daily. no fill history available Trelegy Ellipta 100-62.5-25 mcg blister with device 1 ea INHALATION DAILY gabapentin 400 mg capsule 400 mg TID alfuzosin 10 mg tablet extended release 24 hr 10 mg PO UD Rx Instructions: 10 mg po daily. last filled 07/14/24 30 day supply baclofen 20 mg tablet 20 mg BID azithromycin 250 mg tablet 250 mg PO DIRECTED nortriptyline 25 mg capsule 50 mg PO HS Rx Instructions: filled 12/21 29 day supply methylprednisolone 4 mg tablets,dose pack 4 mg PO DIRECTED lisinopril 40 mg tablet 40 mg PO DAILY Rx Instructions: filled 01/05 90 day supply Mounjaro 7.5 mg/0.5 mL pen injector 7.5 mg subcut WK Rx Instructions: filled 12/24 27 day supply Held amlodipine 5 mg tablet 5 mg PO DAILY Hold Instructions: Hold taking the amlodipine as your blood pressure stable while you are off this medication. Follow-up with PCP for further recommendations Rx Instructions: filled 12/27 89 day supply Discontinued meloxicam 7.5 mg tablet 7.5 mg PO DAILY Rx Instructions: filled 01/05 90 day supply Admission Data Admit Date/Time: 02/07/25 13:51 Attending Provider: Ramon Camilo Admit Provider: Mathieu Puga Primary Care Provider: Narcisa Abel Other Providers: Mathieu Puga
== END 2025-02-09 14:20 | disposition home or self-care (01) | DRG 193 ==
LOC: ED 10:46 → 3W 13:51 → SUATTDRO 13:51 → 3W 14:28